=== PATIENT | female | born 1945 | race Caucasian/White ===

== ENCOUNTER → 2018-03-15 02:49 | Outpatient (CLI) | payer OTHER, SELFPAY ==
[2018-03-15 08:58] LABS: HCT 36.9 % (36.0-46.0); HGB 12.2 g/dL (12.0-15.5); Mean Corp. HGB Concentration 33.1 g/dL (32.0-36.0); Mean Corpuscular Hemoglobin 29.8 pg (27.0-33.0); Mean Corpuscular Volume 90.2 fL (80-95); Mean Platelet Volume 8.9 fL (8.0-11.0); Platelet Count 303 x1000/uL (130-400); RBC 4.09 m/cumm (4.00-5.20); RBC Distribution Width 13.5 % (11.7-14.6); White Blood Cell Count 7.12 k/cumm (4.4-10.8)
[2018-03-15 10:40] LABS: ALT 32 U/L (12-78); AST 21 U/L (15-37); Albumin 3.7 g/dL (3.4-5.0); Alkaline Phosphatase 62 U/L (46-116); Amylase 75 U/L (25-115); Anion Gap 10.3 mmol/L (3-11); BUN 13 mg/dL (7-18); Bilirubin, Total 0.2 mg/dL (0.2-1.0); CO2 24.7 mmol/L (21.0-32.0); CREATININE 0.62 mg/dL (0.55-1.02); Calcium 9.2 mg/dL (8.5-10.1); Chloride 99 mmol/L (98-107); Glucose 105 mg/dL (70-100); Lipase 197 U/L (73-393); Potassium 4.6 mmol/L (3.5-5.1); Sodium 134 mmol/L (136-145); Total Protein 6.7 g/dL (6.4-8.2)
== END ==
PROVIDERS: PCP Emergency Medicine; Visit Provider Emergency Medicine
DX: D64.9 Anemia, unspecified (principal); R10.9 Unspecified abdominal pain
CPT/HCPCS: 36415; 80053; 83690; 85027; 82150

== ENCOUNTER → 2018-03-30 01:04 | Outpatient (CLI) | payer OTHER, SELFPAY ==
--- NOTE | 2018-03-30 08:58 | DI.RPTCT_ITS ---
SYMPTOM/DIAGNOSIS: MID ABDOMINAL PAIN R10.[address]: 03/30 CT examination of the abdomen and pelvis was performed with a bolus infusion of 100 cc Omnipaque 350 and ingestion of dilute barium. Images obtained through the lung bases are unremarkable. Note is made of a previous cholecystectomy. No biliary dilatation is seen. Liver, spleen and pancreas are unremarkable in appearance. Adrenals and kidneys are unremarkable except for an apparent 15 mm left renal mid-pole cyst No hydronephrosis or nephrolithiasis. Urinary bladder is nearly empty. Abdominal aorta is of normal diameter. No major vascular abnormalities seen. Appendix is normal. No evidence of diverticulitis or bowel obstruction. No significant abdominal wall hernia is seen. No significant abdominal or pelvic adenopathy seen. CONCLUSION: No evidence of acute intra-abdominal process
[2018-03-30] MEDS: Omnipaque 350 MG/ML 100 ML BTL IJ (10:33)
[2018-03-30] MEDS: Omnipaque 350 MG/ML 50 ML BTL PO (10:34)
[2018-03-30] MEDS: Breeza Beverage 473 ML BTL PO ×2 (10:35)
== END ==
PROVIDERS: PCP Emergency Medicine; Visit Provider Emergency Medicine
DX: R10.9 Unspecified abdominal pain (principal); N28.1 Cyst of kidney, acquired; Z90.49 Acquired absence of other specified parts of digestive tract
CPT/HCPCS: 74177; J3490; Q9967

== ENCOUNTER 2018-04-16 11:42 | Emergency (ER) | payer OTHER, SELFPAY ==
[2018-04-16 11:56] VITALS: BP 155/79; PULSE 59; RESP 18; TEMP 36.4; O2SAT 99
--- NOTE | 2018-04-16 12:11 | DI.CT_ITS ---
SYMPTOMS/DIAGNOSIS: C7 MIDLINE PAIN, L4 PARASPINAL PAIN, S-2 MIDLINE PAIN S/P HITTING HEAD IN FALL NONCONTRAST HEAD CT: No intracranial hemorrhage or skull fracture is seen. The ventricles are normal in size. Sinuses and mastoid air cells appear clear. IMPRESSION: Negative head CT. CT OF THE CERVICAL SPINE: A cervical collar is in place. There is no evidence of fracture. The alignment appears normal. There are degenerative disc changes from C4-5 through C6-7. There is no paraspinal hematoma. IMPRESSION: Degenerative changes. No acute abnormality. CT OF THE THORACIC SPINE: There is no evidence of fracture. There is a mild lower thoracic scoliosis. Degenerative disc changes are seen. There is no paraspinal hematoma. IMPRESSION: Degenerative changes and scoliosis. No acute abnormality. CT OF THE LUMBAR SPINE: There is a prominent scoliosis, convex toward the right. There are severe degenerative disc changes, which are asymmetric, greatest at L3-4 and L4-5. No fracture is identified. Laminectomy defects are seen from L1 through L3. Calcification is seen in the aorta. There is no evidence of aneurysm. The patient is status post hysterectomy and cholecystectomy. IMPRESSION: Degenerative changes and scoliosis. L1 through L3 laminectomy. No acute abnormality.
--- NOTE | 2018-04-16 12:15 | W.ED.GENAD ---
Discharge Plan Disposition Patient Disposition: HOME Condition: Good Discharge Details Chief Complaint: Nk/Back Pain Clinical Impression: Fall, Contusion, Lumbago Primary Care Provider: Noe Clarke ED Provider: Rehan Quinteros Home Meds and New Rx's Prescriptions: New lidocaine [Lidoderm] 1 EACH adhesive patch,medicated 1 ea Topical DAILY Qty: 3 RF: 0 acetaminophen 500 mg capsule 1,000 mg PO Q6H PRN (Reason: pain) Qty: 30 RF: 0 diclofenac sodium [Voltaren] 1 % gel 2 gm TP QID Qty: 100 RF: 0 No Action ASPIRIN 81 MG tablet 1 tab PO 5X/WEEK RF: 0 cod liver oil 1 EACH capsule 1 cap PO 3X/WEEK RF: 0 calcium carbonate [Tums] 300 MG tablet,chewable 1 tab PO PRN RF: 0 glucosamine sulfate 500 MG capsule 1 cap PO TID RF: 0 multivitamin 1 EACH capsule 1 cap PO DAILY RF: 0 magnesium amino acid chelate 100 MG tablet 235 mg PO BID RF: 0 lancets [Brass MonkeyTouch Delica Lancets] 1 EACH misc 1 ea Intradermal BID Qty: 180 RF: 3 blood sugar diagnostic [fuseSPORTuch Ultra Test] 1 EACH strip 1 strip Miscellaneous BID Qty: 180 RF: 3 omeprazole 20 MG capsule,delayed release(DR/EC) 20 mg PO BID Qty: 180 RF: 4 Ubidecarenone/Vit E/Vit E Mix [Co-Enzyme Q10 100 mg Softgel] 1 EACH capsule 1 ea PO DAILY RF: 0 conjugated estrogens [Premarin] 30 GM cream 30 gm VG twice weekly Qty: 1 RF: 3 spironolactone [Aldactone] 25 MG tablet 25 mg PO DAILY Qty: 90 RF: 6 nitroglycerin [Nitrostat] 0.4 MG tablet, sublingual 1 tab Sublingual PRN Qty: 25 RF: 4 lorazepam [Ativan] 1 MG tablet 1 mg PO HS Qty: 30 RF: 1 metoprolol tartrate 50 MG tablet 50 mg PO BID Qty: 180 RF: 3 coenzyme [id number] [Co Q-10 (with Vit E)] 1 EACH capsule 1 ea PO DAILY RF: 0 metformin [Glucophage] 500 MG tablet 1 tab PO BID Qty: 180 RF: 4 amlodipine [Norvasc] 5 MG tablet 5 mg PO DAILY Qty: 90 RF: 4 losartan [Cozaar] 100 MG tablet 1 tab PO DAILY Qty: 90 RF: 4 rosuvastatin [Crestor] 10 MG tablet 1 tab PO DAILY Qty: 90 RF: 4 acetaminophen [Tylenol Extra Strength] 500 mg Tablet 1,000 mg PO PRN PRNRF: 0 Discharge Instructions Instructions: Low Back Strain (ED), Contusion in Adults (ED) Additional Instructions: Please take the medication as directed, please use ice and heat for your back. If you notice any numbness or tingling in her groin, any loss of control of your stools or urine, please return immediately. If you notice any worsening of your symptoms, or any new symptoms such as vomiting, diarrhea, fever, chills, shortness of breath, chest pain, numbness, weakness, or fainting , please return immediately to the emergency department for reevaluation. Please follow up with your primary care provider as soon as possible for reassessment and reevaluation. As always, it was a pleasure participating in your medical care today. Referrals: Noe Clarke DO [Primary Care Provider] - Medical Decision Making MDM Narrative Medical decision making narrative: This is a very pleasant 73-year-old female who presents after a fall. She has a long history of back cancer, scoliosis and chronic back pain. She presents today after falling, hitting her lower back and buttock, as well as her posterior head. She had no loss of consciousness. Physical exam demonstrates no neurologic abnormalities, good rectal tone, no saddle anesthesia. She does have some paraspinal tenderness for L3-L4, and midline tenderness for S1 as well as C7. Because of her history, red flags of cancer and age, as well as her fall we will get imaging to rule out any acute fracture abnormality. She shows no clinical signs or symptoms of cauda equina syndrome at this time. Patient refuses any ibuprofen or Toradol as it does not agree with her stomach, however we will give her Lidoderm patch for improvement of her symptoms. 2:55 PM Per virtual radiology the patient's edges have come back negative, CT scan of the head, C-spine, thoracic spine and lumbar spine extending to the pelvis demonstrates no evidence of acute abnormality, fracture, or trauma. She does have status post multilevel laminectomy with spondylolysis, and some chronic scoliosis as well. No other acute component. Repeat physical exam continues to demonstrate no findings of focal neurologic deficits, no signs or symptoms concerning for cauda equina syndrome. No significant urinary retention patient's pain is improved with Lidoderm patch. This time I feel that she is safe for discharge home with close follow-up. We will give her Lidoderm patches, prescription for Tylenol, NSAID creams, and avoid opiates narcotics and muscle relaxants at this time secondary to her age and risk factors. We discussed red flags which to return the patient understands. I have extensively reviewed the treatment plan and discharge instructions with the patient. I have addressed all patient concerns at this time. The patient was made aware of what symptoms to monitor for that would warrant a return to the emergency department. Discussed the plan with the patient, they demonstrate verbal understanding and agreement with our assessment and plan at this time. HPI - General Adult General Date/Time Provider Initiated Documentation: 04/16/18 11:57. 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 She presents today for evaluation of fall. She takes an aspirin 3 days a week. Patient states that she was walking on wet grass, slipped and her buttock landed on the wet grass, however her head hit the asphalt driveway in the posterior aspect. She had no loss of consciousness. She did need some help getting up. She has chronic back pain, and after the fall she is noticing notable worsening of the pain. She denies any bowel or bladder incontinence. She denies any saddle anesthesia. She denies any numbness tingling or weakness. Her back pain is located in her lower back and her neck. It is worsened with movement. She did take Tylenol at home this morning but this has not improved her symptoms. The fall happened roughly 1 hour prior to arrival. Patient denies any current headache, vision changes, vomiting, diarrhea, nausea. She has no other complaints at this time. She denies any pertinent family history. She denies any IV or illicit drug use. Related Data Home Medications Medication Instructions Recorded Confirmed Aspirin 1 tab PO 5X/WEEK 11/15/12 04/16/18 calcium carbonate [Tums] 1 tab PO PRN tab.chew 11/15/12 04/16/18 cod liver oil 1 cap PO 3X/WEEK 11/15/12 04/16/18 glucosamine sulfate 1 cap PO TID 11/15/12 04/16/18 multivitamin 1 cap PO DAILY 11/15/12 04/16/18 magnesium amino acid chelate 235 mg PO BID 04/10/14 04/16/18 Ubidecarenone/Vit E/Vit E Mix 1 ea PO DAILY 11/08/17 04/16/18 [Co-Enzyme Q10 100 mg Softgel] coenzyme [id number] [Co Q-10 1 ea PO DAILY 03/03/18 04/16/18 100 Mg Softgel] acetaminophen [Tylenol Extra 1,000 mg PO PRN PRN 04/16/18 04/16/18 Strength] Previous Rx's Medication Instructions Recorded acetaminophen 1,000 mg PO Q6H PRN #30 cap 04/16/18 diclofenac sodium [Voltaren] 2 gm TP QID #100 gm 04/16/18 lidocaine [Lidoderm] 1 ea TOPICAL DAILY #3 adh..patch 04/16/18 Allergies Allergy/AdvReac Type Severity Reaction Status Date / Time codeine Allergy Severe hives, Unverified 04/16/18 12:41 itching ranitidine AdvReac Intermediate DIARRHEA Unverified 04/16/18 12:41 JR Inhibitors AdvReac Mild COUGH Unverified 04/16/18 12:41 NSAIDS (Non-Steroidal AdvReac Mild GI upset Unverified 04/16/18 12:41 Anti-Inflamma atorvastatin AdvReac Unknown ELEVATED Unverified 04/16/18 12:41 LFT'S General Stated Complaint: Nk/Back Pain MYLES: 3 Review of Systems Review of Systems 10 point review of systems was performed, pertinent positives and negatives are noted in the history of present illness. PFSH Family History Mother Heart disease Cerebrovascular accident Father Diabetes Essential hypertension Heart disease Sister No problems noted. Sister No problems noted. Brother No problems noted. Grandfather No problems noted. Grandfather No problems noted. Grandmother Diabetes Grandmother Neoplasm Cerebrovascular accident Son Essential hypertension Daughter Heart disease Social History Smoking/Tobacco Use Status: Never Surgical History ABDOMINAL WALL HERNIA REPAIR (~2002) AORTIC BYPASS Abdominal hysterectomy (~1998) BSO Cholecystectomy Colonoscopy - MAC EGD - MAC (~2000) RECTOCELE REPAIR UROTOMY (~1998) Exam Narrative Exam Narrative: 1.Const: Well-nourished, Well-developed, appearing stated age 2.Eyes: PERRL, no conjunctival injection, and symmetrical lids. 3.ENT: Atraumatic external nose and ears. Moist MM. Neck: Symmetric, trachea midline, No thyromegaly. Patient demonstrates intact dentition with no signs of tooth avulsion or fracture, no signs of jaw deformity, no evidence of a LeFort's fracture, with an intact palate, nose and orbital region. There is no evidence of a nasal septal hematoma. No proptosis. Jaw closes symmetrically. Airway is clear. There is no evidence of raccoon eyes, thompson sign, CSF rhinorrhea, mastoid tenderness, cranial crepitus, hemotympanum, exophthalmos, or hyphema. 4.CVS: +S1/S2, No murmurs or gallops. Peripheral pulses 2+ and equal in all extremities. Brisk capillary refill in all extremities. No evidence of trauma or bruising on the chest. No tenderness on the anterior posterior chest winters. 5.RESP: Unlabored respiratory effort. Clear to auscultation bilaterally. No wheezes rales or rhonchi 6.GI: Soft, Nontender/Nondistended, No hepatosplenomegaly. No guarding or rebound. 7.MSK: Normocephalic/Atraumatic, Extremities w/o deformity, Normal movement of all extremities. Negative logroll for both lower extremities. 5 out of 5 strength in all extremities. No midline tenderness to palpation over the CTLS spine except for over C7. She also has minimal right-sided paraspinal tenderness over L3/L4, and midline sacral spine tenderness over S1. Normal ROM in flexion, extension, side bend, and rotation. Patient has +5 out of 5 strength in the lower extremities in dorsiflexion and plantarflexion, knee flexion and extension, hip flexion and extension. There is +2 over 2 dorsalis pedis pulses bilaterally. There is normal sensation to the skin with light touch at the foot, knee, and hip. Normal saddle sensation. Good sensation over the deep sural nerve area bilaterally. Rectal exam was performed with female nurse at bedside and she demonstrated good rectal. Reflexes are +2 over 4 in the patellar reflex bilaterally. +5 out of 5 strength in the medial, ulnar, radial nerve distribution bilaterally in the hands as well as intact light touch sensation to these dermatomes on the hands 8.Skin: Warm, Dry. No rashes or lesions. 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 Sensation grossly intact, no focal neurologic deficits. 10.Psych: (AAO) x3. Appropriate mood and affect Course Vital Signs Temperature 36.4 C L 04/16/18 11:56 Pulse 59 L 04/16/18 11:56 Respiratory Rate 18 04/16/18 11:56 Blood Pressure 155/79 H 04/16/18 11:56 Pulse Oximetry 99 04/16/18 11:56 Temperature 36.4 C L 04/16/18 11:56 Pulse 59 L 04/16/18 11:56 Respiratory Rate 18 04/16/18 11:56 Blood Pressure 155/79 H 04/16/18 11:56 Pulse Oximetry 99 04/16/18 11:56
[2018-04-16] MEDS: Lidocaine 5% Patch 1 PATCH TP (12:39)
--- NOTE | 2018-04-16 13:40 | DI.VRAD_ITS ---
EXAM: CT Head Without Intravenous Contrast CLINICAL HISTORY: 73 years old, female; Injury or trauma; Fall; Initial encounter; Blunt trauma (contusions or hematomas); Patient HX: Fall on wet grass, hit head; C7 midline pain, l4 pain, s1/s2 midline pain TECHNIQUE: Axial computed tomography images of the head/brain without intravenous contrast. Coronal and sagittal reformatted images were created and reviewed. COMPARISON: No relevant prior studies available. FINDINGS: Brain: There is mild cortical volume loss, typical for age. No hemorrhage. No significant white matter disease. Ventricles: Unremarkable. No ventriculomegaly. Bones/joints: Unremarkable. No acute fracture. Soft tissues: Unremarkable. Sinuses: Unremarkable as visualized. No acute sinusitis. Mastoid air cells: Unremarkable as visualized. No mastoid effusion. IMPRESSION: No evidence for acute intracranial abnormality. EXAM: CT Cervical Spine Without Intravenous Contrast EXAM DATE/TIME: 04/16/2018 12:17 PM CLINICAL HISTORY: 73 years old, female; Injury or trauma; Fall; Initial encounter; Blunt trauma (contusions or hematomas); Patient HX: Fall on wet grass, hit head; C7 midline pain, l4 pain, s1/s2 midline pain TECHNIQUE: Axial computed tomography images of the cervical spine without intravenous contrast. Coronal and sagittal reformatted images were created and reviewed. COMPARISON: No relevant prior studies available. FINDINGS: Vertebrae: Cervical spondylosis without evidence for stenosis. No acute fracture. Discs/spinal canal/neural foramina: No acute findings. No spinal canal stenosis. Soft tissues: Unremarkable. Vasculature: Carotid calcifications are identified bilaterally. Lung apices: Unremarkable as visualized. IMPRESSION: No evidence for acute posttraumatic abnormality. Preliminary interpretation is based on receipt of 896 image(s). A final report will be issued subsequently. We appreciate the opportunity to be involved in this patient's care. Dictated and Authenticated by: Kendra Lawson MD. Ordering:JOHAN MCELROY MD
--- NOTE | 2018-04-16 13:48 | DI.VRAD_ITS ---
EXAM: CT Thoracic Spine Without Intravenous Contrast CLINICAL HISTORY: 73 years old, female; Injury or trauma; Fall; Initial encounter; Blunt trauma (contusions or hematomas); Patient HX: Fell on wet grass, hit head; L4 paraspinal pain, s1-2 midline pain TECHNIQUE: Axial computed tomography images of the thoracic spine without intravenous contrast. Coronal and sagittal reformatted images were created and reviewed. COMPARISON: No relevant prior studies available. FINDINGS: Vertebrae: Moderate thoracic spondylosis. No evidence for stenosis. No acute fracture. Discs/spinal canal/neural foramina: No acute findings. No spinal canal stenosis. Soft tissues: Unremarkable. Vasculature: Moderate atherosclerotic change present in the vasculature. Lungs: Right upper lobe calcified granuloma. Heart: Coronary artery calcification/stents. Gallbladder and bile ducts: Status post cholecystectomy. IMPRESSION: No acute fracture seen. EXAM: CT Lumbar Spine Without Intravenous Contrast EXAM DATE/TIME: 04/16/2018 12:14 PM CLINICAL HISTORY: 73 years old, female; Injury or trauma; Fall; Initial encounter; Blunt trauma (contusions or hematomas); Patient HX: Fell on wet grass, hit head; L4 paraspinal pain, s1-2 midline pain TECHNIQUE: Axial computed tomography images of the lumbar spine without intravenous contrast. COMPARISON: No relevant prior studies available. FINDINGS: Vertebrae: There is mild dextroscoliosis. Moderate to severe spondylosis. No evidence for stenosis. Status post laminectomy L1-L3. No acute fracture. Discs/spinal canal/neural foramina: No acute findings. No spinal canal stenosis. Soft tissues: Unremarkable. Vasculature: Moderate atherosclerotic change present in the vasculature. Gallbladder and bile ducts: Status post cholecystectomy. Reproductive: Status post hysterectomy. IMPRESSION: Status post multilevel laminectomy with spondylosis. No evidence for fracture. Preliminary interpretation is based on receipt of 1894 image(s). A final report will be issued subsequently. We appreciate the opportunity to be involved in this patient's care. Dictated and Authenticated by: Kendra Lawson MD. Ordering:JOHAN MCELROY MD
[2018-04-16 14:40] VITALS: BP 154/69; RESP 15
[2018-04-16 15:10] VITALS: BP 154/69; PULSE 59; RESP 15; TEMP 36.4; O2SAT 99
== END 2018-04-16 15:14 | disposition home or self-care (01) ==
PROVIDERS: Emergency Provider Student in an Organized Health Care Education/Training Program; PCP Emergency Medicine
DX: M54.5 Low back pain (principal); S30.0XXA Contusion of lower back and pelvis, initial encounter; M54.2 Cervicalgia; W18.39XA Other fall on same level, initial encounter; E11.9 Type 2 diabetes mellitus without complications; I10 Essential (primary) hypertension
CPT/HCPCS: 36416; 82962; 99284; 70450; 72125; 72128; 72131; 99285; L0172

== ENCOUNTER 2018-04-24 10:41 | Emergency (ER) | payer OTHER, SELFPAY ==
[2018-04-24 10:56] VITALS: BP 151/81; PULSE 62; RESP 16; TEMP 36.6; O2SAT 99
[2018-04-24] MEDS: Celecoxib 200 MG CAP 400 MG PO (11:49)
--- NOTE | 2018-04-24 12:49 | ED.GENADUL_ITS ---
Discharge Plan Disposition Patient Disposition: HOME Condition: Fair Discharge Details Chief Complaint: Orthopedic Clinical Impression: Back pain Primary Care Provider: Noe Clarke ED Provider: Mayuri Yusuf Meds and New Rx's Prescriptions: New metaxalone [Skelaxin] 800 mg tablet 800 mg PO TID PRN (Reason: muscle spasm) Qty: 10 RF: 0 celecoxib [Celebrex] 200 mg capsule 200 mg PO BID PRN (Reason: pain) Qty: 14 RF: 0 Continue ASPIRIN 81 MG tablet 1 tab PO 5X/WEEK RF: 0 cod liver oil 1 EACH capsule 1 cap PO 3X/WEEK RF: 0 calcium carbonate [Tums] 300 MG tablet,chewable 1 tab PO PRN RF: 0 glucosamine sulfate 500 MG capsule 1 cap PO TID RF: 0 multivitamin 1 EACH capsule 1 cap PO DAILY RF: 0 magnesium amino acid chelate 100 MG tablet 235 mg PO BID RF: 0 omeprazole 20 MG capsule,delayed release(DR/EC) 20 mg PO BID Qty: 180 RF: 4 Ubidecarenone/Vit E/Vit E Mix [Co-Enzyme Q10 100 mg Softgel] 1 EACH capsule 1 ea PO DAILY RF: 0 conjugated estrogens [Premarin] 30 GM cream 30 gm VG twice weekly Qty: 1 RF: 3 spironolactone [Aldactone] 25 MG tablet 25 mg PO DAILY Qty: 90 RF: 6 nitroglycerin [Nitrostat] 0.4 MG tablet, sublingual 1 tab Sublingual PRN Qty: 25 RF: 4 lorazepam [Ativan] 1 MG tablet 1 mg PO HS Qty: 30 RF: 1 metoprolol tartrate 50 MG tablet 50 mg PO BID Qty: 180 RF: 3 metformin [Glucophage] 500 MG tablet 1 tab PO BID Qty: 180 RF: 4 amlodipine [Norvasc] 5 MG tablet 5 mg PO DAILY Qty: 90 RF: 4 losartan [Cozaar] 100 MG tablet 1 tab PO DAILY Qty: 90 RF: 4 rosuvastatin [Crestor] 10 MG tablet 1 tab PO DAILY Qty: 90 RF: 4 lancets [OneTouch Delica Lancets] 33 gauge misc 1 ea Intradermal BID Qty: 180 RF: 3 blood sugar diagnostic [DatoramaTouch Ultra Blue Test Strip] strip .ROUTE .MEDSUPPLY Qty: 100 RF: 3 lancets [OneTouch Delica Lancets] 33 gauge misc .ROUTE .MEDSUPPLY Qty: 100 RF: 6 acetaminophen [Tylenol Extra Strength] 500 mg Tablet 1,000 mg PO PRN PRNRF: 0 lidocaine [Lidoderm] 1 EACH adhesive patch,medicated 1 ea Topical DAILY Qty: 3 RF: 0 acetaminophen 500 mg capsule 1,000 mg PO Q6H PRN (Reason: pain) Qty: 30 RF: 0 diclofenac sodium [Voltaren] 1 % gel 2 gm TP QID Qty: 100 RF: 0 No Action blood sugar diagnostic [OneTouch Ultra Test] strip 1 strip Miscellaneous BID Qty: 180 RF: 0 Discharge Instructions Instructions: Back Pain (ED), Lower Back Exercises (ED) Additional Instructions: Encourage hydration. Take Celebrex as prescribed, this is an anti-inflammatory but should not upset her stomach the way ibuprofen has. He may use Skelaxin as prescribed to help with muscle spasm. This may cause fatigue, please do not drive while taking this medication. Please encourage stretching, see attached packet for core exercises. Frequent short walks will also be of benefit to help with muscle spasm. Please follow-up with chiropractor. I have asked her care according to help facilitate follow-up with primary care. Please attempt to call them again, would like you to be seen at the end of the week for reevaluation. If you develop altered sensation, fever/chills, increased pain, difficulty ambulating or other new/worsening symptoms please seek care urgently once again Referrals: Noe Clarke DO [Primary Care Provider] - Discharge Data Discharge Date/Time-TO BE ENTERED AT DEPARTURE: 04/24/18 13:15 Medical Decision Making [facility] Narrative Medical decision making narrative: Patient presents today with cc of right lower back and right hip pain after a fall one week ago. On exam, patient has pain along the right side of her lower back, fairly diffusely. She has pain laterally over the hip with palpation. She was reporting clicking with ambuation but has no pain or clicking with axial loading of the extremity. Advised this is likely extraarticular, likely stemming from inflammation. Patient is allergic to NSAIDS as it causes GI upset. Discussed the use of Celebrex, she reports she has used this with success in the past. Will give dose of Skelaxin and Celebrex here and reevaluate. She does have palpable spasm over the right side of her lower back. Neuro exam intact. Patient was given Skelaxin and Celebrex. After dosing, reassess the patient. She continues to deny any unusual neurologic symptoms. Were able to ambulate about the department and she was able to do so without antalgic gait, reports no clicking and only minimal discomfort. . She reports her pain is down from 8 out of 10 to a 2 out of 10. Is feeling much improved and feels she can be discharged home at this time. We will continue with these medications. Advised follow-up with primary care. This patient has had difficulty making appointment, I will also According to help facilitate this. Encourage hydration. Encouraged him to do stretching and frequent ambulation. I advised physical therapy but patient has declined physical therapy referral at this time. Feels that she has better relief with rn intensive care unit. She will seek the care of her typical chiropractor today. Discussed new/worsening symptoms and when to seek care urgently once again. Patient prescribed celebrex and skelaxin. She did not experience any fatigue with the skelaxin. All of her questions and concerns were addressed, she is in agreement with this plan. HPI - General Adult General Mode of arrival: ambulatory . Date/Time Provider Initiated Documentation: 04/24/18 11:05 . Limitations to Documentation: no limitations . Information obtained by: patient and family . HPI Narrative: Meg is a 73 year old female, accompanied by her , with chief complaint of right hip pain and low back pain. Was seen here last week after fall for pain in similar area. Reports that pain has persisted. Was prescribed topical options for discomfort which she reports has not been successful as of yet. Is also endorsing 'clicking' from the right hip with ambulation. She indication the lateral and posterior aspects of the hip as area of discomfort and new sensation. Denies any altered senstiaon. No change in bowel or bladder habits. No weakness in lower extremities. Related Data Home Medications Medication Instructions Recorded Confirmed Aspirin 1 tab PO 5X/WEEK 11/15/12 04/24/18 calcium carbonate [Tums] 1 tab PO PRN tab.chew 11/15/12 04/24/18 cod liver oil 1 cap PO 3X/WEEK 11/15/12 04/24/18 glucosamine sulfate 1 cap PO TID 11/15/12 04/24/18 multivitamin 1 cap PO DAILY 11/15/12 04/24/18 magnesium amino acid chelate 235 mg PO BID 04/10/14 04/24/18 Ubidecarenone/Vit E/Vit E Mix 1 ea PO DAILY 11/08/17 04/24/18 [Co-Enzyme Q10 100 mg Softgel] acetaminophen [Tylenol Extra 1,000 mg PO PRN PRN 04/16/18 04/24/18 Strength] lancets [OneTouch Delica Lancets] #180 ea 04/21/18 Previous Rx's Medication Instructions Recorded omeprazole 20 mg PO BID #180 tab-cap 05/13/17 conjugated estrogens [Premarin] 30 gm VG twice weekly #1 tube 11/08/17 nitroglycerin [Nitrostat] 1 tab SUBLINGUAL PRN #25 tab.sl 12/02/17 spironolactone [Aldactone] 25 mg PO DAILY #90 tab-cap 12/02/17 lorazepam [Ativan] 1 mg PO HS #30 tab 01/03/18 metoprolol tartrate 50 mg PO BID #180 tab-cap 01/24/18 metformin [Glucophage] 1 tab PO BID #180 tab 03/21/18 amlodipine [Norvasc] 5 mg PO DAILY #90 tab-cap 03/24/18 losartan [Cozaar] 1 tab PO DAILY #90 tab 03/24/18 rosuvastatin [Crestor] 1 tab PO DAILY #90 tab 03/24/18 acetaminophen 1,000 mg PO Q6H PRN #30 cap 04/16/18 diclofenac sodium [Voltaren] 2 gm TP QID #100 gm 04/16/18 lidocaine [Lidoderm] 1 ea TOPICAL DAILY #3 adh..patch 04/16/18 blood sugar diagnostic strips #100 each 04/21/18 lancets 33 gauge #100 each 04/21/18 celecoxib [Celebrex] 200 mg PO BID PRN #14 cap 04/24/18 metaxalone [Skelaxin] 800 mg PO TID PRN #10 tab 04/24/18 blood sugar diagnostic strips #180 strip 04/25/18 Allergies Allergy/AdvReac Type Severity Reaction Status Date / Time codeine Allergy Severe hives, Unverified 04/24/18 11:00 itching ranitidine AdvReac Intermediate DIARRHEA Unverified 04/24/18 11:00 JR Inhibitors AdvReac Mild COUGH Unverified 04/24/18 11:00 NSAIDS (Non-Steroidal AdvReac Mild GI upset Unverified 04/24/18 11:00 Anti-Inflamma atorvastatin AdvReac Unknown ELEVATED Unverified 04/24/18 11:00 LFT'S General Stated Complaint: Orthopedic MYLES: 3 Review of Systems Constitutional Reports as per HPI, Denies chills, Denies fatigue, Denies fever(s) and Denies headache(s) ENT Denies headache(s) Cardiovascular Denies chest pain, Denies dyspnea and Denies dyspnea on exertion Respiratory Denies cough, Denies dyspnea and Denies dyspnea on exertion Gastrointestinal Denies abdominal pain, Denies change in stool character and Denies vomiting Genitourinary Denies urinary incontinence Musculoskeletal Reports as per HPI and Denies tingling Integumentary/Breasts Denies lesions, Denies erythema, Denies rash, Denies unusual bruising and Denies wounds Neurologic Reports as per HPI, Denies headache(s), Denies lack of coordination, Denies focal weakness, Denies radicular pain, Denies tingling and Denies paresthesias Endocrine Denies fatigue PFSH Family History Mother Heart disease Cerebrovascular accident Father Diabetes Essential hypertension Heart disease Sister No problems noted. Sister No problems noted. Brother No problems noted. Grandfather No problems noted. Grandfather No problems noted. Grandmother Diabetes Grandmother Neoplasm Cerebrovascular accident Son Essential hypertension Daughter Heart disease Social History Smoking/Tobacco Use Status: Never Surgical History ABDOMINAL WALL HERNIA REPAIR (~2002) AORTIC BYPASS Abdominal hysterectomy (~1998) BSO Cholecystectomy Colonoscopy - MAC EGD - MAC (~2000) RECTOCELE REPAIR UROTOMY (~1998) Exam Const General: cooperative, healthy appearing, comfortable, no acute distress, well developed and well groomed Nutritional Appearance: average body habitus Orientation: alert and awake Neck Neck: normal visual inspection Resp Effort & Inspection: normal respiratory effort, able to speak in complete sentences and no respiratory distress Auscultation: clear to auscultation bilaterally Cardio Rate: regular rate Rhythm: regular rhythm Heart Sounds: S1 normal and S2 normal GI Inspection: normal to inspection and non-distended Palpation: soft, no guarding and nontender Back/Spine/Pelvis Back: no CVA tenderness Cervical Spine: normal cervical lordosis and cervical ROM normal Thoracic/Lumbar Spine: No thoracic and lumbar spine normal to inspection ( patient has discomfort across the lumbar spine, worse on the right side than the left. She has tenderness over the area of L3. No step off. Patient has notable scoliosis. No midline tenderness elsewhere. No discoloration. Pain maximal over right iliac crest. ), thoraco-lumbar ROM normal, straight leg raise negative bilaterally and No mass Pelvis: no pain with anterior-posterior compression and no pain with lateral compression Sacroiliac joints: on the right tender to palpation Skin General skin exam: no rashes or lesions noted Lesions: no lesions Rashes: no rashes Trauma: no lacerations or abrasions Neuro General: alert, awake and oriented x3 Cognition: normal cognition Speech: speech normal Gait: normal gait Motor: muscle tone normal throughout and strength 5/5 throughout Sensory Exam: no sensory deficits noted (no saddle paresthesias) DTR's: Rt Patellar: 2+, Lt Patellar: 2+, Rt Ankle: 2+ and Lt Ankle: 2+ Extrem General: normal to inspection, full ROM (patient has full ROM of the right hip but has discomfort posteriorly with crossing leg across the body. No pain with axial loading of the RLE. She has pain with palpation laterally over the trochanteric bursitis), normal capillary refill, no joint enlargement, no pedal edema, no calf tenderness and normal gait Psych Appearance: grossly normal and well kempt Mental Status: mental status grossly normal Speech and Movement: speech and movement normal Course Vital Signs Temperature 36.6 C 04/24/18 10:56 Pulse 62 04/24/18 10:56 Respiratory Rate 16 04/24/18 10:56 Blood Pressure 151/81 H 04/24/18 10:56 Pulse Oximetry 99 04/24/18 10:56 Temperature 36.6 C 04/24/18 10:56 Pulse 62 04/24/18 10:56 Respiratory Rate 16 04/24/18 10:56 Blood Pressure 151/81 H 04/24/18 10:56 Pulse Oximetry 99 04/24/18 10:56
--- NOTE | 2018-04-25 09:29 | CMPROGNOTE_ITS ---
Care Management Progress Note 04/24/18-Pt seen on 04/24/18 for back pain by SH[facility] Hodgson. This is pt's second visit. F/U referral for this week sent to [facility] as Dr. Neda Clarke is Pt's PCP.
== END 2018-04-24 13:15 | disposition home or self-care (01) ==
PROVIDERS: Emergency Provider Physician Assistant; PCP Emergency Medicine
DX: M54.5 Low back pain (principal); M25.551 Pain in right hip; Z88.8 Allergy status to other drugs, medicaments and biological substances
CPT/HCPCS: 99283

== ENCOUNTER 2018-05-15 00:13 | Outpatient (CLI) | payer OTHER, SELFPAY ==
--- NOTE | 2018-05-15 11:50 | DI.MAMMO_ITS ---
SYMPTOM/DIAGNOSIS: SCREENING, Z12.31 MAMMOGRAMS: Mammograms were interpreted according to the usual protocol including computer analysis with CAD system, tomosynthesis and C view imaging. Comparison with prior examinations. Breast density B. No masses or microcalcifications are seen. There is nothing to suggest malignancy. IMPRESSION: Negative mammogram. Routine screening is recommended. Category I. MQSA ASSESSMENT OF FINDINGS: Negative. Category 1. Patient will receive a letter notifying them of these results. BI-RADS category B. There are scattered areas of fibroglandular density.
== END 2018-05-15 00:33 ==
PROVIDERS: PCP Emergency Medicine; Visit Provider Nurse Practitioner Family
DX: Z12.31 Encounter for screening mammogram for malignant neoplasm of breast (principal)
CPT/HCPCS: 77063; 77067

== ENCOUNTER 2018-05-22 08:34 | Emergency (ER) | payer OTHER, SELFPAY ==
[2018-05-22] VITALS (23 sets, daily range): BP systolic 84–157; BP diastolic 42–81; PULSE 62–76; RESP 10–23; TEMP 36.4–37.1; O2SAT 96–100
--- NOTE | 2018-05-22 08:30 | DI.RAD_ITS ---
SYMPTOMS/DIAGNOSIS: CEREBROVASCULAR ACCIDENT PA AND LATERAL CHEST: The heart is not enlarged. There are multiple mediastinal vascular clips and sternal sutures consistent with previous CABG surgery. The lungs are clear. No pleural effusions seen. CONCLUSION: No evidence of acute disease.
--- NOTE | 2018-05-22 08:32 | DI.CT_ITS ---
SYMPTOMS/DIAGNOSIS: LEFT-SIDED WEAKNESS, UNSTEADINESS CRANIAL CT: Noncontrast cranial CT was performed. There is mild generalized cerebral atrophy. No evidence of acute intracranial hemorrhage, mass effect or midline shift. Orbital and temporal bone structures appear intact. Paranasal sinuses and mastoid air cells are clear as visualized. CONCLUSION: No evidence of acute intracranial process.
[2018-05-22 09:29] LABS: Abs Immature Grans 0.02 k/cumm (0.0-0.09); Absolute Basophil Count 0.04 k/cumm (0.0-0.2); Absolute Eosinophil Count 0.12 k/cumm (0.0-0.7); Absolute Lymphocyte Count 1.29 k/cumm (1.2-3.4); Absolute Monocyte Count 0.75 k/cumm (0.11-0.7); Absolute Neutrophil Count 7.67 k/cumm (1.2-6.7); Basophils % 0.4; Eosinophils % 1.2; HCT 39.1 % (36.0-46.0); HGB 13.1 g/dL (12.0-15.5); Immature Grans % 0.2; Mean Corp. HGB Concentration 33.5 g/dL (32.0-36.0); Mean Corpuscular Hemoglobin 29.7 pg (27.0-33.0); Mean Corpuscular Volume 88.7 fL (80-95); Mean Platelet Volume 8.9 fL (8.0-11.0); Monocytes % 7.6; Neutrophils % 77.6; Platelet Count 259 x1000/uL (130-400); RBC 4.41 m/cumm (4.00-5.20); RBC Distribution Width 13.1 % (11.7-14.6); White Blood Cell Count 9.89 k/cumm (4.4-10.8)
--- NOTE | 2018-05-22 09:35 | W.ED.GENAD ---
Discharge Plan Disposition Patient Disposition: HOME Condition: Improving Discharge Details Chief Complaint: CVA/TIA Clinical Impression: TIA (transient ischemic attack) Primary Care Provider: Noe Clarke ED Provider: Bi Oliva Home Meds and New Rx's Prescriptions: New clopidogrel [Plavix] 75 mg tablet 75 mg PO DAILY Qty: 30 RF: 0 Continue cod liver oil 1 EACH capsule 1 cap PO 3X/WEEK RF: 0 calcium carbonate [Tums] 300 MG tablet,chewable 1 tab PO PRN RF: 0 glucosamine sulfate 500 MG capsule 1 cap PO TID RF: 0 multivitamin 1 EACH capsule 1 cap PO DAILY RF: 0 magnesium amino acid chelate 100 MG tablet 235 mg PO BID RF: 0 omeprazole 20 MG capsule,delayed release(DR/EC) 20 mg PO BID Qty: 180 RF: 4 Ubidecarenone/Vit E/Vit E Mix [Co-Enzyme Q10 100 mg Softgel] 1 EACH capsule 1 ea PO DAILY RF: 0 conjugated estrogens [Premarin] 30 GM cream 30 gm VG twice weekly Qty: 1 RF: 3 spironolactone [Aldactone] 25 MG tablet 25 mg PO DAILY Qty: 90 RF: 6 nitroglycerin [Nitrostat] 0.4 MG tablet, sublingual 1 tab Sublingual PRN Qty: 25 RF: 4 lorazepam [Ativan] 1 MG tablet 1 mg PO HS Qty: 30 RF: 1 metoprolol tartrate 50 MG tablet 50 mg PO BID Qty: 180 RF: 3 metformin [Glucophage] 500 MG tablet 1 tab PO BID Qty: 180 RF: 4 blood sugar diagnostic [OneTouch Ultra Blue Test Strip] strip .ROUTE .MEDSUPPLY Qty: 100 RF: 3 lancets [OneTouch Delica Lancets] 33 gauge misc .ROUTE .MEDSUPPLY Qty: 100 RF: 6 blood sugar diagnostic [OneTouch Ultra Test] strip 1 strip Miscellaneous BID Qty: 180 RF: 0 amlodipine [Norvasc] 5 mg tablet 5 mg PO DAILY Qty: 90 RF: 4 lancets [OneTouch Delica Lancets] 33 gauge misc 1 ea Intradermal BID Qty: 180 RF: 3 losartan [Cozaar] 100 mg tablet 100 mg PO DAILY Qty: 90 RF: 4 rosuvastatin [Crestor] 10 mg tablet 10 mg PO DAILY Qty: 90 RF: 4 acetaminophen [Tylenol Extra Strength] 500 mg Tablet 1,000 mg PO PRN PRNRF: 0 lidocaine [Lidoderm] 1 EACH adhesive patch,medicated 1 ea Topical DAILY Qty: 3 RF: 0 acetaminophen 500 mg capsule 1,000 mg PO Q6H PRN (Reason: pain) Qty: 30 RF: 0 diclofenac sodium [Voltaren] 1 % gel 2 gm TP QID Qty: 100 RF: 0 metaxalone [Skelaxin] 800 mg tablet 800 mg PO TID PRN (Reason: muscle spasm) Qty: 10 RF: 0 celecoxib [Celebrex] 200 mg capsule 200 mg PO BID PRN (Reason: pain) Qty: 14 RF: 0 Discontinued ASPIRIN 81 MG tablet 1 tab PO 5X/WEEK RF: 0 Discharge Instructions Instructions: Transient Ischemic Attack (ED) Additional Instructions: Your CAT scan, angiogram, MRI of the brain were reassuring. I discussed her case with our neurologist, Dr. Quintero who will see you in follow-up. She took your name and will arrange for an appointment. The office number is [phone]. Stop aspirin. Begin Plavix once daily tomorrow. Follow-up with respiratory therapy for Zio patch as discussed with them and for an outpatient echocardiogram which will be scheduled. we will arrange for a follow-up appointment primary care clinic once these tests have been completed Medical Decision Making 73-year-old female presents emergency department with complaint of waking up this morning with left arm tingling. She has diminished sensation on exam and will display discrete difficulty with finger to nose testing the left upper extremity. There is diagnosis includes acute hemorrhagic versus ischemic stroke. Patient referred for stat CT scan of the head, chest x-ray, laboratory testing. Patient's initial diagnostics were reassuring with unremarkable CT scan. Her symptoms improved over the course of approximately 2 hours time. She was given a full-strength aspirin. Given the concern for ischemic insult, patient underwent MRI of the brain. This did not show any abnormal findings. The case was discussed with Dr. Quintero and per her recommendations I proceeded to obtain an unremarkable CT angiogram of the head and neck as well as arranged patient to have outpatient monitoring with Zio Patch, and follow-up echocardiogram. She will be seen in neurology clinic for follow-up. Patient recommended to initiate Plavix therapy with 300 mg initial loading and 75 mg daily. She has had trouble with intolerance of aspirin in the past and therefore we will place her on single antiplatelet therapy with Plavix. She will discontinue the already prescribed aspirin. Lab Data Lab results reviewed: Yes I reviewed the patient's lab results. Laboratory Tests Range/Units 05/22/18 05/22/18 05/22/18 09:16 09:16 09:16 WBC (4.4-10.8) k/cumm RBC (4.00-5.20) m/cumm Hgb (12.0-15.5) g/dL Hct (36.0-46.0) % MCV (80-95) fL MCH (27.0-33.0) pg MCHC (32.0-36.0) g/dL RDW (11.7-14.6) % Plt Count (130-400) x1000/uL MPV (8.0-11.0) fL Immature Gran % Neutrophils % Lymphocytes % Monocytes % Eosinophils % Basophils % Absolute Neutrophils (1.2-6.7) k/cumm Absolute Lymphocytes (1.2-3.4) k/cumm Absolute Monocytes (0.11-0.7) k/cumm Absolute Eosinophils (0.0-0.7) k/cumm Absolute Basophils (0.0-0.2) k/cumm PT (9.3-10.8) sec 9.3 INR (1.0-3.5) 1.0 Sodium (136-145) mmol/L 135 L Potassium (3.5-5.1) mmol/L 4.3 Chloride (98-107) mmol/L 99 Carbon Dioxide (21.0-32.0) mmol/L 26.0 Anion Gap (3-11) mmol/L 10.0 BUN (7-18) mg/dL 13 Creatinine (0.55-1.02) mg/dL 0.62 Estimated GFR/1.73 m2 (mL/min/1.73m2) >= 60.00 Glucose (70-100) mg/dL 123 H Calcium (8.5-10.1) mg/dL 9.5 Magnesium (1.8-2.4) mg/dL 2.2 Total Bilirubin (0.2-1.0) mg/dL 0.3 0.3 Conjugated Bilirubin (0.00-0.20) mg/dL 0.07 AST (15-37) U/L 22 22 ALT (12-78) U/L 28 28 Alkaline Phosphatase (46-116) U/L 64 65 Troponin I (0.00-0.06) ng/mL 0.02 Total Protein (6.4-8.2) g/dL 7.5 7.5 Albumin (3.4-5.0) g/dL 3.7 3.7 Range/Units 05/22/18 09:16 WBC (4.4-10.8) k/cumm 9.89 RBC (4.00-5.20) m/cumm 4.41 Hgb (12.0-15.5) g/dL 13.1 Hct (36.0-46.0) % 39.1 MCV (80-95) fL 88.7 MCH (27.0-33.0) pg 29.7 MCHC (32.0-36.0) g/dL 33.5 RDW (11.7-14.6) % 13.1 Plt Count (130-400) x1000/uL 259 MPV (8.0-11.0) fL 8.9 Immature Gran % 0.2 Neutrophils % 77.6 Lymphocytes % 13.0 Monocytes % 7.6 Eosinophils % 1.2 Basophils % 0.4 Absolute Neutrophils (1.2-6.7) k/cumm 7.67 H Absolute Lymphocytes (1.2-3.4) k/cumm 1.29 Absolute Monocytes (0.11-0.7) k/cumm 0.75 H Absolute Eosinophils (0.0-0.7) k/cumm 0.12 Absolute Basophils (0.0-0.2) k/cumm 0.04 PT (9.3-10.8) sec INR (1.0-3.5) Sodium (136-145) mmol/L Potassium (3.5-5.1) mmol/L Chloride (98-107) mmol/L Carbon Dioxide (21.0-32.0) mmol/L Anion Gap (3-11) mmol/L BUN (7-18) mg/dL Creatinine (0.55-1.02) mg/dL Estimated GFR/1.73 m2 (mL/min/1.73m2) Glucose (70-100) mg/dL Calcium (8.5-10.1) mg/dL Magnesium (1.8-2.4) mg/dL Total Bilirubin (0.2-1.0) mg/dL Conjugated Bilirubin (0.00-0.20) mg/dL AST (15-37) U/L ALT (12-78) U/L Alkaline Phosphatase (46-116) U/L Troponin I (0.00-0.06) ng/mL Total Protein (6.4-8.2) g/dL Albumin (3.4-5.0) g/dL ECG Data Attestation: I personally reviewed and interpreted this ECG (s) as follows: Interpretation: Normal sinus rhythm, rate of 64, no ST segment elevation is present. HPI General Mode of arrival: EMS. Date/Time Provider Initiated Documentation: 05/22/18 09:35. Limitations to Documentation: no limitations. Information obtained by: patient and family. History of Present Illness 73 year old F presents to the emergency department with the chief complaint of Left arm tingling, described as moderate, Quality is described as dull, and is localized to the left and upper extremity. Patient reports no radiation. Patient started experiencing this hour(s) and it has been constant. No relieving factors improve symptom(s), No exacerbating factors reported . Patient notes no other symptoms.. HPI Narrative: This is a 73-year-old female with a history of coronary artery disease, hypertension, diabetes, who presents with complaint of going to bed feeling normal last night, waking this morning feeling her left arm was tingling. This is a slight diminished sensation. There was no motor weakness. She did not have facial droop, difficulty with speaking, and denies to me dizziness or gait instability. She states that the left arm tingling has been constant. No exacerbating or ameliorating factors. She did not have any fall or trauma. She has not had a headache. She denies neck pain. She states that she has otherwise recently been well and taking her medications Related Data Home Medications Medication Instructions Recorded Confirmed calcium carbonate [Tums] 1 tab PO PRN tab.chew 11/15/12 04/24/18 cod liver oil 1 cap PO 3X/WEEK 11/15/12 04/24/18 glucosamine sulfate 1 cap PO TID 11/15/12 04/24/18 multivitamin 1 cap PO DAILY 11/15/12 04/24/18 magnesium amino acid chelate 235 mg PO BID 04/10/14 04/24/18 omeprazole 20 mg PO BID #180 tab-cap 05/13/17 04/24/18 Ubidecarenone/Vit E/Vit E Mix 1 ea PO DAILY 11/08/17 04/24/18 [Co-Enzyme Q10 100 mg Softgel] conjugated estrogens [Premarin] 30 gm VG twice weekly #1 tube 11/08/17 04/24/18 nitroglycerin [Nitrostat] 1 tab SUBLINGUAL PRN #25 tab.sl 12/02/17 04/24/18 spironolactone [Aldactone] 25 mg PO DAILY #90 tab-cap 12/02/17 04/24/18 lorazepam [Ativan] 1 mg PO HS #30 tab 01/03/18 04/24/18 metoprolol tartrate 50 mg PO BID #180 tab-cap 01/24/18 04/24/18 metformin [Glucophage] 1 tab PO BID #180 tab 03/21/18 04/24/18 acetaminophen 1,000 mg PO Q6H PRN #30 cap 04/16/18 04/24/18 acetaminophen [Tylenol Extra 1,000 mg PO PRN PRN 04/16/18 04/24/18 Strength] diclofenac sodium [Voltaren] 2 gm TP QID #100 gm 04/16/18 04/24/18 lidocaine [Lidoderm] 1 ea TOPICAL DAILY #3 adh..patch 04/16/18 04/24/18 blood sugar diagnostic strips #100 each 04/21/18 lancets 33 gauge #100 each 04/21/18 celecoxib [Celebrex] 200 mg PO BID PRN #14 cap 04/24/18 metaxalone [Skelaxin] 800 mg PO TID PRN #10 tab 04/24/18 blood sugar diagnostic strips #180 strip 04/25/18 amlodipine 5 mg tablet 5 mg PO DAILY #90 tab-cap 05/16/18 lancets 33 gauge #180 ea 05/16/18 losartan 100 mg tablet 100 mg PO DAILY #90 tab 05/16/18 rosuvastatin 10 mg tablet 10 mg PO DAILY #90 tab 05/16/18 clopidogrel [Plavix] 75 mg PO DAILY #30 tab 05/22/18 Previous Rx's Medication Instructions Recorded omeprazole 20 mg PO BID #180 tab-cap 05/13/17 conjugated estrogens [Premarin] 30 gm VG twice weekly #1 tube 11/08/17 nitroglycerin [Nitrostat] 1 tab SUBLINGUAL PRN #25 tab.sl 12/02/17 spironolactone [Aldactone] 25 mg PO DAILY #90 tab-cap 12/02/17 lorazepam [Ativan] 1 mg PO HS #30 tab 01/03/18 metoprolol tartrate 50 mg PO BID #180 tab-cap 01/24/18 metformin [Glucophage] 1 tab PO BID #180 tab 03/21/18 acetaminophen 1,000 mg PO Q6H PRN #30 cap 04/16/18 diclofenac sodium [Voltaren] 2 gm TP QID #100 gm 04/16/18 lidocaine [Lidoderm] 1 ea TOPICAL DAILY #3 adh..patch 04/16/18 blood sugar diagnostic strips #100 each 04/21/18 lancets 33 gauge #100 each 04/21/18 celecoxib [Celebrex] 200 mg PO BID PRN #14 cap 04/24/18 metaxalone [Skelaxin] 800 mg PO TID PRN #10 tab 04/24/18 blood sugar diagnostic strips #180 strip 04/25/18 amlodipine 5 mg tablet 5 mg PO DAILY #90 tab-cap 05/16/18 lancets 33 gauge #180 ea 05/16/18 losartan 100 mg tablet 100 mg PO DAILY #90 tab 05/16/18 rosuvastatin 10 mg tablet 10 mg PO DAILY #90 tab 05/16/18 clopidogrel [Plavix] 75 mg PO DAILY #30 tab 05/22/18 Allergies Allergy/AdvReac Type Severity Reaction Status Date / Time codeine Allergy Severe hives, Unverified 04/24/18 11:00 itching ranitidine AdvReac Intermediate DIARRHEA Unverified 04/24/18 11:00 JR Inhibitors AdvReac Mild COUGH Unverified 04/24/18 11:00 NSAIDS (Non-Steroidal AdvReac Mild GI upset Unverified 04/24/18 11:00 Anti-Inflamma atorvastatin AdvReac Unknown ELEVATED Unverified 04/24/18 11:00 LFT'S General Stated Complaint: CVA/TIA MYLES: 2 Review of Systems Review of Systems 8 systems reviewed and otherwise negative [facility] Family History Mother Heart disease Cerebrovascular accident Father Diabetes Essential hypertension Heart disease Sister No problems noted. Sister No problems noted. Brother No problems noted. Grandfather No problems noted. Grandfather No problems noted. Grandmother Diabetes Grandmother Neoplasm Cerebrovascular accident Son Essential hypertension Daughter Heart disease Social History Smoking/Tobacco Use Status: Never Surgical History ABDOMINAL WALL HERNIA REPAIR (~2002) AORTIC BYPASS Abdominal hysterectomy (~1998) BSO Cholecystectomy Colonoscopy - MAC EGD - MAC (~2000) RECTOCELE REPAIR UROTOMY (~1998) Exam Narrative Exam Narrative: GEN: awake, alert, oriented 3. Pleasant, well groomed, interactive. HEAD: Normocephalic, atraumatic ENT: Mucous membranes moist, oropharynx unremarkable, External ear exam unremarkable EYES: PERRL, EOMI NECK: Full ROM, no CECI, no menigismus CHEST/RESP: Nontender, clear to auscultation bilateral, no wheeze/rhonchi/rales CARDIOVASCULAR: RRR, no murmur, rub josie. 2+ Rad pulse bilateral ABDOMEN: Soft, nontender, no mass. +Bowel sounds EXT: Full ROM, no edema, no rash Neuro: Grossly normal neurologic exam, conversant, interactive. Cranial nerves II through XII are intact. Patient's visual [place] are intact to confrontation. Heel to [place] is normal bilaterally. On finger to nose testing the patient has discrete wavering of the left upper extremity. She reports subjective diminished sensation that is intact on the left versus right upper extremity below the shoulder. Patient also demonstrates a very discrete satelliting of right arm around left. Motor 5 out of 5 throughout the upper and lower extremity. Psych: Speech fluent, thoughts congruent, affect normal Course Vital Signs Temperature 37.1 C 05/22/18 09:23 Pulse 63 05/22/18 09:23 Respiratory Rate 13 05/22/18 09:23 Blood Pressure 106/76 05/22/18 09:23 Pulse Oximetry 99 05/22/18 09:23 Temperature 37.1 C 05/22/18 09:23 Temperature Source Temporal Artery Scan 05/22/18 09:23 Pulse 63 05/22/18 09:23 Respiratory Rate 13 05/22/18 09:23 Respiratory Effort 05/22/18 09:24 Blood Pressure 106/76 05/22/18 09:23 Blood Pressure Position Sitting 05/22/18 09:23 Pulse Oximetry 99 05/22/18 09:23 Lab/Test Results Lab/Test Results: Laboratory Tests Range/Units 05/22/18 09:16 WBC (4.4-10.8) k/cumm 9.89 RBC (4.00-5.20) m/cumm 4.41 Hgb (12.0-15.5) g/dL 13.1 Hct (36.0-46.0) % 39.1 MCV (80-95) fL 88.7 MCH (27.0-33.0) pg 29.7 MCHC (32.0-36.0) g/dL 33.5 RDW (11.7-14.6) % 13.1 Plt Count (130-400) x1000/uL 259 MPV (8.0-11.0) fL 8.9 Immature Gran % 0.2 Neutrophils % 77.6 Lymphocytes % 13.0 Monocytes % 7.6 Eosinophils % 1.2 Basophils % 0.4 Absolute Neutrophils (1.2-6.7) k/cumm 7.67 H Absolute Lymphocytes (1.2-3.4) k/cumm 1.29 Absolute Monocytes (0.11-0.7) k/cumm 0.75 H Absolute Eosinophils (0.0-0.7) k/cumm 0.12 Absolute Basophils (0.0-0.2) k/cumm 0.04
[2018-05-22 09:38] LABS: Prothrombin Time 9.3 sec (9.3-10.8)
[2018-05-22 09:44] LABS: ALT 28 U/L (12-78); AST 22 U/L (15-37); Albumin 3.7 g/dL (3.4-5.0); Alkaline Phosphatase 64 U/L (46-116); Bilirubin, Direct 0.07 mg/dL (0.00-0.20); Bilirubin, Total 0.3 mg/dL (0.2-1.0); Total Protein 7.5 g/dL (6.4-8.2)
[2018-05-22 09:47] LABS: ALT 28 U/L (12-78); AST 22 U/L (15-37); Albumin 3.7 g/dL (3.4-5.0); Alkaline Phosphatase 65 U/L (46-116); BUN 13 mg/dL (7-18); Bilirubin, Total 0.3 mg/dL (0.2-1.0); CREATININE 0.62 mg/dL (0.55-1.02); Calcium 9.5 mg/dL (8.5-10.1); Chloride 99 mmol/L (98-107); Glucose 123 mg/dL (70-100); Magnesium 2.2 mg/dL (1.8-2.4); Potassium 4.3 mmol/L (3.5-5.1); Sodium 135 mmol/L (136-145); Total Protein 7.5 g/dL (6.4-8.2); Troponin I 0.02 ng/mL (0.00-0.06)
[2018-05-22] MEDS: Aspirin 325 MG TAB PO (10:55)
--- NOTE | 2018-05-22 12:30 | DI.MRI_ITS ---
SYMPTOM/DIAGNOSIS: UPPER EXTREMITY WEAKNESS JOSE MRI: MRI examination of the brain was performed according to the usual protocol. The ventricular system is normal in appearance except for a question of an anatomic variant involving the temporal horn of the left lateral ventricle, alternatively this finding could represent an old infarction. No evidence of acute infarction at this site in the basal ganglia on the left. There are minimal signal changes in periventricular white matter consistent with micro vascular ischemic change. No other signal abnormality identified in the brain. The orbital and temporal bone structures appear intact. There is unremarkable flow void in [place] vasculature. Pituitary is unremarkable. Diffusion weighted imaging shows no significant abnormality except for question of a very tiny, possibly artifactual focus of increased signal in the high right frontal lobe in a paramedian location. This does not correspond to any abnormality on ADC mapping on the basic pulse sequences. Susceptibility weighted imaging shows no evidence of intracranial hemorrhage. CONCLUSION: No evidence of acute intracranial process.
--- NOTE | 2018-05-22 13:03 | DI.MRI_ITS ---
SYMPTOM/DIAGNOSIS: LEFT ARM NUMBNESS CT BRAIN, CRANIOCERVICAL: CT angiography was performed with multi slice acquisition and multi planar and 3D reconstruction. CT angiogram of the craniocervical region was performed with intravenous infusion of 100 cc of Omnipaque 350. The lung apices appear clear. The aortic arch appears intact. Great vessels origins appear intact. Common carotid arteries show no evidence of aneurysm or stenosis. There is calcification at the carotid bifurcations bilaterally with less than 50% luminal diameter stenosis of the origins of both internal carotid arteries. The remainder of the extracranial and intracranial internal carotid arteries bilaterally appear intact with no evidence of an aneurysm or stenosis. Vertebral arteries show normal caliber bilaterally. No evidence of aneurysm or stenosis. Unremarkable appearance of the basilar artery. Unremarkable appearance of anterior middle and posterior cerebral arteries bilaterally with no evidence of aneurysm or stenosis. Major branch vessels appear intact. CONCLUSION: Less than 50% luminal diameter stenosis of both proximal internal carotid arteries. No hemodynamically significant lesion identified.
[2018-05-22] MEDS: Omnipaque 350 MG/ML 100 ML BTL IV (14:23)
[2018-05-22] MEDS: Clopidogrel 300 MG TAB PO (15:03)
--- NOTE | 2018-06-14 11:01 | ZIOP_ITS ---
ZIO Patch Report DATE OF DICTATION June 14, 2018 STUDY INDICATION TIA REQUESTING PROVIDER Noe Clarke D.O. FINDINGS The patient was monitored for 13 days and 2 hours. COMMENTS The predominant underlying rhythm was sinus rhythm. Average heart rate in sinus rhythm 65 beats per minute, range 47 to 125 beats per minute. There was rare ectopy. There were 4 episodes of supraventricular tachycardia, average heart rate 105 beats per minute, range 74 to 143 beats per minute. The longest episode lasted 12 beats. There were no pauses greater than 3 seconds. There was no higher degree heart block. There were 3 patient events, none of these events correlated with arrhythmias. FINAL INTERPRETATION Minor asymptomatic atrial arrhythmias. Pollo Quintero M.D. CHRIS/jani T-06/14/2018
== END 2018-05-22 15:10 | disposition home or self-care (01) ==
PROVIDERS: Emergency Provider Emergency Medicine; PCP Emergency Medicine
DX: G45.9 Transient cerebral ischemic attack, unspecified (principal); I10 Essential (primary) hypertension; E11.9 Type 2 diabetes mellitus without complications; Z79.84 Long term (current) use of oral hypoglycemic drugs
CPT/HCPCS: 36415; 70496; 70498; 80053; 80076; 93005; 93225; 99285; 70450; 70551; 71046; 83735; 84484; 85025; 85610; 93010; J3490

== ENCOUNTER 2018-05-26 08:15 | Emergency (ER) | payer OTHER, SELFPAY ==
[2018-05-26] VITALS (12 sets, daily range): BP systolic 159–184; BP diastolic 57–76; PULSE 60–78; RESP 12–25; TEMP 36.7–36.8; O2SAT 98–100
--- NOTE | 2018-05-26 08:10 | DI.CT_ITS ---
SYMPTOM/DIAGNOSIS: LT ARM AND LEG WEAKNESS AND NUMBNESS CERVICAL SPINE CT: CT examination of the cervical spine was performed utilizing multi slice acquisition and multi planar reconstruction. There are multi level vertebral endplate osteophytes and disc space narrowing, involving C 4-5, C 5-6 and C 6-7 levels. There is no evidence of acute fracture. No facet dislocation is seen. No gross central canal spinal stenosis or neural foraminal stenosis by CT criteria. No cervical mass or adenopathy is seen. Tracheal laryngeal structures and lung apices are unremarkable. CONCLUSION: Degenerative changes of the cervical spine, no evidence of acute injury. NONCONTRAST HEAD CT; A noncontrast cranial CT was performed. The examination is compared with recent CT and MRI examinations of 05/22. No change in appearance in comparison with the previous studies. No evidence of acute intracranial hemorrhage, mass effect or midline shift. 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 CONCLUSION: No evidence of acute intracranial process by CT criteria.
[2018-05-26 09:02] LABS: Abs Immature Grans 0.03 k/cumm (0.0-0.09); Absolute Basophil Count 0.02 k/cumm (0.0-0.2); Absolute Lymphocyte Count 0.95 k/cumm (1.2-3.4); Absolute Neutrophil Count 8.31 k/cumm (1.2-6.7); Basophils % 0.2; HCT 41.8 % (36.0-46.0); HGB 14.1 g/dL (12.0-15.5); Immature Grans % 0.3; Lymphocytes % 9.5; Mean Corp. HGB Concentration 33.7 g/dL (32.0-36.0); Mean Corpuscular Hemoglobin 29.8 pg (27.0-33.0); Mean Corpuscular Volume 88.4 fL (80-95); Mean Platelet Volume 8.8 fL (8.0-11.0); Platelet Count 287 x1000/uL (130-400); RBC 4.73 m/cumm (4.00-5.20); RBC Distribution Width 13.2 % (11.7-14.6); White Blood Cell Count 10.01 k/cumm (4.4-10.8)
[2018-05-26 09:15] LABS: ALT 32 U/L (12-78); AST 27 U/L (15-37); Albumin 3.9 g/dL (3.4-5.0); Alkaline Phosphatase 68 U/L (46-116); Anion Gap 10.5 mmol/L (3-11); BUN 12 mg/dL (7-18); Bilirubin, Total 0.3 mg/dL (0.2-1.0); CO2 26.5 mmol/L (21.0-32.0); CREATININE 0.78 mg/dL (0.55-1.02); Calcium 9.6 mg/dL (8.5-10.1); Chloride 98 mmol/L (98-107); Glucose 140 mg/dL (70-100); Magnesium 1.9 mg/dL (1.8-2.4); Potassium 4.5 mmol/L (3.5-5.1); Sodium 135 mmol/L (136-145); TSH 1.77 uIU/mL (0.358-3.74); Total Protein 7.6 g/dL (6.4-8.2); Troponin I < 0.02 ng/mL (0.00-0.06)
--- NOTE | 2018-05-26 10:23 | ED.GENADUL_ITS ---
Discharge Plan Disposition Patient Disposition: HOME Condition: Good Discharge Details Chief Complaint: CVA/TIA Clinical Impression: Epicondylitis elbow, medial, Numbness and tingling in left arm Reason For Visit: AURA Primary Care Provider: Noe Clarke ED Provider: Rehan Quinteros Home Meds and New Rx's Prescriptions: New diclofenac sodium [Voltaren] 1 % gel 2 gm TP QID Qty: 100 RF: 0 No Action cod liver oil 1 EACH capsule 1 cap PO 3X/WEEK RF: 0 calcium carbonate [Tums] 300 MG tablet,chewable 1 tab PO PRN RF: 0 glucosamine sulfate 500 MG capsule 1 cap PO TID RF: 0 multivitamin 1 EACH capsule 1 cap PO DAILY RF: 0 magnesium amino acid chelate 100 MG tablet 235 mg PO BID RF: 0 omeprazole 20 MG capsule,delayed release(DR/EC) 20 mg PO BID Qty: 180 RF: 4 Ubidecarenone/Vit E/Vit E Mix [Co-Enzyme Q10 100 mg Softgel] 1 EACH capsule 1 ea PO DAILY RF: 0 conjugated estrogens [Premarin] 30 GM cream 30 gm VG twice weekly Qty: 1 RF: 3 spironolactone [Aldactone] 25 MG tablet 25 mg PO DAILY Qty: 90 RF: 6 nitroglycerin [Nitrostat] 0.4 MG tablet, sublingual 1 tab Sublingual PRN Qty: 25 RF: 4 lorazepam [Ativan] 1 MG tablet 1 mg PO HS Qty: 30 RF: 1 metoprolol tartrate 50 MG tablet 50 mg PO BID Qty: 180 RF: 3 metformin [Glucophage] 500 MG tablet 1 tab PO BID Qty: 180 RF: 4 blood sugar diagnostic [OneTouch Ultra Blue Test Strip] strip .ROUTE .MEDSUPPLY Qty: 100 RF: 3 lancets [OneTouch Delica Lancets] 33 gauge misc .ROUTE .MEDSUPPLY Qty: 100 RF: 6 blood sugar diagnostic [OneTouch Ultra Test] strip 1 strip Miscellaneous BID Qty: 180 RF: 0 amlodipine [Norvasc] 5 mg tablet 5 mg PO DAILY Qty: 90 RF: 4 lancets [OneTouch Delica Lancets] 33 gauge misc 1 ea Intradermal BID Qty: 180 RF: 3 losartan [Cozaar] 100 mg tablet 100 mg PO DAILY Qty: 90 RF: 4 rosuvastatin [Crestor] 10 mg tablet 10 mg PO DAILY Qty: 90 RF: 4 acetaminophen [Tylenol Extra Strength] 500 mg Tablet 1,000 mg PO PRN PRNRF: 0 lidocaine [Lidoderm] 1 EACH adhesive patch,medicated 1 ea Topical DAILY Qty: 3 RF: 0 acetaminophen 500 mg capsule 1,000 mg PO Q6H PRN (Reason: pain) Qty: 30 RF: 0 diclofenac sodium [Voltaren] 1 % gel 2 gm TP QID Qty: 100 RF: 0 metaxalone [Skelaxin] 800 mg tablet 800 mg PO TID PRN (Reason: muscle spasm) Qty: 10 RF: 0 celecoxib [Celebrex] 200 mg capsule 200 mg PO BID PRN (Reason: pain) Qty: 14 RF: 0 clopidogrel [Plavix] 75 mg tablet 75 mg PO DAILY Qty: 30 RF: 0 Discharge Instructions Instructions: Tennis Elbow (ED) Additional Instructions: Please apply the cream to the inside of your left elbow, please take 1000 mg of Tylenol up to 4 times per day. Please follow-up with your family doctor your scheduled appointment as soon as possible. If you notice any worsening of your symptoms, or any new symptoms such as vomiting, diarrhea, fever, chills, shortness of breath, chest pain, numbness, weakness, or fainting , please return immediately to the emergency department for reevaluation. Please follow up with your primary care provider as soon as possible for reassessment and reevaluation. As always, it was a pleasure participating in your medical care today. Referrals: Noe Clarke DO [Primary Care Provider] - Discharge Data Discharge Date/Time-TO BE ENTERED AT DEPARTURE: 05/26/18 10:42 Medical Decision Making This is a 73-year-old female who presents today for evaluation of tingling in her fourth and fifth digits on her left hand, as well as a very mild subjective weakness in her left upper and lower extremity. She had the symptoms when she woke up. Last known well was the previous night. If She did have a stroke she would not be a candidate for thrombolytics secondary to time of onset. After the patient awoke with the symptoms she came to the ER for further evaluation however the majority of her symptoms resolved by the time she arrived. Patient was here roughly 72 hours ago she had a very thorough workup performed by Dr. Oliva, including a CT scan of the head, CTA of the head and neck, and an MRI. All of which were relatively benign and showed no evidence of significant ischemic or hemorrhagic etiology. The case was discussed with neurology at that time, outpatient discharge and follow-up was recommended. Patient was started on Plavix. On patient's current presentation she has near complete resolution of her symptoms. She does have some subjective numbness and tingling which is improved on initial assessment but brought back on by Tinel's test of the ulnar nerve at the medial epicondyle. I can appreciate no other significant focal neurologic deficit on my exam. Repeat head CT demonstrates no acute process. Laboratory workup, including EKG and troponin are relatively benign. Patient feels well, and shows no signs of significant neurologic compromise. After multiple repeat neuro evaluations and continued neurologic stability during her stay had a long discussion with the patient regarding admission for observation period, discharged with close follow -up with neurology. There are shared decision making process we agreed upon discharge with close neurology follow-up which I think is very reasonable. With her current clinical exam I feel her numbness and tingling is secondary to a potential ulnar neuropathy at her medial epicondyles. I do feel that she would benefit from a tension band on her forearm, as well as NSAIDs. Patient will be discharged home with close follow-up with her primary care provider and her neurologist. With her initial negative imaging, and her repeat negative imaging, we still discussed red flags which to return, including signs of stroke the patient understands. Recommended low threshold for prompt return. We encourage continuation of the patient's Plavix. I have extensively reviewed the treatment plan and discharge instructions with the patient and their family. I have addressed all patient concerns at this time. The patient and family was made aware of what symptoms to monitor for that would warrant a return to the emergency department. Discussed the plan with the patient and family, they demonstrate verbal understanding and agreement with our assessment and plan at this time. EKG 8:01 Rate 84, intervals normal, normal sinus rhythm, no significant ST elevations or depressions. Minimal peaking of T wave in V2. Normal potassium levels. Q waves noted in lead III. No other significant abnormalities. CERVICAL SPINE CT: CT examination of the cervical spine was performed utilizing multi slice acquisition and multi planar reconstruction. There are multi level vertebral endplate osteophytes and disc space narrowing, involving C 4-5, C 5-6 and C 6-7 levels. There is no evidence of acute fracture. No facet dislocation is seen. No gross central canal spinal stenosis or neural foraminal stenosis by CT criteria. No cervical mass or adenopathy is seen. Tracheal laryngeal structures and lung apices are unremarkable. CONCLUSION: Degenerative changes of the cervical spine, no evidence of acute injury. NONCONTRAST HEAD CT; A noncontrast cranial CT was performed. The examination is compared with recent CT and MRI examinations of 05/22. No change in appearance in comparison with the previous studies. No evidence of acute intracranial hemorrhage, mass effect or midline shift. 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 CONCLUSION: No evidence of acute intracranial process by CT criteria. HPI General Date/Time Provider Initiated Documentation: 05/26/18 10:11 . HPI Narrative: This is a 73-year-old female with a past medical history of coronary artery bypass graft x3, diabetes mellitus, cholecystectomy and hysterectomy, previous spinal tumor with surgical removal, who is taking Plavix. She presents today for tingling in her left hand as well as subjective mild weakness of her left hand and left leg. The patient was here 3 days prior with similar symptoms. At that time she had a CT scan of the head and neck, a CT angios of the head and neck, as well as an MRI of the brain. This workup was relatively benign, neurology was consulted, the patient was started on Plavix, the likelihood for a vascular ischemic etiology was very low after that workup and the patient was discharged home with close neurology follow-up and strict discharge instructions to return if her symptoms return or worsen. Patient states that this morning when she woke up she noticed her symptoms. She describes her symptoms as tingling in her fourth and fifth digit, with a very subjective very mild heaviness in the left upper and lower extremity. She states that her main complaint is tingling though which concerned her. Her symptoms were not present when she went to bed in regards to the tingling, however she is unsure if the mild heaviness was present then or not. Patient states that her symptoms gradually improved over the next 45 minutes to an hour however she want to come to the ER for further evaluation. On presentation she states that the tingling is nearly resolved, and she denies any significant upper or lower extremity complaints aside for that. She denies any headache, chest pain, fever, chills, shortness of breath, fall, trauma, vomiting, diarrhea. She has been taking her medications as directed. She denies any recent pertinent surgeries. She denies any pertinent family history. Related Data Home Medications Medication Instructions Recorded Confirmed calcium carbonate [Tums] 1 tab PO PRN tab.chew 11/15/12 04/24/18 cod liver oil 1 cap PO 3X/WEEK 11/15/12 04/24/18 glucosamine sulfate 1 cap PO TID 11/15/12 04/24/18 multivitamin 1 cap PO DAILY 11/15/12 04/24/18 magnesium amino acid chelate 235 mg PO BID 04/10/14 04/24/18 omeprazole 20 mg PO BID #180 tab-cap 05/13/17 04/24/18 Ubidecarenone/Vit E/Vit E Mix 1 ea PO DAILY 11/08/17 04/24/18 [Co-Enzyme Q10 100 mg Softgel] conjugated estrogens [Premarin] 30 gm VG twice weekly #1 tube 11/08/17 04/24/18 nitroglycerin [Nitrostat] 1 tab SUBLINGUAL PRN #25 tab.sl 12/02/17 04/24/18 spironolactone [Aldactone] 25 mg PO DAILY #90 tab-cap 12/02/17 04/24/18 lorazepam [Ativan] 1 mg PO HS #30 tab 01/03/18 04/24/18 metoprolol tartrate 50 mg PO BID #180 tab-cap 01/24/18 04/24/18 metformin [Glucophage] 1 tab PO BID #180 tab 03/21/18 04/24/18 acetaminophen 1,000 mg PO Q6H PRN #30 cap 04/16/18 04/24/18 acetaminophen [Tylenol Extra 1,000 mg PO PRN PRN 04/16/18 04/24/18 Strength] diclofenac sodium [Voltaren] 2 gm TP QID #100 gm 04/16/18 04/24/18 lidocaine [Lidoderm] 1 ea TOPICAL DAILY #3 adh..patch 04/16/18 04/24/18 blood sugar diagnostic strips #100 each 04/21/18 lancets 33 gauge #100 each 04/21/18 celecoxib [Celebrex] 200 mg PO BID PRN #14 cap 04/24/18 metaxalone [Skelaxin] 800 mg PO TID PRN #10 tab 04/24/18 blood sugar diagnostic strips #180 strip 04/25/18 amlodipine 5 mg tablet 5 mg PO DAILY #90 tab-cap 05/16/18 lancets 33 gauge #180 ea 05/16/18 losartan 100 mg tablet 100 mg PO DAILY #90 tab 05/16/18 rosuvastatin 10 mg tablet 10 mg PO DAILY #90 tab 05/16/18 clopidogrel [Plavix] 75 mg PO DAILY #30 tab 05/22/18 diclofenac sodium [Voltaren] 2 gm TP QID #100 gm 05/26/18 Previous Rx's Medication Instructions Recorded omeprazole 20 mg PO BID #180 tab-cap 05/13/17 conjugated estrogens [Premarin] 30 gm VG twice weekly #1 tube 11/08/17 nitroglycerin [Nitrostat] 1 tab SUBLINGUAL PRN #25 tab.sl 12/02/17 spironolactone [Aldactone] 25 mg PO DAILY #90 tab-cap 12/02/17 lorazepam [Ativan] 1 mg PO HS #30 tab 01/03/18 metoprolol tartrate 50 mg PO BID #180 tab-cap 01/24/18 metformin [Glucophage] 1 tab PO BID #180 tab 03/21/18 acetaminophen 1,000 mg PO Q6H PRN #30 cap 04/16/18 diclofenac sodium [Voltaren] 2 gm TP QID #100 gm 04/16/18 lidocaine [Lidoderm] 1 ea TOPICAL DAILY #3 adh..patch 04/16/18 blood sugar diagnostic strips #100 each 04/21/18 lancets 33 gauge #100 each 04/21/18 celecoxib [Celebrex] 200 mg PO BID PRN #14 cap 04/24/18 metaxalone [Skelaxin] 800 mg PO TID PRN #10 tab 04/24/18 blood sugar diagnostic strips #180 strip 04/25/18 amlodipine 5 mg tablet 5 mg PO DAILY #90 tab-cap 05/16/18 lancets 33 gauge #180 ea 05/16/18 losartan 100 mg tablet 100 mg PO DAILY #90 tab 05/16/18 rosuvastatin 10 mg tablet 10 mg PO DAILY #90 tab 05/16/18 clopidogrel [Plavix] 75 mg PO DAILY #30 tab 05/22/18 diclofenac sodium [Voltaren] 2 gm TP QID #100 gm 05/26/18 Allergies Allergy/AdvReac Type Severity Reaction Status Date / Time codeine Allergy Severe hives, Unverified 04/24/18 11:00 itching ranitidine AdvReac Intermediate DIARRHEA Unverified 04/24/18 11:00 JR Inhibitors AdvReac Mild COUGH Unverified 04/24/18 11:00 NSAIDS (Non-Steroidal AdvReac Mild GI upset Unverified 04/24/18 11:00 Anti-Inflamma atorvastatin AdvReac Unknown ELEVATED Unverified 04/24/18 11:00 LFT'S General Stated Complaint: CVA/TIA MYLES: 2 Review of Systems Review of Systems All systems reviewed & are unremarkable except as noted in HPI and below Exam Narrative Exam Narrative: 1.Const: Well-nourished, Well-developed, appearing stated age 2.Eyes: PERRL, no conjunctival injection, and symmetrical lids. 3.ENT: Atraumatic external nose and ears. Moist MM. Neck: Symmetric, trachea midline, No thyromegaly. Patient demonstrates good movement of cervical neck. There is no nuchal rigidity, no nuchal tenderness. Patient is able to flex the neck without any difficulty or significant pain. Negative Kernig's and Brudzinski sign. 4.CVS: +S1/S2, No murmurs or gallops. Peripheral pulses 2+ and equal in all extremities. Brisk capillary refill in all extremities. 5.RESP: Unlabored respiratory effort. Clear to auscultation bilaterally. No wheezes rales or rhonchi 6.GI: Soft, Nontender/Nondistended, No hepatosplenomegaly. No guarding or rebound. 7.MSK: Normocephalic/Atraumatic, Extremities w/o deformity or ttp No cyanosis or clubbing, Normal movement of all extremities 8.Skin: Warm, Dry. No rashes or lesions. 9.Neuro: Sensation grossly intact, no focal neurologic deficits. All 6 cardinal planes of vision are fully intact. No evidence of rotatory or vertical nystagmus. The patient demonstrated a normal [id number], good dexterity. There was no evidence of dysdiadochokinesia. Patient was able to ambulate without difficulty. There was no wide-based gait. Romberg, and heel-to- ashford are both normal on testing. Sensation was intact bilaterally as well as muscle strength bilaterally for all extremities. Patient was able to verbalize butter cup with no slurring, or miss pronunciation. CN 2-12 tested and intact , patient is able to hold bilateral arms up for 5 seconds and there is no pronator drift, patient also holds legs up for 10 seconds bilaterally without any drop, sensation intact to light touch in hands and feet bilaterally. Cerebellar exam normal as tested by [id number], [id number], rapid alternating movements, fine finger movements. Visual erwin intact peripherally. Normal speech pattern and verbal understanding. The patient demonstrates a normal hints exam with no findings concerning for a central event. No vertical nystagmus. The head impulse test is negative for any significant central abnormality. Normal test of skew. No suggestion of a central cerebellar event. Physical exam demonstrates intact sensation including two-point discrimination for the upper extremities and for the fourth and fifth digits. Intact sensation for light touch and pinprick. Tinel's test over the medial epicondyles does demonstrate evidence of of reproducibility of her tingling in her fingers and brings about the symptoms she was feeling before. Although strength is 5 out of 5 bilaterally in the upper and lower extremities there does appear to be a very very subtle decrease in strength for her left upper extremity when compared to the right. Difference is quite minimal. She is able to hold up both the upper and lower extremities for equivalent times, and demonstrates no signs of distress or difficulty with this 10.Psych: (AAO) x3. Appropriate mood and affect Course Vital Signs Temperature 36.8 C 05/26/18 08:04 Pulse 76 05/26/18 08:04 Respiratory Rate 18 05/26/18 08:04 Blood Pressure 184/65 H 05/26/18 08:04 Pulse Oximetry 98 05/26/18 08:04 Temperature 36.8 C 05/26/18 08:04 Temperature Source Temporal Artery Scan 05/26/18 08:04 Pulse 76 05/26/18 08:04 Respiratory Rate 18 05/26/18 08:04 Respiratory Effort Non-Labored 05/26/18 08:06 Respiratory Depth Normal 05/26/18 08:06 Respiratory Pattern Normal 05/26/18 08:06 Blood Pressure 184/65 H 05/26/18 08:04 Blood Pressure Position Supine 05/26/18 08:04 Pulse Oximetry 98 05/26/18 08:04 Oxygen Delivery Method Room Air 05/26/18 08:06 Oxygen Flow Rate 0 05/26/18 08:06 Lab/Test Results Lab/Test Results: Laboratory Tests Range/Units 05/26/18 05/26/18 05/26/18 08:42 08:42 08:42 WBC Cancelled RBC Cancelled Hgb Cancelled Hct Cancelled MCV Cancelled MCH Cancelled MCHC Cancelled RDW Cancelled Plt Count Cancelled MPV Cancelled Abs Immat Gran (auto) Cancelled Immature Gran % Cancelled Neutrophils % Cancelled Lymphocytes % Cancelled Monocytes % Cancelled Eosinophils % Cancelled Basophils % Cancelled Absolute Neutrophils Cancelled Band Neutrophils Cancelled Absolute Lymphocytes Cancelled Absolute Monocytes Cancelled Absolute Eosinophils Cancelled Absolute Basophils Cancelled Metamyelocytes Cancelled Myelocytes Cancelled Promyelocytes Cancelled Nucleated RBCs Cancelled Differential Comment Cancelled Atypical Lymphocytes Cancelled Other Cell Type Cancelled RBC Morphology Cancelled Polychromasia Cancelled Hypochromasia Cancelled Poikilocytosis Cancelled Basophilic Stippling Cancelled Anisocytosis Cancelled Microcytosis Cancelled Macrocytosis Cancelled Spherocytes Cancelled Target Cells Cancelled Tear Drop Cells Cancelled Ovalocytes Cancelled Stomatocytes Cancelled [place] Bodies Cancelled [place] Cells Cancelled Acanthocytes (Spur) Cancelled Schistocytes Cancelled Sodium Cancelled 135 L Potassium Cancelled 4.5 Chloride Cancelled 98 Carbon Dioxide Cancelled 26.5 Anion Gap Cancelled 10.5 BUN Cancelled 12 Creatinine Cancelled 0.78 Estimated GFR/1.73 m2 Cancelled >= 60.00 Glucose Cancelled 140 H Calcium Cancelled 9.6 Magnesium Cancelled 1.9 Total Bilirubin Cancelled 0.3 AST Cancelled 27 ALT Cancelled 32 Alkaline Phosphatase Cancelled 68 Troponin I Cancelled < 0.02 Total Protein Cancelled 7.6 Albumin Cancelled 3.9 TSH Cancelled 1.77 Range/Units 05/26/18 08:42 WBC 10.01 RBC 4.73 Hgb 14.1 Hct 41.8 MCV 88.4 MCH 29.8 MCHC 33.7 RDW 13.2 Plt Count 287 MPV 8.8 Abs Immat Gran (auto) Immature Gran % 0.3 Neutrophils % 83.0 Lymphocytes % 9.5 Monocytes % 6.0 Eosinophils % 1.0 Basophils % 0.2 Absolute Neutrophils 8.31 H Band Neutrophils Absolute Lymphocytes 0.95 L Absolute Monocytes 0.60 Absolute Eosinophils 0.10 Absolute Basophils 0.02 Metamyelocytes Myelocytes Promyelocytes Nucleated RBCs Differential Comment Atypical Lymphocytes Other Cell Type RBC Morphology Polychromasia Hypochromasia Poikilocytosis Basophilic Stippling Anisocytosis Microcytosis Macrocytosis Spherocytes Target Cells Tear Drop Cells Ovalocytes Stomatocytes Hernade[place] Bodies Jennifer Cells Acanthocytes (Spur) Schistocytes Sodium Potassium Chloride Carbon Dioxide Anion Gap BUN Creatinine Estimated GFR/1.73 m2 Glucose Calcium Magnesium Total Bilirubin AST ALT Alkaline Phosphatase Troponin I Total Protein Albumin TSH
[2018-05-26] MEDS: Acetaminophen 500 MG TAB 1000 MG PO (10:31)
== END 2018-05-26 10:42 | disposition home or self-care (01) ==
PROVIDERS: Emergency Provider Student in an Organized Health Care Education/Training Program; PCP Emergency Medicine
DX: M77.02 Medial epicondylitis, left elbow (principal); R20.2 Paresthesia of skin; E11.9 Type 2 diabetes mellitus without complications; Z79.84 Long term (current) use of oral hypoglycemic drugs; I10 Essential (primary) hypertension
CPT/HCPCS: 36415; 80053; 93005; 99284; 70450; 72125; 83735; 84443; 84484; 85025; 93010; 99285

== ENCOUNTER 2018-05-29 00:20 | Outpatient (CLI) | payer OTHER, SELFPAY ==
--- NOTE | 2018-05-29 15:26 | MERGE_ITS ---
*[facility]* * Cardiology* [address] [place] [address] Date of study: 05/29/2018 Transthoracic Echocardiography M-mode, complete 2D, complete spectral Doppler, and color Doppler *STUDY CONCLUSIONS* Summary: 1. Left ventricle: The cavity size was normal. Systolic function was normal. The estimated ejection fraction was 60-65%. Some parameters suggest diastolic dysfunction. There was no evidence of elevated ventricular filling pressure by Doppler parameters. 2. Mitral valve: There was mild regurgitation. 3. Left atrium: The atrium was mildly dilated. 4. Right ventricle: The cavity size was normal. Wall thickness was normal. Systolic function was normal. 5. Atrial septum: No defect or patent foramen ovale was identified. 6. Tricuspid valve: There was mild-moderate regurgitation. 7. Pulmonary arteries: Pulmonary systolic pressure was in the range of 25mm Hg to 35mm Hg. 8. Inferior vena cava: The vessel was patent and normal in size. The respirophasic diameter changes were in the normal range (greater than or equal to 50%), consistent with normal central venous pressure. *PATIENT PRESENTATION* Height: 144.8cm ((57in) ) S/D Pressure: 131 / 59 Weight: 59.4kg ((130.7lb) ) BSA: 1.57m^2 Test start time: 02:15 PM. Test stop time: 03:00 PM. 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 This study was interpreted by [facility]. Pertinent images and digital data are archived for permanent storage and are available for subsequent review. No prior study was available for comparison. Study status: Routine. Transthoracic echocardiography. M-mode, complete 2D, complete spectral Doppler, and color Doppler. A Transthoracic Echocardiogram was performed. Scanning was performed from the parasternal, apical, subcostal, and suprasternal notch acoustic windows. Images were obtained using an [id number] cardiac ultrasound machine. Image quality was adequate. Study completion: The patient tolerated the procedure well. History: PMH: Lt arm numbness. *CARDIAC ANATOMY* Left ventricle: The cavity size was normal. Systolic function was normal. The estimated ejection fraction was 60-65%. The tissue Doppler parameters were abnormal. Some parameters suggest diastolic dysfunction. There was no evidence of elevated ventricular filling pressure by Doppler parameters. Aortic valve: Trileaflet. Doppler: There was no stenosis. There was no regurgitation. VTI ratio of LVOT to aortic valve: 0.77. Valve area (VTI): 2.3cm^2. Indexed valve area (VTI): 1.5cm^2/m^2. Peak velocity ratio of LVOT to aortic valve: 0.7. Valve area (Vmax): 2.1cm^2. Indexed valve area (Vmax): 1.4cm^2/m^2. Mean velocity ratio of LVOT to aortic valve: 0.72. Valve area (Vmean): 2.2cm^2. Indexed valve area (Vmean): 1.4cm^2/m^2. Mean gradient (S): 3.1mm Hg. Peak gradient (S): 5.5mm Hg. Aorta: Aortic root: The aortic root was normal in size. Ascending aorta: The ascending aorta was normal in size. Mitral valve: Doppler: There was no evidence for stenosis. There was mild regurgitation. Valve area by pressure half-time: 2.6cm^2. Indexed valve area by pressure half-time: 1.6cm^2/m^2. Left atrium: The atrium was mildly dilated. Atrial septum: No defect or patent foramen ovale was identified. Right ventricle: The cavity size was normal. Wall thickness was normal. Systolic function was normal. Pulmonic valve: Doppler: There was no evidence for stenosis. There was mild to moderate regurgitation. Peak gradient (S): 3.3mm Hg. Tricuspid valve: Doppler: There was mild-moderate regurgitation. Pulmonary artery: Poorly visualized. Pulmonary systolic pressure was in the range of 25mm Hg to 35mm Hg. Right atrium: The atrium was normal in size. Pericardium: There was no pericardial effusion. Systemic veins: Inferior vena cava: Well visualized. The vessel was patent and normal in size. The respirophasic diameter changes were in the normal range (greater than or equal to 50%), consistent with normal central venous pressure. Baseline ECG: Sinus bradycardia. Measurements Left ventricle Value Reference LV ID, ED, PLAX 3.9 cm 3.5 - 6.0 LV ID, ES, PLAX 2.8 cm 2.1 - 4.0 LV PW thickness, ED, PLAX 0.7 cm LV end-diastolic volume, 1-p A2C 48 ml LV ejection fraction, 1-p A2C 53 % LV end-diastolic volume, 1-p A4C 52 ml LV ejection fraction, 1-p A4C 59 % LV e', lateral 0.099 m/sec LV E/e', lateral 7 LV e', medial 0.049 m/sec LV E/e', medial 13 LV e', average 0.074 m/sec LV E/e', average 9 Ventricular septum Value Reference IVS thickness, ED, PLAX 0.8 cm LVOT Value Reference LVOT ID, A-P 2.0 cm LVOT area 3.1 cm^2 LVOT peak velocity, S 0.82 m/sec LVOT mean velocity, S 0.62 m/sec LVOT VTI, S 18.4 cm LVOT peak gradient, S 2.7 mm Hg LVOT mean gradient, S 1.6 mm Hg Stroke volume (SV), LVOT DP 56 ml Stroke index (SV/bsa), LVOT DP 36 ml/m^2 Aortic valve Value Reference Aortic valve peak velocity, S 1.2 m/sec Aortic valve mean velocity, S 0.86 m/sec Aortic valve VTI, S 24.0 cm Aortic mean gradient, S 3.1 mm Hg Aortic peak gradient, S 5.5 mm Hg VTI ratio, LVOT/AV 0.77 Aortic valve area, VTI 2.3 cm^2 Velocity ratio, peak, LVOT/AV 0.7 Aortic valve area, peak velocity 2.1 cm^2 Velocity ratio, mean, LVOT/AV 0.72 Aortic valve area, mean velocity 2.2 cm^2 Aortic valve area/bsa, mean velocity 1.4 cm^2/m^2 Aorta Value Reference Aortic root ID, ED 3.0 cm Ascending aorta ID, A-P, S 2.7 cm Left atrium Value Reference LA ID, A-P, ES 3.3 cm LA ID/bsa, A-P 2.1 cm/m^2 <=2.2 LA area, ES, A4C 21 cm^2 8.8 - 23.4 LA volume/bsa, ES, 1-p A4C 45 ml/m^2 LA/aortic root ratio 1.11 Mitral valve Value Reference Mitral E-wave peak velocity 0.64 m/sec Mitral A-wave peak velocity 0.66 m/sec Mitral deceleration time (H) 295 ms 150 - 230 Mitral pressure half-time 86 ms Mitral E/A ratio, peak 0.96 Mitral valve area, PHT, DP 2.6 cm^2 Pulmonary veins Value Reference Pulmonary vein peak velocity, S 0.56 m/sec Pulmonary vein peak velocity, D 0.36 m/sec Pulmonary vein velocity ratio, peak, 1.54 S/D Pulmonary vein A-wave reversal peak 0.66 m/sec velocity Tricuspid valve Value Reference Tricuspid regurg peak velocity 2.5 m/sec Tricuspid peak RV-RA gradient 25.1 mm Hg Right atrium Value Reference RA area, ES, A4C 14.1 cm^2 8.3 - 19.5 Pulmonic valve Value Reference Pulmonic peak gradient, S 3.3 mm Hg Legend: (L) and (H) freida values outside specified reference range. I have personally reviewed the images and have reviewed and edited the reported findings. Electronically signed by Rocky Ivy MD 05/29/2018 17:44
== END 2018-05-29 00:40 ==
PROVIDERS: PCP Emergency Medicine; Visit Provider Emergency Medicine
DX: R20.0 Anesthesia of skin (principal); I34.0 Nonrheumatic mitral (valve) insufficiency; I36.1 Nonrheumatic tricuspid (valve) insufficiency
CPT/HCPCS: 93306

== ENCOUNTER → 2018-06-01 13:32 | Outpatient (BNVA) | payer OTHER, SELFPAY | PROVIDERS: PCP Emergency Medicine; Visit Provider Psychiatry & Neurology Neurology | DX: G45.9 Transient cerebral ischemic attack, unspecified (principal); I10 Essential (primary) hypertension; E11.9 Type 2 diabetes mellitus without complications; Z79.84 Long term (current) use of oral hypoglycemic drugs | CPT/HCPCS: 99205; 99215 ==

== ENCOUNTER 2018-06-07 02:08 | Outpatient (CLI) | payer OTHER, SELFPAY | END 2018-06-07 02:28 | PROVIDERS: PCP Emergency Medicine; Visit Provider Emergency Medicine | DX: E11.9 Type 2 diabetes mellitus without complications (principal) | CPT/HCPCS: 36415; 83036 ==

== ENCOUNTER 2018-06-14 08:59 | Outpatient (CLI) | payer OTHER, SELFPAY | END 2018-06-14 09:19 | PROVIDERS: PCP Emergency Medicine; Referring Provider Emergency Medicine; Visit Provider Student in an Organized Health Care Education/Training Program | DX: I47.1 Supraventricular tachycardia (principal) | CPT/HCPCS: 0298T ==

== ENCOUNTER 2018-06-19 13:56 | Outpatient (CLI) | payer OTHER, SELFPAY | END 2018-06-19 14:16 | PROVIDERS: PCP Emergency Medicine; Referring Provider Emergency Medicine; Visit Provider Student in an Organized Health Care Education/Training Program | DX: R69 Illness, unspecified (principal) ==

== ENCOUNTER 2018-07-11 00:49 | Outpatient (CLI) | payer OTHER, SELFPAY ==
--- NOTE | 2018-07-11 10:35 | DI.US_ITS ---
SYMPTOMS/DIAGNOSIS: S/P TIA, G45.9 CAROTID ULTRASOUND: Routine examination was performed. On the right there is calcific plaque seen in the carotid bulb and proximal internal carotid artery. There is elevation of velocity seen in the proximal right internal carotid artery consistent with a 50 -60% internal carotid artery stenosis. The right vertebral artery is antegrade. On the left there is calcific plaque seen in the carotid bulb and proximal internal carotid artery with mild elevation of the mid internal carotid artery velocity. The findings are consistent with 50-60% stenosis. The left vertebral artery is antegrade. IMPRESSION: Velocity elevations in the internal carotid arteries bilaterally resulting in bilateral 50-60% internal carotid artery stenosis.
== END 2018-07-11 01:09 ==
PROVIDERS: PCP Emergency Medicine; Visit Provider Nurse Practitioner Family
DX: G45.9 Transient cerebral ischemic attack, unspecified (principal); I65.23 Occlusion and stenosis of bilateral carotid arteries
CPT/HCPCS: 93880

== ENCOUNTER 2018-07-11 01:41 | Outpatient (CLI) | payer OTHER, SELFPAY ==
--- NOTE | 2018-08-17 10:24 | CER_ITS ---
PREVENTICE MONITOR DEVICE INTERPRETATION DATE OF DICTATION August 17, 2018 INDICATION TIA. ENROLLMENT PERIOD - July 14, 2018 to August 12, 2018 Predominant underlying rhythm is sinus rhythm. No significant tachyarrhythmias or marilee arrhythmias. No atrial fibrillation detected. Rare isolated ventricular ectopy. 4 manually detected events. Correspond to sinus rhythm. Overall no atrial fibrillation or significant arrhythmias. Ayush Paez M.D. PS/jani T - 08/17/2018
--- NOTE | 2018-11-30 06:47 | CER_ITS ---
Needs to be rematched? NOTE - V# [id number] - This report has been dictated by Sandra Smith and transcribed on 08/17/2018 PREVENTICE MONITOR DEVICE INTERPRETATION DATE OF DICTATION November 29, 2018 INDICATION TIA REQUESTING PROVIDER Matthew Chaudhry APRN FINDINGS The patient was monitored for 28 days and 5 hours. Baseline rhythm sinus rhythm. Average heart rate 63 beats per minute, range 56 to 106 beats per minute. No atrial fibrillation. No pause greater than 3 seconds. No higher degree heart block. Four patient events. None of these events correlated with arrhythmias. FINAL INTEPRETATION Normal study. Patient events do not correspond with arrhythmias. Pollo Quintero M.D. CHRIS/jani T - 11/30/2018
== END 2018-07-11 02:01 ==
PROVIDERS: PCP Emergency Medicine; Visit Provider Nurse Practitioner Family
DX: G45.9 Transient cerebral ischemic attack, unspecified (principal); I49.3 Ventricular premature depolarization
CPT/HCPCS: 93270

== ENCOUNTER 2018-08-03 14:32 | Outpatient (CLI) | payer OTHER, SELFPAY ==
[2018-08-03 14:54] LABS: HCT 38.1 % (36.0-46.0); HGB 12.4 g/dL (12.0-15.5); Mean Corp. HGB Concentration 32.5 g/dL (32.0-36.0); Mean Corpuscular Hemoglobin 28.8 pg (27.0-33.0); Mean Corpuscular Volume 88.4 fL (80-95); Mean Platelet Volume 8.7 fL (8.0-11.0); Platelet Count 294 x1000/uL (130-400); RBC 4.31 m/cumm (4.00-5.20); RBC Distribution Width 12.9 % (11.7-14.6); White Blood Cell Count 7.77 k/cumm (4.4-10.8)
[2018-08-03 15:16] LABS: TSH 1.27 uIU/mL (0.358-3.74)
== END 2018-08-03 14:52 ==
PROVIDERS: PCP Emergency Medicine; Visit Provider Emergency Medicine
DX: R53.83 Other fatigue (principal); E03.9 Hypothyroidism, unspecified
CPT/HCPCS: 36415; 85027; 84443

== ENCOUNTER 2018-08-17 09:57 | Outpatient (CLI) | payer OTHER, SELFPAY | END 2018-08-17 10:17 | PROVIDERS: PCP Emergency Medicine; Referring Provider Emergency Medicine; Visit Provider Internal Medicine Cardiovascular Disease | DX: G45.9 Transient cerebral ischemic attack, unspecified (principal); I49.3 Ventricular premature depolarization | CPT/HCPCS: 93228 ==

== ENCOUNTER → 2018-09-01 09:03 | Outpatient (BNVA) | payer OTHER, SELFPAY | PROVIDERS: PCP Emergency Medicine; Visit Provider Internal Medicine Cardiovascular Disease | DX: I25.10 Atherosclerotic heart disease of native coronary artery without angina pectoris (principal); E78.5 Hyperlipidemia, unspecified; I73.9 Peripheral vascular disease, unspecified; I10 Essential (primary) hypertension; E11.9 Type 2 diabetes mellitus without complications; Z79.84 Long term (current) use of oral hypoglycemic drugs | CPT/HCPCS: 99204; 99215 ==

== ENCOUNTER → 2018-09-13 10:38 | Outpatient (BNVA) | payer OTHER, SELFPAY | PROVIDERS: PCP Emergency Medicine; Visit Provider Psychiatry & Neurology Neurology | DX: G45.9 Transient cerebral ischemic attack, unspecified (principal); R53.83 Other fatigue | CPT/HCPCS: 99214 ==

== ENCOUNTER 2019-03-05 11:03 | Outpatient (CLI) | payer OTHER, SELFPAY ==
[2019-03-05 12:02] LABS: Abs Immature Grans 0.01 k/cumm (0.0-0.09); Absolute Basophil Count 0.03 k/cumm (0.0-0.2); Absolute Eosinophil Count 0.12 k/cumm (0.0-0.7); Absolute Lymphocyte Count 1.43 k/cumm (1.2-3.4); Absolute Monocyte Count 0.75 k/cumm (0.11-0.7); Basophils % 0.5; Eosinophils % 1.9; HCT 38.5 % (36.0-46.0); HGB 12.5 g/dL (12.0-15.5); Immature Grans % 0.2; Lymphocytes % 22.2; Mean Corp. HGB Concentration 32.5 g/dL (32.0-36.0); Mean Corpuscular Hemoglobin 28.5 pg (27.0-33.0); Mean Corpuscular Volume 87.9 fL (80-95); Monocytes % 11.6; Neutrophils % 63.6; Platelet Count 306 x1000/uL (130-400); RBC 4.38 m/cumm (4.00-5.20); RBC Distribution Width 13.4 % (11.7-14.6); White Blood Cell Count 6.44 k/cumm (4.4-10.8)
[2019-03-05 13:20] LABS: ALT 30 U/L (12-78); AST 24 U/L (15-37); Albumin 3.9 g/dL (3.4-5.0); Alkaline Phosphatase 59 U/L (46-116); Amylase 91 U/L (25-115); Anion Gap 9.3 mmol/L (3-11); BUN 15 mg/dL (7-18); Bilirubin, Total 0.2 mg/dL (0.2-1.0); CO2 27.7 mmol/L (21.0-32.0); CREATININE 0.59 mg/dL (0.55-1.02); Calcium 9.4 mg/dL (8.5-10.1); Chloride 100 mmol/L (98-107); Glucose 84 mg/dL (70-100); Lipase 183 U/L (73-393); Potassium 5.3 mmol/L (3.5-5.1); Sodium 137 mmol/L (136-145); Total Protein 7.2 g/dL (6.4-8.2)
[2019-03-07 13:00] LABS: IgA 147 mg/dL (85-499); Interpretation SEE COMMENTS; Tissue Transglutaminase IgA <1.2 U/mL (<4.0)
== END 2019-03-05 11:23 ==
PROVIDERS: PCP Emergency Medicine; Visit Provider Emergency Medicine
DX: R10.9 Unspecified abdominal pain (principal)
CPT/HCPCS: 36415; 80053; 82784; 83516; 83690; 82150; 85025

== ENCOUNTER 2019-03-06 00:50 | Outpatient (CLI) | payer OTHER, SELFPAY ==
[2019-03-06] MEDS: Breeza Beverage 473 ML BTL PO ×3 (08:54→08:59)
[2019-03-06] MEDS: Omnipaque 350 MG/ML 50 ML BTL PO (08:55)
[2019-03-06] MEDS: Omnipaque 350 MG/ML 100 ML BTL IJ (10:37)
--- NOTE | 2019-03-06 10:38 | DI.CT_ITS ---
SYMPTOMS/DIAGNOSIS: ABD PAIN, R10.9, ABNL WT LOSS CT SCAN OF THE ABDOMEN AND PELVIS: Oral and intravenous contrast was administered according to protocol. Comparison is 03/30/18. The lung bases are clear. The liver is normal in size. No suspicious hepatic mass is seen. The portal, superior mesenteric and splenic veins are patent. The patient is status post cholecystectomy. There is no biliary ductal dilatation. The pancreas is unremarkable as is the spleen. No evidence of an adrenal mass is present. The kidneys show normal and symmetric enhancement. There is a left renal cyst present. The urinary bladder is intact. The reproductive organs are unremarkable as visualized. The abdominal aorta is of normal caliber. No significant abdominal or pelvic adenopathy, ascites or pneumoperitoneum is present. There is a large amount of stool in the colon which may reflect constipation. No evidence of bowel obstruction is seen. There is a normal appendix present. No evidence of a bowel, inflammatory or infectious process is seen. The bones have a mottled appearance diffusely. Whole body bone scan is recommended. MRI of the lumbar spine may also be obtained for further evaluation. IMPRESSION: Diffusely mottled appearance of the bones. Bones scan is recommended for further evaluation. Alternatively an MRI of the lumbar spine may be obtained. Otherwise unremarkable examination.
== END 2019-03-06 01:10 ==
PROVIDERS: PCP Emergency Medicine; Visit Provider Emergency Medicine
DX: R10.9 Unspecified abdominal pain (principal); R63.4 Abnormal weight loss; M85.9 Disorder of bone density and structure, unspecified; Z90.49 Acquired absence of other specified parts of digestive tract
CPT/HCPCS: 74177; J3490; Q9967

== ENCOUNTER 2019-03-13 00:53 | Outpatient (CLI) | payer OTHER, SELFPAY ==
--- NOTE | 2019-03-13 10:22 | DI.NM_ITS ---
SYMPTOMS/DIAGNOSIS: ABNORMAL CT OF BONES, R93.89 WHOLE BODY BONE SCAN: Comparison is made with CT of the abdomen and pelvis dated February,. 23.9 mCi of technetium 99m MDP were administered IV. Whole body images and spot views of the lumbar spine were performed. There is a severe lumbar scoliosis. There is some increased activity in the lumbar spine in the region of prominent osteophytes and facet degenerative changes. There are also focal areas of increased activity in both feet, consistent with degenerative changes. Overall, the skeletal labelling appears normal. IMPRESSION: Increased activity in the lumbar spine and feet consistent with degenerative changes.
== END 2019-03-13 01:13 ==
PROVIDERS: PCP Emergency Medicine; Visit Provider Emergency Medicine
DX: R93.89 Abnormal findings on diagnostic imaging of other specified body structures (principal); M41.86 Other forms of scoliosis, lumbar region; M19.071 Primary osteoarthritis, right ankle and foot; M19.072 Primary osteoarthritis, left ankle and foot; M47.816 Spondylosis without myelopathy or radiculopathy, lumbar region
CPT/HCPCS: 78306

== ENCOUNTER → 2019-04-02 09:15 | Outpatient (BNVA) | payer OTHER, SELFPAY | PROVIDERS: PCP Emergency Medicine; Referring Provider Emergency Medicine; Visit Provider Surgery | DX: R10.9 Unspecified abdominal pain (principal); R19.7 Diarrhea, unspecified; Z79.84 Long term (current) use of oral hypoglycemic drugs; E11.9 Type 2 diabetes mellitus without complications | CPT/HCPCS: 99203; 99214 ==

== ENCOUNTER → 2019-05-07 12:54 | Outpatient (BNVA) | payer OTHER, SELFPAY | PROVIDERS: PCP Emergency Medicine; Referring Provider Emergency Medicine; Visit Provider Surgery | DX: R10.13 Epigastric pain (principal); K63.5 Polyp of colon | CPT/HCPCS: 99214 ==

== ENCOUNTER 2019-05-15 10:15 | Day surgery (SDC) | payer OTHER, SELFPAY ==
[2019-05-15 10:32] VITALS: BP 159/64; PULSE 56; RESP 17; TEMP 36.5; O2SAT 100
[2019-05-15 10:55] VITALS: BP 159/64; PULSE 56; RESP 17; TEMP 36.5; O2SAT 100
[2019-05-15] MEDS: Lactated Ringers 1,000 ML 80 ML IV (11:11)
--- NOTE | 2019-05-15 12:34 | STOM_PTH ---
PATIENT: Carissa Strong LOC: [facility] U#:[id number] AGE/SX: 74/F ROOM: RE05/15/[address]: Zayra Prajapati MD : [id number] BED: DIS: 05/15/2019 SPEC #: [id number] RECD: 05/15/19 18:34 STATUS: LAKESHA REQ #: [id number] SURI: 05/15/19 12:[address]: Zayra Prajapati DEPT: Surgical Specimen RECD BY: Shell Sim ENTERED: 05/15/19 18:35 SP TYPE: STOMACH OTHR DR: Noe Clarke DO Tissues: 1 - STOMACH BIOPSY 2 - STOMACH BIOPSY Procedures: GROSS AND MICRO LEVEL 4 Comments: [id number]
--- NOTE | 2019-05-15 13:16 | PDOC.DSDIS_ITS ---
Discharge Plan Disposition Patient Disposition: HOME Condition: Good Discharge Details Reason For Visit: EGD, colonoscopy Attending Provider: Zayra Prajapati Primary Care Provider: Noe Clarke Home Meds and New Rx's Prescriptions: Continued omeprazole 20 mg capsule,delayed release(DR/EC) 20 mg PO BID Qty: 180 RF: 4 lorazepam 1 mg tablet 0.5 mg PO QHS RF: 0 (DME) lancets [OneTouch Delica Lancets] 33 gauge misc See Dose Instructions .ROUTE .MEDSUPPLY Qty: 100 RF: 6 metformin [Glucophage] 500 mg tablet 500 mg PO BID Qty: 180 RF: 4 nitroglycerin [Nitrostat] 0.4 mg tablet, sublingual 0.4 mg Sublingual PRN Qty: 25 RF: 4 sertraline 50 mg tablet 50 mg PO DAILY Qty: 60 RF: 3 cod liver oil 1 EACH capsule 1 cap PO 3X/WEEK RF: 0 calcium carbonate [Tums] 300 MG tablet,chewable 1 tab PO PRN RF: 0 glucosamine sulfate 500 MG capsule 1 cap PO TID RF: 0 multivitamin 1 EACH capsule 1 cap PO DAILY RF: 0 magnesium amino acid chelate 100 MG tablet 235 mg PO BID RF: 0 Ubidecarenone/Vit E/Vit E Mix [Co-Enzyme Q10 100 mg Softgel] 1 EACH capsule 1 ea PO DAILY RF: 0 (DME) OneTouch Ultra Test strip 1 strip Miscellaneous BID Qty: 180 RF: 0 amlodipine [Norvasc] 5 mg tablet 5 mg PO DAILY Qty: 90 RF: 4 losartan [Cozaar] 100 mg tablet 100 mg PO DAILY Qty: 90 RF: 4 rosuvastatin [Crestor] 10 mg tablet 10 mg PO DAILY Qty: 90 RF: 4 clopidogrel [Plavix] 75 mg tablet 75 mg PO DAILY Qty: 60 RF: 6 (DME) OneTouch Ultra Blue Test Strip strip See Dose Instructions .ROUTE .MEDSUPPLY Qty: 100 RF: 3 metoprolol tartrate 50 mg tablet 50 mg PO BID Qty: 180 RF: 3 spironolactone [Aldactone] 25 mg tablet 25 mg PO DAILY Qty: 90 RF: 6 acetaminophen [Tylenol Extra Strength] 500 mg Tablet 1,000 mg PO PRN PRNRF: 0 [place] Oil 1,000 mg Capsule 1 cap DAILY RF: 0 cranberry 450 mg Tablet 450 mg PO DAILY RF: 0 Discharge Instructions Additional Instructions: Findings: Your EGD showed numerous stomach polyps. Biopsies were performed. My office will call with biopsy results. Your colonoscopy was normal. Follow up: Pending biopsy results. Please call if you develop: fevers >101.5 Nausea or Vomiting Abdominal pain that is not transient DAY SURGERY UNIT POST COLONOSCOPY INSTRUCTIONS 1. Because there will be medication in your system for the next 24 hours, you may feel a little sleepy. Your coordination will be affected. Therefore: a. Do not drive or operate dangerous equipment for 24 hours. b. Do not drink alcohol beverages for 24 hours (not even beer). c. Plan to go home and rest for the day. 2. Generally there are no restrictions on your activity after a day or so has gone by, but you may feel a bit fatigued for a few days. 3 After you arrive home you may have a light meal and return to a normal diet as you can tolerate it without feeling sick to your stomach. 4. After surgery, you may feel pain or discomfort. This should be only transient, but if it persists please contact your doctor. 5. If there are any questions regarding the findings of your procedure, please feel free to contact your doctor. 6. If you are unable to contact your doctor with a problem, contact the hospital at [phone]. 7. Continue all your regular medications unless directed otherwise. I understand the above instructions and have no questions. Signature of Patient or Responsible Adult Escort Date/Time Name of Responsible Adult Escort Signature of Nurse Date/Time Activity:: Activity as Tolerated Diet:: As Tolerated Discharge Orders Discharge Orders: Discharge Order (Routine); Ordered 05/15/19 Ordered By: Zayra Prajapati DS: Diagnosis Discharge Diagnosis (1) Gastric polyps: Status: Acute
[2019-05-15 13:45] VITALS: BP 128/50; PULSE 51; RESP 16; TEMP 36; O2SAT 100
[2019-05-15 14:15] VITALS: BP 128/60; PULSE 100; RESP 16; TEMP 36.3; O2SAT 100
[2019-05-15 14:45] VITALS: BP 119/49; PULSE 49; RESP 16; TEMP 36.3; O2SAT 99
[2019-05-15 15:17] VITALS: BP 137/62; PULSE 53; RESP 16; TEMP 36.3; O2SAT 98
--- NOTE | 2019-05-16 10:16 | ENDO_ITS ---
REPORT OF OPERATIVE PROCEDURE DATE OF PROCEDURE May 15, 2019 PREOPERATIVE DIAGNOSES 1. Epigastric pain. 2. History of colon polyps. POSTOPERATIVE DIAGNOSES 1. Gastric polyps. 2. Normal colon. PROCEDURES 1. EGD with biopsy. 2. Colonoscopy. SURGEON Zayra Prajapati M.D. ANESTHESIA General. INDICATION This is a 74-year-old woman with epigastric pain made worse by eating. She also has nausea. The patie nt complains also of some variable bowel habits, where she will have a few days in a row of loose sto ols, although she will only have one a day. Her last colonoscopy in 2013, showed a polyp. She has bee n tested in the past for celiac disease, which was normal. The patient also has a remote history of a n EGD, which may have shown an ulcer. PROCEDURE DESCRIPTION She was placed in the left lateral decubitus position. Propofol was titrated to sedation. The scope w as advanced into the esophagus under direct visualization and down into the stomach and the duodenum. There was no duodenitis or ulcers noted. The gastric antrum appeared normal. The gastric body and fu ndus showed numerous gastric polyps. A few of these were unusual for their size. In the gastric body, there were three large polyps, one of which appeared to be potentially partially ischemic from twist ing on its pedicle. The gastric body polyps were biopsied and sent in the same specimen container. Th ere was also a polyp in the fundus that had a bluish appearance and this was biopsied and sent as a s eparate fundic polyp. The GE junction exhibited no masses, Carlson's, inflammation or strictures. The air was suctioned from the stomach and the scope withdrawn with no other esophageal lesions found. Digital rectal examination revealed no abnormalities. The scope was advanced to the cecum without dif ficulty. Her prep was excellent. The ileocolic valve and appendiceal orifice were clearly identified . No abnormalities were seen throughout the ascending, transverse, descending, sigmoid colon or rectu m including on retroflex views. She was noted to have a slightly tortuous colon and did require a sma ll amount of abdominal pressure to traverse the sigmoid region. She tolerated the procedure well and was stable to Recovery. It is possible that the twisted gastric polyp has contributed to some of the epigastric pain, but it is difficult to say. We will await biopsy results and consider removing the polyps by snare. At this point, I do not think she needs to have followup routine colon screening. CC: Noe Clarke D.O.
== END 2019-05-15 15:45 | disposition home or self-care (01) ==
PROVIDERS: PCP Emergency Medicine; Visit Provider Surgery
PROC: (CPT 43239; principal; 2019-05-15 12:15)
DX: Z12.11 Encounter for screening for malignant neoplasm of colon (principal); Z86.010 Personal history of colon polyps; R19.4 Change in bowel habit; R10.13 Epigastric pain; R11.0 Nausea; K31.7 Polyp of stomach and duodenum; I10 Essential (primary) hypertension; E11.9 Type 2 diabetes mellitus without complications; Z79.84 Long term (current) use of oral hypoglycemic drugs; K21.9 Gastro-esophageal reflux disease without esophagitis
CPT/HCPCS: 43239; G0105; 88305; J2250; J3010

== ENCOUNTER 2019-05-25 07:00 | Outpatient (CLI) | payer OTHER, SELFPAY ==
[2019-05-25 13:00] LABS: HCT 39.1 % (36.0-46.0); HGB 12.8 g/dL (12.0-15.5); Mean Corp. HGB Concentration 32.7 g/dL (32.0-36.0); Mean Corpuscular Hemoglobin 29.4 pg (27.0-33.0); Mean Corpuscular Volume 89.9 fL (80-95); Mean Platelet Volume 8.9 fL (8.0-11.0); Platelet Count 361 x1000/uL (130-400); RBC 4.35 m/cumm (4.00-5.20); RBC Distribution Width 13.2 % (11.7-14.6); White Blood Cell Count 7.39 k/cumm (4.4-10.8)
[2019-05-25 13:17] LABS: C-Reactive Protein 0.12 mg/dL (0.0-0.3)
[2019-05-25 13:26] LABS: CREATININE 0.75 mg/dL (0.55-1.02)
[2019-05-25 13:44] LABS: ESR 25 mm/hr (0-30)
[2019-05-25 18:37] LABS: ALT 45 U/L (14-59); AST 40 U/L (15-37); Albumin 3.9 g/dL (3.4-5.0); Alkaline Phosphatase 81 U/L (46-116); Anion Gap 10.2 mmol/L (3-11); BUN 14 mg/dL (7-18); Bilirubin, Total 0.3 mg/dL (0.2-1.0); CO2 27.8 mmol/L (21.0-32.0); CREATININE 0.77 mg/dL (0.55-1.02); Calcium 9.1 mg/dL (8.5-10.1); Chloride 98 mmol/L (98-107); Glucose 139 mg/dL (70-100); Potassium 4.2 mmol/L (3.5-5.1); Sodium 136 mmol/L (136-145); Total Protein 7.2 g/dL (6.4-8.2)
== END 2019-05-25 07:20 ==
PROVIDERS: Family Medicine; PCP Emergency Medicine; Visit Provider Emergency Medicine
DX: R53.83 Other fatigue (principal); R10.9 Unspecified abdominal pain
CPT/HCPCS: 36415; 80053; 85027; 85652; 82565; 86140

== ENCOUNTER 2019-06-06 07:00 | Outpatient (CLI) | payer OTHER, SELFPAY ==
[2019-06-06 13:30] LABS: NT-proBNP 187 pg/mL
[2019-06-07 13:15] LABS: Albumin 59.8 % (55.8-66.1); Total Protein 7.3 g/dl (6.3-8.2)
== END 2019-06-06 07:20 ==
PROVIDERS: PCP Emergency Medicine; Visit Provider Emergency Medicine
DX: R07.1 Chest pain on breathing (principal); I50.9 Heart failure, unspecified
CPT/HCPCS: 36415; 83880; 84165

== ENCOUNTER 2019-06-08 06:18 | Day surgery (SDC) | payer OTHER, SELFPAY ==
[2019-06-08 06:39] VITALS: BP 133/54; PULSE 59; RESP 16; TEMP 36.6; O2SAT 98
--- NOTE | 2019-06-08 07:13 | W.PM.HP.N ---
Date of service: 06/08/19 Time of Service: 07:13 Assessment and Plan Assessment and plan (1) Gastric polyps: Status: Acute Assessment and plan: I offered EGD with snare polypectomy of the polyps. This will allow for a larger specimen for pathology and may improve symptoms. The risks of bleeding, infection discussed. The patient agrees to proceed. History of Present Illness Narrative: Patient continues to have epigatric pain. EGD showed several large polyps, one with an ischemic appearance and low grade dysplasia. 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 Ryan LEAL Vaginal wall prolapse (Acute 08/28/12) Surgical History Abdominal hysterectomy (~1998) FIBROIDS ABDOMINAL WALL HERNIA REPAIR (~2002) AORTIC BYPASS BSO Cholecystectomy Colonoscopy - MAC 05/31/14 EGD - MAC (~2000) Ependymoma of spinal cord (Acute) H/O knee surgery (Acute) RECTOCELE REPAIR UROTOMY (~1998) Family History Mother Heart disease Stroke Father Diabetes Essential hypertension Heart disease Sister No problems noted. Sister No problems noted. Brother No problems noted. Grandfather No problems noted. Grandfather No problems noted. 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 Frequency: does not exercise [place]/Oriental Orthodox: Moravian Special henrietta needs: No Seatbelt use: always Do you feel safe at home: Yes Do you feel safe in your relationship?: Yes Meds Home Medications and Allergies Home Medications Medication Instructions Recorded Confirmed Type calcium carbonate [Tums] 1 tab PO PRN tab.chew 11/15/12 06/06/19 History cod liver oil 1 cap PO 3X/WEEK 11/15/12 06/06/19 History glucosamine sulfate 1 cap PO TID 11/15/12 06/06/19 History multivitamin 1 cap PO DAILY 11/15/12 06/06/19 History magnesium amino acid chelate 235 mg PO BID 04/10/14 06/06/19 History Ubidecarenone/Vit E/Vit E Mix 1 ea PO DAILY 11/08/17 06/06/19 History [Co-Enzyme Q10 100 mg Softgel] acetaminophen [Tylenol Extra 1,000 mg PO PRN PRN 04/16/18 06/06/19 History Strength] blood sugar diagnostic #180 strip 04/25/18 06/06/19 Rx losartan 100 mg tablet 100 mg PO DAILY #90 tab 05/16/18 06/08/19 Rx lancets 33 gauge #100 each 06/06/18 06/06/19 Rx metformin 500 mg tablet 500 mg PO BID #180 tab 06/06/18 06/08/19 Rx nitroglycerin 0.4 mg sublingual 0.4 mg SUBLINGUAL PRN #25 tab 06/06/18 06/08/19 Rx tablet clopidogrel 75 mg tablet 75 mg PO DAILY #60 tab 06/21/18 06/08/19 Rx omeprazole 20 mg capsule,delayed 20 mg PO BID #180 tab-cap 08/03/18 06/08/19 Rx release blood sugar diagnostic #100 each 11/01/18 06/06/19 Rx metoprolol tartrate 50 mg tablet 50 mg PO BID #180 tab-cap 01/17/19 06/06/19 Rx spironolactone 25 mg tablet 25 mg PO DAILY #90 tab-cap 03/06/19 06/08/19 Rx sertraline 50 mg tablet 50 mg PO DAILY #60 tab 05/04/19 06/06/19 Rx [place] Oil 1 cap DAILY 05/10/19 06/06/19 History cranberry 450 mg PO DAILY 05/10/19 06/06/19 History lorazepam 1 mg tablet 0.5 mg PO QHS #90 tab 05/22/19 06/08/19 Rx amlodipine [Norvasc] 5 mg PO HS 06/08/19 06/08/19 History rosuvastatin [Crestor] 10 mg PO HS 06/08/19 06/08/19 History Allergies Allergy/AdvReac Type Severity Reaction Status Date / Time codeine Allergy Severe hives, Verified 06/08/19 06:53 itching ranitidine AdvReac Intermediate DIARRHEA Verified 06/08/19 06:53 JR Inhibitors AdvReac Mild COUGH Verified 06/08/19 06:53 NSAIDS (Non-Steroidal AdvReac Mild GI upset Verified 06/08/19 06:53 Anti-Inflamma atorvastatin AdvReac Unknown ELEVATED Verified 06/08/19 06:53 LFT'S Exam Const General: healthy appearing and not in acute distress Nutritional Appearance: well nourished Orientation: oriented x3 HENMT Head: normal to inspection Eyes Sclera: sclerae normal Pupils: PERRL Neck Neck: no lymphadenopathy Thyroid: thyroid normal Resp Effort & Inspection: normal respiratory effort Auscultation: clear to auscultation bilaterally Cardio Rate: regular rate Rhythm: regular rhythm GI Inspection: non-distended Palpation: soft, no hepatosplenomegaly, no hernias and tender in the epigastrum (mild) Skin General skin exam: no rashes or lesions noted Neuro General: alert Cognition: normal cognition Extrem General: normal to inspection Psych Affect: normal affect Attitude: cooperative Results Last Vital Signs Temp 97.9 F 06/08/19 06:39 Pulse 59 L 06/08/19 06:39 Resp 16 06/08/19 06:39 BP 133/54 L 06/08/19 06:39 Pulse Ox 98 06/08/19 06:39
[2019-06-08] MEDS: Lactated Ringers 1,000 ML 80 ML IV (07:15)
--- NOTE | 2019-06-08 07:41 | STOM_PTH ---
PATIENT: Carissa Strong LOC: [facility] U#:[id number] AGE/SX: 74/F ROOM: RE06/08/[address]: Zayra Prajapati MD : [id number] BED: DIS: 06/08/2019 SPEC #: [id number] RECD: 06/08/19 11:48 STATUS: LAKESHA REJessica #: [id number] SURI: 06/08/19 07:[address]: Zayra Prajapati DEPT: Surgical Specimen RECD BY: Socorro De La Vega ENTERED: 06/08/19 11:49 SP TYPE: STOMACH OTHR DR: Noe Clarke DO Tissues: 1 - STOMACH BIOPSY Procedures: GROSS AND MICRO LEVEL 4 Comments: [id number]
--- NOTE | 2019-06-08 07:58 | W.PM.DSUDISC ---
Discharge Plan Disposition Patient Disposition: HOME Condition: Good Discharge Details Reason For Visit: EGD Attending Provider: Zayra Prajapati Primary Care Provider: Noe Clarke Home Meds and New Rx's Prescriptions: Continued omeprazole 20 mg capsule,delayed release(DR/EC) 20 mg PO BID Qty: 180 RF: 4 (DME) lancets [OneTouch Delica Lancets] 33 gauge misc See Dose Instructions .ROUTE .MEDSUPPLY Qty: 100 RF: 6 metformin [Glucophage] 500 mg tablet 500 mg PO BID Qty: 180 RF: 4 nitroglycerin [Nitrostat] 0.4 mg tablet, sublingual 0.4 mg Sublingual PRN Qty: 25 RF: 4 sertraline 50 mg tablet 50 mg PO DAILY Qty: 60 RF: 3 cod liver oil 1 EACH capsule 1 cap PO 3X/WEEK RF: 0 calcium carbonate [Tums] 300 MG tablet,chewable 1 tab PO PRN RF: 0 glucosamine sulfate 500 MG capsule 1 cap PO TID RF: 0 multivitamin 1 EACH capsule 1 cap PO DAILY RF: 0 magnesium amino acid chelate 100 MG tablet 235 mg PO BID RF: 0 Ubidecarenone/Vit E/Vit E Mix [Co-Enzyme Q10 100 mg Softgel] 1 EACH capsule 1 ea PO DAILY RF: 0 (DME) OneTouch Ultra Test strip 1 strip Miscellaneous BID Qty: 180 RF: 0 losartan [Cozaar] 100 mg tablet 100 mg PO DAILY Qty: 90 RF: 4 clopidogrel [Plavix] 75 mg tablet 75 mg PO DAILY Qty: 60 RF: 6 (DME) OneTouch Ultra Blue Test Strip strip See Dose Instructions .ROUTE .MEDSUPPLY Qty: 100 RF: 3 metoprolol tartrate 50 mg tablet 50 mg PO BID Qty: 180 RF: 3 spironolactone [Aldactone] 25 mg tablet 25 mg PO DAILY Qty: 90 RF: 6 lorazepam 1 mg tablet 0.5 mg PO QHS Qty: 90 RF: 2 acetaminophen [Tylenol Extra Strength] 500 mg Tablet 1,000 mg PO PRN PRNRF: 0 [place] Oil 1,000 mg Capsule 1 cap DAILY RF: 0 cranberry 450 mg Tablet 450 mg PO DAILY RF: 0 amlodipine [Norvasc] 5 mg tablet 5 mg PO HS RF: 0 rosuvastatin [Crestor] 10 mg tablet 10 mg PO HS RF: 0 Discharge Instructions Additional Instructions: Findings: Three stomach polyps were removed. My office will contact you with biopsy results. Follow up: If your pain does not improve, we can consider further testing such as gastric emptying or evaluation of the blood vessels to your gut. Please call if you develop: fevers >101.5 Nausea or Vomiting Abdominal pain that is not transient DAY SURGERY UNIT POST EGD INSTRUCTIONS 1. Because there will be medication in your system for the next 24 hours, you may feel a little sleepy. Your coordination will be affected. Therefore: a. Do not drive or operate dangerous equipment for 24 hours. b. Do not drink alcohol beverages for 24 hours (not even beer). c. Plan to go home and rest for the day. 2. Generally there are no restrictions on your activity after a day or so has gone by, but you may feel a bit fatigued for a few days. 3 After you arrive home you may have a light meal and return to a normal diet as you can tolerate it without feeling sick to your stomach. 4. After surgery, you may feel pain or discomfort. This should be only transient, but if it persists please contact your doctor. 5. If there are any questions regarding the findings of your procedure, please feel free to contact your doctor. 6. If you are unable to contact your doctor with a problem, contact the hospital at [phone]. 7. Continue all your regular medications unless directed otherwise. I understand the above instructions and have no questions. Signature of Patient or Responsible Adult Escort Date/Time Name of Responsible Adult Escort Signature of Nurse Date/Time Activity:: Activity as Tolerated Diet:: As Tolerated Discharge Orders Discharge Orders: Discharge Order (Routine); Ordered 06/08/19 Ordered By: Zayra Prajapati DS: Diagnosis Discharge Diagnosis (1) Gastric polyps: Status: Acute
[2019-06-08 08:31] VITALS: BP 127/53; PULSE 55; RESP 16; TEMP 36.2; O2SAT 99
--- NOTE | 2019-06-08 09:34 | ENDO_ITS ---
DATE OF PROCEDURE: June 08, 2019 PREOPERATIVE DIAGNOSIS: 1. Epigastric pain. 2. Gastric polyps with low-grade dysplasia. POSTOPERATIVE DIAGNOSIS: Same. PROCEDURE: Esophagogastroduodenoscopy with polypectomy. SURGEON: Zayra Prajapati M.D. ANESTHESIA: General. INDICATIONS: This is a 74-year-old woman whose recent EGD showed numerous gastric polyps. There wer e three polyps at the time of her prior EGD that were atypical in appearance and also had some eviden ce of possible ischemia due to rotation. Biopsy showed low-grade dysplasia. PROCEDURE: She was placed in the left lateral decubitus position. Propofol was titrated to sedation . The scope was advanced into her esophagus under direct visualization and down into the stomach and duodenum. There was no duodenitis or ulcers noted. The stomach revealed multiple polyps, again wit h three in particular in the lower fundus that appeared abnormal. These were best seen on retroflex view. These were amputated using the snare with cautery. One of the polyps had a small amount of bl eeding at the polypectomy site that was controlled nicely with the application of two hemostatic clip s. The polyps were too large to suction through the scope so they were dragged out with the endoscop e and sent together in the same specimen container. She tolerated the procedure well and was stable to recovery. If her epigastric pain persists then consideration can be given to further evaluation w ith a gastric emptying study or mesenteric ultrasound. cc: Noe Clarke D.O.
== END 2019-06-08 09:40 | disposition home or self-care (01) ==
PROVIDERS: PCP Emergency Medicine; Visit Provider Surgery
PROC: 0DJ68ZZ Inspection of Stomach, Via Natural or Artificial Opening Endoscopic (ICD-10-PCS; CPT 43235; principal; 2019-06-08 07:30)
DX: K31.7 Polyp of stomach and duodenum (principal); R10.13 Epigastric pain; E11.9 Type 2 diabetes mellitus without complications; I10 Essential (primary) hypertension; Z79.84 Long term (current) use of oral hypoglycemic drugs
CPT/HCPCS: 43251; 88305; NC

== ENCOUNTER → 2019-08-09 12:26 | Outpatient (BNVA) | payer OTHER, SELFPAY | PROVIDERS: PCP Emergency Medicine; Referring Provider Emergency Medicine; Visit Provider Internal Medicine Cardiovascular Disease | DX: I25.10 Atherosclerotic heart disease of native coronary artery without angina pectoris (principal); I10 Essential (primary) hypertension; I73.9 Peripheral vascular disease, unspecified; Z95.1 Presence of aortocoronary bypass graft; E11.9 Type 2 diabetes mellitus without complications | CPT/HCPCS: 99204; 99215 ==

== ENCOUNTER 2020-04-08 04:49 | Outpatient (CLI) | payer OTHER, SELFPAY ==
[2020-04-08 11:15] LABS: Bilirubin Negative (Negative); Blood Negative (Negative); Clarity Sl Cloudy (Clear); Glucose Negative (Negative); Ketones Negative (Negative); Leukocyte Esterase Negative (Negative); Nitrite Negative (Negative); Urobilinogen 0.2 EU/dL (Up TO 0.2); pH 5.5 (5-8)
[2020-04-08 11:19] LABS: Abs Immature Grans 0.02 10^3/uL (0.0-0.06); Absolute Basophil Count 0.04 10^3/uL (0.0-0.2); Absolute Eosinophil Count 0.13 10^3/uL (0.0-0.7); Absolute Lymphocyte Count 1.36 10^3/uL (1.2-3.4); Absolute Monocyte Count 0.76 10^3/uL (0.1-0.8); Absolute Neutrophil Count 4.73 10^3/uL (1.2-6.7); Basophils % 0.6; Eosinophils % 1.8; HCT 39.2 % (36.0-46.0); HGB 12.4 g/dL (11.2-15.7); Immature Grans % 0.3; Lymphocytes % 19.3; MCH 28.6 pg (27.0-33.0); MCHC 31.6 % (32.0-36.0); MCV 90.5 fL (80-95); MPV 9.5 fL (8.0-11.0); Monocytes % 10.8; Neutrophils % 67.2; Nucleated RBC 0 %; Platelet Count 264 10^3/uL (130-400); RBC 4.33 10^6/uL (3.93-5.22); RDW 12.8 % (11.7-14.6); RDW-SD 42.5 fL; WBC 7.04 10^3/uL (4.4-10.8)
[2020-04-08 11:32] LABS: ALT 28 U/L (14-59); AST 23 U/L (15-37); Albumin 3.7 g/dL (3.4-5.0); Alkaline Phosphatase 60 U/L (46-116); Amylase 80 U/L (25-115); Anion Gap 8.6 mmol/L (3-11); BUN 16 mg/dL (7-18); Bilirubin, Total 0.3 mg/dL (0.2-1.0); CO2 28.4 mmol/L (21.0-32.0); CREATININE 0.82 mg/dL (0.55-1.02); Calcium 9.5 mg/dL (8.5-10.1); Chloride 101 mmol/L (98-107); Glucose 111 mg/dL (74-106); Lipase 148 U/L (73-393); Sodium 138 mmol/L (136-145); Total Protein 7.5 g/dL (6.4-8.2)
== END 2020-04-08 05:09 ==
PROVIDERS: PCP Emergency Medicine; Visit Provider Family Medicine
DX: R10.12 Left upper quadrant pain (principal); F32.9 Major depressive disorder, single episode, unspecified
CPT/HCPCS: 36415; 80053; 83690; 81003; 82150; 85025

== ENCOUNTER 2020-04-23 04:14 | Outpatient (CLI) | payer OTHER, SELFPAY ==
[2020-04-23 10:14] LABS: Magnesium 1.7 mg/dL (1.8-2.4); TSH 1.57 uIU/mL (0.36-3.74); Vitamin B12 817 pg/mL (193-986)
[2020-04-28 09:01] LABS: 1,25-Dihydroxyvitamin D 16 pg/mL (18-78)
== END 2020-04-23 04:34 ==
PROVIDERS: PCP Emergency Medicine; Visit Provider Emergency Medicine
DX: E03.9 Hypothyroidism, unspecified (principal); I10 Essential (primary) hypertension; G30.1 Alzheimer's disease with late onset; F02.80 Dementia in other diseases classified elsewhere, unspecified severity, without behavioral disturbance, psychotic disturbance, mood disturbance, and anxiety; E55.9 Vitamin D deficiency, unspecified
CPT/HCPCS: 36415; 82607; 82652; 83735; 84443

== ENCOUNTER 2020-04-24 01:23 | Outpatient (CLI) | payer OTHER, SELFPAY ==
--- NOTE | 2020-04-24 07:30 | DI.US_ITS ---
EXAM: US ABDOMEN INDICATION: left flank pain,EPIGASTRIC PAIN, R10.3 COMPARISON: US US carotid from 07/11/2018 TECHNIQUE: Ultrasound abdomen performed using standard protocol FINDINGS: Abdominal ultrasound was performed according to the usual protocol. The liver is normal in size and shape. No focal hepatic lesion seen. Note is made of a prior cholecystectomy and there is no biliary dilatation. No gallbladder wall thick ening or pericholecystic fluid collection. Pancreas appears intact as visualized. Spleen is unremarkable in appearance with no focal lesion. Kidneys are normal in size and shape. No renal mass, hydronephrosis, or nephrolithiasis. There is a 23 millimeter in diameter simple left renal cyst with some peripheral calcifications. Abdominal aorta and IVC are of normal diameter. IMPRESSION: Negative abdominal ultrasound post cholecystectomy.
== END 2020-04-24 01:43 ==
PROVIDERS: PCP Emergency Medicine; Visit Provider Emergency Medicine
DX: R10.13 Epigastric pain (principal)
CPT/HCPCS: 76700

== ENCOUNTER 2020-04-30 17:42 | Emergency (ER) | payer OTHER, SELFPAY ==
[2020-04-30 17:47] VITALS: BP 147/70; PULSE 73; RESP 16; TEMP 36.7; O2SAT 99
--- NOTE | 2020-04-30 18:34 | W.ED.GENAD ---
Discharge Plan Disposition Patient Disposition: HOME Condition: Stable Discharge Details Clinical Impression: Emotional crisis Primary Care Provider: Noe Clarke ED Provider: Bi Oliva Home Meds and New Rx's Prescriptions: Continued mirtazapine [Remeron] 15 mg tablet 15 mg PO DAILY Qty: 30 RF: 3 nitroglycerin [Nitrostat] 0.4 mg tablet, sublingual 0.4 mg Sublingual PRN Qty: 25 RF: 4 lorazepam 0.5 mg tablet 0.5 mg PO BID PRN (Reason: anxiety) Qty: 60 RF: 0 spironolactone [Aldactone] 25 mg tablet 25 mg PO DAILY Qty: 90 RF: 6 aspirin 81 mg tablet,chewable 81 mg PO DAILY Qty: 90 RF: 4 omeprazole 20 mg capsule,delayed release(DR/EC) 20 mg PO BID Qty: 180 RF: 4 rosuvastatin [Crestor] 10 mg tablet 10 mg PO HS Qty: 90 RF: 3 amlodipine [Norvasc] 5 mg tablet 5 mg PO HS Qty: 90 RF: 3 losartan [Cozaar] 100 mg tablet 100 mg PO DAILY Qty: 90 RF: 4 (DME) blood sugar diagnostic Strip 1 strip Miscellaneous BID Qty: 180 RF: 4 metformin [Glucophage] 500 mg tablet 500 mg PO BID Qty: 180 RF: 4 (DME) lancets [OneTouch Delica Lancets] 33 gauge misc See Dose Instructions .ROUTE .MEDSUPPLY Qty: 100 RF: 6 glucosamine sulfate 500 mg capsule 500 mg PO BID RF: 0 (DME) OneTouch Ultra Blue Test Strip Strip See Dose Instructions .ROUTE .MEDSUPPLY Qty: 100 RF: 3 metoprolol tartrate 50 mg tablet 50 mg PO BID Qty: 180 RF: 3 acetaminophen [Tylenol Extra Strength] 500 mg Tablet 1,000 mg PO PRN PRNRF: 0 Discharge Instructions Additional Instructions: Home to rest this evening. You may use a single one-time dose of lorazepam 1 mg at bedtime tonight. No additional lorazepam with this. Please follow-up with [facility] human services as discussed with Betty on the phone this evening. Return to the emergency room for any acute concerns. Medical Decision Making 75-year-old female who is recently had a change in behavior thought to possibly be dementia and associated with episodic bursts of anger at home. Angry and not consolable at home this evening and brought in by her daughter for further evaluation. Review of recent records will noted generalized decline in function, concern for worsening cognitive decline as well as depressive symptoms. Cognitive testing has been consistent with an Alzheimer's type dementia. There has been concerned that Lorazepam was worsening her mood and cognitive decline. She recently started Remeron at bedtime and has just restarted lorazepam at 0.5 mg twice daily as needed. Her physical exam today is reassuring. She is oriented with linear thoughts. She is interviewed with her daughter at the bedside. Do not feel there is any acute medical condition. Patient interviewed by on-call mental health screener and is not a danger to herself or others. A plan for outpatient care has been established and intake paperwork performed. Patient is desirous of returning home with her daughter. While prison ongoing use of lorazepam may have some deleterious effects, we will trial a single night of 1 mg lorazepam at bedtime which I will dispense the patient and her daughter prior to discharge. They will follow-up in clinic and in the outpatient setting for further counseling. HPI General Mode of arrival: ambulatory. Date/Time Provider Initiated Documentation: 04/30/20 17:43. Limitations to Documentation: no limitations. Information obtained by: patient. History of Present Illness 75 year old F presents to the emergency department with the chief complaint of Anger at home, improving, described as moderate, Patient started experiencing this week(s) and it has been intermittent. No relieving factors improve symptom(s), No exacerbating factors reported . Patient notes denies headaches and loss of appetite. Patient did receive the following treatments prior to arrival, none Related Data Home Medications Medication Instructions Recorded Confirmed acetaminophen [Tylenol Extra 1,000 mg PO PRN PRN 04/16/18 04/30/20 Strength] nitroglycerin 0.4 mg sublingual 0.4 mg SUBLINGUAL PRN #25 tab 06/06/18 04/30/20 tablet spironolactone 25 mg tablet 25 mg PO DAILY #90 tab-cap 03/06/19 04/30/20 aspirin 81 mg chewable tablet 81 mg PO DAILY #90 tab 06/22/19 04/30/20 omeprazole 20 mg capsule,delayed 20 mg PO BID #180 tab-cap 12/31/19 09/23/20 release rosuvastatin 10 mg tablet 10 mg PO HS #90 tab 08/07/19 04/30/20 amlodipine 5 mg tablet 5 mg PO HS #90 tab 08/14/19 04/30/20 losartan 100 mg tablet 100 mg PO DAILY #90 tab 08/14/19 04/30/20 blood sugar diagnostic #180 strip 08/17/19 04/30/20 metformin 500 mg tablet 500 mg PO BID #180 tab 08/21/19 04/30/20 lancets 33 gauge #100 each 08/28/19 04/30/20 glucosamine sulfate 500 mg capsule 500 mg PO BID cap 09/24/19 04/30/20 blood sugar diagnostic #100 each 10/30/19 04/30/20 metoprolol tartrate 50 mg tablet 50 mg PO BID #180 tab-cap 01/14/20 04/30/20 mirtazapine 15 mg tablet 15 mg PO DAILY #30 tab 04/18/20 04/30/20 lorazepam 0.5 mg tablet 0.5 mg PO BID PRN #60 tab 04/28/20 04/30/20 Previous Rx's Medication Instructions Recorded nitroglycerin 0.4 mg sublingual 0.4 mg SUBLINGUAL PRN #25 tab 06/06/18 tablet spironolactone 25 mg tablet 25 mg PO DAILY #90 tab-cap 03/06/19 aspirin 81 mg chewable tablet 81 mg PO DAILY #90 tab 06/22/19 omeprazole 20 mg capsule,delayed 20 mg PO BID #180 tab-cap 08/07/19 release rosuvastatin 10 mg tablet 10 mg PO HS #90 tab 08/07/19 amlodipine 5 mg tablet 5 mg PO HS #90 tab 08/14/19 losartan 100 mg tablet 100 mg PO DAILY #90 tab 08/14/19 blood sugar diagnostic #180 strip 08/17/19 metformin 500 mg tablet 500 mg PO BID #180 tab 08/21/19 lancets 33 gauge #100 each 08/28/19 blood sugar diagnostic #100 each 10/30/19 metoprolol tartrate 50 mg tablet 50 mg PO BID #180 tab-cap 01/14/20 mirtazapine 15 mg tablet 15 mg PO DAILY #30 tab 04/18/20 lorazepam 0.5 mg tablet 0.5 mg PO BID PRN #60 tab 04/28/20 Allergies Allergy/AdvReac Type Severity Reaction Status Date / Time codeine Allergy Severe hives, Verified 04/30/20 17:52 itching ranitidine AdvReac Intermediate DIARRHEA Verified 04/30/20 17:52 JR Inhibitors AdvReac Mild COUGH Verified 04/30/20 17:52 NSAIDS (Non-Steroidal AdvReac Mild GI upset Verified 04/30/20 17:52 Anti-Inflamma atorvastatin AdvReac Unknown ELEVATED Verified 04/30/20 17:52 LFT'S General Stated Complaint: PsychEval MYLES: 2 Review of Systems Narrative: 6 systems reviewed and otherwise negative [facility] Medical History Abdominal pain in female Arthritis (06/16/11) Asthma (06/16/11) Atherosclerosis of crow coronary artery neg MPI 09/24 CABG 2001 Atrophic vaginitis (08/30/14) Depression onset with cognitive decline Diabetes mellitus Elev transaminase/LDH 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 Ryan LEAL Vaginal wall prolapse (08/28/12) Surgical History Abdominal hysterectomy (~1998) FIBROIDS ABDOMINAL WALL HERNIA REPAIR (~2002) AORTIC BYPASS BSO Cholecystectomy Colonoscopy - MAC 05/31/14 EGD - MAC (~2000) Ependymoma of spinal cord H/O knee surgery RECTOCELE REPAIR UROTOMY (~1998) Family History Mother Heart disease Stroke Father Diabetes Essential hypertension Heart disease Sister No problems noted. Sister No problems noted. Brother No problems noted. Grandfather No problems noted. Grandfather No problems noted. 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 Pleasant, well groomed, interactive. HEAD: Normocephalic, atraumatic ENT: Mucous membranes moist, oropharynx unremarkable, External ear exam unremarkable EYES: PERRL, EOMI NECK: Full ROM, no CECI, no menigismus CHEST/RESP: Nontender, clear to auscultation bilateral, no wheeze/rhonchi/rales CARDIOVASCULAR: RRR, no murmur, rub josie. 2+ Rad pulse bilateral ABDOMEN: Soft, nontender, no mass. +Bowel sounds EXT: Full ROM, no edema, no rash Neuro: Grossly normal neurologic exam, conversant, interactive. Psych: Speech fluent, thoughts congruent, affect normal Course Vital Signs Vital signs: Vital Signs Temperature 36.7 C 04/30/20 17:47 Pulse 73 04/30/20 17:47 Respiratory Rate 16 04/30/20 17:47 Blood Pressure 147/70 H 04/30/20 17:47 Pulse Oximetry 99 04/30/20 17:47 Temperature 36.7 C 04/30/20 17:47 Temperature Source Skin 04/30/20 17:47 Pulse 73 04/30/20 17:47 Respiratory Rate 16 04/30/20 17:47 Respiratory Effort 04/30/20 17:52 Blood Pressure 147/70 H 04/30/20 17:47 Blood Pressure Position Sitting 04/30/20 17:47 Pulse Oximetry 99 04/30/20 17:47 Oxygen Delivery Method Room Air 04/30/20 17:47 Oxygen Flow Rate 0 04/30/20 17:47 Pain Level 0 04/30/20 17:47
[2020-04-30] MEDS: LORazepam 1 MG TAB PO (19:56)
[2020-04-30 19:57] VITALS: BP 125/56; PULSE 65; RESP 16; TEMP 36.7; O2SAT 97
--- NOTE | 2020-04-30 21:33 | PDOC.MHCN_ITS ---
Date of service: 04/30/20 Time of Service: 18:52 Mental Health Crisis Note Presenting Issue How did you arrive at the ED and why did you come: Client was brought to the ED by her daughter. Client reports feeling very upset lately. Precipitating Factors Client reported no SI or HI. Client reports that she is feeling upset lately over a traumatic situation that happened many years ago, that has recently been brought up again. Client reports that she would never do anything to harm herself, she would never do that to her family, especially her grandchildren. Disposition BEHAVIOR: Unremarkable EYE CONTACT: Client made eye contact with this underwriter solicitation director throughout the assessment. MOOD: Clients mood was depressed. AFFECT: Clients affect was normal APPETITE: Client reports normal appetite. SLEEP(trouble falling/staying asleep: Client reports that her sleep has been interrupted since she had her first child 45 yrs ago. Plan This underwriter solicitation director spoke to Dr. Oliva, and it was decided that client was safe to go home. Client was given [facility] emergency number to call if she was feeling upset. Clients daughter lives up the street and will check in on her. Intake paperwork was done and [facility] will reach out to client tomorrow to see what kind of services would be helpful for her. Signature Clinician's Name/Title: Shasha Stark [facility] Emergency Clinician
== END 2020-04-30 19:53 | disposition home or self-care (01) ==
PROVIDERS: Emergency Provider Emergency Medicine; PCP Emergency Medicine
DX: F43.0 Acute stress reaction (principal); I10 Essential (primary) hypertension; E11.9 Type 2 diabetes mellitus without complications; Z79.84 Long term (current) use of oral hypoglycemic drugs
CPT/HCPCS: 99283

== ENCOUNTER 2020-05-05 19:39 | Emergency (ER) | payer OTHER, SELFPAY ==
[2020-05-05 20:05] VITALS: BP 126/65; PULSE 70; RESP 16; TEMP 36.6; O2SAT 99
--- NOTE | 2020-05-05 20:15 | DI.CT_ITS ---
EXAM: CT HEAD WO CLINICAL HISTORY: altered mental status, aggressive. TECHNIQUE: Imaging Protocol: Axial computed tomography images with coronal and sagittal reformatted images were created and reviewed COMPARISON: CT CT HEAD CERVICAL SPINE WO from 05/26/2018 FINDINGS: Ventricles and Extra axial spaces: Mild atrophy. Stable cystic area in the left basal ganglia could represent an old lacunar infarct versus enlarged perivascular space or diverticulum.. Hemorrhage: None. Cerebral parenchyma: Normal. Midline shift: None. Brainstem/Cerebellum: Normal. Calvarium: Normal. Visualized Paranasal sinuses/Mastoids: Clear. Soft Tissues: Unremarkable. IMPRESSION: No acute intracranial process. RADIATION DOSE DELIVERED: 692.14mGy.cm Total DLP DATA REPOSITORY: All CT scans at this facility are submitted to the National Radiology Data Registry (NRDR) Dose Index Registry (DIR) with the [employer] (ACR). RADIATION OPTIMIZATION: All CT scans at this facility use at least one of these dose optimization te chniques: automated exposure control; mA and/or kV adjustment per patient size (includes targeted exa ms where dose is matched to clinical indication); or iterative reconstruction.
--- NOTE | 2020-05-05 20:24 | ED.GENADUL_ITS ---
Discharge Plan Disposition Patient Disposition: HOME Condition: Stable Discharge Details Clinical Impression: Kim Primary Care Provider: Noe Clarke ED Provider: Rocky Cason Home Meds and New Rx's Prescriptions: Continued mirtazapine [Remeron] 15 mg tablet 15 mg PO DAILY Qty: 30 RF: 3 nitroglycerin [Nitrostat] 0.4 mg tablet, sublingual 0.4 mg Sublingual PRN Qty: 25 RF: 4 lorazepam 0.5 mg tablet 0.5 mg PO BID PRN (Reason: anxiety) Qty: 60 RF: 0 spironolactone [Aldactone] 25 mg tablet 25 mg PO DAILY Qty: 90 RF: 6 aspirin 81 mg tablet,chewable 81 mg PO DAILY Qty: 90 RF: 4 omeprazole 20 mg capsule,delayed release(DR/EC) 20 mg PO BID Qty: 180 RF: 4 rosuvastatin [Crestor] 10 mg tablet 10 mg PO HS Qty: 90 RF: 3 amlodipine [Norvasc] 5 mg tablet 5 mg PO HS Qty: 90 RF: 3 losartan [Cozaar] 100 mg tablet 100 mg PO DAILY Qty: 90 RF: 4 (DME) blood sugar diagnostic Strip 1 strip Miscellaneous BID Qty: 180 RF: 4 metformin [Glucophage] 500 mg tablet 500 mg PO BID Qty: 180 RF: 4 (DME) lancets [OneTouch Delica Lancets] 33 gauge misc See Dose Instructions .ROUTE .MEDSUPPLY Qty: 100 RF: 6 glucosamine sulfate 500 mg capsule 500 mg PO BID RF: 0 (DME) OneTouch Ultra Blue Test Strip Strip See Dose Instructions .ROUTE .MEDSUPPLY Qty: 100 RF: 3 metoprolol tartrate 50 mg tablet 50 mg PO BID Qty: 180 RF: 3 acetaminophen [Tylenol Extra Strength] 500 mg Tablet 1,000 mg PO PRN PRNRF: 0 Discharge Instructions Additional Instructions: I have placed you on the follow up list to speak with our property caretaker and also follow up with [facility] human services if you have worsening thoughts of self harm or feel more ill return to the emergency department follow up with your primary care provider within 1-2 weeks Medical Decision Making 75 yo female with hx of htn, hld, dm, recently diagnosed as having dementia in last few months and has intermittent outbursts and intermittent hallucinations comes in with her daughter after she apparently made some suicidal threats to her earlier, ran from the house and her daughter found her in a shed outside her house so brought her here. Pt arrives without complaints and does know her name, location, year month and day of the week though takes her a few minutes to get it right. She has no focal neuro deficits and normal speech, CN II-XII intact. I suspect this could be her underlying dementia that is worsening. 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 She does state she has intermittent thoughts of self harm but none now and no thouhts of harming others, she states she gets frustrated with her which sometimes sets her off. labs and imaging unremarkable, remains hd stable and no complaints medically cleared to see mental health pt seen by mental health and still no si/hi and caox4 and cleared to go home and f/u with nekhs, will also place on property caretaker list to assist in getting respite and other outpatient services they may need and to speak with her daughter lili to discuss these options Differential Diagnosis Differential Diagnosis: dementia, uti, sdh, depression Medical Records Medical records reviewed: Yes I reviewed the patient's medical records. Imaging Data Radiologic Study: Attestation: I personally reviewed and interpreted this imaging study as follows: Imaging: CT Scan Radiologist's impression: IMPRESSION: Mild cerebral atrophy with no evidence of acute infarct, recent hemorrhage or hydrocephalus. No acute intracranial process is detected Lab Data Lab results reviewed: Yes I reviewed the patient's lab results. HPI General Mode of arrival: ambulatory . Date/Time Provider Initiated Documentation: 05/05/20 19:42 . Limitations to Documentation: other . Information obtained by: patient and family . History of Present Illness 75 year old F presents to the emergency department with the chief complaint of self harm statements made earlier, Patient started experiencing this hour(s) (2) No relieving factors improve symptom(s), No exacerbating factors reported . Patient did receive the following treatments prior to arrival, none Related Data Home Medications Medication Instructions Recorded Confirmed acetaminophen [Tylenol Extra 1,000 mg PO PRN PRN 04/16/18 05/05/20 Strength] nitroglycerin 0.4 mg sublingual 0.4 mg SUBLINGUAL PRN #25 tab 06/06/18 05/05/20 tablet spironolactone 25 mg tablet 25 mg PO DAILY #90 tab-cap 03/06/19 05/05/20 aspirin 81 mg chewable tablet 81 mg PO DAILY #90 tab 06/22/19 05/05/20 omeprazole 20 mg capsule,delayed 20 mg PO BID #180 tab-cap 08/07/19 05/05/20 release rosuvastatin 10 mg tablet 10 mg PO HS #90 tab 08/07/19 05/05/20 amlodipine 5 mg tablet 5 mg PO HS #90 tab 08/14/19 05/05/20 losartan 100 mg tablet 100 mg PO DAILY #90 tab 08/14/19 05/05/20 blood sugar diagnostic #180 strip 08/17/19 04/30/20 metformin 500 mg tablet 500 mg PO BID #180 tab 08/21/19 05/05/20 lancets 33 gauge #100 each 08/28/19 04/30/20 glucosamine sulfate 500 mg capsule 500 mg PO BID cap 09/24/19 05/05/20 blood sugar diagnostic #100 each 10/30/19 04/30/20 metoprolol tartrate 50 mg tablet 50 mg PO BID #180 tab-cap 01/14/20 05/05/20 mirtazapine 15 mg tablet 15 mg PO DAILY #30 tab 04/18/20 05/05/20 lorazepam 0.5 mg tablet 0.5 mg PO BID PRN #60 tab 04/28/20 05/05/20 Previous Rx's Medication Instructions Recorded nitroglycerin 0.4 mg sublingual 0.4 mg SUBLINGUAL PRN #25 tab 06/06/18 tablet spironolactone 25 mg tablet 25 mg PO DAILY #90 tab-cap 03/06/19 aspirin 81 mg chewable tablet 81 mg PO DAILY #90 tab 06/22/19 omeprazole 20 mg capsule,delayed 20 mg PO BID #180 tab-cap 08/07/19 release rosuvastatin 10 mg tablet 10 mg PO HS #90 tab 08/07/19 amlodipine 5 mg tablet 5 mg PO HS #90 tab 08/14/19 losartan 100 mg tablet 100 mg PO DAILY #90 tab 08/14/19 blood sugar diagnostic #180 strip 08/17/19 metformin 500 mg tablet 500 mg PO BID #180 tab 08/21/19 lancets 33 gauge #100 each 08/28/19 blood sugar diagnostic #100 each 10/30/19 metoprolol tartrate 50 mg tablet 50 mg PO BID #180 tab-cap 01/14/20 mirtazapine 15 mg tablet 15 mg PO DAILY #30 tab 04/18/20 lorazepam 0.5 mg tablet 0.5 mg PO BID PRN #60 tab 04/28/20 Allergies Allergy/AdvReac Type Severity Reaction Status Date / Time codeine Allergy Severe hives, Verified 05/05/20 20:13 itching ranitidine AdvReac Intermediate DIARRHEA Verified 05/05/20 20:13 JR Inhibitors AdvReac Mild COUGH Verified 05/05/20 20:13 NSAIDS (Non-Steroidal AdvReac Mild GI upset Verified 05/05/20 20:13 Anti-Inflamma atorvastatin AdvReac Unknown ELEVATED Verified 05/05/20 20:13 LFT'S General Stated Complaint: PsychEval MYLES: 2 Review of Systems All systems reviewed & are unremarkable except as noted in HPI and below Constitutional Constitutional: Denies chills, Denies fever(s) and Denies weakness Cardiovascular Cardiovascular: Denies chest pain and Denies dyspnea Respiratory Respiratory: Denies cough and Denies dyspnea Gastrointestinal Gastrointestinal: Denies abdominal pain, Denies nausea and Denies vomiting Genitourinary Genitourinary: Denies dysuria Neurologic Neurologic: Denies weakness Psychiatric Psychiatric: Denies depression REPLACED BY [facility] Medical History Abdominal pain in female Arthritis (06/16/11) Asthma (06/16/11) Atherosclerosis of [place] coronary artery neg MPI 09/24 CABG 2002 Atrophic vaginitis (08/30/14) Depression onset with cognitive decline Diabetes mellitus Elev transaminase/LDH 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 Ryan LEAL Vaginal wall prolapse (08/28/12) Surgical History Abdominal hysterectomy (~1998) FIBROIDS ABDOMINAL WALL HERNIA REPAIR (~2002) AORTIC BYPASS BSO Cholecystectomy Colonoscopy - MAC 05/31/14 EGD - MAC (~2000) Ependymoma of spinal cord H/O knee surgery RECTOCELE REPAIR UROTOMY (~1998) Family History Mother Heart disease Stroke Father Diabetes Essential hypertension Heart disease Sister No problems noted. Sister No problems noted. Brother No problems noted. Grandfather No problems noted. Grandfather No problems noted. 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 Frequency: does not exercise Henrietta/Yazidism: Religion Special henrietta needs: No Seatbelt use: always Do you feel safe at home: Yes Do you feel safe in your relationship?: Yes Exam Const General: no acute distress Orientation: alert HENMT Head: normal to inspection Ears: external ears normal General nose exam: external nose normal Mouth: moist mucous membranes Eyes General: appearance normal, both eyes and all related structures Neck Neck: normal visual inspection Resp Effort & Inspection: normal respiratory effort and able to speak in complete sentences Cardio Rate: regular rate Skin General skin exam: no rashes or lesions noted Neuro General: patient alert and patient oriented x3 Extrem General: normal to inspection Psych Mental Status: mental status grossly normal Course Vital Signs Vital signs: Vital Signs Temperature 36.6 C 05/05/20 20:05 Pulse 70 05/05/20 20:05 Respiratory Rate 16 05/05/20 20:05 Blood Pressure 126/65 05/05/20 20:05 Pulse Oximetry 99 05/05/20 20:05 Temperature 36.6 C 05/05/20 20:05 Temperature Source Skin 05/05/20 20:05 Pulse 70 05/05/20 20:05 Respiratory Rate 16 05/05/20 20:05 Blood Pressure 126/65 05/05/20 20:05 Blood Pressure Position Sitting 05/05/20 20:05 Pulse Oximetry 99 05/05/20 20:05 Oxygen Delivery Method Room Air 05/05/20 20:05 Oxygen Flow Rate 0 05/05/20 20:05 Pain Level 2 05/05/20 20:05 Comment 05/05/20 20:05
[2020-05-05 20:42] LABS: Bilirubin Negative (Negative); Blood Negative (Negative); Clarity Sl Cloudy (Clear); Glucose Negative (Negative); Ketones Negative (Negative); Leukocyte Esterase Negative (Negative); Nitrite Negative (Negative); Specific Gravity 1.025 (1.005-1.025); Urobilinogen 0.2 EU/dL (Up TO 0.2); pH 5.5 (5-8)
[2020-05-05 20:49] LABS: *AMPHETAMINES SCREEN URINE Negative (Negative); *BARBITURATES SCREEN URINE Negative (Negative); *BENZODIAZEPINES SCREEN URINE Negative (Negative); Cannabinoids THC Negative (Negative); Cocaine Screen,Urine Negative (Negative); METHADONE URINE SCREEN Negative (Negative); OPIATES URINE SCREEN Negative (Negative)
[2020-05-05 20:51] LABS: Abs Immature Grans 0.02 10^3/uL (0.0-0.06); Absolute Basophil Count 0.06 10^3/uL (0.0-0.2); Absolute Eosinophil Count 0.25 10^3/uL (0.0-0.7); Absolute Lymphocyte Count 2.01 10^3/uL (1.2-3.4); Basophils % 0.8; Eosinophils % 3.3; HCT 39.1 % (36.0-46.0); HGB 12.6 g/dL (11.2-15.7); Immature Grans % 0.3; Lymphocytes % 26.7; MCH 28.8 pg (27.0-33.0); MCHC 32.2 % (32.0-36.0); MCV 89.5 fL (80-95); Monocytes % 10.6; Neutrophils % 58.3; Nucleated RBC 0 %; Platelet Count 312 10^3/uL (130-400); RBC 4.37 10^6/uL (3.93-5.22); RDW 12.9 % (11.7-14.6); WBC 7.54 10^3/uL (4.4-10.8)
[2020-05-05 20:59] LABS: Tricyclic Antidepressants Negative (Negative)
[2020-05-05 21:10] LABS: PTT Activated 24.8 sec (21.0-31.4); Prothrombin Time 9.9 sec (9.3-11.0)
[2020-05-05 21:13] LABS: ALT 26 U/L (14-59); AST 20 U/L (15-37); Albumin 3.6 g/dL (3.4-5.0); Alkaline Phosphatase 71 U/L (46-116); Anion Gap 8.1 mmol/L (3-11); BUN 19 mg/dL (7-18); Bilirubin, Total 0.2 mg/dL (0.2-1.0); CO2 26.9 mmol/L (21.0-32.0); CREATININE 0.88 mg/dL (0.55-1.02); Calcium 9.2 mg/dL (8.5-10.1); Chloride 101 mmol/L (98-107); Glucose 179 mg/dL (74-106); Magnesium 2.2 mg/dL (1.8-2.4); Sodium 136 mmol/L (136-145); Total Protein 7.3 g/dL (6.4-8.2)
--- NOTE | 2020-05-05 21:19 | DI.VRAD_ITS ---
PROCEDURE INFORMATION: Exam: CT Head Without Contrast Exam date and time: 05/05/2020 8:24 PM Age: 75 years old Clinical indication: Altered mental status/memory loss; Confusion or disorientation; Patient HX: Altered mental status, aggressive TECHNIQUE: Imaging protocol: Computed tomography of the head without contrast. COMPARISON: CT HEAD CERVICAL SPINE WO 05/26/2018 8:29 AM FINDINGS: Brain: Mild prominence of cerebral sulci reflects mild volume loss. A fusiform 13 mm left-sided sub lenticular cyst is an anatomic variant and was also present previously. Posterior fossa contents including brainstem and cerebellum are unremarkable and no new foci of abnormal increased or decreased attenuation are seen within the brain parenchyma. No intracranial hemorrhage is detected. Cerebral ventricles: Ventricular and cisternal spaces are normal in size and configuration and there is no midline shift or hydrocephalus. Bones/joints: The bony calvarium and skull base are intact and no fractures or other acute osseous lesions are detected. Paranasal sinuses: Paranasal sinuses appear clear throughout with no significant mucosal disease or contain air-fluid levels. Mastoid air cells: Grossly clear bilaterally. Orbits: Both globes appear intact and no orbital lesions are detected. Soft tissues: Unremarkable. IMPRESSION: Mild cerebral atrophy with no evidence of acute infarct, recent hemorrhage or hydrocephalus. No acute intracranial process is detected. Dictated and Authenticated by: Siddharth Stanton MD. Ordering:JO Hidalgo MD
[2020-05-05 21:51] LABS: Salicylate < 2.8 mg/dL (2.8-20.0)
[2020-05-05 21:53] LABS: Acetaminophen < 2 ug/mL (10-30)
--- NOTE | 2020-05-05 22:45 | NUR.NOTE ---
Nursing Note:referal to cm was copied 05/05/20
--- NOTE | 2020-05-05 22:50 | PDOC.MHPN2 ---
Date of service: 05/05/20 Time of Service: 22:51 Mental Health Progress Note Progress Note Progress Note: Presenting Issue: Patient presented to ED, transported by daughter, after an argument with her . Patient ran out of her house and was sitting in a shed when daughter arrived at the home. Patient has reported depression to [facility] staff recently, and has also been diagnosed with some cognitive decline. Precipitating Factors: Patient reports she argues with her and is verbally abusing to him. Patient's daughter advises that the patient has made statements about wanting to , and had been very depressed. Patient reports that she has good days, but at night tends to get angry and yell at her . Patient states she feels terrible for being mean to her , and can't forgive him for an affair he had forty years ago. Patient states that she doesn't want to , and that she has grandchildren and loves spending time with them. Patient wants to find a medication that helps her feel less angry. Disposition * Behavior: Patient is oriented to time/place/person. patient is laying on her hospital bed, daughter is also in the room. Patient is initially hesitant to speak with this feature writer, but is more forthcoming about her anger and depression when her daughter leaves the room. Patient answers yes when asked if she sometimes feels like whe wishes to fall asleep and not wake up. *Eye Contact: Good eye contact *Mood: depressed *Affect: Patient lacks inflection in her voice initially, but affect is congruent with mood. *Appetite: fair, no issues stated *Sleep(troubel falling/staying asleep): no issues stated, though client does state that she and her are not sleeping together, and she is sleeping on the couch. Plan(please elaborate and include that physician is consulted with plan and/or placement): Client will return home for the night, daughter Soha will stay with her tonight to ensure safety. Clinician's Name , Title, and Signature Cordelia Kraft [facility] Embossing Machine Operator Make sure that you are photocopying and submitting this to [facility] records Dept. to be scanned into chart.
[2020-05-05 22:59] VITALS: BP 141/67; PULSE 78; RESP 16; TEMP 36.5; O2SAT 100
--- NOTE | 2020-05-06 11:03 | NUR.NOTE ---
Nursing Note: Referral was faxed to [facility] for the patient to get more support at home. Colette Walters
--- NOTE | 2020-05-06 11:28 | NKS.ED.CM ---
Date of service: 05/05/20 Time of Service: 22:51
--- NOTE | 2020-05-09 15:32 | CMPROGNOTE_ITS ---
- If Service Date Differs Date of service: 05/09/20 Time of Service: 15:32 Care Management Progress Note At the request of ED provider, GHADA outreaches to Carissa's daughter, Soha Strong (tel. [phone]), to help the family explore available supports. Soha reports they are in the process of applying for admission at the [facility]. Soha is provided CM's contact information and agrees to call if assistance is needed.
== END 2020-05-05 23:00 | disposition home or self-care (01) ==
PROVIDERS: Emergency Provider Emergency Medicine; PCP Emergency Medicine
DX: F05 Delirium due to known physiological condition (principal); F03.90 Unspecified dementia, unspecified severity, without behavioral disturbance, psychotic disturbance, mood disturbance, and anxiety; F32.9 Major depressive disorder, single episode, unspecified; I10 Essential (primary) hypertension; E11.9 Type 2 diabetes mellitus without complications; Z79.84 Long term (current) use of oral hypoglycemic drugs
CPT/HCPCS: 36415; 80053; 80307; 99284; 70450; 80329; 81003; 83735; 85025; 85610; 85730

== ENCOUNTER 2020-05-09 13:30 | Outpatient (CLI) | payer OTHER, SELFPAY ==
[2020-05-10 01:24] LABS: COVID-19 RT-PCR UVMMC Result Negative (Negative)
== END 2020-05-09 13:50 ==
PROVIDERS: PCP Emergency Medicine; Visit Provider Emergency Medicine
DX: Z11.59 Encounter for screening for other viral diseases (principal); Z01.818 Encounter for other preprocedural examination
CPT/HCPCS: U0003

== ENCOUNTER → 2020-06-24 09:09 | Outpatient (BNVA) | payer OTHER, SELFPAY | PROVIDERS: PCP Emergency Medicine; Referring Provider Emergency Medicine; Visit Provider Nurse Practitioner Adult Health | DX: R41.3 Other amnesia (principal); E11.9 Type 2 diabetes mellitus without complications; I10 Essential (primary) hypertension | CPT/HCPCS: 99204; 99215 ==

== ENCOUNTER → 2020-08-11 10:26 | Outpatient (BNVA) | payer OTHER, SELFPAY | PROVIDERS: PCP Emergency Medicine; Referring Provider Emergency Medicine; Visit Provider Internal Medicine Cardiovascular Disease | DX: I25.10 Atherosclerotic heart disease of native coronary artery without angina pectoris (principal); Z95.1 Presence of aortocoronary bypass graft; I10 Essential (primary) hypertension; I73.9 Peripheral vascular disease, unspecified; R60.0 Localized edema | CPT/HCPCS: 99213 ==

== ENCOUNTER → 2020-11-20 13:05 | Outpatient (BNVA) | payer OTHER, SELFPAY | PROVIDERS: PCP Emergency Medicine; Referring Provider Emergency Medicine; Visit Provider Nurse Practitioner Adult Health | DX: R41.3 Other amnesia (principal); F32.9 Major depressive disorder, single episode, unspecified; H53.8 Other visual disturbances | CPT/HCPCS: 99213; 99215 ==

== ENCOUNTER → 2020-12-18 07:35 | Outpatient (BNVA) | payer OTHER, SELFPAY | PROVIDERS: PCP Emergency Medicine; Referring Provider Emergency Medicine; Visit Provider Nurse Practitioner Adult Health | DX: R41.3 Other amnesia (principal) | CPT/HCPCS: 99212; 99441 ==

== ENCOUNTER 2020-12-24 11:31 | Outpatient (CLI) | payer OTHER, SELFPAY ==
[2020-12-24 13:48] LABS: Anion Gap 8.4 mmol/L (3-11); BUN 19 mg/dL (7-18); CO2 26.6 mmol/L (21.0-32.0); CREATININE 0.8 mg/dL (0.55-1.02); Calcium 9.4 mg/dL (8.5-10.1); Calculated LDL 59 mg/dL (<100); Chloride 102 mmol/L (98-107); Cholesterol 146 mg/dL (<200); Glucose 142 mg/dL (74-106); HDL Cholesterol 70 mg/dL (40-60); Potassium 4.7 mmol/L (3.5-5.1); Sodium 137 mmol/L (136-145); Triglyceride 85 mg/dL (<150)
[2020-12-24 14:34] LABS: Hemoglobin A1C 5.7 % (<5.7)
== END 2020-12-24 11:32 | disposition home or self-care (01) ==
LOC: LOS 11:32
PROVIDERS: PCP Emergency Medicine; Visit Provider Emergency Medicine
DX: E78.5 Hyperlipidemia, unspecified (principal); I10 Essential (primary) hypertension; E11.9 Type 2 diabetes mellitus without complications
CPT/HCPCS: 36415; 80048; 80061; 83036

== ENCOUNTER 2021-02-07 13:34 | Emergency (ER) | payer OTHER, SELFPAY ==
[2021-02-07] VITALS (41 sets, daily range): BP systolic 106–147; BP diastolic 46–89; PULSE 49–72; RESP 10–37; TEMP 36.6; O2SAT 97–100
--- NOTE | 2021-02-07 13:15 | RT.EKG_ITS ---
APPROVED REPORT Exam: Resting ECG Reason for Exam: chest pain Patient Location: E HR:52 bpm ECG Measurements Heart Rate 52 AXIS CO 150 P 52 QRSd 83 QRS 3 QT 444 T 12 QTc 415 Conclusion Slow sinus arrhythmia...V-rate 43- 60, mean< 60 Anteroseptal infarct, old...Q >40mS, V1-V2
--- NOTE | 2021-02-07 13:30 | DI.RAD_ITS ---
Exam(s) XR CHEST 2V PA LATERAL EXAM: XR CHEST 2V PA LATERAL CLINICAL HISTORY: CP TECHNIQUE: 2D digital imaging was performed. COMPARISON: CR XR CHEST 1V IN DI DEPT from 05/22/2018 FINDINGS: MEDIASTINUM: Normal. Prior CABG. HEART: Upper limits normal. PULMONARY VASCULATURE: Normal. LUNGS: Clear. PLEURAL SPACE: No pleural effusion or pneumothorax. BONE:Sternal wires. OTHER FINDINGS:EKG leads. IMPRESSION: No acute pulmonary findings. DATA REPOSITORY: RADIATION DOSE DELIVERED:
--- NOTE | 2021-02-07 13:30 | RT.EKG_ITS ---
APPROVED REPORT Exam: Resting ECG Reason for Exam: Patient Location: E HR:55 bpm ECG Measurements Heart Rate 55 AXIS OR 188 P 38 QRSd 77 QRS 7 QT 445 T 9 QTc 425 Conclusion Sinus bradycardia...rate< 60
--- NOTE | 2021-02-07 13:40 | ED.GENADUL_ITS ---
Discharge Plan Disposition Patient Disposition: [facility] Condition: Serious Discharge Details Chief Complaint: Chest Pain Clinical Impression: Acute non-ST elevation myocardial infarction (NSTEMI) Primary Care Provider: Sudhir Rinaldi ED Provider: Mayuri Yusuf Athena Meds and New Rx's Prescriptions: No Action pantoprazole 40 mg tablet,delayed release (DR/EC) 40 mg PO DAILY RF: 0 loratadine [Claritin] 10 mg tablet 10 mg PO DAILY Qty: 90 RF: 4 diphenhydramine HCl [Benadryl] 25 mg capsule 25 mg PO QHS PRN (Reason: sleep) Qty: 30 RF: 0 nitroglycerin [Nitrostat] 0.4 mg tablet, sublingual 0.4 mg Sublingual PRN Qty: 25 RF: 4 sertraline 50 mg tablet 50 mg PO DAILY Qty: 90 RF: 4 amlodipine [Norvasc] 5 mg tablet 5 mg PO HS Qty: 90 RF: 3 Hold Instructions: Home Medication placed on hold at Doctor's office (DME) blood sugar diagnostic Strip 1 strip Miscellaneous BID Qty: 180 RF: 4 (DME) lancets [OneTouch Delica Lancets] 33 gauge misc See Dose Instructions .ROUTE .MEDSUPPLY Qty: 100 RF: 6 glucosamine sulfate 500 mg capsule 500 mg PO BID RF: 0 spironolactone [Aldactone] 25 mg tablet 25 mg PO DAILY Qty: 90 RF: 6 aspirin 81 mg tablet,chewable 81 mg PO DAILY Qty: 90 RF: 4 losartan [Cozaar] 100 mg tablet 100 mg PO DAILY Qty: 90 RF: 4 (DME) OneTouch Ultra Blue Test Strip Strip See Dose Instructions .ROUTE .MEDSUPPLY Qty: 100 RF: 3 metformin [Glucophage] 500 mg tablet 500 mg PO BID Qty: 180 RF: 4 metoprolol tartrate 50 mg tablet 50 mg PO BID Qty: 180 RF: 3 rosuvastatin [Crestor] 10 mg tablet 10 mg PO HS Qty: 90 RF: 3 memantine 5 mg tablet 5 mg PO BID Qty: 60 RF: 3 acetaminophen [Tylenol Extra Strength] 500 mg Tablet 1,000 mg PO PRN PRNRF: 0 Discharge Data Discharge Date/Time-TO BE ENTERED AT DEPARTURE: 02/07/21 17:20 Medical Decision Making Patient is a pleasant 76-year-old female presenting today with chief complaint of chest pain. Patient is brought in via EMS after 2 hours of constant chest discomfort that came on after she attended a . She reports that she was sitting and eating at the time of the onset. Past medical history is pertinent for Alzheimer's, anxiety, depression, epigastric pain, hyperlipidemia, GERD, hypertension, transaminitis, diabetes. Patient has had triple-vessel bypass. Patient reports that she took 3 of her own sublingual nitroglycerin with no improvement of symptoms. However, this did seem to be quite outdated. EMS did give her 1 sublingual nitro with some improvement of her discomfort. She is currently rating her pain at a 6 out of 10. She denies any shortness of breath, epigastric pain. She reports that she does have some mild discomfort that ra diates into her back. Pain also radiates down into the left arm with associated numbness. On exam, patient appears anxious and quiet. Lungs are clear. Patient is bradycardic but normal cardiac auscultation otherwise. No abdominal pain elicited on exam. She is 2+ pulses in all extremities. Chart review shows that patient is chronically bradycardic since last year into the 50s and this is not new for her. Patient is not lightheaded or short of breath. EKG was obtained and reviewed by Dr. Oliva with no acute ischemic changes appreciated. Patient does have cardiac history and continues to have ongoing chest pain that was only minimally improved with sublingual nitroglycerin, plan to transition to IV nitro. Patient's pressure is stable on the nitroglycerin. However, she remains in credibly anxious. Will give 0.5 mg of Ativan and reassess. Patient states pain is resolved after the Ativan and once on the nitroglycerin. Patient is on 10 mcg/min. Labs reviewed. To have mild white count of 11.2. Stable H&H. Coags are normal. Patient's troponin is elevated at 0.22. Will consult with cardiology. BUN is elevated 22, GFR 54. Consulted with Dr. Altamirano at [facility]. He and I discussed getting the patient on heparin which she agrees with. Also advised that he milligram load of Plavix. Accepting physician is Dr. Valentin. Spoke with patient and her daughter at length about hte concerns and treatment. Patient would like to be full code. No known bleeding risks or history of bleeding issues, brain tumor, CVA. Will begin heparin and load with plavix as advised by cardiology. They agree to transfer to [facility], she has received previous cardiology care at their facility. Patient transferred via EMS to [facility] in stable condition. HPI General Mode of arrival: EMS . Date/Time Provider Initiated Documentation: 02/07/21 13:40 . Limitations to Documentation: no limitations . Information obtained by: patient, EMS and RN notes reviewed . History of Present Illness 76 year old F presents to the emergency department with the chief complaint of chest pain, described as moderate, with intensity rated at 6. Quality is described as aching, and is localized to the chest. Patient extremity (left shoulder). Patient started experiencing this hour(s) (2) and it has been constant. Medication improves symptom(s), (improved after SL nitro) No exacerbating factors reported . Patient notes chest pain and nausea/vomiting (nausea, no vomiting); denies cough, diaphoresis, fever/chills, shortness of breath and weakness. Patient did receive the following treatments prior to arrival, other (nitro) Related Data Home Medications Medication Instructions Recorded Confirmed acetaminophen [Tylenol Extra 1,000 mg PO PRN PRN 04/16/18 02/07/21 Strength] nitroglycerin 0.4 mg sublingual 0.4 mg SUBLINGUAL PRN #25 tab 06/06/18 02/07/21 tablet amlodipine 5 mg tablet 5 mg PO HS #90 tab 08/14/19 02/07/21 blood sugar diagnostic #180 strip 08/17/19 02/07/21 lancets 33 gauge #100 each 08/28/19 02/07/21 glucosamine sulfate 500 mg capsule 500 mg PO BID cap 09/24/19 02/07/21 spironolactone 25 mg tablet 25 mg PO DAILY #90 tab-cap 05/09/20 02/07/21 aspirin 81 mg chewable tablet 81 mg PO DAILY #90 tab 07/22/20 02/07/21 losartan 100 mg tablet 100 mg PO DAILY #90 tab 08/26/20 02/07/21 blood sugar diagnostic #100 each 10/03/20 02/07/21 metformin 500 mg tablet 500 mg PO BID #180 tab 10/17/20 02/07/21 metoprolol tartrate 50 mg tablet 50 mg PO BID #180 tab-cap 10/17/20 02/07/21 rosuvastatin 10 mg tablet 10 mg PO HS #90 tab 12/04/20 02/07/21 memantine 5 mg tablet 5 mg PO BID #60 tab 12/31/20 02/07/21 diphenhydramine HCl 25 mg capsule 25 mg PO QHS PRN #30 cap 01/21/21 02/07/21 loratadine 10 mg tablet 10 mg PO DAILY #90 tab 01/21/21 02/07/21 pantoprazole 40 mg tablet,delayed 40 mg PO DAILY 01/21/21 02/07/21 release sertraline 50 mg tablet 50 mg PO DAILY #90 tab 01/26/21 02/07/21 Previous Rx's Medication Instructions Recorded nitroglycerin 0.4 mg sublingual 0.4 mg SUBLINGUAL PRN #25 tab 06/06/18 tablet amlodipine 5 mg tablet 5 mg PO HS #90 tab 08/14/19 blood sugar diagnostic #180 strip 08/17/19 lancets 33 gauge #100 each 08/28/19 spironolactone 25 mg tablet 25 mg PO DAILY #90 tab-cap 05/09/20 aspirin 81 mg chewable tablet 81 mg PO DAILY #90 tab 07/22/20 losartan 100 mg tablet 100 mg PO DAILY #90 tab 08/26/20 blood sugar diagnostic #100 each 10/03/20 metformin 500 mg tablet 500 mg PO BID #180 tab 10/17/20 metoprolol tartrate 50 mg tablet 50 mg PO BID #180 tab-cap 10/17/20 rosuvastatin 10 mg tablet 10 mg PO HS #90 tab 12/04/20 memantine 5 mg tablet 5 mg PO BID #60 tab 12/31/20 diphenhydramine HCl 25 mg capsule 25 mg PO QHS PRN #30 cap 01/21/21 loratadine 10 mg tablet 10 mg PO DAILY #90 tab 01/21/21 sertraline 50 mg tablet 50 mg PO DAILY #90 tab 01/26/21 Allergies Allergy/AdvReac Type Severity Reaction Status Date / Time codeine Allergy Severe hives, Verified 02/07/21 13:49 itching ranitidine AdvReac Intermediate DIARRHEA Verified 02/07/21 13:49 JR Inhibitors AdvReac Mild COUGH Verified 02/07/21 13:49 NSAIDS (Non-Steroidal AdvReac Mild GI upset Verified 02/07/21 13:49 Anti-Inflamma atorvastatin AdvReac Unknown ELEVATED Verified 02/07/21 13:49 LFT'S General MYLES: 2 Review of Systems Constitutional Constitutional: Reports as per HPI, Denies chills, Denies fever(s), Denies headache(s), Denies lethargy and Denies poor appetite Eyes Eyes: Denies change in vision ENT Ears, Nose, Mouth, and Throat: Denies dizziness and Denies headache(s) Cardiovascular Cardiovascular: Reports as per HPI, Reports chest pain, Reports chest pain at rest, Denies edema, Denies lightheadedness, Reports radiating jaw, neck or arm pain (left shoulder pain), Denies dyspnea and Denies dyspnea on exertion Respiratory Respiratory: Reports as per HPI, Denies chest congestion, Denies cough, Denies pain on inspiration, Denies pain with cough, Denies dyspnea, Denies dyspnea on exertion and Denies wheezing Gastrointestinal Gastrointestinal: Reports as per HPI, Denies abdominal pain, Denies diarrhea, Reports nausea and Denies vomiting Musculoskeletal Musculoskeletal: Reports as per HPI and Denies back pain Integumentary/Breasts Skin/Breast: Reports as per HPI and Denies rash Neurologic Neurologic: Reports as per HPI, Denies dizziness and Denies headache(s) Psychiatric Psychiatric: Reports anxiety Allergic/Immunologic Allergic/Immunologic: Denies wheezing [facility] Medical History Abdominal pain in female Arthritis (06/16/11) Asthma (06/16/11) Atherosclerosis of [place] coronary artery neg MPI 09/24 CABG 2001 Atrophic vaginitis (08/30/14) Complaints of memory disturbance Depression onset with cognitive decline Diabetes mellitus Elev transaminase/LDH 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 Ryan LEAL Vaginal wall prolapse (08/28/12) Surgical History Abdominal hysterectomy (~1998) FIBROIDS ABDOMINAL WALL HERNIA REPAIR (~2002) AORTIC BYPASS BSO Cholecystectomy Colonoscopy - MAC 05/31/14 EGD - MAC (~2000) Ependymoma of spinal cord H/O knee surgery RECTOCELE REPAIR UROTOMY (~1998) Family History Mother Heart disease Stroke Father Diabetes Essential hypertension Heart disease Sister No problems noted. Sister No problems noted. Brother No problems noted. Grandfather No problems noted. Grandfather No problems noted. 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 Frequency: does not exercise Henrietta/Protestant: Baptism Special henrietta needs: No Seatbelt use: always Do you feel safe at home: Yes Do you feel safe in your relationship?: Yes Exam Const General: cooperative, healthy appearing, uncomfortable, no acute distress, well developed and anxious Nutritional Appearance: average body habitus and well nourished Orientation: alert, awake and oriented x3 HENMT Head: normal to inspection Ears: hearing grossly normal bilaterally Mouth: moist mucous membranes Chest Chest: normal inspection of the chest, normal palpation of entire chest wall and no crepitus Resp Effort & Inspection: normal respiratory effort, able to speak in complete sentences and no respiratory distress Auscultation: clear to auscultation bilaterally, no rales, no rhonchi and no wheezes Cardio Rate: regular rate Rhythm: regular rhythm Heart Sounds: S1 normal and S2 normal GI Inspection: normal to inspection, no edema and non-distended Palpation: soft, no hepatosplenomegaly, not firm, no guarding, not rigid and nontender Auscultation: normal bowel sounds Back/Spine/Pelvis Back: no CVA tenderness Thoracic/Lumbar Spine: thoracic and lumbar spine normal to inspection Skin General skin exam: no rashes or lesions noted Trauma: no lacerations or abrasions Neuro General: patient alert, patient awake and patient oriented x3 Cognition: normal cognition Speech: speech normal Gait: normal gait Extrem General: normal to inspection, capillary refill normal, no pedal edema, no calf tenderness, normal gait and other (2+ distal pulses in all extremities) Psych Appearance: grossly normal and well kempt Mental Status: mental status grossly normal Speech and Movement: speech and movement normal
[2021-02-07] MEDS: LORazepam 2 MG/ML VIAL 0.5 MG IM ×2 (14:26→17:29)
[2021-02-07 14:53] LABS: ALT 29 U/L (14-59); AST 19 U/L (15-37); Albumin 3.6 g/dL (3.4-5.0); Alkaline Phosphatase 63 U/L (46-116); Anion Gap 12.1 mmol/L (3-11); BUN 22 mg/dL (7-18); Bilirubin, Total 0.3 mg/dL (0.2-1.0); CO2 23.9 mmol/L (21.0-32.0); Calcium 9.1 mg/dL (8.5-10.1); Chloride 102 mmol/L (98-107); Glucose 130 mg/dL (74-106); Magnesium 1.8 mg/dL (1.8-2.4); Potassium 4.4 mmol/L (3.5-5.1); Sodium 138 mmol/L (136-145); Total Protein 7.2 g/dL (6.4-8.2)
[2021-02-07 14:56] LABS: Troponin I 0.22 ng/mL (<0.06)
[2021-02-07 15:08] LABS: Abs Immature Grans 0.06 10^3/uL (0.0-0.06); Absolute Eosinophil Count 0.08 10^3/uL (0.0-0.7); Absolute Lymphocyte Count 1.24 10^3/uL (1.2-3.4); Absolute Monocyte Count 0.77 10^3/uL (0.1-0.8); Basophils % 0.4; Eosinophils % 0.7; HGB 11.5 g/dL (11.2-15.7); Immature Grans % 0.5; MCH 29.5 pg (27.0-33.0); MCHC 31.9 % (32.0-36.0); MCV 92.3 fL (80-95); MPV 8.7 fL (8.0-11.0); Monocytes % 6.8; Neutrophils % 80.6; Nucleated RBC 0 %; Platelet Count 234 10^3/uL (130-400); RDW 12.5 % (11.7-14.6); RDW-SD 42.6 fL; WBC 11.29 10^3/uL (4.4-10.8)
[2021-02-07 15:24] LABS: Absolute Basophil Count 0.05 10^3/uL (0.0-0.2)
[2021-02-07 15:34] LABS: PTT Activated 23.9 sec (21.0-27.5); Prothrombin Time 10.3 sec (9.3-11.0)
[2021-02-07] MEDS: Clopidogrel 300 MG TAB PO (16:33)
--- NOTE | 2021-02-07 16:37 | DI.VRAD_ITS ---
PROCEDURE INFORMATION: Exam: XR Chest Exam date and time: 02/07/2021 1:33 PM Age: 76 years old Clinical indication: Other: Chest pain TECHNIQUE: Imaging protocol: XR of the chest. Views: 2 views. COMPARISON: CR XR CHEST 1V IN DI DEPT 05/22/2018 8:45 AM FINDINGS: Tubes, catheters and devices: There are sternal wires consistent with previous sternotomy incision. Lungs: The lungs are hyperinflated, consistent with underlying small airways disease. Pleural spaces: Unremarkable. No pleural effusion. No pneumothorax. Heart/Mediastinum: The heart demonstrates mild diffuse enlargement. Bones/joints: Unremarkable. IMPRESSION: The lungs are hyperinflated, consistent with underlying small airways disease. Dictated and Authenticated by: Issa Head MD. Ordering:FUENTES Messina MD
[2021-02-07 17:26] LABS: Troponin I 0.76 ng/mL (<0.06)
== END 2021-02-07 17:20 | disposition short-term general hospital (02) ==
LOC: ER 13:46
PROVIDERS: Emergency Provider Physician Assistant; PCP Nurse Practitioner Family
DX: I21.4 Non-ST elevation (NSTEMI) myocardial infarction (principal); F41.9 Anxiety disorder, unspecified; Z95.1 Presence of aortocoronary bypass graft
CPT/HCPCS: 36415; 36416; 80053; 82962; 93005; 96365; 96366; 96372; 96376; 99285; 71046; 83735; 84484; 85025; 85610; 85730; 93010; J2060

== ENCOUNTER → 2021-02-26 13:47 | Outpatient (BNVA) | payer OTHER, SELFPAY | PROVIDERS: PCP Nurse Practitioner Family; Referring Provider Nurse Practitioner Family; Visit Provider Internal Medicine Cardiovascular Disease | DX: I21.4 Non-ST elevation (NSTEMI) myocardial infarction (principal); G30.9 Alzheimer's disease, unspecified; F02.80 Dementia in other diseases classified elsewhere, unspecified severity, without behavioral disturbance, psychotic disturbance, mood disturbance, and anxiety; Z95.820 Peripheral vascular angioplasty status with implants and grafts | CPT/HCPCS: 99214; 99213 ==

== ENCOUNTER 2021-03-27 03:53 | Outpatient (CLI) | payer OTHER, SELFPAY ==
--- NOTE | 2021-03-27 10:30 | DI.RAD_ITS ---
Exam(s) XR WRIST LT COMPLETE EXAM: XR WRIST LT COMPLETE CLINICAL HISTORY: continued swelling of left wrist,R60.9. TECHNIQUE: 2D digital imaging was performed. COMPARISON: No exams were available for comparison FINDINGS: BONES: No acute fracture is present. No bony destructive lesion is seen. JOINTS: The carpal bones are normally aligned. There are mild degenerative changes seen at the 1st CM C joint with periarticular spurring present. SOFT TISSUE: Normal. IMPRESSION: Mild degenerative changes of the 1st CMC joint. DATA REPOSITORY: RADIATION DOSE DELIVERED:
== END 2021-03-27 04:13 ==
PROVIDERS: PCP Nurse Practitioner Family; Visit Provider Nurse Practitioner Family
DX: M18.12 Unilateral primary osteoarthritis of first carpometacarpal joint, left hand (principal)
CPT/HCPCS: 73110

== ENCOUNTER 2021-06-07 23:15 | Emergency (ER) | payer OTHER, SELFPAY ==
[2021-06-07] VITALS (9 sets, daily range): BP systolic 127–167; BP diastolic 46–58; PULSE 57–64; RESP 11–19; TEMP 36.4; O2SAT 95–98
--- NOTE | 2021-06-07 23:00 | RT.EKG_ITS ---
APPROVED REPORT Exam: Resting ECG Reason for Exam: chest pain Patient Location: E HR:59 bpm ECG Measurements Heart Rate 59 AXIS TX 189 P 45 QRSd 79 QRS 8 QT 446 T 58 QTc 442 Conclusion Bradycardia Anteroseptal Q >40mS, V1-V2
--- NOTE | 2021-06-07 23:00 | DI.RAD_ITS ---
Exam(s) XR PORTABLE CHEST AP EXAM: XR PORTABLE CHEST AP CLINICAL HISTORY: epigastric/chest pain. TECHNIQUE: 2D digital imaging was performed. COMPARISON: CR,XR XR CHEST 2V PA LATERAL from 02/07/2021 FINDINGS: Sternotomy wires and mild cardiomegaly again noted.. The mediastinum is not widened. Lungs are clear. No infiltrates nor obvious pleural effusions. Mild elevation left hemidiaphragm is noted. The stomach is filled with air below this level IMPRESSION: No acute pulmonary findings on this single AP portable view of the chest. Sternotomy wires again noted. DATA REPOSITORY: RADIATION DOSE DELIVERED: All CT scans at this facility use at least one of these dose optimization techniques: automated exposure control; mA and/or kV adjustment per patient size (includes targeted e xams where dose is matched to clinical indication); or iterative reconstruction.
--- NOTE | 2021-06-07 23:21 | ED.GENADUL_ITS ---
Discharge Plan Disposition Patient Disposition: HOME Condition: Improving Discharge Details Clinical Impression: Chest pain, atypical, Gastroesophageal reflux disease Primary Care Provider: Sudhir Rinaldi ED Provider: Bi Oliva Home Meds and New Rx's Prescriptions: Continued pantoprazole 40 mg tablet,delayed release (DR/EC) 40 mg PO DAILY RF: 0 diphenhydramine HCl [Benadryl] 25 mg capsule 25 mg PO QHS PRN (Reason: sleep) Qty: 30 RF: 0 nitroglycerin [Nitrostat] 0.4 mg tablet, sublingual 0.4 mg Sublingual PRN Qty: 25 RF: 4 clopidogrel 75 mg tablet 75 mg PO DAILY RF: 0 rosuvastatin 20 mg tablet 20 mg PO HS Qty: 90 RF: 4 sertraline 100 mg tablet 150 mg PO DAILY Qty: 90 RF: 4 (DME) lancets [OneTouch Delica Lancets] 33 gauge misc See Dose Instructions .ROUTE .MEDSUPPLY Qty: 100 RF: 6 (DME) blood sugar diagnostic Strip 1 strip Miscellaneous BID Qty: 180 RF: 4 glucosamine sulfate 500 mg capsule 500 mg PO BID RF: 0 spironolactone [Aldactone] 25 mg tablet 25 mg PO DAILY Qty: 90 RF: 6 aspirin 81 mg tablet,chewable 81 mg PO DAILY Qty: 90 RF: 4 losartan [Cozaar] 100 mg tablet 100 mg PO DAILY Qty: 90 RF: 4 (DME) OneTouch Ultra Blue Test Strip Strip See Dose Instructions .ROUTE .MEDSUPPLY Qty: 100 RF: 3 metformin [Glucophage] 500 mg tablet 500 mg PO BID Qty: 180 RF: 4 metoprolol tartrate 50 mg tablet 50 mg PO BID Qty: 180 RF: 3 memantine 5 mg tablet 5 mg PO BID Qty: 60 RF: 3 acetaminophen [Tylenol Extra Strength] 500 mg Tablet 1,000 mg PO PRN PRNRF: 0 Discharge Instructions Instructions: Chest Pain (ED), GERD (Gastroesophageal Reflux Disease) (ED) Additional Instructions: Your work-up today included chest x-ray, laboratory work-up with serial cardiac troponin. You may benefit from increasing your pantoprazole from 40 mg daily to 40 mg twice a day for 5 7 days time. Avoid fatty, fried, spicy or tomato-based/acidic foods. Return if you have recurrent chest pain or any other acute concerns. Medical Decision Making This is a 76-year-old female who presents with home with burning epigastric pain that began after dinner this evening. States she has had coronary artery disease with most recent stent placed in February of this year, and has been taking her medications as prescribed. States that this does not feel like previous chest pain. Patient arrives afebrile, interactive, with exam that reveals epigastric tenderness. Differential diagnosis includes gastritis, pancreatitis, must exclude acute coronary syndrome. Patient IV access established, screening labs obtained, given GI cocktail and Protonix. White count 8, hematocrit 35, platelets 255. Chemistries with unremarkable electrolytes, BUN 23, creatinine 0.9, troponin negative, lipase 124. EKG without evidence of ST elevation. Chest x-ray negative for acute thoracic pathology. Patient's pain dissipated completely following GI cocktail and Protonix. She was observed on a cardiac rehabilitation specialist and repeat troponin obtained and negative as well. Given her response to GI cocktail and PPI, will have her increase her pantoprazole to 40 mg twice daily for 1 week. She is stable and improved, appropriate for discharge to home.. HPI General Mode of arrival: EMS . Date/Time Provider Initiated Documentation: 06/08/21 00:48 . Limitations to Documentation: no limitations . Information obtained by: patient and EMS . History of Present Illness 76 year old F presents to the emergency department with the chief complaint of Burning epigastric pain, described as mild and similar to prior episodes, Quality is described as dull, and is localized to the chest and abdomen. Patient reports no radiation. Patient started experiencing this hour(s) and it has been constant. No relieving factors improve symptom(s), No exacerbating factors reported . Patient notes denies nausea/vomiting and shortness of hilario th. Patient did receive the following treatments prior to arrival, other (Nitroglycerin x3 without) Related Data Home Medications Medication Instructions Recorded Confirmed acetaminophen [Tylenol Extra 1,000 mg PO PRN PRN 04/16/18 06/07/21 Strength] nitroglycerin 0.4 mg sublingual 0.4 mg SUBLINGUAL PRN #25 tab 06/06/18 06/07/21 tablet blood sugar diagnostic #180 strip 08/17/19 05/22/21 glucosamine sulfate 500 mg capsule 500 mg PO BID cap 09/24/19 06/07/21 spironolactone 25 mg tablet 25 mg PO DAILY #90 tab-cap 05/09/20 06/07/21 aspirin 81 mg chewable tablet 81 mg PO DAILY #90 tab 07/22/20 06/07/21 losartan 100 mg tablet 100 mg PO DAILY #90 tab 08/26/20 06/07/21 blood sugar diagnostic #100 each 10/03/20 05/22/21 metformin 500 mg tablet 500 mg PO BID #180 tab 10/17/20 06/07/21 metoprolol tartrate 50 mg tablet 50 mg PO BID #180 tab-cap 10/17/20 06/07/21 diphenhydramine HCl 25 mg capsule 25 mg PO QHS PRN #30 cap 01/21/21 06/07/21 pantoprazole 40 mg tablet,delayed 40 mg PO DAILY 01/21/21 06/07/21 release clopidogrel 75 mg tablet 75 mg PO DAILY 02/19/21 06/07/21 rosuvastatin 20 mg tablet 20 mg PO HS #90 tab 02/19/21 06/07/21 lancets 33 gauge #100 each 04/23/21 05/22/21 sertraline 100 mg tablet 150 mg PO DAILY #90 tab 04/23/21 06/07/21 memantine 5 mg tablet 5 mg PO BID #60 tab 05/08/21 06/07/21 Previous Rx's Medication Instructions Recorded nitroglycerin 0.4 mg sublingual 0.4 mg SUBLINGUAL PRN #25 tab 06/06/18 tablet blood sugar diagnostic #180 strip 08/17/19 spironolactone 25 mg tablet 25 mg PO DAILY #90 tab-cap 05/09/20 aspirin 81 mg chewable tablet 81 mg PO DAILY #90 tab 07/22/20 losartan 100 mg tablet 100 mg PO DAILY #90 tab 08/26/20 blood sugar diagnostic #100 each 10/03/20 metformin 500 mg tablet 500 mg PO BID #180 tab 10/17/20 metoprolol tartrate 50 mg tablet 50 mg PO BID #180 tab-cap 10/17/20 diphenhydramine HCl 25 mg capsule 25 mg PO QHS PRN #30 cap 01/21/21 rosuvastatin 20 mg tablet 20 mg PO HS #90 tab 02/19/21 lancets 33 gauge #100 each 04/23/21 sertraline 100 mg tablet 150 mg PO DAILY #90 tab 04/23/21 memantine 5 mg tablet 5 mg PO BID #60 tab 05/08/21 Allergies Allergy/AdvReac Type Severity Reaction Status Date / Time codeine Allergy Severe hives, Verified 06/07/21 23:39 itching hydrochlorothiazide AdvReac Intermediate weakness, Verified 06/07/21 23:39 hyponatremia ranitidine AdvReac Intermediate DIARRHEA Verified 06/07/21 23:39 JR Inhibitors AdvReac Mild COUGH Verified 06/07/21 23:39 NSAIDS (Non-Steroidal AdvReac Mild GI upset Verified 06/07/21 23:39 Anti-Inflamma atorvastatin AdvReac Unknown ELEVATED Verified 06/07/21 23:39 LFT'S celecoxib AdvReac Verified 06/07/21 23:39 rofecoxib AdvReac Verified 06/07/21 23:39 valdecoxib AdvReac Verified 06/07/21 23:39 General MYLES: 2 Review of Systems Narrative: Denies recent illness. Chest pain/epigastric pain began after dinner. 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 Ryan LEAL Vaginal wall prolapse (08/28/12) Surgical History Abdominal hysterectomy (~1998) FIBROIDS ABDOMINAL WALL HERNIA REPAIR (~2002) AORTIC BYPASS BSO Cholecystectomy Colonoscopy - MAC 05/31/14 EGD - MAC (~2000) Ependymoma of spinal cord H/O knee surgery RECTOCELE REPAIR UROTOMY (~1998) Family History Mother Heart disease Stroke Father Diabetes Essential hypertension Heart disease Sister No problems noted. Sister No problems noted. Brother No problems noted. Grandfather No problems noted. Grandfather No problems noted. 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 Pleasant, well groomed, interactive. HEAD: Normocephalic, atraumatic ENT: Mucous membranes moist, oropharynx unremarkable, External ear exam unremarkable EYES: PERRL, EOMI NECK: Full ROM, no CECI, no menigismus CHEST/RESP: Nontender, clear to auscultation bilateral, no wheeze/rhonchi/rales CARDIOVASCULAR: RRR, no murmur, rub josie. 2+ Rad pulse bilateral ABDOMEN: Soft, tender in the epigastrium without rebound or guarding, no mass. +Bowel sounds EXT: Full ROM, no edema, no rash Neuro: Grossly normal neurologic exam, conversant, interactive. Psych: Speech fluent, thoughts congruent, affect normal
[2021-06-07 23:32] LABS: Abs Immature Grans 0.02 10^3/uL (0.0-0.06); Absolute Basophil Count 0.05 10^3/uL (0.0-0.2); Absolute Eosinophil Count 0.34 10^3/uL (0.0-0.7); Absolute Lymphocyte Count 1.33 10^3/uL (1.2-3.4); Absolute Monocyte Count 0.95 10^3/uL (0.1-0.8); Absolute Neutrophil Count 5.83 10^3/uL (1.2-6.7); Basophils % 0.6; HCT 35.4 % (36.0-46.0); HGB 11.2 g/dL (11.2-15.7); Immature Grans % 0.2; Lymphocytes % 15.6; MCHC 31.6 % (32.0-36.0); MCV 91.7 fL (80-95); Monocytes % 11.2; Neutrophils % 68.4; Nucleated RBC 0 %; Platelet Count 255 10^3/uL (130-400); RBC 3.86 10^6/uL (3.93-5.22); RDW 12.8 % (11.7-14.6); WBC 8.52 10^3/uL (4.4-10.8)
[2021-06-07] MEDS: Pantoprazole 40 MG VIAL IVP (23:44)
[2021-06-07 23:52] LABS: ALT 33 U/L (14-59); AST 34 U/L (15-37); Albumin 3.8 g/dL (3.4-5.0); Alkaline Phosphatase 56 U/L (46-116); Anion Gap 5.8 mmol/L (3-11); BUN 23 mg/dL (7-18); Bilirubin, Total 0.3 mg/dL (0.2-1.0); CO2 29.2 mmol/L (21.0-32.0); CREATININE 0.9 mg/dL (0.55-1.02); Calcium 9.2 mg/dL (8.5-10.1); Chloride 103 mmol/L (98-107); Glucose 122 mg/dL (74-106); Potassium 5.1 mmol/L (3.5-5.1); Sodium 138 mmol/L (136-145); Total Protein 7.4 g/dL (6.4-8.2)
[2021-06-07 23:56] LABS: Troponin I < 0.05 ng/mL (<0.06)
[2021-06-08] VITALS (24 sets, daily range): BP systolic 117–135; BP diastolic 29–106; PULSE 50–60; RESP 13–21; TEMP 36.5–36.8; O2SAT 95–97
[2021-06-08 00:06] LABS: Lipase 124 U/L (73-393)
--- NOTE | 2021-06-08 00:20 | DI.VRAD_ITS ---
PROCEDURE INFORMATION: Exam: XR Chest Exam date and time: 06/07/2021 11:13 PM Age: 76 years old Clinical indication: Other: Epigastric/chest pain; Prior surgery; Surgery date: 6+ months; Surgery type: Aortic bypass TECHNIQUE: Imaging protocol: XR of the chest. Views: 1 view. COMPARISON: CR XR CHEST 2V PA LATERAL 02/07/2021 4:15 PM FINDINGS: Airway: Patent Lungs: Unremarkable. No consolidation. Pleural spaces: Unremarkable. No pleural effusion. No pneumothorax. Heart/Mediastinum: The heart is mildly enlarged. Bones/joints: Sternotomy wires and mediastinal surgical clips are present, consistent with previous coronary arterial bypass grafting. No acute skeletal abnormality or aggressive osseous lesion. IMPRESSION: Negative for acute thoracic pathology. Dictated and Authenticated by: Oscar Baires MD. Ordering:KYLIE Pat MD
[2021-06-08 02:17] LABS: Troponin I < 0.05 ng/mL (<0.06)
== END 2021-06-08 02:49 | disposition home or self-care (01) ==
PROVIDERS: Emergency Provider Emergency Medicine; PCP Nurse Practitioner Family
DX: R07.89 Other chest pain (principal); K21.9 Gastro-esophageal reflux disease without esophagitis; R10.13 Epigastric pain
CPT/HCPCS: 80053; 83690; 93005; 96374; 99284; 71045; 83735; 84484; 85025; 93010

== ENCOUNTER → 2021-06-11 09:30 | Outpatient (BNVA) | payer MEDICARE, SELFPAY | PROVIDERS: PCP Nurse Practitioner Family; Referring Provider Nurse Practitioner Family; Visit Provider Internal Medicine Cardiovascular Disease | DX: I25.10 Atherosclerotic heart disease of native coronary artery without angina pectoris (principal); I10 Essential (primary) hypertension; F32.9 Major depressive disorder, single episode, unspecified; Z95.820 Peripheral vascular angioplasty status with implants and grafts | CPT/HCPCS: 99214; 99213 ==

== ENCOUNTER → 2021-07-09 08:42 | Outpatient (BNVA) | payer MEDICARE, SELFPAY | PROVIDERS: PCP Nurse Practitioner Family; Referring Provider Nurse Practitioner Family; Visit Provider Psychiatry & Neurology Neurology | DX: R51.9 Headache, unspecified (principal); G89.29 Other chronic pain; F32.9 Major depressive disorder, single episode, unspecified; F41.1 Generalized anxiety disorder; G30.9 Alzheimer's disease, unspecified; F02.80 Dementia in other diseases classified elsewhere, unspecified severity, without behavioral disturbance, psychotic disturbance, mood disturbance, and anxiety | CPT/HCPCS: 99214 ==

== ENCOUNTER → 2021-09-15 11:47 | Outpatient (BNVA) | payer MEDICARE, SELFPAY | PROVIDERS: PCP Nurse Practitioner Family; Referring Provider Emergency Medicine; Visit Provider Internal Medicine Cardiovascular Disease | DX: F32.9 Major depressive disorder, single episode, unspecified (principal); I10 Essential (primary) hypertension; I25.10 Atherosclerotic heart disease of native coronary artery without angina pectoris; I25.2 Old myocardial infarction | CPT/HCPCS: 99214; 99213 ==

== ENCOUNTER → 2021-09-21 15:06 | Outpatient (BNVA) | payer MEDICARE, SELFPAY | PROVIDERS: PCP Nurse Practitioner Family; Referring Provider Emergency Medicine; Visit Provider Nurse Practitioner Adult Health | DX: F32.9 Major depressive disorder, single episode, unspecified (principal); G31.84 Mild cognitive impairment of uncertain or unknown etiology | CPT/HCPCS: 99213 ==

== ENCOUNTER → 2021-11-17 15:15 | Outpatient (BNVA) | payer MEDICARE, SELFPAY | PROVIDERS: PCP Nurse Practitioner Family; Visit Provider Nurse Practitioner Adult Health | DX: G31.84 Mild cognitive impairment of uncertain or unknown etiology (principal) | CPT/HCPCS: 99213 ==

== ENCOUNTER 2022-03-01 14:23 | Inpatient (IN) | payer MEDICARE, SELFPAY ==
[2022-03-01] VITALS (8 sets, daily range): BP systolic 95–167; BP diastolic 58–92; PULSE 105–133; RESP 17–18; TEMP 36.2–36.4; O2SAT 96–99
--- NOTE | 2022-03-01 15:45 | DI.RAD_ITS ---
Exam(s) XR PORTABLE CHEST AP EXAM: XR PORTABLE CHEST AP CLINICAL HISTORY: fever, ams. TECHNIQUE: 2D digital imaging was performed. COMPARISON: CR,XR XR PORTABLE CHEST AP from 06/07/2021 FINDINGS: Single AP portable view. Sternotomy wires. Heart size is upper normal. The mediastinum is not widened. Lungs are clear. No infiltrates nor obvious pleural effusions. IMPRESSION: No acute pulmonary findings on this single AP portable view of the chest. DATA REPOSITORY: RADIATION DOSE DELIVERED: All CT scans at this facility use at least one of these dose optimization techniques: automated exposure control; mA and/or kV adjustment per patient size (includes targeted e xams where dose is matched to clinical indication); or iterative reconstruction.
--- NOTE | 2022-03-01 15:54 | ED.GENADUL_ITS ---
Discharge Plan Disposition Patient Disposition: [facility] INPATIENT Condition: Fair Discharge Details Chief Complaint: Urinary Clinical Impression: Urinary tract infection, Tachycardia, Dehydration, Delirium Primary Care Provider: Sudhir Rinaldi ED Provider: Bradley Marie Home Meds and New Rx's Prescriptions: No Action pantoprazole 40 mg tablet,delayed release (DR/EC) 40 mg PO BID Qty: 180 3RF losartan [Cozaar] 100 mg tablet 100 mg PO DAILY Qty: 90 4RF nitroglycerin [Nitrostat] 0.4 mg tablet, sublingual 0.4 mg Sublingual PRN Qty: 25 4RF (DME) blood sugar diagnostic Strip 1 strip Miscellaneous BID Qty: 180 4RF Rx Instructions: [id number] glucosamine sulfate 500 mg capsule 500 mg PO BID Label Comments: spironolactone [Aldactone] 25 mg tablet 25 mg PO DAILY Qty: 90 6RF Rx Instructions: begin .5 tablet daily in a.m. aspirin 81 mg tablet,chewable 81 mg PO DAILY Qty: 90 4RF olanzapine 5 mg tablet 5 mg PO BID Qty: 180 3RF amitriptyline 10 mg tablet 10 mg PO QHS Qty: 90 3RF clopidogrel 75 mg tablet 75 mg PO DAILY Qty: 90 3RF memantine 5 mg tablet 5 mg PO BID Qty: 60 3RF rosuvastatin 20 mg tablet 20 mg PO HS Qty: 90 1RF metformin 500 mg tablet See Rx Instructions .ROUTE .COMPLEX Qty: 180 4RF Dose Instruction: TAKE 1 TABLET BY MOUTH TWICE DAILY Rx Instructions: TAKE 1 TABLET BY MOUTH TWICE DAILY (DME) blood sugar diagnostic Strip See Dose Instructions .ROUTE .MEDSUPPLY Qty: 100 3RF Dose Instruction: As directed Rx Instructions: As directed. Test bid (DME) lancets [OneTouch Delica Lancets] 33 gauge misc See Dose Instructions .ROUTE .MEDSUPPLY Qty: 100 6RF Dose Instruction: As directed Rx Instructions: bid acetaminophen [Tylenol Extra Strength] 500 mg Tablet 1,000 mg PO PRN PRN Medical Decision Making 77-year-old female history of dementia, coronary disease, diabetes presents with fatigue dysuria and urinary frequency over the past several days, uncontrolled blood sugar noted at home. No nausea no vomiting, appears generally tired and pale, tachycardic and hypotensive arrival; high clinical suspicion for urosepsis. Also consider other conditions such as viral etiology. Less likely intracranial process such as CVA hemorrhage edema or mass. Lower suspicion for ACS or PE. Muscle to consider component of DKA or hyperosmolar state in the setting of infection. Will obtain labs imaging fluids empiric antibiotics cultures admission likely. 19: 40 patient resting comfortably blood pressure and heart rate improving. We will continue to need antibiotics and fluid support at this time. Will admit for urosepsis. HPI General Date/Time Provider Initiated Documentation: 03/01/22 15:45 . HPI Narrative: 77-year-old female history of coronary artery disease dementia presents with urinary frequency and dysuria as well as fatigue over the past several days, increased confusion per family; no respiratory symptoms no nausea no vomiting; patient is also diabetic and they have noted that her blood sugars have been high over the past several days Related Data Home Medications Medication Instructions Recorded Confirmed acetaminophen 500 mg tablet 1,000 mg PO PRN PRN 04/16/18 03/01/22 (Tylenol Extra Strength) nitroglycerin 0.4 mg sublingual 0.4 mg sublingual PRN #25 tabs 06/06/18 03/01/22 tablet (Nitrostat) blood sugar diagnostic #180 strips 08/17/19 03/01/22 glucosamine sulfate 500 mg capsule 500 mg PO BID 09/24/19 03/01/22 pantoprazole 40 mg tablet,delayed 40 mg PO BID #180 tabs 08/26/21 03/01/22 release spironolactone 25 mg tablet 25 mg PO DAILY #90 tab-caps 08/28/21 03/01/22 (Aldactone) losartan 100 mg tablet (Cozaar) 100 mg PO DAILY #90 tabs 09/30/21 03/01/22 aspirin 81 mg chewable tablet 81 mg PO DAILY #90 tabs 10/12/21 03/01/22 olanzapine 5 mg tablet 5 mg PO BID #180 tabs 10/14/21 03/01/22 amitriptyline 10 mg tablet 10 mg PO QHS #90 tabs 10/26/21 03/01/22 clopidogrel 75 mg tablet 75 mg PO DAILY #90 tabs 11/02/21 03/01/22 memantine 5 mg tablet 5 mg PO BID #60 tabs 11/06/21 03/01/22 rosuvastatin 20 mg tablet 20 mg PO HS #90 tabs 11/13/21 03/01/22 metformin 500 mg tablet See Rx Instructions .Route 01/11/22 03/01/22 .COMPLEX #180 tabs blood sugar diagnostic #100 ea 02/10/22 03/01/22 lancets 33 gauge ([facility] #100 ea 02/10/22 03/01/22 Lancets) Previous Rx's Medication Instructions Recorded nitroglycerin 0.4 mg sublingual 0.4 mg sublingual PRN #25 tabs 06/06/18 tablet (Nitrostat) blood sugar diagnostic #180 strips 08/17/19 pantoprazole 40 mg tablet,delayed 40 mg PO BID #180 tabs 08/26/21 release spironolactone 25 mg tablet 25 mg PO DAILY #90 tab-caps 08/28/21 (Aldactone) losartan 100 mg tablet (Cozaar) 100 mg PO DAILY #90 tabs 09/30/21 aspirin 81 mg chewable tablet 81 mg PO DAILY #90 tabs 10/12/21 olanzapine 5 mg tablet 5 mg PO BID #180 tabs 10/14/21 amitriptyline 10 mg tablet 10 mg PO QHS #90 tabs 10/26/21 clopidogrel 75 mg tablet 75 mg PO DAILY #90 tabs 11/02/21 memantine 5 mg tablet 5 mg PO BID #60 tabs 11/06/21 rosuvastatin 20 mg tablet 20 mg PO HS #90 tabs 11/13/21 metformin 500 mg tablet See Rx Instructions .Route 01/11/22 .COMPLEX #180 tabs blood sugar diagnostic #100 ea 02/10/22 lancets 33 gauge ([facility] #100 ea 02/10/22 Lancets) Allergies Allergy/AdvReac Type Severity Reaction Status Date / Time codeine Allergy Severe hives, Verified 03/01/22 14:33 itching hydrochlorothiazide AdvReac Intermediate weakness, Verified 03/01/22 14:33 hyponatremia ranitidine AdvReac Intermediate DIARRHEA Verified 03/01/22 14:33 JR Inhibitors AdvReac Mild COUGH Verified 03/01/22 14:33 NSAIDS (Non-Steroidal AdvReac Mild GI upset Verified 03/01/22 14:33 Anti-Inflamma atorvastatin AdvReac Unknown ELEVATED Verified 03/01/22 14:33 LFT'S celecoxib AdvReac Verified 03/01/22 14:33 rofecoxib AdvReac Verified 03/01/22 14:33 valdecoxib AdvReac Verified 03/01/22 14:33 General Stated Complaint: Urinary MYLES: 4 Review of Systems Narrative: Review of Systems Constitutional: Fatigue Eyes: negative ENT: negative Cardiovascular: negative Respiratory: negative Gastrointestinal: negative : Dysuria, urinary frequency Musculoskeletal: negative Skin: negative Neurologic: Confusion Psych: negative PFSH All Active Problems (Updated 03/01/22 @ 19:42 by Bradley Marie MD) Urinary tract infection (Acute) Tachycardia (Acute) Dehydration (Acute) Delirium (Acute) Insomnia (Acute) Mild cognitive impairment (Acute) SunDown syndrome (Acute) Chronic headache (Acute) Chest pain, atypical (Acute) Gastroesophageal reflux disease (Chronic) Fatigue (Acute) Left wrist pain (Acute) Status post angioplasty with stent (Acute) Acute non-ST elevation myocardial infarction (NSTEMI) (Acute) Allergies (Acute) Complaints of memory disturbance (Acute) Encounter for preadmission testing (Acute) 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 Early in course of late onset disease. 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 Can recur Tubular adenoma of colon (Acute) 05/31/14; DR. Ryan LEAL Trochanteric bursitis of left hip (Acute 07/30/15) Scoliosis (Acute 04/10/14) Hyperlipidemia (Acute) Gastroesophageal reflux disease (Acute) H/O esophagitia, HH Essential hypertension (Acute 05/28/13) Elev transaminase/LDH (Acute) Esophageal reflux (Acute) H/O esophagitia, HH Elev transaminase/LDH (Acute) Diabetes mellitus (Acute) Colon polyp (Acute) Atrophic vaginitis (Acute 08/30/14) Atherosclerosis of [place] coronary artery (Acute) neg MPI 09/24 CABG 2001 Asthma (Acute 06/16/11) Arthritis (Acute 06/16/11) Medical History Admission for convalescence and palliative care Surgical History Abdominal hysterectomy (~1998) FIBROIDS ABDOMINAL WALL HERNIA REPAIR (~2002) AORTIC BYPASS BSO Cholecystectomy Colonoscopy - MAC 05/31/14 EGD - MAC (~2000) Ependymoma of spinal cord H/O knee surgery RECTOCELE REPAIR UROTOMY (~1998) Family History Mother Heart disease Stroke Father Diabetes Essential hypertension Heart disease Sister No problems noted. Sister No problems noted. Brother No problems noted. Grandfather No problems noted. Grandfather No problems noted. 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 Frequency: does not exercise Henrietta/Orthodoxy: Baptism Special henrietta needs: No Seatbelt use: always Do you feel safe at home: Yes Do you feel safe in your relationship?: Yes Exam Narrative Exam Narrative: Physical Examination General: alert, awake, cooperative, tired appearing HEENT: normocephalic, atraumatic; PERRL, EOM intact, conjunctiva normal; no nasal discharge; moist mucous membranes, oral and pharyngeal mucosa normal, tolerating secretions Neck: supple, trachea midline; full ROM Chest: normal to inspection Respiratory: normal respiratory effort, speaking in full sentences, clear to auscultation, no wheezing, rales or rhonchi Cardiac: Tachycardia, regular rhythm, S1S2 intact, no murmurs rubs or gallops GI: abdomen soft, non-tender, non-distended; no palpable mass or hepatosplenomegaly Skin: Pallor slightly dry Neuro: Slow slightly confused speech, moving all extremities; no cranial nerve deficits; following commands Psych: Appropriate mood and affect Course Vital Signs Vital signs: Vital Signs Temperature 36.3 C L 03/01/22 14:26 Pulse 133 H 03/01/22 14:26 Respiratory Rate 17 03/01/22 14:26 Blood Pressure 95/78 L 03/01/22 14:26 Pulse Oximetry 96 03/01/22 14:26 Temperature 36.3 C L 03/01/22 14:26 Temperature Source Temporal Artery Scan 03/01/22 14:26 Pulse 133 H 03/01/22 14:26 Respiratory Rate 17 03/01/22 14:26 Respiratory Effort Non-Labored 03/01/22 14:39 Blood Pressure 95/78 L 03/01/22 14:26 Blood Pressure Position Sitting 03/01/22 14:26 Pulse Oximetry 96 03/01/22 14:26 Oxygen Delivery Method Room Air 03/01/22 14:26 Oxygen Flow Rate 0 03/01/22 14:26 Pain Level 9 03/01/22 14:37 Lab/Test Results Lab/Test Results: 03/01/22 15:51 Blood Blood Culture - Pending 03/01/22 15:51 Blood Blood Culture - Pending
[2022-03-01 16:14] LABS: BE (Venous) -1 mmol/L (-2-3); HCO3 (Venous) 24 mmol/L (23-28); O2 Sat (Venous) 92 %; TCO2 (Venous) 22 mmol/L (24-29); pCO2 (Venous) 39 mmHg (41-51); pH (Venous) 7.39 (7.31-7.41); pO2 (Venous) 63 mmHg
[2022-03-01 16:22] LABS: Abs Immature Grans 0.02 10^3/uL (0.0-0.06); Absolute Basophil Count 0.04 10^3/uL (0.0-0.2); Absolute Eosinophil Count 0.01 10^3/uL (0.0-0.7); Absolute Lymphocyte Count 1.19 10^3/uL (1.2-3.4); Absolute Monocyte Count 0.89 10^3/uL (0.1-0.8); Absolute Neutrophil Count 6.37 10^3/uL (1.2-6.7); Basophils % 0.5; Eosinophils % 0.1; HCT 34.1 % (36.0-46.0); HGB 11.3 g/dL (11.2-15.7); Immature Grans % 0.2; MCH 28.2 pg (27.0-33.0); MCHC 33.1 % (32.0-36.0); MCV 85 fL (80-95); MPV 8.5 fL (8.0-11.0); Monocytes % 10.4; Neutrophils % 74.8; Platelet Count 392 10^3/uL (130-400); RBC 4.01 10^6/uL (3.93-5.22); RDW 13.4 % (11.7-14.6); RDW-SD 41.7 fL; WBC 8.52 10^3/uL (4.4-10.8)
[2022-03-01 16:32] LABS: ALT 37 U/L (14-59); AST 33 U/L (15-37); Albumin 3.4 g/dL (3.4-5.0); Alkaline Phosphatase 53 U/L (46-116); Anion Gap 8.7 mmol/L (3-11); BUN 16 mg/dL (7-18); Bilirubin, Total 0.4 mg/dL (0.2-1.0); CO2 25.3 mmol/L (21.0-32.0); CREATININE 0.9 mg/dL (0.55-1.02); Calcium 8.9 mg/dL (8.5-10.1); Chloride 101 mmol/L (98-107); Glucose 135 mg/dL (74-106); Potassium 3.8 mmol/L (3.5-5.1); Sodium 135 mmol/L (136-145); Total Protein 6.5 g/dL (6.4-8.2)
[2022-03-01] MEDS: Normal Saline 1,000 ML 1000 ML IV (17:01)
[2022-03-01 17:42] LABS: Bilirubin Negative (Negative); Blood Negative (Negative); Clarity Sl Cloudy (Clear); Glucose Negative (Negative); Ketones Trace mg/dL (Negative); Leukocyte Esterase Trace (Negative); Nitrite Positive (Negative); Specific Gravity 1.015 (1.005-1.025)
[2022-03-01 18:06] LABS: Bacteria Many HPF (Negative); C & S Indicated? Yes; Casts 0-2 Hyaline LPF (Negative); Crystals Moderate Amorphous HPF (Negative); Epithelial Cells Rare HPF (Negative); Mucus Negative (Negative); RBC Negative HPF (0-2)
[2022-03-01 18:12] LABS: COVID-19 PCR Negative (Negative); Influenza A PCR Negative (Negative); Influenza B PCR Negative (Negative); RSV PCR Negative (Negative)
[2022-03-01 18:16] LABS: Source Nasopharynx
--- NOTE | 2022-03-01 20:00 | HPE_ITS ---
Date of service: 03/01/22 Time of Service: 20:00 Assessment and Plan Assessment and plan (1) Urinary tract infection: Status: Acute Assessment and plan: UTI with confusion. I think the initial hemopdynamics is likely more loss control representative of an element of dehydration, though certainly early sepsis poss ible. In any case she has responded promptly to IVF. Will await culturers and continue Rocephin and fluids. Will hold ARB until hemodynamics stable; hold Metformin until we see where sugars equilibrate; and will hold diuretic. Usual meds as is otherwise. Reviewed ADS with patient and daughter. Has previously expressed wish for DNR, and daughter confirms this. Patient, insofar as she is able to engage in the conversation, further endorses. History of Present Illness History of Present Illness Chief Complaint: dysuria, confusion Narrative: 77 female with h/o early dementia -- here with several days of urinary frequency and dysuria, along with increasing coinfusion and poor PO intake. here in ER initial BP 95/68 with puilse 133; after IVF BP 149/sys, pulse 110s. W/U of note for absence of fever and leukocytosis; pyuria (5-10 WBC/hpf) and many bacteria. Blood cultures obtained and patient givcen dose Rocephin. I was asked to evaluate for admission. Patient unable to provide any details of history, daughter present and confirms in detail. patient's only complaint at this time is request to have Rogers catheter removed. Denies Fever, chills, nausea, vomiting or back pain. Does endorse some vague lower abdominal discomfort. Review of Systems Narrative: per HPI PFSH All Active Problems Urinary tract infection (Acute) Tachycardia (Acute) Dehydration (Acute) Delirium (Acute) Insomnia (Acute) Mild cognitive impairment (Acute) SunDown syndrome (Acute) Chronic headache (Acute) Chest pain, atypical (Acute) Gastroesophageal reflux disease (Chronic) Fatigue (Acute) Left wrist pain (Acute) Status post angioplasty with stent (Acute) Acute non-ST elevation myocardial infarction (NSTEMI) (Acute) Allergies (Acute) Complaints of memory disturbance (Acute) Encounter for preadmission testing (Acute) 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 Early in course of late onset disease. 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 Can recur Tubular adenoma of colon (Acute) 05/31/14; DR. Ryan LEAL Trochanteric bursitis of left hip (Acute 07/30/15) Scoliosis (Acute 04/10/14) Hyperlipidemia (Acute) Gastroesophageal reflux disease (Acute) H/O esophagitia, HH Essential hypertension (Acute 05/28/13) Elev transaminase/LDH (Acute) Esophageal reflux (Acute) H/O esophagitia, HH Elev transaminase/LDH (Acute) Diabetes mellitus (Acute) Colon polyp (Acute) Atrophic vaginitis (Acute 08/30/14) Atherosclerosis of [place] coronary artery (Acute) neg MPI 09/24 CABG 2001 Asthma (Acute 06/16/11) Arthritis (Acute 06/16/11) Medical History Admission for convalescence and palliative care Surgical History Abdominal hysterectomy (~1998) FIBROIDS ABDOMINAL WALL HERNIA REPAIR (~2002) AORTIC BYPASS BSO Cholecystectomy Colonoscopy - MAC 05/31/14 EGD - MAC (~2000) Ependymoma of spinal cord H/O knee surgery RECTOCELE REPAIR UROTOMY (~1998) Family History Mother Heart disease Stroke Father Diabetes Essential hypertension Heart disease Sister No problems noted. Sister No problems noted. Brother No problems noted. Grandfather No problems noted. Grandfather No problems noted. 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 Frequency: does not exercise Henrietta/Presybeterian: Adventism Special henrietta needs: No Seatbelt use: always Do you feel safe at home: Yes Do you feel safe in your relationship?: Yes Meds Allergies and Home Medications Allergies Allergy/AdvReac Type Severity Reaction Status Date / Time codeine Allergy Severe hives, Verified 03/01/22 14:33 itching hydrochlorothiazide AdvReac Intermediate weakness, Verified 03/01/22 14:33 hyponatremia ranitidine AdvReac Intermediate DIARRHEA Verified 03/01/22 14:33 JR Inhibitors AdvReac Mild COUGH Verified 03/01/22 14:33 NSAIDS (Non-Steroidal AdvReac Mild GI upset Verified 03/01/22 14:33 Anti-Inflamma atorvastatin AdvReac Unknown ELEVATED Verified 03/01/22 14:33 LFT'S celecoxib AdvReac Verified 03/01/22 14:33 rofecoxib AdvReac Verified 03/01/22 14:33 valdecoxib AdvReac Verified 03/01/22 14:33 Home Medications Medication Instructions Recorded Confirmed Type acetaminophen 500 mg tablet 1,000 mg PO PRN PRN 04/16/18 03/01/22 History (Tylenol Extra Strength) nitroglycerin 0.4 mg sublingual 0.4 mg sublingual PRN #25 tabs 06/06/18 03/01/22 Rx tablet (Nitrostat) blood sugar diagnostic #180 strips 08/17/19 03/01/22 Rx glucosamine sulfate 500 mg capsule 500 mg PO BID 09/24/19 03/01/22 History pantoprazole 40 mg tablet,delayed 40 mg PO BID #180 tabs 08/26/21 03/01/22 Rx release spironolactone 25 mg tablet 25 mg PO DAILY #90 tab-caps 08/28/21 03/01/22 Rx (Aldactone) losartan 100 mg tablet (Cozaar) 100 mg PO DAILY #90 tabs 09/30/21 03/01/22 Rx aspirin 81 mg chewable tablet 81 mg PO DAILY #90 tabs 10/12/21 03/01/22 Rx olanzapine 5 mg tablet 5 mg PO BID #180 tabs 10/14/21 03/01/22 Rx amitriptyline 10 mg tablet 10 mg PO QHS #90 tabs 10/26/21 03/01/22 Rx clopidogrel 75 mg tablet 75 mg PO DAILY #90 tabs 11/02/21 03/01/22 Rx memantine 5 mg tablet 5 mg PO BID #60 tabs 11/06/21 03/01/22 Rx rosuvastatin 20 mg tablet 20 mg PO HS #90 tabs 11/13/21 03/01/22 Rx metformin 500 mg tablet See Rx Instructions .Route 01/11/22 03/01/22 Rx .COMPLEX #180 tabs blood sugar diagnostic #100 ea 02/10/22 03/01/22 Rx lancets 33 gauge (OneTouch Delica #100 ea 02/10/22 03/01/22 Rx Lancets) Exam Narrative Exam Narrative: 149/67, 116, 36.3, 17, 97% RA. HEENT atraumatic; neck supple; lungs clear; herart tachy/regular; abdomen sopft and NT; back no CVAT; extremities w/o edema; neuro Ox 1-2 (knows we're in hospital, thinks it's [place]; knows year, not month; does not know president), moves all 4s Results Labs Result diagrams: 03/01/22 16:00 03/01/22 16:00 Labs: Laboratory Results - last 24 hr 03/01/22 03/01/22 03/01/22 16:00 16:00 16:00 WBC 8.52 RBC 4.01 Hgb 11.3 Hct 34.1 L MCV 85 MCH 28.2 MCHC 33.1 RDW 13.4 Plt Count 392 MPV 8.5 Immature Gran % 0.2 Neutrophils % 74.8 Lymphocytes % 14.0 Monocytes % 10.4 Eosinophils % 0.1 Basophils % 0.5 Nucleated RBC % 0.0 Absolute Neutrophils 6.37 Absolute Lymphocytes 1.19 L Absolute Monocytes 0.89 H Absolute Eosinophils 0.01 Absolute Basophils 0.04 VBG pH 7.39 VBG pCO2 39 L VBG pO2 63 VBG HCO3 24 VBG Total CO2 22 L VBG O2 Saturation 92 VBG Base Excess -1 Sodium 135 L Potassium 3.8 Chloride 101 Carbon Dioxide 25.3 Anion Gap 8.7 BUN 16 Creatinine 0.9 Estimated GFR/1.73 m2 >= 60.00 Glucose 135 H Calcium 8.9 Total Bilirubin 0.4 AST 33 ALT 37 Alkaline Phosphatase 53 Total Protein 6.5 Albumin 3.4 Urine Color Urine Clarity Urine pH Ur Specific Organ Urine Protein Urine Ketones Urine Blood Urine Nitrite Urine Bilirubin Urine Urobilinogen Ur Leukocyte Esterase Urine RBC Urine WBC Ur Epithelial Cells Urine Crystals Urine Bacteria Urine Casts Urine Mucus Ur Culture Indicated? Urine Glucose COVID-19 Source SARS-CoV-2 (PCR) Influenza Type A (PCR) Influenza Type B (PCR) RSV (PCR) 03/01/22 03/01/22 17:20 17:20 WBC RBC Hgb Hct MCV MCH MCHC RDW Plt Count MPV Immature Gran % Neutrophils % Lymphocytes % Monocytes % Eosinophils % Basophils % Nucleated RBC % Absolute Neutrophils Absolute Lymphocytes Absolute Monocytes Absolute Eosinophils Absolute Basophils VBG pH VBG pCO2 VBG pO2 VBG HCO3 VBG Total CO2 VBG O2 Saturation VBG Base Excess Sodium Potassium Chloride Carbon Dioxide Anion Gap BUN Creatinine Estimated GFR/1.73 m2 Glucose Calcium Total Bilirubin AST ALT Alkaline Phosphatase Total Protein Albumin Urine Color Yellow Urine Clarity Sl Cloudy Urine pH 6.0 Ur Specific Organ 1.015 Urine Protein Negative Urine Ketones Trace H Urine Blood Negative Urine Nitrite Positive H Urine Bilirubin Negative Urine Urobilinogen 1.0 H Ur Leukocyte Esterase Trace H Urine RBC Negative Urine WBC 5-10 Ur Epithelial Cells Rare Urine Crystals Moderate Amorphous Urine Bacteria Many Urine Casts 0-2 Hyaline Urine Mucus Negative Ur Culture Indicated? Yes Urine Glucose Negative COVID-19 Source Nasopharynx SARS-CoV-2 (PCR) Negative Influenza Type A (PCR) Negative Influenza Type B (PCR) Negative RSV (PCR) Negative Last Vital Signs Temp 36.3 C L 03/01/22 14:26 Pulse 116 H 03/01/22 19:01 Resp 17 03/01/22 14:26 BP 149/67 H 03/01/22 19:01 Pulse Ox 97 03/01/22 19:10
[2022-03-01] MEDS: Amitriptyline 10 MG TAB PO (23:15)
[2022-03-01] MEDS: LORazepam 20 MG/10 ML VIAL IVP (23:15)
[2022-03-01] MEDS: Rosuvastatin 10 MG TAB 20 MG PO (23:15)
[2022-03-01] MEDS: Lactated Ringers 1,000 ML 100 ML IV (23:15)
[2022-03-02] MEDS: OLANZapine 5 MG TAB PO (07:39)
[2022-03-02] MEDS: Memantine 5 MG TAB PO (07:39)
[2022-03-02] MEDS: Pantoprazole 40 MG TABCR PO (07:39)
[2022-03-02] MEDS: Clopidogrel 75 MG TAB PO (07:39)
[2022-03-02] MEDS: Aspirin 81 MG CHEW PO (07:40)
[2022-03-02 08:35] VITALS: BP 141/81; PULSE 114; RESP 16; TEMP 36.4; O2SAT 98
--- NOTE | 2022-03-02 08:35 | INITIAL_ITS ---
- If Service Date Differs Date of service: 03/02/22 Time of Service: 08:35 Care Management Initial Assess REASON FOR HOSPITALIZATION:: UTI PAST MEDICAL HISTORY/PAST SURGICAL HISTORY:: All Active Problems . Urinary tract infection (Acute). Tachycardia (Acute). Dehydration (Acute). Delirium (Acute). Insomnia (Acute). Mild cognitive impairment (Acute). SunDown syndrome (Acute). Chronic headache (Acute). Chest pain, atypical (Acute). Gastroesophageal reflux disease (Chronic). Fatigue (Acute). Left wrist pain (Acute). Status post angioplasty with stent (Acute). Acute non-ST elevation myocardial infarction (NSTEMI) (Acute). Allergies (Acute). Complaints of memory disturbance (Acute). Encounter for preadmission testing (Acute). Alzheimer's dementia (Chronic). presumed, memory and functional decline most consistent with Alzheimers. Early in course of late onset disease. Generalized anxiety disorder (Acute). life long anxiety worsening with cognitive decline. Depression (Chronic). onset with cognitive decline. Gastric polyps (Acute). Epigastric pain (Acute). Vaginal wall prolapse (Acute 08/28/12). Proctocele (Acute). Abdominal pain in female (Acute). History of surgical procedure (Acute). History of ventral hernia repair (Acute). Status post abdominal hysterectomy (Acute). 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 Can recur. Tubular adenoma of colon (Acute). 05/31/14; DR. Ryan LEAL. Trochanteric bursitis of left hip (Acute 07/30/15). Scoliosis (Acute 04/10/14). Hyperlipidemia (Acute). Gastroesophageal reflux disease (Acute). H/O esophagitia, HH. Essential hypertension (Acute 05/28/13). Elev transaminase/LDH (Acute). Esophageal reflux (Acute). H/O esophagitia, HH. Elev transaminase/LDH (Acute). Diabetes mellitus (Acute). Colon polyp (Acute). Atrophic vaginitis (Acute 08/30/14). Atherosclerosis of [place] coronary artery (Acute). neg MPI 09/24. CABG 2001. Asthma (Acute 06/16/11). Arthritis (Acute 06/16/11). Medical History . Admission for convalescence and palliative care. Surgical History . Abdominal hysterectomy (~1998). FIBROIDS. ABDOMINAL WALL HERNIA REPAIR (~2002). AORTIC BYPASS. BSO. Cholecystectomy. Colonoscopy - MAC. 05/31/14. EGD - MAC (~2000). Ependymoma of spinal cord. H/O knee surgery. RECTOCELE REPAIR. UROTOMY (~1998) PREVIOUS FUNCTIONAL STATUS/SOCIAL/FAMILY SUPPORTS:: Carissa lives in [place] with her Davi. Davi provides her transportation. Carissa uses a cane to ambulate and is independent at baseline. CURRENT FUNCTIONAL STATUS:: Carissa is sound a sleep in her chair when CM met with her. Her is at her bedside. Per Davi, Carissa had a very long night and provided information obtained in this interview. ADVANCE DIRECTIVES:: On file, HCA is Soha Strong, Alt is Christina Gibbs Has patient been provided with info about the portal/API?: Yes Did the patient sign up for the portal?: Yes (Prior to admission) CODE STATUS:: DNR/DNI INSURANCE COVERAGE / FINANCIAL ISSUES:: AARP/[employer]. CMR. Financial assist PRIMARY CARE PHYSICIAN:: Sudhir Rinaldi POTENTIAL DISCHARGE NEEDS:: Discharge plan of care. RX: uses [facility] in [place] PATIENT/FAMILY EDUCATION NEEDS:: Review discharge instructions, limitations, medications and plan to follow up with community providers. TRANSPORTATION:: via private vehicle with family. PLAN:: Anticipate, Carissa will discharge home via private vehicle with family when medically ready. She will follow up with community providers and discharge plan of care as prescribed. New RX's, if needed should be sent to [facility] in [facility].
[2022-03-02] MEDS: Lactated Ringers 1,000 ML 100 ML IV (09:17)
--- NOTE | 2022-03-02 14:52 | PT.INIE ---
Date of service: 03/02/22 Time of Service: 14:52 PT Notes Visit Reasons: Urinary tract infection Physical Therapy Inpatient Initial Evaluation Date: 03/02/2022 Referring Doctor: Christine Deleon NP PT Orders: PT CONSULT: Eval/treat Precautions: Fall. Standard. Activity as tolerated. Patient Profile/Admitting Diagnosis: Carissa is a 77-year-old female who presented to the ED on 03/01/2022 due to fatigue, difficulty with urination, frequent urination, and uncontrolled blood sugars associated with confusion, and poor p.o. intake. Patient is diagnosed with a referral to PT today to assess safety of home discharge. PMHX: All Active Problems? Urinary tract infection (Acute) Tachycardia (Acute) Dehydration (Acute) Delirium (Acute) Insomnia (Acute) Mild cognitive impairment (Acute) SunDown syndrome (Acute) Chronic headache (Acute) Chest pain, atypical (Acute) Gastroesophageal reflux disease (Chronic) Fatigue (Acute) Left wrist pain (Acute) Status post angioplasty with stent (Acute) Acute non-ST elevation myocardial infarction (NSTEMI) (Acute) Allergies (Acute) Complaints of memory disturbance (Acute) Encounter for preadmission testing (Acute) 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 Can recur Tubular adenoma of colon (Acute) 05/31/14; DR. Ryan LEAL Trochanteric bursitis of left hip (Acute 07/30/15) Scoliosis (Acute 04/10/14) Hyperlipidemia (Acute) Gastroesophageal reflux disease (Acute) H/O esophagitia, HH Essential hypertension (Acute 05/28/13) Elev transaminase/LDH (Acute) Esophageal reflux (Acute) H/O esophagitia, HH Elev transaminase/LDH (Acute) Diabetes mellitus (Acute) Colon polyp (Acute) Atrophic vaginitis (Acute 08/30/14) Atherosclerosis of [place] coronary artery (Acute) neg MPI 09/24 CABG 1999 Asthma (Acute 06/16/11) Arthritis (Acute 06/16/11) Medical History? Admission for convalescence and palliative care Surgical History? Abdominal hysterectomy (~1998) FIBROIDSABDOMINAL WALL HERNIA REPAIR (~2002) AORTIC BYPASS BSO Cholecystectomy Colonoscopy - MAC 05/31/14EGD - MAC (~2000) Ependymoma of spinal cord H/O knee surgery RECTOCELE REPAIR UROTOMY (~1998) Social History/Home Situation: Lives with in a private home with three steps to enter with rails on B sides. Modified independent with all mobility ADL performance using SPC. Daughyer does grocery shopping for her patient and patient's . does cooking/meal preparation, laundry, and medication management. Equipment Owned/DME: [facility], SPC Subjective: Agreeable to PT consult. Nervous about how she will do on the steps. Wants to go home very much. Complained of being tired after doing the whole medsurg nurses' loop. Complaiend about not being able to see well. Objective: General Observation: Supine in chair. ENTRY OPERATOR Lorrie just helped patient from bed to chair. Mental Status: Alert but not oriented as to person, place, time, and purpose. Able to follow single step commands. Pain: Denies ROM: Right Upper Extremity: Shoulder Flexion WFL. Shoulder abduction WFL. Elbow flexion WFL. Wrist flexion WFL. Functional opening and closing of hand WFL. Left Upper Extremity: Shoulder Flexion WFL. Shoulder abduction WFL. Elbow flexion WFL. Wrist flexion WFL. Functional opening and closing of hand WFL. Right Lower Extremity: Hip flexion WFL. Hip abduction WFL. Knee flexion WFL. Ankle dorsiflexion WFL. Ankle plantarflexion WFL. Left Lower Extremity: Hip flexion WFL. Hip abduction WFL. Knee flexion WFL. Ankle dorsiflexion WFL. Ankle plantarflexion WFL. Strength: Right Upper Extremity: Shoulder flexors 4-/5. Shoulder abductors 4-/5. Elbow flexors 4-/5. Elbow extensors 4-/5. Occupational Health Coordinator strong. Left Upper Extremity: Shoulder flexors 4-/5. Shoulder abductors 4-/5. Elbow flexors 4-/5. Elbow extensors 4-/5. Occupational Health Coordinator strong. Right Lower Extremity: Hip flexors 4-/5. Hip abductors 4-/5. Knee flexors 4-/5. Knee extensors 4-/5. Ankle dorsiflexors 4-/5. Ankle plantarflexors 4-/5. Left Lower Extremity: Hip flexors 4-/5. Hip abductors 4-/5. Knee flexors 4-/5. Knee extensors 4-/5. Ankle dorsiflexors 4-/5. Ankle plantarflexors 4-/5. Bed Mobility/Transfers: Sit to stand stand by assist Stand to sit stand by assist Bed to reclining chair stand by assist Reclining chair to bed stand by assist Gait: Instructed patient with level surface ambulation of 250 feet + 150 feet requiring stand by assist. Ruma decreased. Step height decreased. Step length decreased. Complained of being tired after ambulation activity. Stair: Up and down 6 x 40 inch steps and 4 x 6-inch steps while holding onto B rails with stand by assist for safety using step over step pattern. Balance: Static Sitting: Normal Dynamic Sitting: Normal Static Standing: Fair Dynamic Standing: Fair Special Tests: Mobility Limitations Standardized Measure [facility] AM-PAC 6 clicks Basic Mobility Inpatient Short Form: Raw Score:24 CMS Score: 0% deficit Informed Consent/Education: Patient was instructed in purpose of PT consult and plan of care. Agreeable to proceed with established PT POC to achieve personal goals. Assessment: Will function better in a familiar surroundings than in the hospital setting due to pre-existing dementia. Patient presents with clinical signs and symptoms consistent with current/admitting diagnoses that have resulted to mobility limitations, gait instability, generalized weakness, and overall ADL decline as demonstrated by the following impairment level findings: 1. Impaired standing balance 2. Impaired activity tolerance 3. Impaired safety awareness Impairments are contributing to the following functional limitations: 1. Difficulty with ambulation without assistive device 2. Increased completion time for mobility ADL performance 3. Increased risk for falls 4. Difficulty with managing steps alone safely Patient is [place] 40975 moderate complexity based on the following: History: 77-year-old female with past medical history as indicated above Examination: Demonstrable impairment in strength, balance, and mobility level with underlying impairments and functional limitations as exhibited above Presentation: Stable Decision Makin moderate complexity Goals: N/A. PT evaluation and 1 treatment session only for functional mobility training. Plan of Care/Treatment Plan: N/A. PT evaluation and 1 treatment session only for functional mobility training. DISCHARGE RECOMMENDATIONS: [] Home with no services [] [X] Home with services. Home when medically cleared by hospitalist. Patient will benefit from home health PT services in order to progress mobility level using least restrictive assistive ambulatory device, assess home safety, identify additional equipment needs, and establish a functional maintenance program that will increase ability of patient to remain at home. [] Home with outpatient PT [] [] SNF for continued rehabilitation [] [] Longterm Care [] [] SNF versus LTC based on ability to participate and progress [] TREATMENT CODE/TIME: 55909 x 20 minutes, 97541 x 18 minutes beginning at 14:52 PM. Thank you for the opportunity to participate in the care of this patient. Martha Baltazar PT, DPT, CLT [facility] [place], [place]
[2022-03-02 15:36] VITALS: BP 152/83; PULSE 104; RESP 18; TEMP 36.9; O2SAT 97
--- NOTE | 2022-03-02 15:36 | DSE_ITS ---
Date of service: 03/02/22 Time of Service: 15:36 DS: Diagnosis Discharge Diagnosis (1) Urinary tract infection: Start date: 03/02/22 Start time: 15:36 Status: Acute Discharge Plan Disposition Patient Disposition: HOME W/HOME HEALTH SERVICE Condition: Stable Discharge Details Reason For Visit: UTI Admit Date/Time: 03/01/22 20:13 Admit Provider: Birgido Berry Attending Provider: Brigido Berry Primary Care Provider: Sudhir Rinaldi Hospital Course Hospital Course: This is a 77 year old female with history of diabetes mellitus, NSTEMI, alzheimers dementia, GERD, anxiety who presented to the ED with increased confusion and dysuria. Work up in the ED showed UTI and mild dehydration. she was given IV fluids and started on ceftriaxone while awaiting culture report. she remained hemodynamically stable heart rate down to the low 100's with no fever or low blood pressures. Her reports she is at her baseline. She was screened by physical therapy who deems her safe for discharge to home with home health. the patient and her would prefer a discharge today as she is medically stable. she will continue cephalexin while cultures pending, she was also given 1 dose of fosfomycin 3 gm as her cultures was positive to gram negative and gram positive luigi. she is eating and drinking well, and has received IV hydration. she is being discharged to home with home health services. requests a sleep aid so melatonin prescription provided. discharge discussed with DR Connell Home Meds and New Rx's Prescriptions: New melatonin 3 mg capsule 3 mg PO HS Qty: 30 0RF cephalexin 500 mg capsule 500 mg PO BID Qty: 10 0RF Continued pantoprazole 40 mg tablet,delayed release (DR/EC) 40 mg PO BID Qty: 180 3RF losartan [Cozaar] 100 mg tablet 100 mg PO DAILY Qty: 90 4RF nitroglycerin [Nitrostat] 0.4 mg tablet, sublingual 0.4 mg Sublingual PRN Qty: 25 4RF (DME) blood sugar diagnostic Strip 1 strip Miscellaneous BID Qty: 180 4RF Rx Instructions: [id number] glucosamine sulfate 500 mg capsule 500 mg PO BID Label Comments: spironolactone [Aldactone] 25 mg tablet 25 mg PO DAILY Qty: 90 6RF Rx Instructions: begin .5 tablet daily in a.m. aspirin 81 mg tablet,chewable 81 mg PO DAILY Qty: 90 4RF olanzapine 5 mg tablet 5 mg PO BID Qty: 180 3RF amitriptyline 10 mg tablet 10 mg PO QHS Qty: 90 3RF clopidogrel 75 mg tablet 75 mg PO DAILY Qty: 90 3RF memantine 5 mg tablet 5 mg PO BID Qty: 60 3RF rosuvastatin 20 mg tablet 20 mg PO HS Qty: 90 1RF metformin 500 mg tablet See Rx Instructions .ROUTE .COMPLEX Qty: 180 4RF Dose Instruction: TAKE 1 TABLET BY MOUTH TWICE DAILY Rx Instructions: TAKE 1 TABLET BY MOUTH TWICE DAILY (DME) blood sugar diagnostic Strip See Dose Instructions .ROUTE .MEDSUPPLY Qty: 100 3RF Dose Instruction: As directed Rx Instructions: As directed. Test bid (DME) lancets [OneTouch Delica Lancets] 33 gauge misc See Dose Instructions .ROUTE .MEDSUPPLY Qty: 100 6RF Dose Instruction: As directed Rx Instructions: bid acetaminophen [Tylenol Extra Strength] 500 mg Tablet 1,000 mg PO PRN PRN Discharge Instructions Instructions: Urinary Tract Infection in Women (DC) Stand Alone Forms: Nursing Discharge Form Referrals: Sudhir Rinaldi BEVEL GEAR GENERATOR OPERATOR [Primary Care Provider] - 03/09/22 1:00 pm Activity:: Activity as Tolerated Equipment/Supplies:: No Equipment Needed Diet:: As Tolerated Discharge Orders Discharge Orders: Discharge Order (Routine); Ordered 03/02/22 Ordered By: Christine Deleon Discharge Data Discharge Date/Time-TO BE ENTERED AT DEPARTURE: 03/02/22 16:51 DS: Summary Time Spent with Patient providing and/or coordinating discharge services: Less than 30 minutes Status at Discharge Functional status at discharge: independent ambulation Overall status at discharge: patient is back to baseline Mental Status: mental status grossly normal Speech and Movement: speech and movement normal Mood: congruent mood Affect: normal affect Exam Const General: cooperative, healthy appearing, no acute distress and anxious Nutritional Appearance: average body habitus and well nourished Orientation: alert and awake HENMT Head: normal to inspection Mouth: moist mucous membranes Chest Chest: normal inspection of the chest and normal palpation of entire chest wall Resp Effort & Inspection: normal respiratory effort and able to speak in complete sentences Auscultation: clear to auscultation bilaterally and no wheezes Cardio Rate: regular rate Rhythm: regular rhythm GI Inspection: normal to inspection Palpation: soft, no guarding and nontender Auscultation: normal bowel sounds Back/Spine/Pelvis Back: no CVA tenderness Skin General skin exam: no rashes or lesions noted Neuro General: patient alert and patient awake Speech: speech normal Gait: normal gait Extrem General: normal to inspection, capillary refill normal and normal gait Psych Appearance: grossly normal and well kempt Mental Status: mental status grossly normal Speech and Movement: speech and movement normal Mood: congruent mood Affect: normal affect DS: Data Vitals/I&O Vitals and I&O: Vital Signs Temperature 36.4 C L 03/02/22 08:35 Temperature Source Tympanic 03/02/22 08:35 Pulse 114 H 03/02/22 08:35 Pulse Rhythm Regular 03/02/22 08:50 Respiratory Rate 16 03/02/22 08:35 Respiratory Effort Non-Labored 03/02/22 08:50 Respiratory Depth Normal 03/02/22 08:50 Respiratory Pattern Normal 03/02/22 08:50 Blood Pressure 141/81 H 03/02/22 08:35 Blood Pressure Mean 86 03/01/22 19:01 Blood Pressure Position Sitting 03/01/22 14:26 Pulse Oximetry 98 03/02/22 08:35 Oxygen Delivery Method Room Air 03/02/22 08:35 Oxygen Flow Rate 0 03/02/22 08:35 Pain Level 9 03/01/22 21:20 Comment 03/02/22 08:35 Intake & Output 03/01/22 03/02/22 03/02/22 23:59 11:59 23:59 Intake Total 1050 / 1050 1000 / 1000 Output Total 750 / 750 1350 / 0 700 / 0 Balance 300 / 300 -350 / -1050 -700 / -1050 Weight 59.421 kg Intake: IV 1050 / 1050 1000 / 1000 Output: Urine 750 / 750 135 / 0 / 2049 Other: Urine Color Yellow Pale Pale Yellow Yellow Urine Appearance Clear Clear Clear Urine Odor Strong Comment discontinued Voiding Methods Toilet Toilet Data Completed and Pending Labs on day of discharge: Labs from last 24 hours 03/01/22 03/01/22 03/01/22 17:20 17:20 16:00 WBC RBC Hgb Hct MCV MCH MCHC RDW Plt Count MPV Immature Gran % Neutrophils % Lymphocytes % Monocytes % Eosinophils % Basophils % Nucleated RBC % Absolute Neutrophils Absolute Lymphocytes Absolute Monocytes Absolute Eosinophils Absolute Basophils VBG pH 7.39 VBG pCO2 39 L VBG pO2 63 VBG HCO3 24 VBG Total CO2 22 L VBG O2 Saturation 92 VBG Base Excess -1 Sodium Potassium Chloride Carbon Dioxide Anion Gap BUN Creatinine Estimated GFR/1.73 m2 Glucose Calcium Total Bilirubin AST ALT Alkaline Phosphatase Total Protein Albumin Urine Color Yellow Urine Clarity Sl Cloudy Urine pH 6.0 Ur Specific [place] 1.015 Urine Protein Negative Urine Ketones Trace H Urine Blood Negative Urine Nitrite Positive H Urine Bilirubin Negative Urine Urobilinogen 1.0 H Ur Leukocyte Esterase Trace H Urine RBC Negative Urine WBC 5-10 Ur Epithelial Cells Rare Urine Crystals Moderate Amorphous Urine Bacteria Many Urine Casts 0-2 Hyaline Urine Mucus Negative Ur Culture Indicated? Yes Urine Glucose Negative COVID-19 Source Nasopharynx SARS-CoV-2 (PCR) Negative Influenza Type A (PCR) Negative Influenza Type B (PCR) Negative RSV (PCR) Negative 03/01/22 03/01/22 16:00 16:00 WBC 8.52 RBC 4.01 Hgb 11.3 Hct 34.1 L MCV 85 MCH 28.2 MCHC 33.1 RDW 13.4 Plt Count 392 MPV 8.5 Immature Gran % 0.2 Neutrophils % 74.8 Lymphocytes % 14.0 Monocytes % 10.4 Eosinophils % 0.1 Basophils % 0.5 Nucleated RBC % 0.0 Absolute Neutrophils 6.37 Absolute Lymphocytes 1.19 L Absolute Monocytes 0.89 H Absolute Eosinophils 0.01 Absolute Basophils 0.04 VBG pH VBG pCO2 VBG pO2 VBG HCO3 VBG Total CO2 VBG O2 Saturation VBG Base Excess Sodium 135 L Potassium 3.8 Chloride 101 Carbon Dioxide 25.3 Anion Gap 8.7 BUN 16 Creatinine 0.9 Estimated GFR/1.73 m2 >= 60.00 Glucose 135 H Calcium 8.9 Total Bilirubin 0.4 AST 33 ALT 37 Alkaline Phosphatase 53 Total Protein 6.5 Albumin 3.4 Urine Color Urine Clarity Urine pH Ur Specific [place] Urine Protein Urine Ketones Urine Blood Urine Nitrite Urine Bilirubin Urine Urobilinogen Ur Leukocyte Esterase Urine RBC Urine WBC Ur Epithelial Cells Urine Crystals Urine Bacteria Urine Casts Urine Mucus Ur Culture Indicated? Urine Glucose COVID-19 Source SARS-CoV-2 (PCR) Influenza Type A (PCR) Influenza Type B (PCR) RSV (PCR) 03/01/22 19:13 Blood Blood Culture - Pending 03/01/22 16:00 Blood Blood Culture - Pending Preliminary micro results at discharge 03/01/22 17:20 Urine Culture - Preliminary Urine - Reflex from Ua Gram Negative Ron Gram Positive Luigi 03/01/22 19:13 Blood Culture - Pending Blood 03/01/22 16:00 Blood Culture - Pending Blood PFSH All Active Problems Urinary tract infection (Acute) Tachycardia (Acute) Dehydration (Acute) Delirium (Acute) Insomnia (Acute) Mild cognitive impairment (Acute) SunDown syndrome (Acute) Chronic headache (Acute) Chest pain, atypical (Acute) Gastroesophageal reflux disease (Chronic) Fatigue (Acute) Left wrist pain (Acute) Status post angioplasty with stent (Acute) Acute non-ST elevation myocardial infarction (NSTEMI) (Acute) Allergies (Acute) Complaints of memory disturbance (Acute) Encounter for preadmission testing (Acute) 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 Early in course of late onset disease. 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 Can recur Tubular adenoma of colon (Acute) 05/31/14; DR. Ryan LEAL Trochanteric bursitis of left hip (Acute 07/30/15) Scoliosis (Acute 04/10/14) Hyperlipidemia (Acute) Gastroesophageal reflux disease (Acute) H/O esophagitia, HH Essential hypertension (Acute 05/28/13) Elev transaminase/LDH (Acute) Esophageal reflux (Acute) H/O esophagitia, HH Elev transaminase/LDH (Acute) Diabetes mellitus (Acute) Colon polyp (Acute) Atrophic vaginitis (Acute 08/30/14) Atherosclerosis of [place] coronary artery (Acute) neg MPI 09/24 CABG 2001 Asthma (Acute 06/16/11) Arthritis (Acute 06/16/11) Medical History Admission for convalescence and palliative care Surgical History Abdominal hysterectomy (~1998) FIBROIDS ABDOMINAL WALL HERNIA REPAIR (~2002) AORTIC BYPASS BSO Cholecystectomy Colonoscopy - MAC 05/31/14 EGD - MAC (~2000) Ependymoma of spinal cord H/O knee surgery RECTOCELE REPAIR UROTOMY (~1998) Family History Mother Heart disease Stroke Father Diabetes Essential hypertension Heart disease Sister No problems noted. Sister No problems noted. Brother No problems noted. Grandfather No problems noted. Grandfather No problems noted. 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
--- NOTE | 2022-03-02 15:44 | PDOC.HHF2F ---
Home Health Certification Home Health Certification: 1. Encounter Date and Reason I certify that Carissa Strong was seen by Christine Deleon on 03/02/22 and that I had a [id number] encounter with this patient that meets the physician face to face encounter requirements. 2. Clinical Findings Supporting Skilled Need and Homebound Status I certify that home health services are medically necessary, include either intermittent residential and/or physical/speech therapy, and that this patient is homebound in that absences from the home require considerable and taxing effort and are infrequent or of short duration, or are attributable to the need to receive medical care. [X] (a) Attached documentation from encounter provides clinical findings supporting skilled need and homebound status (including what assistance patient requires to leave the home). The encounter with the patient was in whole, or in part, for the following medical condition, which is the primary reason for home health care: UTI Senior Care: routine nursing evaluation and monitoring Physical and Occupational Therapy: routine evaluation and treatment, home safety evaluation Homebound: unable to safely leave the house unattended d/t decreased strength and endurance 3. Certification and Authentication I certify that I composed the above information based on my clinical judgement relating to this patient's medical condition and, if applicable, clinical findings communicated to me by the NPP or inpatient physician who performed the Home Health Referral. All further orders will be obtained through _KIYA RICO NP__(Community Based Physician - PCP)
[2022-03-02] MEDS: cefTRIAXone 1 GM/50 ML BAG IVPB (15:45)
[2022-03-02] MEDS: Fosfomycin Tromethamine 3 GM PACKET PO (15:51)
== END 2022-03-02 16:51 | disposition home health service (06) | DRG 690 ==
LOC: ER 19:42 → MS 21:16
PROVIDERS: Admitting Provider General Practice; Emergency Provider Emergency Medicine; PCP Nurse Practitioner Family; Visit Provider General Practice
DX: N39.0 Urinary tract infection, site not specified (principal); F05 Delirium due to known physiological condition; E11.65 Type 2 diabetes mellitus with hyperglycemia; R00.0 Tachycardia, unspecified; E86.0 Dehydration; I25.10 Atherosclerotic heart disease of native coronary artery without angina pectoris; I95.9 Hypotension, unspecified; G47.00 Insomnia, unspecified; K21.9 Gastro-esophageal reflux disease without esophagitis; I25.2 Old myocardial infarction; F32.A Depression, unspecified; G30.1 Alzheimer's disease with late onset; F02.80 Dementia in other diseases classified elsewhere, unspecified severity, without behavioral disturbance, psychotic disturbance, mood disturbance, and anxiety; R51.9 Headache, unspecified; I10 Essential (primary) hypertension; J45.909 Unspecified asthma, uncomplicated; Z95.1 Presence of aortocoronary bypass graft
CPT/HCPCS: 36415; 80053; 82805; 87040; 87077; 87637; 96361; 96365; 97162; 97530; 99285; 71045; 81003; 81015; 85025; 87086; 87186; 99222; 99238; J0696; J3490

== ENCOUNTER 2022-03-09 15:18 | Outpatient (REF) | payer MEDICARE, SELFPAY ==
[2022-03-09 11:04] LABS: Bilirubin Negative (Negative); Blood Negative (Negative); Clarity Clear (Clear); Glucose Negative (Negative); Ketones Negative (Negative); Leukocyte Esterase Negative (Negative); Nitrite Negative (Negative); Specific Gravity 1.015 (1.005-1.025); Urobilinogen 0.2 EU/dL (Up TO 0.2)
== END 2022-03-09 15:19 | disposition home or self-care (01) ==
LOC: LBO 15:18
PROVIDERS: PCP Nurse Practitioner Family; Visit Provider Nurse Practitioner Family
DX: R30.0 Dysuria (principal)
CPT/HCPCS: 81003

== ENCOUNTER → 2022-03-16 11:39 | Outpatient (BNVA) | payer MEDICARE, SELFPAY | PROVIDERS: PCP Nurse Practitioner Family; Referring Provider Nurse Practitioner Family; Visit Provider Internal Medicine Cardiovascular Disease | DX: I25.810 Atherosclerosis of coronary artery bypass graft(s) without angina pectoris (principal); F41.8 Other specified anxiety disorders; R00.0 Tachycardia, unspecified; I25.2 Old myocardial infarction; Z95.1 Presence of aortocoronary bypass graft; I10 Essential (primary) hypertension | CPT/HCPCS: 99214 ==

== ENCOUNTER → 2022-03-18 13:56 | Outpatient (BNVA) | payer MEDICARE, SELFPAY | PROVIDERS: PCP Nurse Practitioner Family; Referring Provider Nurse Practitioner Family; Visit Provider Urology | DX: R10.2 Pelvic and perineal pain (principal); N95.2 Postmenopausal atrophic vaginitis | CPT/HCPCS: 51798; 99215; G2212 ==

== ENCOUNTER 2022-04-05 15:35 | Emergency (ER) | payer MEDICARE, SELFPAY ==
[2022-04-05] VITALS (19 sets, daily range): BP systolic 145–166; BP diastolic 62–91; PULSE 118–135; RESP 15–24; TEMP 36.6–37; O2SAT 94–97
--- NOTE | 2022-04-05 15:30 | RT.EKG_ITS ---
APPROVED REPORT Exam: Resting ECG Reason for Exam: chest pain Patient Location: E HR:124 bpm ECG Measurements Heart Rate 124 AXIS OR 156 P 39 QRSd 75 QRS 8 QT 301 T 71 QTc 433 Conclusion Sinus tachycardia...rate> 99 Physician: no stemi, minimal elevation in V1 concsistant with prior ekg on 05/10/21 and 02/07/21
--- NOTE | 2022-04-05 15:45 | DI.RAD_ITS ---
Exam(s) XR PORTABLE CHEST AP EXAM: XR PORTABLE CHEST AP CLINICAL HISTORY: central chest pain TECHNIQUE: 2D digital imaging was performed of the chest. One image was obtained. An AP view was ob tained. COMPARISON: CR XR PORTABLE CHEST AP from 03/01/2022 FINDINGS: MEDIASTINUM: Normal. HEART: Normal. Status post CABG. PULMONARY VASCULATURE: Normal. LUNGS: Clear. PLEURAL SPACE: No pleural effusion or pneumothorax. BONE:Within normal limits for the patient's age. OTHER FINDINGS:There is unchanged elevation of the left hemidiaphragm. Surgical clips are seen in th e right upper quadrant of the abdomen. IMPRESSION: No acute pulmonary findings. DATA REPOSITORY: RADIATION DOSE DELIVERED:
--- NOTE | 2022-04-05 16:03 | ED.GENADUL_ITS ---
Discharge Plan Disposition Patient Disposition: HOME Condition: Good Discharge Details Clinical Impression: Chest pain Primary Care Provider: Sudhir Rinaldi ED Provider: Rehan Quinteros Home Meds and New Rx's Prescriptions: No Action pantoprazole 40 mg tablet,delayed release (DR/EC) 40 mg PO BID Qty: 180 3RF losartan [Cozaar] 100 mg tablet 100 mg PO DAILY Qty: 90 4RF nitroglycerin [Nitrostat] 0.4 mg tablet, sublingual 0.4 mg Sublingual PRN Qty: 25 4RF phenazopyridine 100 mg tablet 100 mg PO TID PRN (Reason: pain) Qty: 90 0RF estradiol [Estrace] 0.01 % (0.1 mg/gram) cream 2 g vaginal .twice weekly Qty: 42.5 12RF Rx Instructions: for 7 days Myrbetriq 25 mg tablet extended release 24 hr 25 mg PO DAILY Qty: 56 0RF (DME) blood sugar diagnostic Strip 1 strip Miscellaneous BID Qty: 180 4RF Rx Instructions: [id number] glucosamine sulfate 500 mg capsule 500 mg PO BID Label Comments: spironolactone [Aldactone] 25 mg tablet 25 mg PO DAILY Qty: 90 6RF Rx Instructions: begin .5 tablet daily in a.m. aspirin 81 mg tablet,chewable 81 mg PO DAILY Qty: 90 4RF olanzapine 5 mg tablet 5 mg PO BID Qty: 180 3RF rosuvastatin 20 mg tablet 20 mg PO HS Qty: 90 1RF (DME) blood sugar diagnostic Strip See Dose Instructions .ROUTE .MEDSUPPLY Qty: 100 3RF Dose Instruction: As directed Rx Instructions: As directed. Test bid (DME) lancets [OneTouch Delica Lancets] 33 gauge [facility] [place] See Dose Instructions .ROUTE .MEDSUPPLY Qty: 100 6RF Dose Instruction: As directed Rx Instructions: bid amitriptyline 25 mg tablet 25 mg PO QHS Qty: 90 3RF memantine 5 mg tablet 5 mg PO BID Qty: 60 3RF metformin 500 mg tablet See Rx Instructions .ROUTE .COMPLEX Qty: 180 4RF Dose Instruction: TAKE 1 TABLET BY MOUTH TWICE DAILY Rx Instructions: TAKE 1 TABLET BY MOUTH TWICE DAILY acetaminophen [Tylenol Extra Strength] 500 mg Tablet 1,000 mg PO PRN PRN melatonin 3 mg capsule 3 mg PO HS Qty: 30 0RF Discharge Instructions Instructions: Chest Pain (ED) Additional Instructions: At this time your cardiac work-up is stable. There is no signs of heart attack or cardiac strain. Please stay well-hydrated, drink plenty of fluids, and follow-up closely with your primary care provider. If you notice any worsening of your symptoms, or any new symptoms such as vomiting, diarrhea, fever, chills, shortness of breath, chest pain, numbness, weakness, or fainting , please return immediately to the emergency department for reevaluation. Please follow up with your primary care provider as soon as possible for reassessment and reevaluation. As always, it was a pleasure participating in your medical care today. Referrals: Sudhir Rinaldi NP [Primary Care Provider] - Medical Decision Making 77-year-old female with a past medical history of open heart surgery 15 years ago, myocardial infarction with stent in February, dementia, asthma, diabetes mellitus, who presents today with daughter for evaluation of chest discomfort. Uncertain as to when it actually began. Family is uncertain if it was 2 to 3 days ago and was started, or if it was at 2:15 PM after lunch. Patient came in for further evaluation. She describes the pain as a mild pinching like sensation in her chest. It did not change with rest or activity. She denies any significant pleuritic component. She denies any cough, fever or chills. She denies any numbness tingling or weakness. No other complaints at this time. No other modifying factors. Physical exam demonstrates a very well-appearing female. She denies any significant chest pain at this time. Bedside ultrasound was performed with [facility] which showed no signs of kendall wall motion abnormalities or pericardial effusion. Initial and repeat troponin were both normal, patient remains notably stable, with no complaint of chest pain, or other abnormalities after notable work-up. Symptoms clinically inconsistent with pneumonia. No evidence of pneumothorax. Symptoms inconsistent with aortic dissection or pulmonary embolism. Of note the patient did have 1 atypical vital signs, no tachycardia, initially this was thought to be new, however upon review of the records on each of the patient's visit she had been persistently tachycardic since the spring. I did discuss this with the daughter who is at bedside and she states that this started when the patient was taken off of her regular metoprolol. Since then she has otherwise been asymptomatic but with persistent mild tachycardia. Patient feels well, and is requesting discharge. Family feels comfortable with this plan. Patient will be discharged home. Symptoms inconsistent with cardiac ACS, and instead concerning more so for mild reflux causing the chest achiness. Musculoskeletal component is certainly on the differential though still. Discussed red flags which to return. I have extensively reviewed the treatment plan and discharge instructions with the patient and their family. I have addressed all patient concerns at this time. The patient and family was made aware of what symptoms to monitor for that would warrant a return to the emergency department. Discussed the plan with the patient and family, they demonstrate verbal understanding and agreement with our assessment and plan at this time. The documentation in this chart was dictated using [employer] dictation software. Please excuse any dictation errors. HPI General Date/Time Provider Initiated Documentation: 04/05/22 15:40 . HPI Narrative: 77-year-old female with a past medical history of open heart surgery 15 years ago, myocardial infarction with stent in February, dementia, asthma, diabetes mellitus, who presents today with daughter for evaluation of chest discomfort. Uncertain as to when it actually began. Family is uncertain if it was 2 to 3 days ago and was started, or if it was at 2:15 PM after lunch. Patient came in for further evaluation. She describes the pain as a mild pinching like sensation in her chest. It did not change with rest or activity. She denies any significant pleuritic component. She denies any cough, fever or chills. She denies any numbness tingling or weakness. No other complaints at this time. No other modifying factors. Related Data Home Medications Medication Instructions Recorded Confirmed acetaminophen 500 mg tablet 1,000 mg PO PRN PRN 04/16/18 04/05/22 (Tylenol Extra Strength) blood sugar diagnostic #180 strips 08/17/19 04/05/22 glucosamine sulfate 500 mg capsule 500 mg PO BID 09/24/19 04/05/22 pantoprazole 40 mg tablet,delayed 40 mg PO BID #180 tabs 08/26/21 04/05/22 release spironolactone 25 mg tablet 25 mg PO DAILY #90 tab-caps 08/28/21 04/05/22 (Aldactone) losartan 100 mg tablet (Cozaar) 100 mg PO DAILY #90 tabs 09/30/21 04/05/22 aspirin 81 mg chewable tablet 81 mg PO DAILY #90 tabs 10/12/21 04/05/22 olanzapine 5 mg tablet 5 mg PO BID #180 tabs 10/14/21 04/05/22 rosuvastatin 20 mg tablet 20 mg PO HS #90 tabs 11/13/21 04/05/22 blood sugar diagnostic #100 ea 02/10/22 04/05/22 lancets 33 gauge (OneTouch Delica #100 ea 02/10/22 04/05/22 Lancets) melatonin 3 mg capsule 3 mg PO HS #30 caps 03/02/22 04/05/22 amitriptyline 25 mg tablet 25 mg PO QHS #90 tabs 03/03/22 04/05/22 memantine 5 mg tablet 5 mg PO BID #60 tabs 03/04/22 04/05/22 nitroglycerin 0.4 mg sublingual 0.4 mg sublingual PRN #25 tabs 03/16/22 04/05/22 tablet (Nitrostat) phenazopyridine 100 mg tablet 100 mg PO TID PRN pain 6 doses #90 03/17/22 04/05/22 tabs estradiol 0.01% (0.1 mg/gram) 2 g vaginal .twice weekly #42.5 03/18/22 04/05/22 vaginal cream (Estrace) grams mirabegron 25 mg tablet,extended 25 mg PO DAILY #56 tabs 03/18/22 04/05/22 release 24 hr (Myrbetriq) metformin 500 mg tablet See Rx Instructions .Route 03/31/22 04/05/22 .COMPLEX #180 tabs Previous Rx's Medication Instructions Recorded blood sugar diagnostic #180 strips 08/17/19 pantoprazole 40 mg tablet,delayed 40 mg PO BID #180 tabs 08/26/21 release spironolactone 25 mg tablet 25 mg PO DAILY #90 tab-caps 08/28/21 (Aldactone) losartan 100 mg tablet (Cozaar) 100 mg PO DAILY #90 tabs 09/30/21 aspirin 81 mg chewable tablet 81 mg PO DAILY #90 tabs 10/12/21 olanzapine 5 mg tablet 5 mg PO BID #180 tabs 10/14/21 rosuvastatin 20 mg tablet 20 mg PO HS #90 tabs 04/08/22 blood sugar diagnostic #100 ea 02/10/22 lancets 33 gauge (Hieu Shin #100 ea 02/10/22 Lancets) melatonin 3 mg capsule 3 mg PO HS #30 caps 03/02/22 amitriptyline 25 mg tablet 25 mg PO QHS #90 tabs 03/03/22 memantine 5 mg tablet 5 mg PO BID #60 tabs 03/04/22 nitroglycerin 0.4 mg sublingual 0.4 mg sublingual PRN #25 tabs 03/16/22 tablet (Nitrostat) phenazopyridine 100 mg tablet 100 mg PO TID PRN pain 6 doses #90 03/17/22 tabs estradiol 0.01% (0.1 mg/gram) 2 g vaginal .twice weekly #42.5 03/18/22 vaginal cream (Estrace) grams mirabegron 25 mg tablet,extended 25 mg PO DAILY #56 tabs 03/18/22 release 24 hr (Myrbetriq) metformin 500 mg tablet See Rx Instructions .Route 03/31/22 .COMPLEX #180 tabs Allergies Allergy/AdvReac Type Severity Reaction Status Date / Time codeine Allergy Severe hives, Verified 04/05/22 15:44 itching hydrochlorothiazide AdvReac Intermediate weakness, Verified 04/05/22 15:44 hyponatremia ranitidine AdvReac Intermediate DIARRHEA Verified 04/05/22 15:44 JR Inhibitors AdvReac Mild COUGH Verified 04/05/22 15:44 NSAIDS (Non-Steroidal AdvReac Mild GI upset Verified 04/05/22 15:44 Anti-Inflamma atorvastatin AdvReac Unknown ELEVATED Verified 04/05/22 15:44 LFT'S celecoxib AdvReac Verified 04/05/22 15:44 rofecoxib AdvReac Verified 04/05/22 15:44 valdecoxib AdvReac Verified 04/05/22 15:44 General Stated Complaint: Chest Pain MYLES: 2 Review of Systems All systems reviewed & are unremarkable except as noted in HPI and below PFSH All Active Problems Chest pain (Acute) Chest pain (Acute) Pelvic pressure in female (Acute) Urinary tract infection (Acute) Tachycardia (Acute) Dehydration (Acute) Delirium (Acute) Insomnia (Acute) Mild cognitive impairment (Acute) SunDown syndrome (Acute) Chronic headache (Acute) Chest pain, atypical (Acute) Gastroesophageal reflux disease (Chronic) Fatigue (Acute) Left wrist pain (Acute) Status post angioplasty with stent (Acute) Acute non-ST elevation myocardial infarction (NSTEMI) (Acute) Allergies (Acute) Complaints of memory disturbance (Acute) Encounter for preadmission testing (Acute) 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 Early in course of late onset disease. 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 Can recur Tubular adenoma of colon (Acute) 05/31/14; DR. Ryan LEAL Trochanteric bursitis of left hip (Acute 07/30/15) Scoliosis (Acute 04/10/14) Hyperlipidemia (Acute) Gastroesophageal reflux disease (Acute) H/O esophagitia, HH Essential hypertension (Acute 05/28/13) Elev transaminase/LDH (Acute) Esophageal reflux (Acute) H/O esophagitia, HH Elev transaminase/LDH (Acute) Diabetes mellitus (Acute) Colon polyp (Acute) Atrophic vaginitis (Acute 08/30/14) Atherosclerosis of [place] coronary artery (Acute) neg MPI 09/24 CABG 2001 Asthma (Acute 06/16/11) Arthritis (Acute 06/16/11) Medical History Admission for convalescence and palliative care Surgical History Abdominal hysterectomy (~1998) FIBROIDS ABDOMINAL WALL HERNIA REPAIR (~2002) AORTIC BYPASS BSO Cholecystectomy Colonoscopy - MAC 05/31/14 EGD - MAC (~2000) Ependymoma of spinal cord H/O knee surgery RECTOCELE REPAIR UROTOMY (~1998) Family History Mother Heart disease Stroke Father Diabetes Essential hypertension Heart disease Sister No problems noted. Sister No problems noted. Brother No problems noted. Grandfather No problems noted. Grandfather No problems noted. 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 3.ENT: Atraumatic external nose and ears. Moist MM. Neck: Symmetric, trachea midline, No thyromegaly. 4.CVS: +S1/S2, No murmurs or gallops. Peripheral pulses 2+ and equal in all extremities. Brisk capillary refill in all extremities. 5.RESP: Unlabored respiratory effort. Clear to auscultation bilaterally. No wheezes rales or rhonchi 6.GI: Soft, Nontender/Nondistended, No hepatosplenomegaly. No guarding or rebound. 7.MSK: Normocephalic/Atraumatic, Extremities w/o deformity or ttp No cyanosis or clubbing, Normal movement of all extremities 8.Skin: Warm, Dry. No rashes or lesions. 9.Neuro: robotic technician II-XII grossly intact. Sensation grossly intact, no focal neurologic deficits. 10.Psych: (AAO) x3. Appropriate mood and affect Course Vital Signs Vital signs: Vital Signs Temperature 37.0 C 04/05/22 15:37 Pulse 129 H 04/05/22 15:37 Respiratory Rate 20 04/05/22 15:37 Blood Pressure 149/91 H 04/05/22 15:37 Pulse Oximetry 96 04/05/22 15:37 Temperature 37.0 C 04/05/22 15:37 Temperature Source Temporal Artery Scan 04/05/22 15:37 Pulse 129 H 04/05/22 15:37 Respiratory Rate 20 04/05/22 15:40 Respiratory Effort Non-Labored 04/05/22 15:40 Respiratory Depth Normal 04/05/22 15:40 Respiratory Pattern Normal 04/05/22 15:40 Blood Pressure 149/91 H 04/05/22 15:37 Blood Pressure Position Sitting 04/05/22 15:37 Pulse Oximetry 96 04/05/22 15:37 Oxygen Delivery Method Room Air 04/05/22 15:37 Oxygen Flow Rate 0 04/05/22 15:37 Pain Level 7 04/05/22 15:40 POCUS Exam (ED) Limited Cardiac Exam DATE OF EXAM: 04/05/22 TIME OF EXAM: 16:00 PROVIDER THAT PERFORMED THE STUDY: Rehan Quinteros IS THIS A REPEAT STUDY: no REASON FOR EXAM: Chest pain VISUALIZED STRUCTURES: Left ventricle VIEW OBTAINED: Parasternal long-axis PERTINENT FINDINGS/IMPRESSION: No apparent abnormalities DIFFERENTIAL DIAGNOSES: Challenging exam secondary to cardiac positioning Exam complete
[2022-04-05 16:15] LABS: Abs Immature Grans 0.04 10^3/uL (0.0-0.06); Absolute Basophil Count 0.04 10^3/uL (0.0-0.2); Absolute Eosinophil Count 0.04 10^3/uL (0.0-0.7); Absolute Lymphocyte Count 1.33 10^3/uL (1.2-3.4); Absolute Monocyte Count 0.85 10^3/uL (0.1-0.8); Absolute Neutrophil Count 7.38 10^3/uL (1.2-6.7); Basophils % 0.4; Eosinophils % 0.4; HCT 36.3 % (36.0-46.0); HGB 11.6 g/dL (11.2-15.7); Immature Grans % 0.4; Lymphocytes % 13.7; MCH 27.2 pg (27.0-33.0); MCV 85 fL (80-95); MPV 8.1 fL (8.0-11.0); Monocytes % 8.8; Neutrophils % 76.3; Platelet Count 396 10^3/uL (130-400); RBC 4.27 10^6/uL (3.93-5.22); RDW 14.6 % (11.7-14.6); RDW-SD 45.4 fL; WBC 9.68 10^3/uL (4.4-10.8)
[2022-04-05] MEDS: Normal Saline 500 ML IV (16:19)
[2022-04-05 16:51] LABS: ALT 75 U/L (14-59); AST 60 U/L (15-37); Albumin 3.8 g/dL (3.4-5.0); Alkaline Phosphatase 65 U/L (46-116); Anion Gap 10.3 mmol/L (3-11); BUN 13 mg/dL (7-18); Bilirubin, Total 0.4 mg/dL (0.2-1.0); CO2 27.7 mmol/L (21.0-32.0); CREATININE 0.7 mg/dL (0.55-1.02); Calcium 9.6 mg/dL (8.5-10.1); Chloride 97 mmol/L (98-107); Estimated GFR 90.14 (mL/min/1.73m2); Glucose 130 mg/dL (74-106); Lipase 121 U/L (73-393); NT-proBNP 88 pg/mL (<300); Potassium 4.4 mmol/L (3.5-5.1); Sodium 135 mmol/L (136-145); TSH (W/Ref FT4) 1.29 uIU/mL (0.36-3.74); Total Protein 6.8 g/dL (6.4-8.2); Troponin I < 50 ng/L (<or=60)
[2022-04-05 19:55] LABS: Troponin I < 50 ng/L (<or=60)
== END 2022-04-05 20:37 | disposition home or self-care (01) ==
PROVIDERS: Emergency Provider Student in an Organized Health Care Education/Training Program; PCP Nurse Practitioner Family
DX: R07.89 Other chest pain (principal); J45.909 Unspecified asthma, uncomplicated; E11.9 Type 2 diabetes mellitus without complications; F03.90 Unspecified dementia, unspecified severity, without behavioral disturbance, psychotic disturbance, mood disturbance, and anxiety; I25.2 Old myocardial infarction; Z79.82 Long term (current) use of aspirin; Z79.84 Long term (current) use of oral hypoglycemic drugs
CPT/HCPCS: 80053; 83690; 93005; 93308; 99213; 99214; 99284; 71045; 83880; 84443; 84484; 85025; 93010; 99285

== ENCOUNTER → 2022-04-20 15:28 | Outpatient (BNVA) | payer MEDICARE, SELFPAY | PROVIDERS: PCP Nurse Practitioner Family; Referring Provider Nurse Practitioner Family; Visit Provider Nurse Practitioner Adult Health | DX: G30.9 Alzheimer's disease, unspecified (principal); F02.80 Dementia in other diseases classified elsewhere, unspecified severity, without behavioral disturbance, psychotic disturbance, mood disturbance, and anxiety | CPT/HCPCS: 99213 ==

== ENCOUNTER → 2022-05-06 14:21 | Outpatient (BNVA) | payer MEDICARE, SELFPAY | PROVIDERS: PCP Nurse Practitioner Family; Referring Provider Nurse Practitioner Family; Visit Provider Nurse Practitioner Gerontology | DX: R10.2 Pelvic and perineal pain (principal) | CPT/HCPCS: 51798; 99214 ==

== ENCOUNTER → 2022-08-12 15:25 | Outpatient (BNVA) | payer MEDICARE, SELFPAY | PROVIDERS: PCP Nurse Practitioner Family; Referring Provider Nurse Practitioner Family; Visit Provider Nurse Practitioner Gerontology | DX: Z87.440 Personal history of urinary (tract) infections (principal); R35.0 Frequency of micturition; R10.2 Pelvic and perineal pain | CPT/HCPCS: 51798; 99213 ==

== ENCOUNTER → 2022-10-19 15:32 | Outpatient (BNVA) | payer MEDICARE, SELFPAY | PROVIDERS: PCP Nurse Practitioner Family; Referring Provider Nurse Practitioner Family; Visit Provider Nurse Practitioner Adult Health | DX: G30.9 Alzheimer's disease, unspecified (principal); F02.80 Dementia in other diseases classified elsewhere, unspecified severity, without behavioral disturbance, psychotic disturbance, mood disturbance, and anxiety; F32.A Depression, unspecified; R53.1 Weakness; Z99.3 Dependence on wheelchair | CPT/HCPCS: 99213 ==

== ENCOUNTER → 2023-01-25 15:42 | Outpatient (BNVA) | payer MEDICARE, SELFPAY | PROVIDERS: PCP Nurse Practitioner Family; Referring Provider Nurse Practitioner Family; Visit Provider Nurse Practitioner Adult Health | DX: G30.9 Alzheimer's disease, unspecified (principal); F02.80 Dementia in other diseases classified elsewhere, unspecified severity, without behavioral disturbance, psychotic disturbance, mood disturbance, and anxiety; F32.A Depression, unspecified | CPT/HCPCS: 99214 ==

== ENCOUNTER 2023-01-28 15:40 | Inpatient (IN) | payer MEDICARE, SELFPAY ==
[2023-01-28] VITALS (32 sets, daily range): BP systolic 96–114; BP diastolic 38–81; PULSE 99–120; RESP 8–20; TEMP 35.9–37.1; O2SAT 88–99
--- NOTE | 2023-01-28 | DI.RAD_ITS ---
Exam(s) XR LUMBAR SPINE AP, LAT EXAM: XR LUMBAR SPINE AP, LAT CLINICAL HISTORY: scoliosis, inability to do lumbar puncture. TECHNIQUE: 2D digital imaging was performed. Five views. COMPARISON: No exams were available for comparison FINDINGS: Lateral view is limited by overlying material. Severe dextro rotoscoliosis. Severe degenerative disc changes. SI joints are unremarkable. Hip ayaz nt spaces are maintained. There is acetabular spurring. Vascular calcifications noted. Surgical cl ips right upper quadrant. IMPRESSION: Limited exam. Severe scoliosis. No definite acute abnormality. DATA REPOSITORY: RADIATION DOSE DELIVERED:
--- NOTE | 2023-01-28 15:45 | DI.CT_ITS ---
Exam(s) CT HEAD WO EXAM: CT HEAD WO CLINICAL HISTORY: altered mentation. TECHNIQUE: Imaging Protocol: Axial computed tomography images with coronal and sagittal reformatted images were created and reviewed COMPARISON: CT CT HEAD WO from 05/05/2020 FINDINGS: Ventricles and Extra axial spaces: Normal in size and morphology for the patient's age. Hemorrhage: None. Cerebral parenchyma: Minimal atrophy. Minimal white matter changes consistent with small vessel di sease. Midline shift: None. Brainstem/Cerebellum: Normal. Calvarium: Normal. Visualized Paranasal sinuses/Mastoids: Clear. IMPRESSION: No acute abnormality. RADIATION DOSE DELIVERED: 749.61mGy.cm Total DLP 749.61mGy.cm Total DLP DATA REPOSITORY: All CT scans at this facility are submitted to the National Radiology Data Registry (NRDR) Dose Index Registry (DIR) with the [employer] (ACR). RADIATION OPTIMIZATION: All CT scans at this facility use at least one of these dose optimization te chniques: automated exposure control; mA and/or kV adjustment per patient size (includes targeted exa ms where dose is matched to clinical indication); or iterative reconstruction.
--- NOTE | 2023-01-28 15:45 | DI.RAD_ITS ---
Exam(s) XR CHEST 2V PA LATERAL EXAM: XR CHEST 2V PA LATERAL CLINICAL HISTORY: altered mentation TECHNIQUE: 2D digital imaging was performed. COMPARISON: CR XR PORTABLE CHEST AP from 04/05/2022 FINDINGS: The exam is limited by poor pulmonary inflation on both views. The left diaphragm is again noted to be elevated. HEART: Normal size. Status post CABG. Aorta: Not dilated. PULMONARY VASCULATURE: Normal. LUNGS: Mild compressive atelectasis adjacent to left diaphragm PLEURAL SPACE: No pleural effusion or pneumothorax. BONE:Unremarkable for age. Sternal wires. IMPRESSION: Mild left basilar atelectasis. DATA REPOSITORY: RADIATION DOSE DELIVERED:
--- NOTE | 2023-01-28 15:45 | RT.EKG_ITS ---
APPROVED REPORT Exam: Resting ECG Reason for Exam: tachycardic and altered Patient Location: E HR:115 bpm ECG Measurements Heart Rate 115 AXIS AL 165 P 42 QRSd 80 QRS 11 QT 308 T 56 QTc 427 Conclusion Sinus tachycardia...rate> 99
--- NOTE | 2023-01-28 16:03 | ED.GENADUL_ITS ---
Discharge Plan Disposition Patient Disposition: Admit to [facility] Condition: Serious Discharge Details Clinical Impression: Altered mental status, Acute UTI, Hypomagnesemia Admit Date/Time: 01/28/23 20:46 Admit Provider: Duy Paul Attending Provider: Duy Paul Primary Care Provider: Sudhir Rinaldi ED Provider: Victor Manuel Farooq Discharge Data Discharge Date/Time-TO BE ENTERED AT DEPARTURE: 01/28/23 22:40 Medical Decision Making 1605 --78-year-old female with history of Alzheimer's dementia, presents with altered mental status, less responsive than usual over the past day. Patient is tachycardic. She appears dehydrated. Normotensive. Saturating well in no respiratory distress. Patient significantly weak and unable to ambulate. Plan to obtain IV access and will give IV fluid bolus. Consider infectious etiology including urinary tract infection. Plan to check labs and urinalysis. I will obtain chest x-ray to assess for pneumonia not apparent on exam. 171 --Labs reviewed and significant leukocytosis noted. Urinalysis reviewed and patient has many bacteria with positive nitrite although only 0-2 white blood cells. Concern for likely urinary tract infection. Plan to treat with ceftriaxone. 172 --EKG was reviewed and interpreted by me: Please see report, sinus tachycardia 115 bpm. -- Chest x-ray was interpreted by radiology: Probable mild compressive atelectasis in the left lung base new since prior. No airspace consolidation. CT of the head was interpreted by radiology: No acute intracranial findings. Atrophy chronic appearing white matter changes. Chronic lacunar infarct left deep connors and/or white matter similar to prior. No suspicious lesions. 2029 -- Family noted recent complaint of BURNETT. Considered meningitis. provided informed consent to proceed with lumbar puncture. Lumbar puncture was attempted and unsuccessful. Patient has prior back surgery with step-off deformity also with bedsore noted. Unable to identify appropriate landmarks and procedure was discontinued after 2 attempts. Will give dexamethasone 6mg IV and cover with vancomycin and ampicillin. Will admit for further treatment. Urine culture pending. 2044 --I spoke with Dr. Paul, on-call hospitalist, discussed ED presentation course, he will admit the patient. He request bridging orders be placed at this time. Lab Data Lab results reviewed: Yes I reviewed the patient's lab results. Labs: 01/28/23 16:40 Urine - Reflex from Ua Urine Culture - Pending Laboratory Tests Range/Units 01/28/23 01/28/23 01/28/23 16:09 16:09 16:40 WBC (4.4-10.8) 10^3/uL 23.10 H RBC (3.93-5.22) 10^6/uL 4.61 Hgb (11.2-15.7) g/dL 12.0 Hct (36.0-46.0) % 37.5 MCV (80-95) fL 81 MCH (27.0-33.0) pg 26.0 L MCHC (32.0-36.0) % 32.0 RDW (11.7-14.6) % 17.3 H Plt Count (130-400) 10^3/uL 372 MPV (8.0-11.0) fL 8.0 Immature Gran % 0.6 Neutrophils % 81.6 Lymphocytes % 8.0 Monocytes % 9.1 Eosinophils % 0.4 Basophils % 0.3 Nucleated RBC % (0.0-0.3) % 0.0 Absolute Neutrophils (1.2-6.7) 10^3/uL 18.85 H Absolute Lymphocytes (1.2-3.4) 10^3/uL 1.85 Absolute Monocytes (0.1-0.8) 10^3/uL 2.10 H Absolute Eosinophils (0.0-0.7) 10^3/uL 0.09 Absolute Basophils (0.0-0.2) 10^3/uL 0.07 RBC Morphology Normal Sodium (136-145) mmol/L 135 L Potassium (3.5-5.1) mmol/L 4.5 Chloride (98-107) mmol/L 98 Carbon Dioxide (21.0-32.0) mmol/L 25.3 Anion Gap (3-11) mmol/L 11.7 H BUN (7-18) mg/dL 14 Creatinine (0.55-1.02) mg/dL 0.6 Est GFR (CKD-EPI 2020) (mL/min/1.73m2) 92.97 Glucose (74-106) mg/dL 114 H Calcium (8.5-10.1) mg/dL 9.2 Magnesium (1.8-2.4) mg/dL 1.6 L Total Bilirubin (0.2-1.0) mg/dL 0.3 AST (15-37) U/L 26 ALT (14-59) U/L 35 Alkaline Phosphatase (46-116) U/L 93 Troponin I (<or=60) ng/L < 50 Total Protein (6.4-8.2) g/dL 7.3 Albumin (3.4-5.0) g/dL 3.0 L Urine Color (Yellow) Urine Clarity (Clear) Urine pH (5-8) Ur Specific [place] (1.005-1.025) Urine Protein (Negative) mg/dL Urine Ketones (Negative) mg/dL Urine Blood (Negative) Urine Nitrite (Negative) Urine Bilirubin (Negative) Urine Urobilinogen (Up to 0.2) mg/dL Ur Leukocyte Esterase (Negative) Urine RBC (0-2) HPF Urine WBC (0-5) HPF Ur Epithelial Cells (Negative) HPF Urine Crystals (Negative) HPF Urine Bacteria (Negative) HPF Urine Casts (Negative) LPF Urine Mucus (Negative) Urine Other (Negative) Ur Culture Indicated? Urine Glucose (Negative) mg/dL COVID-19 Source Nasal/Nares SARS-CoV-2 (PCR) (Negative) Negative Range/Units 01/28/23 01/28/23 16:40 19:28 WBC (4.4-10.8) 10^3/uL RBC (3.93-5.22) 10^6/uL Hgb (11.2-15.7) g/dL Hct (36.0-46.0) % MCV (80-95) fL MCH (27.0-33.0) pg MCHC (32.0-36.0) % RDW (11.7-14.6) % Plt Count (130-400) 10^3/uL MPV (8.0-11.0) fL Immature Gran % Neutrophils % Lymphocytes % Monocytes % Eosinophils % Basophils % Nucleated RBC % (0.0-0.3) % Absolute Neutrophils (1.2-6.7) 10^3/uL Absolute Lymphocytes (1.2-3.4) 10^3/uL Absolute Monocytes (0.1-0.8) 10^3/uL Absolute Eosinophils (0.0-0.7) 10^3/uL Absolute Basophils (0.0-0.2) 10^3/uL RBC Morphology Sodium (136-145) mmol/L Potassium (3.5-5.1) mmol/L Chloride (98-107) mmol/L Carbon Dioxide (21.0-32.0) mmol/L Anion Gap (3-11) mmol/L BUN (7-18) mg/dL Creatinine (0.55-1.02) mg/dL Est GFR (CKD-EPI 2020) (mL/min/1.73m2) Glucose (74-106) mg/dL Calcium (8.5-10.1) mg/dL Magnesium (1.8-2.4) mg/dL Total Bilirubin (0.2-1.0) mg/dL AST (15-37) U/L ALT (14-59) U/L Alkaline Phosphatase (46-116) U/L Troponin I (<or=60) ng/L < 50 Total Protein (6.4-8.2) g/dL Albumin (3.4-5.0) g/dL Urine Color (Yellow) Yellow Urine Clarity (Clear) Sl Cloudy Urine pH (5-8) 5.5 Ur Specific [place] (1.005-1.025) 1.010 Urine Protein (Negative) mg/dL Negative Urine Ketones (Negative) mg/dL Trace H Urine Blood (Negative) Negative Urine Nitrite (Negative) Positive H Urine Bilirubin (Negative) Negative Urine Urobilinogen (Up to 0.2) mg/dL 0.2 Ur Leukocyte Esterase (Negative) Negative Urine RBC (0-2) HPF Negative Urine WBC (0-5) HPF 0-2 Ur Epithelial Cells (Negative) HPF Rare Urine Crystals (Negative) HPF Negative Urine Bacteria (Negative) HPF Many Urine Casts (Negative) LPF Negative Urine Mucus (Negative) Trace Urine Other (Negative) Negative Ur Culture Indicated? Yes Urine Glucose (Negative) mg/dL Negative COVID-19 Source SARS-CoV-2 (PCR) (Negative) HPI General Mode of arrival: EMS . Date/Time Provider Initiated Documentation: 01/28/23 15:55 . Limitations to Documentation: altered mental status . Information obtained by: patient, family and EMS . HPI Narrative: 78-year-old female with multimedical problems including Alzheimer's dementia presents with altered mental status over the past 24 hours. Patient minimally responsive. Normally able to follow commands. History and review of systems limited secondary to altered mental status. Related Data Home Medications Medication Instructions Recorded Confirmed acetaminophen 500 mg tablet 1,000 mg PO PRN PRN 04/16/18 01/28/23 (Tylenol Extra Strength) blood sugar diagnostic #180 strips 08/17/19 01/25/23 blood sugar diagnostic #100 ea 02/10/22 01/25/23 nitroglycerin 0.4 mg sublingual 0.4 mg sublingual PRN #25 tabs 03/16/22 01/28/23 tablet (Nitrostat) metformin 500 mg tablet See Rx Instructions .Route 04/16/22 01/28/23 .COMPLEX #270 tabs mirabegron 25 mg tablet,extended 25 mg PO DAILY #90 tabs 05/06/22 01/28/23 release 24 hr (Myrbetriq) memantine 5 mg tablet 5 mg PO BID #180 tabs 07/05/22 01/28/23 amitriptyline 25 mg tablet 25 mg PO QHS #90 tabs 07/21/22 01/28/23 olanzapine 10 mg tablet 10 mg PO BID #180 tabs 08/04/22 01/28/23 phenazopyridine 100 mg tablet 100 mg PO TID PRN pain 6 doses #90 08/04/22 01/28/23 tabs rosuvastatin 20 mg tablet 20 mg PO HS #90 tabs 08/04/22 01/28/23 spironolactone 25 mg tablet 25 mg PO DAILY #90 tab-caps 08/30/22 01/28/23 (Aldactone) pantoprazole 40 mg tablet,delayed 40 mg PO BID #180 tabs 09/08/22 01/28/23 release lancets 33 gauge (OneTouch Delica #100 ea 11/24/22 01/25/23 Lancets) losartan 100 mg tablet (Cozaar) 100 mg PO DAILY #90 tabs 12/09/22 01/28/23 docusate sodium 100 mg capsule 100 mg PO DAILY #30 caps 12/28/22 01/25/23 polyethylene glycol 3350 17 17 g PO DAILY #510 grams 12/28/22 01/25/23 gram/dose oral powder (Miralax) sennosides 8.6 mg tablet (Natural 8.6 mg PO DAILY #30 tabs 12/28/22 01/25/23 Senna Laxative) aspirin 81 mg chewable tablet 81 mg PO DAILY #90 tabs 01/05/23 01/28/23 Previous Rx's Medication Instructions Recorded blood sugar diagnostic #180 strips 08/17/19 blood sugar diagnostic #100 ea 02/10/22 nitroglycerin 0.4 mg sublingual 0.4 mg sublingual PRN #25 tabs 03/16/22 tablet (Nitrostat) metformin 500 mg tablet See Rx Instructions .Route 04/16/22 .COMPLEX #270 tabs mirabegron 25 mg tablet,extended 25 mg PO DAILY #90 tabs 05/06/22 release 24 hr (Myrbetriq) memantine 5 mg tablet 5 mg PO BID #180 tabs 07/05/22 amitriptyline 25 mg tablet 25 mg PO QHS #90 tabs 07/21/22 olanzapine 10 mg tablet 10 mg PO BID #180 tabs 08/04/22 phenazopyridine 100 mg tablet 100 mg PO TID PRN pain 6 doses #90 08/04/22 tabs rosuvastatin 20 mg tablet 20 mg PO HS #90 tabs 08/04/22 spironolactone 25 mg tablet 25 mg PO DAILY #90 tab-caps 08/30/22 (Aldactone) pantoprazole 40 mg tablet,delayed 40 mg PO BID #180 tabs 09/08/22 release lancets 33 gauge (OneTouch Delica #100 ea 11/24/22 Lancets) losartan 100 mg tablet (Cozaar) 100 mg PO DAILY #90 tabs 12/09/22 docusate sodium 100 mg capsule 100 mg PO DAILY #30 caps 12/28/22 polyethylene glycol 3350 17 17 g PO DAILY #510 grams 12/28/22 gram/dose oral powder (Miralax) sennosides 8.6 mg tablet (Natural 8.6 mg PO DAILY #30 tabs 12/28/22 Senna Laxative) aspirin 81 mg chewable tablet 81 mg PO DAILY #90 tabs 01/05/23 Allergies Allergy/AdvReac Type Severity Reaction Status Date / Time codeine Allergy Severe hives, Verified 01/25/23 15:45 itching hydrochlorothiazide AdvReac Intermediate weakness, Verified 01/25/23 15:45 hyponatremia ranitidine AdvReac Intermediate DIARRHEA Verified 01/25/23 15:45 JR Inhibitors AdvReac Mild COUGH Verified 01/25/23 15:45 NSAIDS (Non-Steroidal AdvReac Mild GI upset Verified 01/25/23 15:45 Anti-Inflamma atorvastatin AdvReac Unknown ELEVATED Verified 01/25/23 15:45 LFT'S celecoxib AdvReac Verified 01/25/23 15:45 rofecoxib AdvReac Verified 01/25/23 15:45 valdecoxib AdvReac Verified 01/25/23 15:45 General Stated Complaint: AMS/LOC MYLES: 2 Review of Systems Narrative: Patient denies pain Unobtainable due to mental status PFSH All Active Problems (Updated 01/29/23 @ 17:41 by Jenny Paez NP) Discharge planning issues (Acute) DVT prophylaxis (Acute) Thrush, oral (Acute) Conjunctivitis, right eye (Acute) Hypomagnesemia (Acute) Dementia (Chronic) Leukocytosis (Acute) Arthritis (Acute 06/16/11) Asthma (Acute 06/16/11) Atherosclerosis of [place] coronary artery (Acute) neg MPI 09/24 CABG 2001 Atrophic vaginitis (Acute 08/30/14) Colon polyp (Acute) Diabetes mellitus (Acute) Elev transaminase/LDH (Acute) Esophageal reflux (Acute) H/O esophagitia, HH Elev transaminase/LDH (Acute) Essential hypertension (Acute 05/28/13) Gastroesophageal reflux disease (Acute) H/O esophagitia, HH Hyperlipidemia (Acute) Scoliosis (Acute 04/10/14) Trochanteric bursitis of left hip (Acute 07/30/15) Tubular adenoma of colon (Acute) 05/31/14; DR. 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 Vaginal wall prolapse (Acute 08/28/12) Status post abdominal hysterectomy (Acute) Proctocele (Acute) Abdominal pain in female (Acute) Gastric polyps (Acute) Depression (Chronic) onset with cognitive decline Generalized anxiety disorder (Acute) life long anxiety worsening with cognitive decline Alzheimer's dementia (Chronic) Worsening as of 2022 Complaints of memory disturbance (Acute) Allergies (Acute) Acute non-ST elevation myocardial infarction (NSTEMI) (Acute) Left wrist pain (Acute) Fatigue (Acute) Chest pain, atypical (Acute) Gastroesophageal reflux disease (Chronic) Chronic headache (Acute) SunDown syndrome (Acute) Insomnia (Acute) Urinary tract infection (Acute) Tachycardia (Acute) Dehydration (Acute) Delirium (Acute) Pelvic pressure in female (Acute) Chest pain (Acute) Weakness (Acute) Altered mental status (Acute) Acute UTI (Acute) Hypomagnesemia (Acute) Medical History Admission for convalescence and palliative care Surgical History Abdominal hysterectomy (~1998) FIBROIDS ABDOMINAL WALL HERNIA REPAIR (~2002) AORTIC BYPASS BSO Cholecystectomy Colonoscopy - MAC 05/31/14 EGD - MAC (~2000) Ependymoma of spinal cord H/O knee surgery History of surgical procedure History of ventral hernia repair RECTOCELE REPAIR Status post angioplasty with stent UROTOMY (~1998) Family History Mother Heart disease Stroke Father Diabetes Essential hypertension Heart disease Sister No problems noted. Sister No problems noted. Brother No problems noted. Grandfather No problems noted. Grandfather No problems noted. 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 Frequency: does not exercise [place]/Congregational: Voodoo Special henrietta needs: No Seatbelt use: always Do you feel safe at home: Yes Do you feel safe in your relationship?: Yes Exam Const General: cooperative and no acute distress HENMT Head: normocephalic and atraumatic Mouth: mucous membranes dry Eyes Conjunctivae: normal conjunctivae Sclera: normal sclerae Neck Neck: trachea midline and supple Resp Auscultation: clear to auscultation bilaterally, no rales, no rhonchi and no wheezes Cardio Jugular venous pressure: no JVD Rate: tachycardic Rhythm: regular rhythm GI Palpation: soft, not firm, no guarding, no masses, not rigid and nontender Skin General skin exam: no rashes or lesions noted Neuro General: patient awake, oriented Patient Orientation: Person and Confused and moves all extremities Other: 4/5 strength all ext, difficulty following command Extrem General: no edema Psych Appearance: grossly normal Course Vital Signs Vital signs: Vital Signs Temperature 36.8 C 01/28/23 15:44 Pulse 120 H 01/28/23 15:44 Respiratory Rate 18 01/28/23 15:44 Blood Pressure 107/71 01/28/23 15:44 Pulse Oximetry 99 01/28/23 15:44 Temperature 36.8 C 01/28/23 15:44 Temperature Source Oral 01/28/23 15:44 Pulse 120 H 01/28/23 15:44 Respiratory Rate 18 01/28/23 15:44 Blood Pressure 107/71 01/28/23 15:44 Blood Pressure Position Supine 01/28/23 15:44 Pulse Oximetry 99 01/28/23 15:44 Oxygen Delivery Method Room Air 01/28/23 15:44 Oxygen Flow Rate 0 01/28/23 15:44
[2023-01-28 16:15] LABS: Abs Immature Grans 0.13 10^3/uL (0.0-0.06); Absolute Basophil Count 0.07 10^3/uL (0.0-0.2); Absolute Lymphocyte Count 1.85 10^3/uL (1.2-3.4); Basophils % 0.3; Eosinophils % 0.4; HCT 37.5 % (36.0-46.0); Immature Grans % 0.6; MCV 81 fL (80-95); Monocytes % 9.1; Neutrophils % 81.6; Platelet Count 372 10^3/uL (130-400); RBC 4.61 10^6/uL (3.93-5.22); RDW 17.3 % (11.7-14.6); RDW-SD 51.4 fL
[2023-01-28 16:42] LABS: Source Nasal/Nares
[2023-01-28] MEDS: Lactated Ringers 500 ML 1000 ML IV ×2 (16:45→17:45)
[2023-01-28 16:47] LABS: ALT 35 U/L (14-59); AST 26 U/L (15-37); Alkaline Phosphatase 93 U/L (46-116); Anion Gap 11.7 mmol/L (3-11); BUN 14 mg/dL (7-18); Bilirubin, Total 0.3 mg/dL (0.2-1.0); CO2 25.3 mmol/L (21.0-32.0); CREATININE 0.6 mg/dL (0.55-1.02); Calcium 9.2 mg/dL (8.5-10.1); Chloride 98 mmol/L (98-107); Estimated GFR 92.97 (mL/min/1.73m2); Glucose 114 mg/dL (74-106); Magnesium 1.6 mg/dL (1.8-2.4); Potassium 4.5 mmol/L (3.5-5.1); Sodium 135 mmol/L (136-145); Total Protein 7.3 g/dL (6.4-8.2); Troponin I < 50 ng/L (<or=60)
[2023-01-28 16:52] LABS: Bilirubin Negative (Negative); Blood Negative (Negative); Clarity Sl Cloudy (Clear); Glucose Negative (Negative); Ketones Trace mg/dL (Negative); Leukocyte Esterase Negative (Negative); Nitrite Positive (Negative); Urobilinogen 0.2 mg/dL (Up to 0.2); pH 5.5 (5-8)
[2023-01-28 16:54] LABS: Absolute Eosinophil Count 0.09 10^3/uL (0.0-0.7); Absolute Neutrophil Count 18.85 10^3/uL (1.2-6.7)
[2023-01-28 16:55] LABS: Diff Comment Agrees w/ Instrument; RBC Morphology Normal
[2023-01-28 17:07] LABS: Bacteria Many HPF (Negative); C & S Indicated? Yes; Casts Negative LPF (Negative); Crystals Negative HPF (Negative); Epithelial Cells Rare HPF (Negative); Mucus Trace (Negative); Other Cells Negative (Negative); RBC Negative HPF (0-2); WBC 0-2 HPF (0-5)
--- NOTE | 2023-01-28 17:23 | DI.VRAD_ITS ---
PROCEDURE INFORMATION: Exam: XR Chest Exam date and time: 01/28/2023 16:55 Age: 78 years old Clinical indication: Shortness of breath TECHNIQUE: Imaging protocol: Radiologic exam of the chest. Views: 2 views. COMPARISON: CR XR PORTABLE CHEST AP 04/05/2022 16:05 FINDINGS: Lungs: Probable mild compressive atelectasis in the left lung base new since prior. No airspace consolidation. Pleural spaces: No pleural effusion. No pneumothorax. Heart/Mediastinum: CABG. Diaphragm: Elevated left hemidiaphragm. Bones/joints: Median sternotomy wires. No displaced fracture. Intraperitoneal space: Right upper quadrant clips, probable cholecystectomy. IMPRESSION: Probable mild compressive atelectasis in the left lung base new since prior. Dictated and Authenticated by: Marci Rice MD. Ordering:KASANDRA Rush MD
--- NOTE | 2023-01-28 17:24 | DI.VRAD_ITS ---
PROCEDURE INFORMATION: Exam: CT Head Without Contrast Exam date and time: 01/28/2023 16:49 Age: 78 years old Clinical indication: Altered mental status/memory loss TECHNIQUE: Imaging protocol: Computed tomography of the head without contrast. COMPARISON: CT HEAD WO 05/05/2020 21:01 FINDINGS: Brain: Atrophy and chronic appearing white matter changes. Chronic lacunar infarct left deep connors and or white matter similar to prior. No edema or hemorrhage. Cerebral ventricles: No ventriculomegaly. Paranasal sinuses: No acute sinusitis. Mastoid air cells: No mastoid effusion. Bones/joints: No acute fracture. Soft tissues: No suspicious lesions. IMPRESSION: 1. No acute intracranial findings. 2. Chronic findings as described. Dictated and Authenticated by: Marci Rice MD. Ordering:KASANDRA Rush MD
[2023-01-28 17:25] LABS: COVID-19 PCR Negative (Negative)
[2023-01-28] MEDS: cefTRIAXone 1 GM/50 ML BAG IVPB (18:37)
[2023-01-28] MEDS: fentaNYL 100 MCG/2 ML VIAL 25 MCG IVP (19:32)
[2023-01-28] MEDS: MAGNESIUM SULFATE 1 GM/100 ML BAG IVPB (19:32)
[2023-01-28 19:56] LABS: Troponin I < 50 ng/L (<or=60)
[2023-01-28] MEDS: Dexamethasone 4 MG/ML VIAL 6 MG IVP (20:49)
[2023-01-28] MEDS: VANCOMYCIN 1,000 MG in Normal Saline 250 ML 166.6666 MG IVPB (20:54)
--- NOTE | 2023-01-28 22:48 | HPE_ITS ---
Date of service: 01/28/23 Time of Service: 22:48 Assessment and Plan Assessment and plan (1) Urinary tract infection: Status: Acute Assessment and plan: Urine culture is pending. She is receiving antibiotics that would cover urinary tract infection. (2) Leukocytosis: Status: Acute Assessment and plan: Etiology of leukocytosis is unclear. This certainly could be from urinary tract infection. Its possible that she could have meningitis although I think that is not really likely. Dr. Farooq, the emergency physician could not obtain a lumbar puncture. I am having her get a lumbar sacral spine films to see what the anatomy of her spine looks like and I may attempt a repeat lumbar puncture. She has received ceftriaxone, ampicillin, vancomycin and dexamethasone to treat for presumed meningitis. I have ordered a procalcitonin and blood cultures since I do not see that those were ordered previously. I reviewed the patient's lumbosacral x-rays and see that she does have severe sosa mbar scoliosis. I felt that it was important enough to try to get another sample of the spinal fluid. I discussed the situation with the daughter Christine. With the assistance of the nursing staff we had the patient set up and was held by the nursing staff while I attempted another lumbar puncture. Using sterile procedure I prepped the area with Betadine after marking landmarks with a pen. I anesthetized 2 areas of the skin and subcutaneous tissue with 1% lidocaine. I then introduced a 22-gauge spinal needle into the subcutaneous space to attempt a lumbar puncture. I tried 3 times and resulted in a bloody tap each time. I ceased efforts at further attempts to obtain spinal fluid. A Band-Aid was applied and the patient returned to her position in bed. This was an successful attempt at a lumbar puncture. Estimated blood loss was approximately 2-3 cc of blood. (3) Dementia: Status: Chronic Assessment and plan: This is a chronic problem and her recent change in status is not likely due to her dementia. (4) Hypomagnesemia: Status: Acute Assessment and plan: Magnesium level was slightly low on admission. She has received intravenous magnesium and this will be rechecked tomorrow. History of Present Illness History of Present Illness Chief Complaint: Altered mental status Narrative: This 78-year-old female was brought to the hospital by ambulance because of altered mental status and weakness. She has any chronic medical problems and has been doing most recently with an increase in her dementia. Her family is considering other living arrangements as it is gotten to be too difficult to manage her at home. However over the last day or 2 she has had increasing weakness and has been unable to stand and has become more lethargic. She had more difficulty communicating with her family today. I talked to her daughter to call who says that this weakness has gotten much worse over the last 12 to 24 hours. She states that she had to help lift her into bed last night. It was reported that she had a headache 4 days ago and she did have some increased cough today. There has been no one at home has been ill. There has been no COVID exposure and no recent travel. She presented to the emergency department and was found to have an elevated white count of 23,000. There was bacteria and nitrates in her urine but no leukocyte esterace and no significant pyuria. She was admitted to the hospital a previous time for urinary tract infection and at that time had some mental status changes but it was not similar to this episode. There have been no known urinary tract symptoms at home. She did have a head CT and chest x-ray and lab tests here. Dr. Farooq, the emergency doctor did try a lumbar puncture but was not successful. The patient has scoliosis and previous back surgery. There is a scar over her lumbar spine. He gave her treatment with ceftriaxone, vancomycin and ampicillin and dexamethasone for presumed/possible meningitis. He called me to come see her as the hospitalist. The daughter was concerned about whether this sudden change in her status could be sales representatives of a worsening of her dementia and I said that that is not likely to be the case. Review of Systems Narrative: Review of systems is not obtainable from the patient. The daughter states that there has been no signs of disease except as mentioned above the worsening of her weakness over the last day or so, the headache from 4 days ago and the cough today. There has been no nausea vomiting or diarrhea. There has been no skin rashes. PFSH All Active Problems (Updated 01/28/23 @ 23:04 by Duy Paul MD) Hypomagnesemia (Acute) Dementia (Chronic) Leukocytosis (Acute) Arthritis (Acute 06/16/11) Asthma (Acute 06/16/11) Atherosclerosis of [place] coronary artery (Acute) neg MPI 09/24 CABG 2001 Atrophic vaginitis (Acute 08/30/14) Colon polyp (Acute) Diabetes mellitus (Acute) Elev transaminase/LDH (Acute) Esophageal reflux (Acute) H/O esophagitia, HH Elev transaminase/LDH (Acute) Essential hypertension (Acute 05/28/13) Gastroesophageal reflux disease (Acute) H/O esophagitia, HH Hyperlipidemia (Acute) Scoliosis (Acute 04/10/14) Trochanteric bursitis of left hip (Acute 07/30/15) Tubular adenoma of colon (Acute) 05/31/14; DR. 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 Vaginal wall prolapse (Acute 08/28/12) Status post abdominal hysterectomy (Acute) Proctocele (Acute) Abdominal pain in female (Acute) Gastric polyps (Acute) Depression (Chronic) onset with cognitive decline Generalized anxiety disorder (Acute) life long anxiety worsening with cognitive decline Alzheimer's dementia (Chronic) Worsening as of 2022 Complaints of memory disturbance (Acute) Allergies (Acute) Acute non-ST elevation myocardial infarction (NSTEMI) (Acute) Left wrist pain (Acute) Fatigue (Acute) Chest pain, atypical (Acute) Gastroesophageal reflux disease (Chronic) Chronic headache (Acute) SunDown syndrome (Acute) Insomnia (Acute) Urinary tract infection (Acute) Tachycardia (Acute) Dehydration (Acute) Delirium (Acute) Pelvic pressure in female (Acute) Chest pain (Acute) Weakness (Acute) Altered mental status (Acute) Acute UTI (Acute) Hypomagnesemia (Acute) Medical History Admission for convalescence and palliative care Surgical History Abdominal hysterectomy (~1998) FIBROIDS ABDOMINAL WALL HERNIA REPAIR (~2002) AORTIC BYPASS BSO Cholecystectomy Colonoscopy - MAC 05/31/14 EGD - MAC (~2000) Ependymoma of spinal cord H/O knee surgery History of surgical procedure History of ventral hernia repair RECTOCELE REPAIR Status post angioplasty with stent UROTOMY (~1998) Family History Mother Heart disease Stroke Father Diabetes Essential hypertension Heart disease Sister No problems noted. Sister No problems noted. Brother No problems noted. Grandfather No problems noted. Grandfather No problems noted. 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 Frequency: does not exercise [place]/Religious: Congregational Special henrietta needs: No Seatbelt use: always Do you feel safe at home: Yes Do you feel safe in your relationship?: Yes Meds Allergies and Home Medications Allergies Allergy/AdvReac Type Severity Reaction Status Date / Time codeine Allergy Severe hives, Verified 01/25/23 15:45 itching hydrochlorothiazide AdvReac Intermediate weakness, Verified 01/25/23 15:45 hyponatremia ranitidine AdvReac Intermediate DIARRHEA Verified 01/25/23 15:45 JR Inhibitors AdvReac Mild COUGH Verified 01/25/23 15:45 NSAIDS (Non-Steroidal AdvReac Mild GI upset Verified 01/25/23 15:45 Anti-Inflamma atorvastatin AdvReac Unknown ELEVATED Verified 01/25/23 15:45 LFT'S celecoxib AdvReac Verified 01/25/23 15:45 rofecoxib AdvReac Verified 01/25/23 15:45 valdecoxib AdvReac Verified 01/25/23 15:45 Home Medications Medication Instructions Recorded Confirmed Type acetaminophen 500 mg tablet 1,000 mg PO PRN PRN 04/16/18 01/28/23 History (Tylenol Extra Strength) blood sugar diagnostic #180 strips 08/17/19 01/25/23 Rx blood sugar diagnostic #100 ea 02/10/22 01/25/23 Rx nitroglycerin 0.4 mg sublingual 0.4 mg sublingual PRN #25 tabs 03/16/22 01/28/23 Rx tablet (Nitrostat) metformin 500 mg tablet See Rx Instructions .Route 04/16/22 01/28/23 Rx .COMPLEX #270 tabs mirabegron 25 mg tablet,extended 25 mg PO DAILY #90 tabs 05/06/22 01/28/23 Rx release 24 hr (Myrbetriq) memantine 5 mg tablet 5 mg PO BID #180 tabs 07/05/22 01/28/23 Rx amitriptyline 25 mg tablet 25 mg PO QHS #90 tabs 07/21/22 01/28/23 Rx olanzapine 10 mg tablet 10 mg PO BID #180 tabs 08/04/22 01/28/23 Rx phenazopyridine 100 mg tablet 100 mg PO TID PRN pain 6 doses #90 08/04/22 01/28/23 Rx tabs rosuvastatin 20 mg tablet 20 mg PO HS #90 tabs 08/04/22 01/28/23 Rx spironolactone 25 mg tablet 25 mg PO DAILY #90 tab-caps 08/30/22 01/28/23 Rx (Aldactone) pantoprazole 40 mg tablet,delayed 40 mg PO BID #180 tabs 09/08/22 01/28/23 Rx release lancets 33 gauge (OneTouch Delica #100 ea 11/24/22 01/25/23 Rx Lancets) losartan 100 mg tablet (Cozaar) 100 mg PO DAILY #90 tabs 12/09/22 01/28/23 Rx docusate sodium 100 mg capsule 100 mg PO DAILY #30 caps 12/28/22 01/25/23 Rx polyethylene glycol 3350 17 17 g PO DAILY #510 grams 12/28/22 01/25/23 Rx gram/dose oral powder (Miralax) sennosides 8.6 mg tablet (Natural 8.6 mg PO DAILY #30 tabs 12/28/22 01/25/23 Rx Senna Laxative) aspirin 81 mg chewable tablet 81 mg PO DAILY #90 tabs 01/05/23 01/28/23 Rx Exam Const General: comfortable, no acute distress and lethargic Orientation: awake Other: Today is Tuesday and she thought it was Tuesday. She cannot name the president and could not tell me what year it was. She could give me her name and said correctly that she lives in [place]. She states that she lives with her . Eyes General: appearance normal, both eyes and all related structures Neck Neck: normal visual inspection, full ROM, no lymphadenopathy, no meningeal signs, trachea midline, nontender and no JVD Resp Auscultation: clear to auscultation bilaterally, no rales, no rhonchi and no wheezes Cardio Rate: regular rate and tachycardic Rhythm: regular rhythm Heart Sounds: S1 normal, S2 normal, no gallops, no murmurs and no rubs GI Palpation: soft, no hepatosplenomegaly, no guarding, nontender and No ascites Back/Spine/Pelvis Other: She has scoliosis of her lumbar spine with a prominent bony protuberance of the right flank. There is a midline vertical scar that measures about 6 cm over her lumbar spine. Extrem General: normal to inspection, capillary refill normal, no clubbing and no cyanosis Results Labs 01/28/23 16:09 01/28/23 16:09 Labs: Laboratory Results - last 24 hr 01/28/23 01/28/23 01/28/23 16:09 16:09 16:40 WBC 23.10 H RBC 4.61 Hgb 12.0 Hct 37.5 MCV 81 MCH 26.0 L MCHC 32.0 RDW 17.3 H Plt Count 372 MPV 8.0 Immature Gran % 0.6 Neutrophils % 81.6 Lymphocytes % 8.0 Monocytes % 9.1 Eosinophils % 0.4 Basophils % 0.3 Nucleated RBC % 0.0 Absolute Neutrophils 18.85 H Absolute Lymphocytes 1.85 Absolute Monocytes 2.10 H Absolute Eosinophils 0.09 Absolute Basophils 0.07 RBC Morphology Normal Sodium 135 L Potassium 4.5 Chloride 98 Carbon Dioxide 25.3 Anion Gap 11.7 H BUN 14 Creatinine 0.6 Est GFR (CKD-EPI 2020) 92.97 Glucose 114 H Calcium 9.2 Magnesium 1.6 L Total Bilirubin 0.3 AST 26 ALT 35 Alkaline Phosphatase 93 Troponin I < 50 Total Protein 7.3 Albumin 3.0 L Urine Color Urine Clarity Urine pH Ur Specific [place] Urine Protein Urine Ketones Urine Blood Urine Nitrite Urine Bilirubin Urine Urobilinogen Ur Leukocyte Esterase Urine RBC Urine WBC Ur Epithelial Cells Urine Crystals Urine Bacteria Urine Casts Urine Mucus Urine Other Ur Culture Indicated? Urine Glucose COVID-19 Source Nasal/Nares SARS-CoV-2 (PCR) Negative 01/28/23 01/28/23 16:40 19:28 WBC RBC Hgb Hct MCV MCH MCHC RDW Plt Count MPV Immature Gran % Neutrophils % Lymphocytes % Monocytes % Eosinophils % Basophils % Nucleated RBC % Absolute Neutrophils Absolute Lymphocytes Absolute Monocytes Absolute Eosinophils Absolute Basophils RBC Morphology Sodium Potassium Chloride Carbon Dioxide Anion Gap BUN Creatinine Est GFR (CKD-EPI 2020) Glucose Calcium Magnesium Total Bilirubin AST ALT Alkaline Phosphatase Troponin I < 50 Total Protein Albumin Urine Color Yellow Urine Clarity Sl Cloudy Urine pH 5.5 Ur Specific [place] 1.010 Urine Protein Negative Urine Ketones Trace H Urine Blood Negative Urine Nitrite Positive H Urine Bilirubin Negative Urine Urobilinogen 0.2 Ur Leukocyte Esterase Negative Urine RBC Negative Urine WBC 0-2 Ur Epithelial Cells Rare Urine Crystals Negative Urine Bacteria Many Urine Casts Negative Urine Mucus Trace Urine Other Negative Ur Culture Indicated? Yes Urine Glucose Negative COVID-19 Source SARS-CoV-2 (PCR) Last Vital Signs Temp 37.1 C 01/28/23 22:12 Pulse 99 H 01/28/23 22:00 Resp 20 01/28/23 22:10 BP 99/38 L 01/28/23 22:00 Pulse Ox 93 01/28/23 22:10 Time Spent Time spent with Patient: >75 minutes Time was spent: preparing to see the patient(eg.review tests), obtaining and/or reviewing separately otained hiistory, ordering medications,tests, procedures, referring, communicating with other health health care legal assistant and indepentently interpreting results
--- NOTE | 2023-01-28 22:54 | DI.VRAD_ITS ---
PROCEDURE INFORMATION: Exam: XR Lumbosacral Spine Exam date and time: 01/28/2023 22:39 Age: 78 years old Clinical indication: Other: Scoliosis, inability to do lumbar puncture TECHNIQUE: Imaging protocol: Radiologic exam of the lumbosacral spine. Views: 2 or 3 views. COMPARISON: CT thoracic lumbar spine wo 04/16/2018 12:57 FINDINGS: Bones/joints: Severe rotatory lumbar dextroscoliosis is similar to prior. The bones are demineralized. Severe multilevel lumbar disc space narrowing and facet hypertrophy. Suspected multilevel neural foraminal and central canal stenosis. No gross acute fracture allowing for positioning and projection. Soft tissues: Unremarkable. Intraperitoneal space: Right upper quadrant clips, probable cholecystectomy. IMPRESSION: 1. Severe rotatory lumbar dextroscoliosis is similar to prior. 2. Additional chronic findings as described. Dictated and Authenticated by: Marci Rice MD. Ordering:JOSÉ Gordillo MD
[2023-01-28 23:23] LABS: Procalcitonin < 0.1 ng/mL
[2023-01-29] VITALS (8 sets, daily range): BP systolic 104–133; BP diastolic 68–83; PULSE 106–120; RESP 14–16; TEMP 35.8–37.2; O2SAT 95–98
[2023-01-29] MEDS: AMPICILLIN SODIUM 2 GM in Normal Saline 100 ML IVPB ×3 (00:07→12:05)
--- NOTE | 2023-01-29 01:37 | NUR.NOTE ---
@[id number]- Per MD Lena pt can be transferred upstairs off tele. Pt to go to RAD for lumbar XR then straight to [facility]. Medications transferred with pt.
[2023-01-29] MEDS: CEFEPIME 2 GM in Normal Saline 100 ML IVPB ×2 (05:15→16:04)
[2023-01-29 08:49] LABS: Abs Immature Grans 0.31 10^3/uL (0.0-0.06); Absolute Monocyte Count 1.36 10^3/uL (0.1-0.8); Basophils % 0.2; HGB 10.5 g/dL (11.2-15.7); Immature Grans % 1.4; Lymphocytes % 3.9; MCH 26.3 pg (27.0-33.0); MCHC 31.8 % (32.0-36.0); MCV 83 fL (80-95); MPV 8.3 fL (8.0-11.0); Neutrophils % 88.5; Platelet Count 336 10^3/uL (130-400); RDW-SD 51.3 fL; WBC 22.74 10^3/uL (4.4-10.8)
[2023-01-29 08:51] LABS: BUN 12 mg/dL (7-18); CREATININE 0.5 mg/dL (0.55-1.02); Calcium 8.8 mg/dL (8.5-10.1); Chloride 102 mmol/L (98-107); Estimated GFR 97.14 (mL/min/1.73m2); Glucose 139 mg/dL (74-106); Magnesium 1.7 mg/dL (1.8-2.4); Potassium 4.1 mmol/L (3.5-5.1); Sodium 136 mmol/L (136-145)
[2023-01-29] MEDS: Insulin Aspart 300 UNITS/3 ML PEN SC (08:54)
[2023-01-29 08:56] LABS: Absolute Basophil Count 0.05 10^3/uL (0.0-0.2); Absolute Lymphocyte Count 0.89 10^3/uL (1.2-3.4); Absolute Neutrophil Count 20.12 10^3/uL (1.2-6.7)
[2023-01-29 09:16] LABS: Anisocytosis 1+; Diff Comment Agrees w/ Instrument; Microcytosis 1+; Polychromasia Present
[2023-01-29 09:17] LABS: Poikilocytes 2+
[2023-01-29] MEDS: Lactated Ringers 1,000 ML 100 ML IV (12:06)
--- NOTE | 2023-01-29 12:38 | PGE_ITS ---
Date of Service Date of service: 01/29/23 Time of Service: 12:38 Assessment and Plan Assessment and plan (1) Urinary tract infection: Status: Acute Assessment and plan: Urine culture is pending. She is receiving antibiotics that would cover urinary tract infection. Prelim gm neg rods, ceftriaxone (2) Leukocytosis: Status: Acute Assessment and plan: Etiology of leukocytosis is unclear. WBC 22.74 Continue abx (3) Dementia: Status: Chronic Assessment and plan: This is a chronic problem and her recent change in status is not likely due to her dementia. (4) Hypomagnesemia: Status: Acute Assessment and plan: Mag 1,7, repleted - follow (5) Conjunctivitis, right eye: Status: Acute Assessment and plan: Red, tearing, crusty Erythromycin opth oint 5xd (6) Thrush, oral: Status: Acute Assessment and plan: White coated tongue, Nystatin swish and swallow - unable to follow instructions, discontinued and diflucan 200 mg today , 100 mg for 14d (7) DVT prophylaxis: Status: Acute Assessment and plan: Enoxaparin (8) Discharge planning issues: Status: Acute Assessment and plan: Home with when medically stable ? services Subjective Subjective Patient reports: no new complaints Interval history since last seen: at bedside Exam Const General: comfortable, no acute distress and lethargic Orientation: awake Other: Very confused, unsure of where she is, why she is here, doesn't know the date or the season, does correctly recognize her he is in the room Eyes General: appearance normal, both eyes and all related structures Neck Neck: normal visual inspection, full ROM, no lymphadenopathy, no meningeal signs, trachea midline, nontender and no JVD Resp Auscultation: clear to auscultation bilaterally, no rales, no rhonchi and no wheezes Cardio Rate: regular rate and tachycardic Rhythm: regular rhythm Heart Sounds: S1 normal, S2 normal, no gallops, no murmurs and no rubs GI Palpation: soft, no hepatosplenomegaly, no guarding, nontender and No ascites Back/Spine/Pelvis Other: She has scoliosis of her lumbar spine with a prominent bony protuberance of the right flank. There is a midline vertical scar that measures about 6 cm over her lumbar spine. Extrem General: normal to inspection, capillary refill normal, no clubbing and no cyanosis Objective Last Vital Signs Temp 35.8 C L 01/29/23 11:29 Pulse 106 H 01/29/23 11:29 Resp 16 01/29/23 11:29 BP 129/81 01/29/23 11:29 Pulse Ox 98 01/29/23 11:29 Laboratory Results - last 24 hr 01/28/23 01/28/23 01/28/23 16:09 16:09 16:09 WBC 23.10 H RBC 4.61 Hgb 12.0 Hct 37.5 MCV 81 MCH 26.0 L MCHC 32.0 RDW 17.3 H Plt Count 372 MPV 8.0 Immature Gran % 0.6 Neutrophils % 81.6 Lymphocytes % 8.0 Monocytes % 9.1 Eosinophils % 0.4 Basophils % 0.3 Nucleated RBC % 0.0 Absolute Neutrophils 18.85 H Absolute Lymphocytes 1.85 Absolute Monocytes 2.10 H Absolute Eosinophils 0.09 Absolute Basophils 0.07 RBC Morphology Normal Polychromasia Poikilocytosis Anisocytosis Microcytosis Sodium 135 L Potassium 4.5 Chloride 98 Carbon Dioxide 25.3 Anion Gap 11.7 H BUN 14 Creatinine 0.6 Est GFR (CKD-EPI 2020) 92.97 Glucose 114 H Calcium 9.2 Magnesium 1.6 L Total Bilirubin 0.3 AST 26 ALT 35 Alkaline Phosphatase 93 Troponin I < 50 Total Protein 7.3 Albumin 3.0 L Procalcitonin < 0.1 Urine Color Urine Clarity Urine pH Ur Specific [place] Urine Protein Urine Ketones Urine Blood Urine Nitrite Urine Bilirubin Urine Urobilinogen Ur Leukocyte Esterase Urine RBC Urine WBC Ur Epithelial Cells Urine Crystals Urine Bacteria Urine Casts Urine Mucus Urine Other Ur Culture Indicated? Urine Glucose COVID-19 Source SARS-CoV-2 (PCR) 01/28/23 01/28/23 01/28/23 16:40 16:40 19:28 WBC RBC Hgb Hct MCV MCH MCHC RDW Plt Count MPV Immature Gran % Neutrophils % Lymphocytes % Monocytes % Eosinophils % Basophils % Nucleated RBC % Absolute Neutrophils Absolute Lymphocytes Absolute Monocytes Absolute Eosinophils Absolute Basophils RBC Morphology Polychromasia Poikilocytosis Anisocytosis Microcytosis Sodium Potassium Chloride Carbon Dioxide Anion Gap BUN Creatinine Est GFR (CKD-EPI 2020) Glucose Calcium Magnesium Total Bilirubin AST ALT Alkaline Phosphatase Troponin I < 50 Total Protein Albumin Procalcitonin Urine Color Yellow Urine Clarity Sl Cloudy Urine pH 5.5 Ur Specific [place] 1.010 Urine Protein Negative Urine Ketones Trace H Urine Blood Negative Urine Nitrite Positive H Urine Bilirubin Negative Urine Urobilinogen 0.2 Ur Leukocyte Esterase Negative Urine RBC Negative Urine WBC 0-2 Ur Epithelial Cells Rare Urine Crystals Negative Urine Bacteria Many Urine Casts Negative Urine Mucus Trace Urine Other Negative Ur Culture Indicated? Yes Urine Glucose Negative COVID-19 Source Nasal/Nares SARS-CoV-2 (PCR) Negative 01/29/23 01/29/23 08:30 08:30 WBC 22.74 H RBC 4.00 Hgb 10.5 L Hct 33.0 L MCV 83 MCH 26.3 L MCHC 31.8 L RDW 17.0 H Plt Count 336 MPV 8.3 Immature Gran % 1.4 Neutrophils % 88.5 Lymphocytes % 3.9 Monocytes % 6.0 Eosinophils % 0.0 Basophils % 0.2 Nucleated RBC % 0.0 Absolute Neutrophils 20.12 H Absolute Lymphocytes 0.89 L Absolute Monocytes 1.36 H Absolute Eosinophils 0.00 Absolute Basophils 0.05 RBC Morphology See Below Polychromasia Present Poikilocytosis 2+ Anisocytosis 1+ Microcytosis 1+ Sodium 136 Potassium 4.1 Chloride 102 Carbon Dioxide 25.0 Anion Gap 9.0 BUN 12 Creatinine 0.5 L Est GFR (CKD-EPI 2020) 97.14 Glucose 139 H Calcium 8.8 Magnesium 1.7 L Total Bilirubin AST ALT Alkaline Phosphatase Troponin I Total Protein Albumin Procalcitonin Urine Color Urine Clarity Urine pH Ur Specific [place] Urine Protein Urine Ketones Urine Blood Urine Nitrite Urine Bilirubin Urine Urobilinogen Ur Leukocyte Esterase Urine RBC Urine WBC Ur Epithelial Cells Urine Crystals Urine Bacteria Urine Casts Urine Mucus Urine Other Ur Culture Indicated? Urine Glucose COVID-19 Source SARS-CoV-2 (PCR) Time Spent with Patient Time Spent with Patient: 25-34 minutes Time was spent: preparing to see the patient(eg.review tests), ordering medications,tests, procedures, referring, communicating with other health healthcare or medical, indepentently interpreting results, counseling the patient and care coordination
--- NOTE | 2023-01-29 15:40 | INITIAL_ITS ---
Date of service: 01/29/23 Time of Service: 15:40 Care Management Initial Assmt Initial Assessment REASON FOR HOSPITALIZATION:: AMS, UTI PREVIOUS FUNCTIONAL STATUS/SOCIAL/FAMILY SUPPORTS:: 01/13/23: PCP Sudhir Rinaldi RN note: Carissa is here to discuss weakness and dementia Daughter reports rapid decrease which is making it hard for her to care for her. Was seen by [facility] Neurology Monica Hernandez NP 10/19/22 for 6M FU. Reported increase weakness and mobility. Recommended HH PT. Sedating medication of Amitriptyline and Olanzapine possible decrease to help her energy and motivation. Referral: [facility]. [facility] FU x3M Sees Monica Hernandez NP next week. Daughter states she is still declining faster. Fell last Tuesday. Patient does not remember. 01/13/23 PCP I did have a very firm conversation with the daughter who was very pleasant and understanding to my suggestion which was for palliative care. I see such a significant decline both physically and cognitively in the patient since the last time I saw her. Her daughter did bring in the EMR paperwork that was already filled out and I did sign that form. The daughter was on board with the referral and so therefore I did refer for palliative services. They will follow-up with me as needed. CURRENT FUNCTIONAL STATUS:: Confused with dementia. Daughter called directed care toward placement; appears community supports have briefed family on seeking placement through hospital though per chart review no preventative services, supports or coordination was completed prior during severe physical and mental decline. Now patient is unable to be cared for at home, and does not have a payer source for placement. This information will need to be reviewed with family. ADVANCE DIRECTIVES:: RAMY on file, Davi as agent CODE STATUS:: DNR/DNI INSURANCE COVERAGE / FINANCIAL ISSUES:: [facility] PRIMARY CARE PHYSICIAN:: Sudhir Rinaldi PATIENT/FAMILY EDUCATION NEEDS:: Review discharge instructions, discuss Ask Me Three. ANTICIPATED BARRIERS TO DISCHARGE:: Dementia, no payer TRANSPORTATION:: Dependent on disposition PLAN:: Christine Madison [phone] advocating for placement-no payer source. CM continues to follow [facility] All Active Problems (Updated 01/29/23 @ 17:41 by Jenny Paez NP) Discharge planning issues (Acute) DVT prophylaxis (Acute) Thrush, oral (Acute) Conjunctivitis, right eye (Acute) Hypomagnesemia (Acute) Dementia (Chronic) Leukocytosis (Acute) Arthritis (Acute 06/16/11) Asthma (Acute 06/16/11) Atherosclerosis of [place] coronary artery (Acute) neg MPI 09/24 CABG 2001 Atrophic vaginitis (Acute 08/30/14) Colon polyp (Acute) Diabetes mellitus (Acute) Elev transaminase/LDH (Acute) Esophageal reflux (Acute) H/O esophagitia, HH Elev transaminase/LDH (Acute) Essential hypertension (Acute 05/28/13) Gastroesophageal reflux disease (Acute) H/O esophagitia, HH Hyperlipidemia (Acute) Scoliosis (Acute 04/10/14) Trochanteric bursitis of left hip (Acute 07/30/15) Tubular adenoma of colon (Acute) 05/31/14; DR. 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 Vaginal wall prolapse (Acute 08/28/12) Status post abdominal hysterectomy (Acute) Proctocele (Acute) Abdominal pain in female (Acute) Gastric polyps (Acute) Depression (Chronic) onset with cognitive decline Generalized anxiety disorder (Acute) life long anxiety worsening with cognitive decline Alzheimer's dementia (Chronic) Worsening as of 2022 Complaints of memory disturbance (Acute) Allergies (Acute) Acute non-ST elevation myocardial infarction (NSTEMI) (Acute) Left wrist pain (Acute) Fatigue (Acute) Chest pain, atypical (Acute) Gastroesophageal reflux disease (Chronic) Chronic headache (Acute) SunDown syndrome (Acute) Insomnia (Acute) Urinary tract infection (Acute) Tachycardia (Acute) Dehydration (Acute) Delirium (Acute) Pelvic pressure in female (Acute) Chest pain (Acute) Weakness (Acute) Altered mental status (Acute) Acute UTI (Acute) Hypomagnesemia (Acute) Medical History Admission for convalescence and palliative care Surgical History Abdominal hysterectomy (~1998) FIBROIDS ABDOMINAL WALL HERNIA REPAIR (~2002) AORTIC BYPASS BSO Cholecystectomy Colonoscopy - MAC 05/31/14 EGD - MAC (~2000) Ependymoma of spinal cord H/O knee surgery History of surgical procedure History of ventral hernia repair RECTOCELE REPAIR Status post angioplasty with stent UROTOMY (~1998) Family History Mother Heart disease Stroke Father Diabetes Essential hypertension Heart disease Sister No problems noted. Sister No problems noted. Brother No problems noted. Grandfather No problems noted. Grandfather No problems noted. 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
--- NOTE | 2023-01-29 18:42 | NUR.NOTE ---
Nursing Note: Orders received for pt's right eye and mouth, and an additional dose of antibiotic was due to be hung at 1800. Pt refused all medication administration from this nurse. No issues with medication administration this entire shift. Oncoming RN will be advised and attempt administration.
[2023-01-29] MEDS: Fluconazole 100 MG TAB 200 MG PO (19:53)
[2023-01-29] MEDS: Enoxaparin 40 MG/0.4 ML SYR SC (20:05)
[2023-01-29] MEDS: Erythromycin Ophth Oint 3.5 GM TUBE 0.5 GM OD (20:08)
[2023-01-29] MEDS: cefTRIAXone 2 GM/50 ML BAG IVPB (20:24)
--- NOTE | 2023-01-29 20:54 | NUR.NOTE ---
1900-PT IS MAINTAINING A HR BETWEEN 120-126. ASYMPTOMATIC. MD NOTIFIED VIA CC.
[2023-01-29] MEDS: QUEtiapine 25 MG TAB PO (21:55)
[2023-01-30] VITALS (7 sets, daily range): BP systolic 105–124; BP diastolic 66–75; PULSE 82–110; RESP 16; TEMP 35.8–37.1; O2SAT 94–98
--- NOTE | 2023-01-30 03:59 | NUR.NOTE ---
01/29 2200-SEROQUEL 25MG PO X1 ORDERED AND GIVEN.
[2023-01-30 07:01] LABS: HCT 27.4 % (36.0-46.0); HGB 8.7 g/dL (11.2-15.7); MCH 25.8 pg (27.0-33.0); MCHC 31.8 % (32.0-36.0); MCV 81 fL (80-95); MPV 8.4 fL (8.0-11.0); RBC 3.37 10^6/uL (3.93-5.22); RDW-SD 50.9 fL
[2023-01-30 07:24] LABS: Anion Gap 6.5 mmol/L (3-11); BUN 9 mg/dL (7-18); CO2 28.5 mmol/L (21.0-32.0); CREATININE 0.5 mg/dL (0.55-1.02); Calcium 8.6 mg/dL (8.5-10.1); Chloride 103 mmol/L (98-107); Estimated GFR 97.14 (mL/min/1.73m2); Glucose 87 mg/dL (74-106); Magnesium 1.5 mg/dL (1.8-2.4); Potassium 3.6 mmol/L (3.5-5.1); Sodium 138 mmol/L (136-145)
[2023-01-30] MEDS: Erythromycin Ophth Oint 3.5 GM TUBE 0.5 GM OD ×3 (07:49→20:35)
[2023-01-30] MEDS: Fluconazole 100 MG TAB PO (07:50)
[2023-01-30 08:02] LABS: Absolute Lymphocyte Count 1.36 10^3/uL (1.2-3.4); Absolute Neutrophil Count 12.38 10^3/uL (1.2-6.7); Platelet Count 326 10^3/uL (130-400)
[2023-01-30 08:03] LABS: Absolute Basophil Count 0.15 10^3/uL (0.0-0.2); Absolute Monocyte Count 0.91 10^3/uL (0.1-0.8); Anisocytosis 1+; Diff Comment Manual Differential; Microcytosis 1+; Poikilocytes 2+
--- NOTE | 2023-01-30 09:14 | PDOC.CMPRO ---
Date of service: 01/30/23 Time of Service: 09:14 Care Management Progress Note Progress Note Text Progress Note Text: GHADA was able to connect with Carissa King's daughter via phone. Christine reports working toward adjunct faculty for medical terminology medicaid with the family's flight communications specialist, Neal Irena. She has also inquired into private care and connected with a home provider; [facility]. Christine's understanding is that her father may need to enter a spend down prior to LTM approval, and will outreach to Monse today to determine availability as well as ability to accept self pay while awaiting LTM approval. Christine highlighted the recent severe decline in her mother's cognitive and physical ability, and her father's ongoing struggles to support Carissa at home. Davi at this time, is now agreeable to permitting Carissa to be placed outside of the home. CM reviewed insurance limitations, LTM process; Christine is working closely with Neal and well versed in process. She will notify Neal tomorrow (01/31/23) of recent updates and outreach to Monse today to determine disposition availability; GHADA continues to follow.
[2023-01-30] MEDS: MAGNESIUM SULFATE 2 GM/50 ML BAG IVPB (09:15)
[2023-01-30] MEDS: Lactated Ringers 1,000 ML 100 ML IV (13:27)
--- NOTE | 2023-01-30 13:53 | W.PM.PROGNOT ---
Date of Service Date of service: 01/30/23 Time of Service: 13:53 Assessment and Plan Assessment and plan (1) Urinary tract infection: Status: Acute Assessment and plan: Urine culture is pending. She is receiving antibiotics that would cover urinary tract infection. E coli gm + (2) Leukocytosis: Status: Acute Assessment and plan: Etiology of leukocytosis is unclear. WBC down to 15 from 22; continue abx (3) Dementia: Status: Chronic Assessment and plan: This is a chronic problem and her recent change in status is not likely due to her dementia. (4) Hypomagnesemia: Status: Acute Assessment and plan: Mag 1.5, repleted - follow (5) Conjunctivitis, right eye: Status: Acute Assessment and plan: Red, tearing, crusty Erythromycin opth oint 5xd Improved today, less red (6) Thrush, oral: Status: Acute Assessment and plan: White coated tongue, continue difulcan 100 mg for 14d - this is day 2 (7) DVT prophylaxis: Status: Acute Assessment and plan: Enoxaparin (8) Discharge planning issues: Status: Acute Assessment and plan: Home with when medically stable ? services Subjective Subjective Patient reports: no new complaints Interval history since last seen: She has advanced dementia Up in a chair eating with aide feeding her, in to visit. Exam Const General: comfortable, no acute distress and lethargic Orientation: awake Other: Very confused, unsure of where she is, why she is here, doesn't know the date or the season, does correctly recognize her he is in the room Eyes General: appearance normal, both eyes and all related structures Neck Neck: normal visual inspection, full ROM, no lymphadenopathy, no meningeal signs, trachea midline, nontender and no JVD Resp Auscultation: clear to auscultation bilaterally, no rales, no rhonchi and no wheezes Cardio Rate: regular rate and tachycardic Rhythm: regular rhythm Heart Sounds: S1 normal, S2 normal, no gallops, no murmurs and no rubs GI Palpation: soft, no hepatosplenomegaly, no guarding, nontender and No ascites Back/Spine/Pelvis Other: She has scoliosis of her lumbar spine with a prominent bony protuberance of the right flank. There is a midline vertical scar that measures about 6 cm over her lumbar spine. Extrem General: normal to inspection, capillary refill normal, no clubbing and no cyanosis Objective Last Vital Signs Temp 36.3 C L 01/30/23 11:11 Pulse 106 H 01/30/23 11:11 Resp 16 01/30/23 11:11 BP 109/74 01/30/23 11:11 Pulse Ox 97 01/30/23 11:11 Laboratory Results - last 24 hr 01/30/23 01/30/23 06:14 06:14 WBC 15.10 H RBC 3.37 L Hgb 8.7 L Hct 27.4 L MCV 81 MCH 25.8 L MCHC 31.8 L RDW 17.0 H Plt Count 326 MPV 8.4 Immature Gran % See Differential Neutrophils % 82.0 Lymphocytes % 9.0 Monocytes % 6.0 Eosinophils % 2.0 Basophils % 1.0 Nucleated RBC % 0.0 Absolute Neutrophils 12.38 H Absolute Lymphocytes 1.36 Absolute Monocytes 0.91 H Absolute Eosinophils 0.30 Absolute Basophils 0.15 RBC Morphology See Below Poikilocytosis 2+ Anisocytosis 1+ Microcytosis 1+ Sodium 138 Potassium 3.6 Chloride 103 Carbon Dioxide 28.5 Anion Gap 6.5 BUN 9 Creatinine 0.5 L Est GFR (CKD-EPI 2020) 97.14 Glucose 87 Calcium 8.6 Magnesium 1.5 L Time Spent with Patient Time Spent with Patient: 25-34 minutes Time was spent: preparing to see the patient(eg.review tests), ordering medications,tests, procedures, referring, communicating with other health pharmacy customer care specialist, indepentently interpreting results, counseling the patient and care coordination
[2023-01-30] MEDS: Enoxaparin 40 MG/0.4 ML SYR SC (17:10)
[2023-01-30] MEDS: cefTRIAXone 2 GM/50 ML BAG IVPB (17:10)
[2023-01-30] MEDS: QUEtiapine 25 MG TAB PO (17:20)
[2023-01-30] MEDS: Pantoprazole 40 MG TABCR PO (21:30)
[2023-01-30] MEDS: Memantine 5 MG TAB PO (21:31)
[2023-01-30] MEDS: OLANZapine 10 MG TAB PO (21:31)
[2023-01-30] MEDS: Rosuvastatin 20 MG TAB PO (22:03)
[2023-01-30] MEDS: Amitriptyline 25 MG TAB PO (22:04)
[2023-01-31] VITALS (9 sets, daily range): BP systolic 122–145; BP diastolic 72–82; PULSE 82–115; RESP 16–18; TEMP 36.6–37.4; O2SAT 94–96
[2023-01-31] MEDS: Lactated Ringers 1,000 ML 100 ML IV ×2 (00:21→11:09)
[2023-01-31 07:03] LABS: Abs Immature Grans 0.09 10^3/uL (0.0-0.06); Absolute Basophil Count 0.07 10^3/uL (0.0-0.2); Absolute Eosinophil Count 0.18 10^3/uL (0.0-0.7); Absolute Lymphocyte Count 1.55 10^3/uL (1.2-3.4); Absolute Monocyte Count 1.22 10^3/uL (0.1-0.8); Absolute Neutrophil Count 7.22 10^3/uL (1.2-6.7); Basophils % 0.7; Eosinophils % 1.7; HCT 29.6 % (36.0-46.0); HGB 9.3 g/dL (11.2-15.7); Immature Grans % 0.9; MCH 25.9 pg (27.0-33.0); MCHC 31.4 % (32.0-36.0); MCV 83 fL (80-95); MPV 8.3 fL (8.0-11.0); Monocytes % 11.8; Neutrophils % 69.9; Platelet Count 312 10^3/uL (130-400); RBC 3.59 10^6/uL (3.93-5.22); RDW 16.7 % (11.7-14.6); RDW-SD 50.5 fL; WBC 10.33 10^3/uL (4.4-10.8)
[2023-01-31 07:07] LABS: Anion Gap 9.6 mmol/L (3-11); BUN 9 mg/dL (7-18); CO2 27.4 mmol/L (21.0-32.0); CREATININE 0.5 mg/dL (0.55-1.02); Calcium 8.3 mg/dL (8.5-10.1); Chloride 99 mmol/L (98-107); Estimated GFR 97.14 (mL/min/1.73m2); Glucose 93 mg/dL (74-106); Magnesium 1.7 mg/dL (1.8-2.4); Potassium 3.3 mmol/L (3.5-5.1); Sodium 136 mmol/L (136-145)
[2023-01-31] MEDS: Erythromycin Ophth Oint 3.5 GM TUBE 0.5 GM OD ×3 (08:51→20:40)
[2023-01-31] MEDS: Spironolactone 25 MG TAB PO (08:52)
[2023-01-31] MEDS: Pantoprazole 40 MG TABCR PO ×2 (08:52→20:29)
[2023-01-31] MEDS: Losartan 50 MG TAB 100 MG PO (08:53)
[2023-01-31] MEDS: OLANZapine 10 MG TAB PO ×2 (08:53→20:29)
[2023-01-31] MEDS: Fluconazole 100 MG TAB PO (08:53)
[2023-01-31] MEDS: Memantine 5 MG TAB PO ×2 (08:53→20:29)
[2023-01-31] MEDS: Docusate Sodium 100 MG CAP PO (08:54)
[2023-01-31] MEDS: Mirabegron 25 MG TABCR PO (08:57)
[2023-01-31] MEDS: POTASSIUM CHLORIDE 20 MEQ/100 ML BAG 50 MEQ IVPB ×2 (11:09→13:15)
[2023-01-31] MEDS: MAGNESIUM SULFATE 2 GM/50 ML BAG IVPB (11:09)
--- NOTE | 2023-01-31 11:26 | W.NUTRFU ---
Date of service: 01/31/23 Time of Service: 11:26
--- NOTE | 2023-01-31 11:27 | NS.NUTBLAN_ITS ---
Date of service: 01/31/23 Time of Service: 11:27 Nutritional Consult ASSESSMENT: 78 year old cachexic female admitted 01/28/23 with UTI and Dementia with BMI of 16.5. Has been on clear liquid diet since admit, awaiting [facility] SPECIALIST consult. At high nutritional risk in view of low BMI and lack of nutrients in clear liquids. PO intake has been poor since admission. Per rounds, [facility] SPECIALIST to evaluate andrei and advance diet as able. Estimated Needs: 1200 kcal, 54 g protein, 1350 ml fluids ( 25 kcal/kg, 1.2 g pro/kg, 30 ml fluid/kg based on 45 kg) NUTRITIONAL DIAGNOSIS: Malnutrition as evidenced by BMI 16.5 and prolonged period of inadequate n utrient intake. INTERVENTION: Provide ensure clears TID Advance diet per [facility] SPECIALIST daily weight MONITORING AND EVALUATION: weight, po intake, labs Time Spent in Nutritional Counseling and Treatment: 0
--- NOTE | 2023-01-31 14:43 | NUR.NOTE ---
Notified charge nurse about new wound noted to coccyx. this rn placed a mepilex on wound and repositioned pt off her back
--- NOTE | 2023-01-31 15:20 | PGE_ITS ---
Date of Service Date of service: 01/31/23 Time of Service: 15:20 Assessment and Plan Assessment and plan (1) Urinary tract infection: Status: Acute Assessment and plan: Urine culture is pending. She is receiving antibiotics that would cover urinary tract infection. Continue IV abx (2) Leukocytosis: Status: Acute Assessment and plan: WBC down to 10 from 15; continue abx (3) Dementia: Status: Chronic Assessment and plan: This is a chronic problem and her recent change in status is not likely due to her dementia. (4) Hypomagnesemia: Status: Acute Assessment and plan: Mag 1.8 today - follow (5) Conjunctivitis, right eye: Status: Acute Assessment and plan: Red, tearing, crusty Erythromycin opth oint 5xd Improving (6) Thrush, oral: Status: Acute Assessment and plan: White coated tongue, this is improving, continue difulcan 100 mg for 14d - this is day 4 (7) DVT prophylaxis: Status: Acute Assessment and plan: Enoxaparin (8) Discharge planning issues: Status: Acute Assessment and plan: Home with when medically stable ? services Discussed with Dr Connell Subjective Subjective Patient reports: no new complaints and afebrile; denies diarrhea or vomiting Interval history since last seen: Up in the chair, speaking, but unaware of the conversation, unable to answer questions, does recognize her , but does not know where she is, unable to reorient Exam Const General: comfortable, no acute distress and lethargic Orientation: awake, oriented to person and confused Other: Very confused, unsure of where she is, why she is here, doesn't know the date or the season, does correctly recognize her he is in the room Eyes General: appearance normal, both eyes and all related structures Neck Neck: normal visual inspection, full ROM, no lymphadenopathy, no meningeal signs, trachea midline, nontender and no JVD Resp Auscultation: clear to auscultation bilaterally, no rales, no rhonchi and no wheezes Cardio Rate: regular rate and tachycardic Rhythm: regular rhythm Heart Sounds: S1 normal, S2 normal, no gallops, no murmurs and no rubs GI Palpation: soft, no hepatosplenomegaly, no guarding, nontender and No ascites Back/Spine/Pelvis Other: She has scoliosis of her lumbar spine with a prominent bony protuberance of the right flank. There is a midline vertical scar that measures about 6 cm over her lumbar spine. Extrem General: normal to inspection, capillary refill normal, no clubbing and no cyanosis Objective Last Vital Signs Temp 37.4 C 01/31/23 11:36 Pulse 101 H 01/31/23 11:36 Resp 16 01/31/23 11:36 BP 137/78 01/31/23 11:36 Pulse Ox 96 01/31/23 11:36 Laboratory Results - last 24 hr 01/31/23 01/31/23 05:48 05:48 WBC 10.33 RBC 3.59 L Hgb 9.3 L Hct 29.6 L MCV 83 MCH 25.9 L MCHC 31.4 L RDW 16.7 H Plt Count 312 MPV 8.3 Immature Gran % 0.9 Neutrophils % 69.9 Lymphocytes % 15.0 Monocytes % 11.8 Eosinophils % 1.7 Basophils % 0.7 Nucleated RBC % 0.0 Absolute Neutrophils 7.22 H Absolute Lymphocytes 1.55 Absolute Monocytes 1.22 H Absolute Eosinophils 0.18 Absolute Basophils 0.07 Sodium 136 Potassium 3.3 L Chloride 99 Carbon Dioxide 27.4 Anion Gap 9.6 BUN 9 Creatinine 0.5 L Est GFR (CKD-EPI 2020) 97.14 Glucose 93 Calcium 8.3 L Magnesium 1.7 L Time Spent with Patient Time Spent with Patient: 25-34 minutes Time was spent: preparing to see the patient(eg.review tests), ordering medications,tests, procedures, referring, communicating with other health career development facilitator, indepentently interpreting results, counseling the patient and care coordination
--- NOTE | 2023-01-31 16:44 | CMPROGNOTE_ITS ---
Date of service: 01/31/23 Time of Service: 16:44 Care Management Progress Note Progress Note Text Progress Note Text: S/O: Carissa was lying in bed when CM met with her, she appears to be sleeping. Her daughter Christine is looking into placement with home provider; [facility] Hitchcock and is also looking into intermission coordinator medicaid. The plan was for her to contact Monse and the family's field services analyst, Nealsegundo Albertson today. CM left message for Christine and is awaiting updates. A:78 year old female admitted to [facility] on 01/28/23 for AMS, UTI P: Daughter, Christine [phone] advocating for placement-no payer source. CM continues to follow
--- NOTE | 2023-01-31 16:44 | PDOC.CMPRO ---
Date of service: 01/31/23 Time of Service: 16:44 Care Management Progress Note Progress Note Text Progress Note Text: S/O: Carissa was lying in bed when CM met with her, she appears to be sleeping. Her daughter Christine is looking into placement with home provider; [facility] Hitcchock and is also looking into intermediate manager medicaid. The plan was for her to contact Monse and the family's licensed practical nurse instructor, Nealsegundo Albertson today. CM left message for Christine and is awaiting updates. A:78 year old female admitted to [facility] on 01/28/23 for AMS, UTI P: Daughter, Christine [phone] advocating for placement-no payer source. CM continues to follow
[2023-01-31] MEDS: Enoxaparin 40 MG/0.4 ML SYR SC (17:44)
[2023-01-31] MEDS: cefTRIAXone 2 GM/50 ML BAG IVPB (17:45)
[2023-01-31] MEDS: Amitriptyline 25 MG TAB PO (22:30)
[2023-01-31] MEDS: Rosuvastatin 20 MG TAB PO (22:30)
[2023-02-01] VITALS (7 sets, daily range): BP systolic 124–150; BP diastolic 65–90; PULSE 96–113; RESP 14–18; TEMP 36.1–36.8; O2SAT 93–96
[2023-02-01 05:29] LABS: Abs Immature Grans 0.09 10^3/uL (0.0-0.06); Absolute Basophil Count 0.05 10^3/uL (0.0-0.2); Absolute Eosinophil Count 0.31 10^3/uL (0.0-0.7); Absolute Lymphocyte Count 1.88 10^3/uL (1.2-3.4); Absolute Monocyte Count 1.21 10^3/uL (0.1-0.8); Basophils % 0.5; Eosinophils % 3.1; HCT 30.7 % (36.0-46.0); HGB 9.7 g/dL (11.2-15.7); Immature Grans % 0.9; Lymphocytes % 18.5; MCH 25.9 pg (27.0-33.0); MCHC 31.6 % (32.0-36.0); MCV 82 fL (80-95); MPV 7.8 fL (8.0-11.0); Monocytes % 11.9; Neutrophils % 65.1; Platelet Count 300 10^3/uL (130-400); RBC 3.74 10^6/uL (3.93-5.22); RDW 16.6 % (11.7-14.6); RDW-SD 50.2 fL; WBC 10.14 10^3/uL (4.4-10.8)
[2023-02-01 05:41] LABS: Anion Gap 6.1 mmol/L (3-11); BUN 6 mg/dL (7-18); CO2 29.9 mmol/L (21.0-32.0); CREATININE 0.5 mg/dL (0.55-1.02); Calcium 8.4 mg/dL (8.5-10.1); Chloride 103 mmol/L (98-107); Estimated GFR 97.14 (mL/min/1.73m2); Glucose 82 mg/dL (74-106); Magnesium 1.8 mg/dL (1.8-2.4); Potassium 3.6 mmol/L (3.5-5.1); Sodium 139 mmol/L (136-145)
[2023-02-01] MEDS: Docusate Sodium 100 MG CAP PO (08:24)
[2023-02-01] MEDS: Fluconazole 100 MG TAB PO (08:24)
[2023-02-01] MEDS: OLANZapine 10 MG TAB PO ×2 (08:24→19:52)
[2023-02-01] MEDS: Memantine 5 MG TAB PO ×2 (08:24→19:52)
[2023-02-01] MEDS: Spironolactone 25 MG TAB PO (08:24)
[2023-02-01] MEDS: Pantoprazole 40 MG TABCR PO ×2 (08:24→19:52)
[2023-02-01] MEDS: Mirabegron 25 MG TABCR PO (08:25)
[2023-02-01] MEDS: Acetaminophen 325 MG TAB 650 MG PO (08:25)
[2023-02-01] MEDS: Losartan 50 MG TAB 100 MG PO (08:25)
[2023-02-01] MEDS: Erythromycin Ophth Oint 3.5 GM TUBE 0.5 GM OD ×2 (08:27→19:51)
[2023-02-01] MEDS: Normal Saline Flush 10 ML SYR IVP (08:28)
--- NOTE | 2023-02-01 10:45 | RT.EKG_ITS ---
APPROVED REPORT Exam: Resting ECG Reason for Exam: Tachycardia Patient Location: I HR:105 bpm ECG Measurements Heart Rate 105 AXIS GA 150 P 62 QRSd 78 QRS -1 QT 363 T 118 QTc 480 Conclusion Sinus tachycardia...rate> 99 Anterior infarct, old...Q >40mS, abnormal ST-T, V2-V5 Nonspecific T abnormalities, lateral leads...T <-0.10mV, I aVL V5 V6
[2023-02-01] MEDS: Potassium Chloride Liquid 20 MEQ PKT 40 MEQ PO (11:31)
[2023-02-01] MEDS: Fosfomycin Tromethamine 3 GM PACKET PO (11:31)
[2023-02-01] MEDS: Lactated Ringers 500 ML IV (11:33)
--- NOTE | 2023-02-01 12:51 | NUR.NOTE ---
throughout the day, pt has been very suspicious regarding nursing staff, medications, and meals. pt refused breakfast as she states she dont have any room in my stomach. pt also refused lunch as she states dont trust you. this rn called on portable phone and assisted pt with it so he could verify that the food is safe and she is in a safe place. pt is still refusing.
--- NOTE | 2023-02-01 15:07 | CMPROGNOTE_ITS ---
Date of service: 02/01/23 Time of Service: 15:07 Care Management Progress Note Progress Note Text Progress Note Text: S/O: Carissa continues to require hospitalization. Palliative consult is scheduled for at 1:30, Christine and Davi are planning on attending. SNF referral's are sent. Anticipate she will discharge to SNF for STR, when medically stable. CM spoke with Carissa's Daughter Christine and a plan is established for her mom has a bed offer at [facility] residential [facility], self pay status, after STR or as early as next week. The family plans to continue working toward alf medicaid with guidance from their cafe lead, Neal Osborn. SNF referrals are sent. A:78 year old female admitted to [facility] on 01/28/23 for AMS, UTI P: DaughterChristine [phone] advocating for placement-no payer source. Anticipate, Carissa will discharge to SNF for STR, then will self pay for residential care at [facility]. SNF referrals are sent. GHADA continues to follow
--- NOTE | 2023-02-01 15:07 | PDOC.CMPRO ---
Date of service: 02/01/23 Time of Service: 15:07 Care Management Progress Note Progress Note Text Progress Note Text: S/O: Carissa continues to require hospitalization. Palliative consult is scheduled for at 1:30, Christine and Davi are planning on attending. SNF referral's are sent. Anticipate she will discharge to SNF for STR, when medically stable. CM spoke with Carissa's Daughter Christine and a plan is established for her mom has a bed offer at [facility] residential [facility], self pay status, after STR or as early as next week. The family plans to continue working toward jail medicaid with guidance from their contact lens cutter, Neal Osborn. SNF referrals are sent. A:78 year old female admitted to [facility] on 01/28/23 for AMS, UTI P: DaughterChristine [phone] advocating for placement-no payer source. Anticipate, Carissa will discharge to SNF for STR, then will self pay for residential care at [facility]. SNF referrals are sent. GHADA continues to follow
--- NOTE | 2023-02-01 17:21 | PT.INIE ---
Date of service: 02/01/23 Time of Service: 11:44 PT Notes Visit Reasons: Altered Mental Status, UTI Physical Therapy Inpatient Initial Evaluation Date: 02/01/2023 Jenny Paez NP Referring Doctor: PT Orders: PT CONSULT: Eval/treat Precautions: Fall. Standard. Activity as tolerated. Patient Profile/Admitting Diagnosis: Carissa is a 78-year-old female who presented to the ED on 01/28/2023 due to altered mental status and decreased responsiveness. Patient is admitted to for management of urinary tract infection, leukocytosis, pre-existing dementia, hypomagnesemia, conjunctivitis of the right eye, and oral thrush. PMHX: All Active Problems?(Updated 01/28/23 @ 23:04 by Duy Paul MD) Hypomagnesemia (Acute) Dementia (Chronic) Leukocytosis (Acute) Arthritis (Acute 06/16/11) Asthma (Acute 06/16/11) Atherosclerosis of nondalton coronary artery (Acute) neg MPI 09/24 CABG 2001 Atrophic vaginitis (Acute 08/30/14) Colon polyp (Acute) Diabetes mellitus (Acute) Elev transaminase/LDH (Acute) Esophageal reflux (Acute) H/O esophagitia, HH Elev transaminase/LDH (Acute) Essential hypertension (Acute 05/28/13) Gastroesophageal reflux disease (Acute) H/O esophagitia, HH Hyperlipidemia (Acute) Scoliosis (Acute 04/10/14) Trochanteric bursitis of left hip (Acute 07/30/15) Tubular adenoma of colon (Acute) 05/31/14; DR. 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 Can recur Vaginal wall prolapse (Acute 08/28/12) Status post abdominal hysterectomy (Acute) Proctocele (Acute) Abdominal pain in female (Acute) Gastric polyps (Acute) Depression (Chronic) onset with cognitive decline Generalized anxiety disorder (Acute) life long anxiety worsening with cognitive decline Alzheimer's dementia (Chronic) Worsening as of omplaints of memory disturbance (Acute) Allergies (Acute) Acute non-ST elevation myocardial infarction (NSTEMI) (Acute) Left wrist pain (Acute) Fatigue (Acute) Chest pain, atypical (Acute) Gastroesophageal reflux disease (Chronic) Chronic headache (Acute) SunDown syndrome (Acute) Insomnia (Acute) Urinary tract infection (Acute) Tachycardia (Acute) Dehydration (Acute) Delirium (Acute) Pelvic pressure in female (Acute) Chest pain (Acute) Weakness (Acute) Altered mental status (Acute) Acute UTI (Acute) Hypomagnesemia (Acute) Medical History? Admission for convalescence and palliative care Surgical History? Abdominal hysterectomy (~1998) FIBROIDS ABDOMINAL WALL HERNIA REPAIR (~2002) AORTIC BYPASS BSO Cholecystectomy Colonoscopy - MAC 05/31/14EGD - MAC (~2000) Ependymoma of spinal cord H/O knee surgery History of surgical procedure History of ventral hernia repair RECTOCELE REPAIR Status post angioplasty with stent UROTOMY (~1998) Social History/Home Situation: Lives at with in a private home. Receives [employer] help twice a week for 4 hours each day. For the past 2 weeks patient has needed assist of 2 for all transfers. Had been unsafe and unable to ambulate Equipment Owned/DME: [facility] Subjective: Patient verbalized early today that she will not talk with this PT unless she talks with her first. Expressed fatigue early on and needing to rest. This afternoon, Davi was present inside room and so patient agreed to get out of chair with PT. reported some pin in her Left hip that did not worsen with short distance ambulation. Per , him and his daughter are looking at correction facility placement as he has not been able to provide the care his needs. verbalizes that he is 85 years old and is getting weaker himself. Objective: General Observation: Seated on wheelchair. Rogers catheter in place. Mental Status: Alert and oriented as to person only. Able to follow simple single step commands. Pain: minimal pain in L hip that Nurse Cinthya was updated about Vital Signs: Closely monitored by nursing staff ROM: Right Upper Extremity: Shoulder Flexion lacks the last 25% of AROM. Shoulder abduction lacks the last 25% of AROM. Elbow flexion WFL. Wrist flexion WFL. Functional opening and closing of hand WFL. Left Upper Extremity: Shoulder Flexion lacks the last 25% of AROM. Shoulder abduction lacks the last 25% of AROM. Elbow flexion WFL. Wrist flexion WFL. Functional opening and closing of hand WFL. Right Lower Extremity: Hip flexion WFL. Hip abduction WFL. Knee flexion -10 degrees to 90 degrees. Ankle dorsiflexion to neutral only. Ankle plantarflexion WFL. Left Lower Extremity: Hip flexion lacks the last 25% of AROM. Hip abduction lacks the last 25% of AROM. Knee flexion -10 degrees to 90 degrees. Ankle dorsiflexion to neutral only. Ankle plantarflexion WFL. Strength: Right Upper Extremity: Shoulder flexors 3-/5. Shoulder abductors 3-/5. Elbow flexors 4-/5. Elbow extensors 4-/5. Bookbinder Apprentice strong. Left Upper Extremity: Shoulder flexors 3-/5. Shoulder abductors 3-/5. Elbow flexors 4-/5. Elbow extensors 4-/5. Bookbinder Apprentice strong. Right Lower Extremity: Hip flexors 4-/5. Hip abductors 4-/5. Knee flexors 4-/5. Knee extensors 4-/5. Ankle dorsiflexors 3-/5. Ankle plantarflexors 3-/5. Left Lower Extremity: Hip flexors 3-/5. Hip abductors 3-/5. Knee flexors 3-/5. Knee extensors 3-/5. Ankle dorsiflexors 3-/5. Ankle plantarflexors 4-/5. Bed Mobility/Transfers: Stand to sit with minimal assist of 2 Sit to stand minimal assist of 2 Gait: Instructed patient with level surface ambulation of 6 feet requiring minimal assist of 2. Nurse Cinthya assisted for safety. Ruma decreased. Step height decreased. Step length decreased. Pushes posteriorly, fearful of falling. Balance: Static Sitting: Good Dynamic Sitting: Fair Static Standing: Poor Dynamic Standing: Poor Special Tests: Mobility Limitations Standardized Measure [facility] AM-PAC 6 clicks Basic Mobility Inpatient Short Form: Raw Score: 12 [facility] Score: 69% deficit Informed Consent/Education: Patient was instructed in purpose of PT consult and plan of care. Agreeable to proceed with established PT POC to achieve personal goals. Assessment: Fearful of falling. Requires assistance of 2 caregivers for safety for all transfers using front wheeled walker. Patient presents with clinical signs and symptoms consistent with current/admitting diagnoses that have resulted to mobility limitations, gait instability, generalized weakness, and overall ADL decline as demonstrated by the following impairment level findings: 1. Decreased strength to B UE LE major muscle groups 2. Impaired sitting/standing balance 3. Impaired activity tolerance 4. Limitation of joint range of motion in L hip Impairments are contributing to the following functional limitations: 1. Decline in bed mobility skills 2. Decline in transfer skills 3. Difficulty with ambulation without assistive device and physical assistance 4. Increased completion time for mobility ADL performance 5. Increased risk for falls 6. Difficulty with managing steps alone safely Patient is assessed as a 97721 moderate complexity based on the following: History: 78-year-old female with past medical history as indicated above Examination: Demonstrable impairment in strength, balance, and mobility level with underlying impairments and functional limitations as exhibited above as well as deficit score of 69% utilizing the [facility] Mobility Inpatient Short Form Presentation: Evolving Decision Makin moderate complexity Goals: Goals X1 week 1. Supine-Sit stand by assist 2. Sit-Supine stand by assist 3. Sit-Stand stand by assist 4. Stand-Sit contact guard assist with FWW 5. Bed-Chair contact guard assist with FWW 6. Chair-Bed contact guard assist with FWW 7. Minimal assist gait on level surface with use of FWW for at least 30 feet without report of pain nor dyspnea 8. Fair static and dynamic standing balance/tolerance Plan of Care/Treatment Plan: 1-2x/day, 7 days/week x 1 week. Plan of care has been reviewed with the [employer] providing the service under Physical Therapy direction. Initiate Physical Therapy intervention for pain management as needed, strengthening, bed mobility, transfers, gait, stairs, balance training, and use of assistive device. DISCHARGE RECOMMENDATIONS: [] Home with no services [] [] Home with services [specify] [] Home with outpatient PT [] [] SNF for continued rehabilitation [] [] [facility] [] [X] SNF versus LTC based on ability to participate and progress towards goals TREATMENT CODE/TIME: Patient was initially seen at 11:44 for 11 minutes (48897 x 1 unit) for initiation of evaluation. He was then seen at 16:13 PM for 27 minutes for eval completion and PT treatment (56208 x 2 units). Thank you for the opportunity to participate in the care of this patient. Martha Baltazar PT, DPT, CLT [facility] [place], [place]
--- NOTE | 2023-02-01 17:35 | PGE_ITS ---
Date of Service Date of service: 02/01/23 Time of Service: 17:35 Assessment and Plan Assessment and plan (1) Urinary tract infection: Status: Acute Assessment and plan: Fosfomycin given; repeat in 3 d (2) Leukocytosis: Status: Acute Assessment and plan: WBC down to 10 from 15; continue abx (3) Dementia: Status: Chronic Assessment and plan: This is a chronic problem and her recent change in status is not likely due to her dementia. (4) Hypomagnesemia: Status: Acute Assessment and plan: Mag 1.8 today - follow (5) Conjunctivitis, right eye: Status: Acute Assessment and plan: Red, tearing, crusty Erythromycin opth oint 5xd Improving (6) Thrush, oral: Status: Acute Assessment and plan: White coated tongue, this is improving, continue difulcan 100 mg for 14d - this is day 4 (7) DVT prophylaxis: Status: Acute Assessment and plan: Enoxaparin (8) Discharge planning issues: Status: Acute Assessment and plan: Home with when medically stable ? services Discussed with Dr Ellis Subjective Subjective Patient reports: no new complaints, pain is less, tolerating a regular diet and bowel movement; denies diarrhea, nausea or vomiting Interval history since last seen: Carissa has dementia and is difficult to communicate with, confused and she said today nurses are poisoning her food. She does have UTI which could be contributing to increased confusion. Daughter reports at home she was walking. She also states they don't have the abilty to care for her at home anymore. She has a halfway she would like to go to, however it is not available until next week. Exam Const General: comfortable, no acute distress, frail appearing and ill appearing Orientation: alert, awake and oriented to person (does recognize her daughter and her ) Other: Very confused, unsure of where she is, why she is here, doesn't know the date or the season, does correctly recognize her , reports nurses are trying to poison her Eyes General: appearance normal, both eyes and all related structures Other: Conjunctivitis has resolved, although right eye lid is still slighly pink Neck Neck: normal visual inspection, full ROM, no lymphadenopathy, no meningeal signs, trachea midline, nontender and no JVD Resp Auscultation: clear to auscultation bilaterally, no rales, no rhonchi and no wheezes Cardio Rate: regular rate and tachycardic Rhythm: regular rhythm Heart Sounds: S1 normal, S2 normal, no gallops, no murmurs and no rubs GI Palpation: soft, no hepatosplenomegaly, no guarding, nontender and No ascites Back/Spine/Pelvis Other: She has scoliosis of her lumbar spine with a prominent bony protuberance of the right flank. There is a midline vertical scar that measures about 6 cm over her lumbar spine. Extrem General: normal to inspection, capillary refill normal, no clubbing and no cyanosis Objective Last Vital Signs Temp 36.2 C L 02/01/23 15:22 Pulse 105 H 02/01/23 15:22 Resp 18 02/01/23 15:22 BP 141/84 H 02/01/23 15:22 Pulse Ox 96 02/01/23 15:22 Laboratory Results - last 24 hr 02/01/23 02/01/23 05:16 05:16 WBC 10.14 RBC 3.74 L Hgb 9.7 L Hct 30.7 L MCV 82 MCH 25.9 L MCHC 31.6 L RDW 16.6 H Plt Count 300 MPV 7.8 L Immature Gran % 0.9 Neutrophils % 65.1 Lymphocytes % 18.5 Monocytes % 11.9 Eosinophils % 3.1 Basophils % 0.5 Nucleated RBC % 0.0 Absolute Neutrophils 6.60 Absolute Lymphocytes 1.88 Absolute Monocytes 1.21 H Absolute Eosinophils 0.31 Absolute Basophils 0.05 Sodium 139 Potassium 3.6 Chloride 103 Carbon Dioxide 29.9 Anion Gap 6.1 BUN 6 L Creatinine 0.5 L Est GFR (CKD-EPI 2020) 97.14 Glucose 82 Calcium 8.4 L Magnesium 1.8 Time Spent with Patient Time Spent with Patient: 35-49 minutes Time was spent: preparing to see the patient(eg.review tests), ordering medications,tests, procedures, referring, communicating with other health home health care provider, indepentently interpreting results, counseling the patient and care coordination
[2023-02-01] MEDS: Rosuvastatin 20 MG TAB PO (23:07)
[2023-02-01] MEDS: Amitriptyline 25 MG TAB PO (23:07)
[2023-02-02 03:48] VITALS: BP 122/68; PULSE 98; RESP 14; TEMP 36.3; O2SAT 93
[2023-02-02 07:07] VITALS: BP 126/75; PULSE 99; TEMP 35.2; O2SAT 94
[2023-02-02 07:08] LABS: Abs Immature Grans 0.17 10^3/uL (0.0-0.06); Absolute Basophil Count 0.05 10^3/uL (0.0-0.2); Absolute Eosinophil Count 0.33 10^3/uL (0.0-0.7); Absolute Lymphocyte Count 1.83 10^3/uL (1.2-3.4); Absolute Neutrophil Count 6.81 10^3/uL (1.2-6.7); Basophils % 0.5; Eosinophils % 3.2; HCT 31.5 % (36.0-46.0); Immature Grans % 1.6; Lymphocytes % 17.6; MCH 26.3 pg (27.0-33.0); MCHC 31.7 % (32.0-36.0); MCV 83 fL (80-95); MPV 8.8 fL (8.0-11.0); Monocytes % 11.5; Neutrophils % 65.6; Platelet Count 305 10^3/uL (130-400); RDW 16.5 % (11.7-14.6); RDW-SD 49.5 fL; WBC 10.39 10^3/uL (4.4-10.8)
[2023-02-02 07:49] LABS: Anion Gap 7.4 mmol/L (3-11); BUN 8 mg/dL (7-18); CO2 29.6 mmol/L (21.0-32.0); CREATININE 0.5 mg/dL (0.55-1.02); Calcium 8.6 mg/dL (8.5-10.1); Chloride 103 mmol/L (98-107); Estimated GFR 97.14 (mL/min/1.73m2); Glucose 100 mg/dL (74-106); Magnesium 1.7 mg/dL (1.8-2.4); Potassium 3.9 mmol/L (3.5-5.1); Sodium 140 mmol/L (136-145)
--- NOTE | 2023-02-02 08:50 | PHA.REVIEW2 ---
Pharmacy Admission Review Admission Clinical Review Admission Pharmacy Review: (Updated 01/29/23 @ 17:41 by Jenny Paez NP) Discharge planning issues (Acute) DVT prophylaxis (Acute) Thrush, oral (Acute) Conjunctivitis, right eye (Acute) Hypomagnesemia (Acute) Leukocytosis (Acute) Urinary tract infection (Acute) Altered mental status (Acute) Acute UTI (Acute) Hypomagnesemia (Acute) codeine Allergy (Severe, Verified 01/25/23 15:45) hives, itching hydrochlorothiazide Adverse Reaction (Intermediate, Verified 01/25/23 15:45) weakness, hyponatremia ranitidine Adverse Reaction (Intermediate, Verified 01/25/23 15:45) DIARRHEA JR Inhibitors Adverse Reaction (Mild, Verified 01/25/23 15:45) COUGH NSAIDS (Non-Steroidal Anti-Inflamma Adverse Reaction (Mild, Verified 01/25/23 15:45) GI upset atorvastatin Adverse Reaction (Unknown, Verified 01/25/23 15:45) ELEVATED LFT'S celecoxib Adverse Reaction (Verified 01/25/23 15:45) rofecoxib Adverse Reaction (Verified 01/25/23 15:45) valdecoxib Adverse Reaction (Verified 01/25/23 15:45) Resuscitation Status DNR/DNI Height 5 ft 2 in Weight 40.82 kg Pharmacy Admission Review Renal Dosing Renal Dosing: BUN 8 mg/dL (7-18) 02/02/23 06:45 Creatinine 0.5 mg/dL (0.55-1.02) L 02/02/23 06:45 Medications needing adjustments: Reviewed (eCrCl using actual body weight is 51.4 ml/min (scr of 0.6 was used as levels lower than 0.6 may be inappropriate with some estimated clearance methods)) List of meds needing interventions: all orders dosed appropriately Anticoagulation Anticoagulation: Hgb 10.0 g/dL (11.2-15.7) L 02/02/23 06:45 Hct 31.5 % (36.0-46.0) L 02/02/23 06:45 Plt Count 305 10^3/uL (130-400) 02/02/23 06:45 Creatinine 0.5 mg/dL (0.55-1.02) L 02/02/23 06:45 DVT Prophylaxis: Reviewed Medications: Enoxaparin Opiate Usage Evaluate Pain Scale/Pains Meds: N/A Relevant Labs Relevant Labs: Sodium 140 mmol/L (136-145) 02/02/23 06:45 Potassium 3.9 mmol/L (3.5-5.1) 02/02/23 06:45 Chloride 103 mmol/L (98-107) 02/02/23 06:45 Magnesium 1.7 mg/dL (1.8-2.4) L 02/02/23 06:45 DM Control Insulin Dosing: Reviewed Insulin Dosing, Diabetic Medication: nutritional aspart per SS -- fingersticks and glucose levels well controlled Cardiac Review Cardiac Review: Troponin I < 50 ng/L (<or=60) 01/28/23 19:28 EF%, JR's, B-Blockers, Diuretics: Reviewed List meds needing interventions: none QTc Review If Elevated: Reviewed (most recent QTc was 480) List meds needing interventions: none IV to PO Switch IV Medications: Reviewed Home Meds Home Med List reviewed: Reviewed Relevent Home Meds Not ordered & why?: all ordered (aspart in place of metformin Current Meds Current Medication Order Review: Reviewed Pharmacy Antibiotic Review Pharmacy Antibiotic Activity: 48 hour review and Antibiotic de-escalation Comments: ceftriaxone dc'd yesterday and fosfomycin given (02/01), plan to repeat dose in 3 days on 02/04; fluconazole 100mg daily x14d for oral thrush started on 01/30; erythromycin opth oint start evening of 01/29 and to continue for 5 days
[2023-02-02] MEDS: Docusate Sodium 100 MG CAP PO (09:27)
[2023-02-02] MEDS: Potassium Chloride Liquid 20 MEQ PKT PO (09:27)
[2023-02-02] MEDS: Acetaminophen 325 MG TAB 650 MG PO (09:28)
[2023-02-02] MEDS: Losartan 50 MG TAB 100 MG PO (09:29)
[2023-02-02] MEDS: OLANZapine 10 MG TAB PO ×2 (09:29→22:26)
[2023-02-02] MEDS: Memantine 5 MG TAB PO ×2 (09:29→22:26)
[2023-02-02] MEDS: Fluconazole 100 MG TAB PO (09:29)
[2023-02-02] MEDS: Mirabegron 25 MG TABCR PO (09:29)
[2023-02-02] MEDS: Spironolactone 25 MG TAB PO (09:30)
[2023-02-02] MEDS: Erythromycin Ophth Oint 3.5 GM TUBE 0.5 GM OD ×2 (09:31→22:27)
[2023-02-02 11:10] VITALS: BP 154/89; PULSE 109; TEMP 35.3; O2SAT 95
--- NOTE | 2023-02-02 12:02 | W.PM.PROGNOT ---
Date of Service Date of service: 02/02/23 Time of Service: 12:02 Assessment and Plan Assessment and plan (1) Urinary tract infection: Status: Acute Assessment and plan: urine growing wilder sensitive ecoli Fosfomycin given on 02/01; repeat in 3 day (february 04) blood cultures negative to date. (2) Leukocytosis: Status: Resolved Assessment and plan: normalized (3) Dementia: Status: Chronic Assessment and plan: This is a chronic problem and her recent change in status is not likely due to her dementia but infection. (4) Hypomagnesemia: Status: Acute Assessment and plan: replete and follow (5) Conjunctivitis, right eye: Status: Acute Assessment and plan: Erythromycin opth oint 5xd Improving (6) Thrush, oral: Status: Acute Assessment and plan: White coated tongue, this is improving, continue difulcan 100 mg 5/14 day (7) DVT prophylaxis: Status: Acute Assessment and plan: Enoxaparin (8) Discharge planning issues: Status: Acute Assessment and plan: referrals placed for skilled rehab, pending bed acceptance. Discussed with Dr Ellis Subjective Subjective Patient reports: no new complaints, tolerating liquids well, tolerating a regular diet and afebrile; denies shortness of breath Exam Const General: comfortable, no acute distress, frail appearing and ill appearing chronically Nutritional Appearance: cachectic Orientation: alert, awake and confused Resp Effort & Inspection: normal respiratory effort Cardio Rate: regular rate GI Inspection: normal to inspection Palpation: soft Psych Appearance: grossly normal Affect: blunted Attitude: cooperative Objective Last Vital Signs Temp 35.3 C L 02/02/23 11:10 Pulse 109 H 02/02/23 11:10 Resp 14 02/02/23 03:48 BP 154/89 H 02/02/23 11:10 Pulse Ox 95 02/02/23 11:10 Laboratory Results - last 24 hr 02/02/23 02/02/23 06:45 06:45 WBC 10.39 RBC 3.80 L Hgb 10.0 L Hct 31.5 L MCV 83 MCH 26.3 L MCHC 31.7 L RDW 16.5 H Plt Count 305 MPV 8.8 Immature Gran % 1.6 Neutrophils % 65.6 Lymphocytes % 17.6 Monocytes % 11.5 Eosinophils % 3.2 Basophils % 0.5 Nucleated RBC % 0.0 Absolute Neutrophils 6.81 H Absolute Lymphocytes 1.83 Absolute Monocytes 1.20 H Absolute Eosinophils 0.33 Absolute Basophils 0.05 Sodium 140 Potassium 3.9 Chloride 103 Carbon Dioxide 29.6 Anion Gap 7.4 BUN 8 Creatinine 0.5 L Est GFR (CKD-EPI 2020) 97.14 Glucose 100 Calcium 8.6 Magnesium 1.7 L Time Spent with Patient Time Spent with Patient: 25-34 minutes Time was spent: preparing to see the patient(eg.review tests), obtaining and/or reviewing separately otained hiistory and ordering medications,tests, procedures
[2023-02-02] MEDS: Insulin Aspart 300 UNITS/3 ML PEN SC (12:57)
[2023-02-02 15:18] VITALS: BP 124/68; PULSE 98; RESP 16; TEMP 36.5; O2SAT 93
--- NOTE | 2023-02-02 15:59 | CHAPLAIN ---
Carissa was sleeping when I stopped in. I spoke with her , introduced myself and offered support. I will continue to visit.
--- NOTE | 2023-02-02 17:16 | CMPROGNOTE_ITS ---
Date of service: 02/02/23 Time of Service: 17:16 Care Management Progress Note Progress Note Text Progress Note Text: S/O: Carissa continues to require hospitalization. Palliative consult is scheduled for Tomorrow at 1:30, Christine and Davi are planning on attending. Family accepted [facility] STR bed offer from [facility], pending Prior Authorization. Anticipate she will discharge to SNF for STR, when medically stable. CM spoke with Carissa's Daughter Christine and a plan is established for her mom has a bed offer at [facility] residential [facility], self pay status, after STR or as early as 02/11/23. The family plans to continue working toward retirement medicaid with guidance from their stereoptic projection topographer, Neal Osborn. SNF referrals are sent. A:78 year old female admitted to [facility] on 01/28/23 for AMS, UTI P: DaughterChristine [phone] advocating for placement-no payer source. Family accepted a STR bed offer from [facility], pending Prior Authorization. ? Anticipate, Carissa will discharge to SNF for STR, then will self pay for residential care at [facility]. SNF referrals are sent. [facility] continues to follow
--- NOTE | 2023-02-02 17:16 | PDOC.CMPRO ---
Date of service: 02/02/23 Time of Service: 17:16 Care Management Progress Note Progress Note Text Progress Note Text: S/O: Carissa continues to require hospitalization. Palliative consult is scheduled for Tomorrow at 1:30, Christine and Davi are planning on attending. Family accepted a [facility] bed offer from [facility], pending Prior Authorization. Anticipate she will discharge to SNF for STR, when medically stable. CM spoke with Carissa's Daughter Christine and a plan is established for her mom has a bed offer at [facility]'s residential detention, self pay status, after STR or as early as 02/11/23. The family plans to continue working toward [facility] medicaid with guidance from their gasoline finisher, Neal Osborn. SNF referrals are sent. A:78 year old female admitted to [facility] on 01/28/23 for AMS, UTI P: DaughterChristine [phone] advocating for placement-no payer source. Family accepted [facility] bed offer from [facility], pending Prior Authorization.? Anticipate, Carissa will discharge to SNF for STR, then will self pay for residential care at [facility] detention. SNF referrals are sent. [facility] continues to follow
--- NOTE | 2023-02-02 18:50 | PT.INTREAT ---
Date of service: 02/02/23 Time of Service: 10:50 PT Notes Visit Reasons: Altered Mental Status, UTI Inpatient Physical Therapy Treatment Note Date: 02/02/2023 Precautions: Fall. Standard. Activity as tolerated. Subjective: Would want to wait on his before she walks. Fearful of falling. More confident with PT participation when is present in room. Complained of dizziness when upright. Nurse Cinthya updated. Objective: General Observation: Seated on wheelchair.? Rogers catheter in place. Mental Status: Alert and oriented as to person only.? Needs extensive encouragement to follow simple single step commands. Pain: minimal pain in L hip that Nurse Cinthya was updated about Vital Signs: Closely monitored by nursing staff Bed Mobility/Transfers: Stand to sit with moderate assist with cues for hand placement Sit to stand moderate assist with cues for hand placement Gait: Unable today. Fearful of falling. Balance: Static Sitting: Good Dynamic Sitting: Fair Static Standing: Poor Dynamic Standing: Unable Assessment: Fearful of falling.? Requires assistance of 2 caregivers for safety for all transfers using front wheeled walker.? Patient presents with clinical signs and symptoms consistent with current/admitting diagnoses that have resulted to mobility limitations, gait instability, generalized weakness, and overall ADL decline as demonstrated by the following impairment level findings: 1.? Decreased strength to? B UE LE major muscle groups 2.? Impaired sitting/standing balance 3.? Impaired activity tolerance 4.? Limitation of joint range of motion in L hip Impairments are contributing to the following functional limitations: 1.? Decline in bed mobility skills 2.? Decline in transfer skills 3.? Difficulty with ambulation without assistive device and physical assistance 4.? Increased completion time for mobility ADL performance 5.? Increased risk for falls 6.? Difficulty with managing steps alone safely DISCHARGE RECOMMENDATIONS: [] ? Home with no services [] [] ? Home with services [specify] [] ? Home with outpatient PT [] [] ? SNF for continued rehabilitation [] [] ? Long-Term Care [] [X] ? SNF versus LTC based on ability to participate and progress towards goals TREATMENT CODE/TIME: 49669 x 18 minutes beginning at 10:50 AM.
[2023-02-02 19:25] VITALS: BP 113/65; PULSE 98; RESP 16; TEMP 35.8; O2SAT 96
[2023-02-02] MEDS: Rosuvastatin 20 MG TAB PO (22:26)
[2023-02-02] MEDS: Amitriptyline 25 MG TAB PO (22:26)
[2023-02-02] MEDS: Pantoprazole 40 MG TABCR PO (22:27)
[2023-02-03] VITALS (8 sets, daily range): BP systolic 122–143; BP diastolic 74–85; PULSE 93–111; RESP 16–20; TEMP 35.6–36.8; O2SAT 94–97
[2023-02-03] MEDS: Fluconazole 100 MG TAB PO (08:46)
[2023-02-03] MEDS: OLANZapine 10 MG TAB PO ×2 (08:46→19:38)
[2023-02-03] MEDS: Spironolactone 25 MG TAB PO (08:46)
[2023-02-03] MEDS: Losartan 50 MG TAB 100 MG PO (08:47)
[2023-02-03] MEDS: Docusate Sodium 100 MG CAP PO (08:47)
[2023-02-03] MEDS: Pantoprazole 40 MG TABCR PO ×2 (08:47→19:38)
[2023-02-03] MEDS: Mirabegron 25 MG TABCR PO (08:47)
[2023-02-03] MEDS: Memantine 5 MG TAB PO ×2 (08:47→19:38)
[2023-02-03] MEDS: Potassium Chloride Liquid 20 MEQ PKT PO (08:47)
[2023-02-03] MEDS: Erythromycin Ophth Oint 3.5 GM TUBE 0.5 GM OD ×3 (08:49→19:47)
--- NOTE | 2023-02-03 13:59 | PT.INTREAT ---
Date of service: 02/03/23 Time of Service: 13:28 PT Notes Visit Reasons: Altered Mental Status, UTI Inpatient Physical Therapy Treatment Note [facility] Date: 02/03/23 PRECAUTIONS: Fall, standard, activity as tolerated. SUBJECTIVE: Daughter Soha and Vikash are present. Patient seated in recliner, seems not fully alert. States she needs to use commode, states she is agreeable to walk there, but then is unable. OBJECTIVE: PAIN: none reported BED MOBILITY/TRANSFERS Sit-stand: min to mod assist to stand, min assist to remain standing Stand-sit: CGA to min assist to prevent flopping Bed-Chair: unable Chair-bed: unable THEREX: Sit to stand x6. Patient states she is agreeable to ambulate but continues to push backwards, collapsing into chair. Unable to get weight forward enough to maintain standing balance. ASSESSMENT: Patient seems extremely fatigued. States that she would like a nap. Will attempt therapy again this afternoon. PLAN: Continue strengthening per plan of care until patient is ready for discharge. TREATMENT CODE/TIME: 24056 Ther Ex 22 minutes beginning at 13:28
--- NOTE | 2023-02-03 14:04 | PCNE_ITS ---
Date of service: 02/03/23 Time of Service: 14:04 History of Present Illness Narrative: Carissa was seen in her hospital room at [facility]. She slept through the visit. Her , Davi and daughter, Soha, who are both health care agents were present and engaged in the visit. Her family reports that she has been declining for some time but they have seen a more drastic decline recently. Prior to this admission, her has been taking care of her in their home. Her appetite has been poor. She cannot feed herself. Davi has been feeding her. She often refuses food. She has lost weight, > 30 pounds over the last few months and >50 pounds over the last year. She sleeps most of the day and and all night. Davi estimates that she sleeps 20 hours per day. She is having more incontinence urine and feces. She has not been walking for a couple of weeks. She was walking very little before that, seemed to forget how to walk, could not follow directions. She requires assistance with all ADLs including bathing, feeding, dressing, mobility. She recognizes family members at times, and does not recognize them at other times- even her . She has previously established that she is a DNR/DNI, she has a COLST form on file. Her family expressed that it is very difficult to get her out to appointments. They are hoping to move to comfort focused care. She will be discharged to [facility] residential when she leaves the hospital. Her family wo uld like her to be admitted to hospice services. Assessment and Plan Assessment and plan (1) Dementia: Status: Chronic (2) Diabetes mellitus: Status: Acute (3) Essential hypertension: Status: Acute (4) Gastroesophageal reflux disease: Status: Acute (5) Scoliosis: Status: Acute (6) Depression: Status: Chronic Qualifiers: Depression Type: unspecified Qualified Code(s): F32.9 - Major depressive disorder, single episode, unspecified (7) Generalized anxiety disorder: Status: Acute (8) Alzheimer's dementia: Status: Chronic (9) SunDown syndrome: Status: Acute (10) Palliative care encounter: Status: Acute (11) Goals of care, counseling/discussion: Status: Acute Assessment and plan: Carissa is a 78 year old with 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 She has recently declined significantly. Her , Davi has been her primary caregiver at home but he is not able to continue to care for her as her care needs increase. She is dependent on others for all care including feeding, bathing, dressing, incontinent care, mobility. She does not always recognize family members, including her and children. She is no longer walking. Her family has been using a wheelchair at home. She is unable to follow commands. Her appetite is poor and she often refuses food. She has lost >30 pounds over the last few months and >50 pounds over the last year. She sleeps approximately 20 hours per day. She has previously established that she is a DNR/DNI, she has a COLST form on file. Her family expressed that it is very difficult to get her out to appointments. They are hoping to move to comfort focused care. She will be discharged to [facility] when she leaves the hospital. Her family would like her to be admitted to hospice services. Discussed with audio visual collections coordinator. Review of Systems Narrative: Unable to obtain. Carissa slept through the visit. Her family provided the Hx. PFSH All Active Problems (Updated 02/03/23 @ 15:19 by Rosalind Arzola, BK) Goals of care, counseling/discussion (Acute) Palliative care encounter (Acute) Discharge planning issues (Acute) DVT prophylaxis (Acute) Thrush, oral (Acute) Conjunctivitis, right eye (Acute) Hypomagnesemia (Acute) Dementia (Chronic) Arthritis (Acute 06/16/11) Asthma (Acute 06/16/11) Atherosclerosis of cheesh-na coronary artery (Acute) neg MPI 09/24 CABG 2001 Atrophic vaginitis (Acute 08/30/14) Colon polyp (Acute) Diabetes mellitus (Acute) Elev transaminase/LDH (Acute) Esophageal reflux (Acute) H/O esophagitia, HH Elev transaminase/LDH (Acute) Essential hypertension (Acute 05/28/13) Gastroesophageal reflux disease (Acute) H/O esophagitia, HH Hyperlipidemia (Acute) Scoliosis (Acute 04/10/14) Trochanteric bursitis of left hip (Acute 07/30/15) Tubular adenoma of colon (Acute) 05/31/14; DR. 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 Vaginal wall prolapse (Acute 08/28/12) Status post abdominal hysterectomy (Acute) Proctocele (Acute) Abdominal pain in female (Acute) Gastric polyps (Acute) Depression (Chronic) onset with cognitive decline Generalized anxiety disorder (Acute) life long anxiety worsening with cognitive decline Alzheimer's dementia (Chronic) Worsening as of 2022 Complaints of memory disturbance (Acute) Allergies (Acute) Acute non-ST elevation myocardial infarction (NSTEMI) (Acute) Left wrist pain (Acute) Fatigue (Acute) Chest pain, atypical (Acute) Gastroesophageal reflux disease (Chronic) Chronic headache (Acute) SunDown syndrome (Acute) Insomnia (Acute) Urinary tract infection (Acute) Tachycardia (Acute) Dehydration (Acute) Delirium (Acute) Pelvic pressure in female (Acute) Chest pain (Acute) Weakness (Acute) Altered mental status (Acute) Acute UTI (Acute) Hypomagnesemia (Acute) Medical History Admission for convalescence and palliative care Surgical History Abdominal hysterectomy (~1998) FIBROIDS ABDOMINAL WALL HERNIA REPAIR (~2002) AORTIC BYPASS BSO Cholecystectomy Colonoscopy - MAC 05/31/14 EGD - MAC (~2000) Ependymoma of spinal cord H/O knee surgery History of surgical procedure History of ventral hernia repair RECTOCELE REPAIR Status post angioplasty with stent UROTOMY (~1998) Family History Mother Heart disease Stroke Father Diabetes Essential hypertension Heart disease Sister No problems noted. Sister No problems noted. Brother No problems noted. Grandfather No problems noted. Grandfather No problems noted. 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 Slept through the visit. Skin is pale. Appears to be resting comfortably. HEENT: normocephalic, atraumatic, EOMI, mm slightly dry. neck: supple. respiratory: respirations appear even and unlabored. Extremities: thin, scattered areas of ecchymosis. Results Last Vital Signs Temp 35.8 C L 02/03/23 11:21 Pulse 102 H 02/03/23 11:21 Resp 16 02/03/23 11:21 BP 122/80 02/03/23 11:21 Pulse Ox 97 02/03/23 11:21 Labs 02/02/23 06:45 02/02/23 06:45
--- NOTE | 2023-02-03 14:43 | PDOC.CMPRO ---
Date of service: 02/03/23 Time of Service: 14:43 Care Management Progress Note Progress Note Text Progress Note Text: S/O: Carissa was lying in bed sleeping when CM attempted to meet with her. Palliative met with patient and family this afternoon and the plan will be for Carissa to discharge to [facility] Hospice, on Tuesday. Carissa may transition to SWB status until discharge, CM reviewed with patients daughter Christine, prior Auth is pending. Per Christine, the family plans to continue working toward senior living medicaid with guidance from their loan representative, Neal Osborn. A:78 year old female admitted to [facility] on 01/28/23 for AMS, UTI P: DaughterChristine [phone] advocating for placement-no payer source.?SWB PA submitted, awaiting authorization. Anticipate, Discharge to [facility] on Tuesday with same day admission to Hospice.?EMS to transport. CM continues to follow
--- NOTE | 2023-02-03 17:19 | W.PM.PROGNOT ---
Date of Service Date of service: 02/03/23 Time of Service: 17:19 Assessment and Plan Assessment and plan (1) Urinary tract infection: Status: Acute Assessment and plan: urine growing wilder sensitive ecoli Fosfomycin given on 02/01; repeat in 3 day (february 04) blood cultures negative to date. (2) Dementia: Status: Chronic Assessment and plan: This is a chronic problem and her recent change in status is not likely due to her dementia but infection. (3) Hypomagnesemia: Status: Acute Assessment and plan: replete and follow (4) Conjunctivitis, right eye: Status: Acute Assessment and plan: Erythromycin opth oint 5xd Improving (5) Thrush, oral: Status: Acute Assessment and plan: White coated tongue, this is improving, continue difulcan 100 mg 01/19 day (6) DVT prophylaxis: Status: Acute Assessment and plan: Enoxaparin (7) Discharge planning issues: Status: Acute Assessment and plan: palliative care consulted, will be discharged to home on hospice once supplies obtained. Discussed with Dr Ellis Subjective Subjective Patient reports: no new complaints Interval history since last seen: continues to require full assistance for all ADL's, medically stable Exam Const General: cooperative and no acute distress Nutritional Appearance: cachectic Orientation: alert, awake and confused HENMT Head: normocephalic and atraumatic Mouth: mucous membranes dry Eyes Conjunctivae: normal conjunctivae Sclera: normal sclerae Neck Neck: trachea midline and supple Resp Effort & Inspection: normal respiratory effort Auscultation: clear to auscultation bilaterally Cardio Rate: regular rate Rhythm: regular rhythm GI Inspection: normal to inspection Palpation: soft and nontender Neuro General: patient awake, oriented Patient Orientation: Person and Confused and moves all extremities Other: 4/5 strength all ext, difficulty following command Extrem General: no edema Psych Appearance: grossly normal Affect: blunted Attitude: cooperative Objective Last Vital Signs Temp 36.5 C 02/03/23 15:08 Pulse 107 H 02/03/23 15:08 Resp 18 02/03/23 15:08 BP 123/74 02/03/23 15:08 Pulse Ox 96 02/03/23 15:08 Time Spent with Patient Time Spent with Patient: 25-34 minutes Time was spent: preparing to see the patient(eg.review tests) and indepentently interpreting results
[2023-02-03] MEDS: Rosuvastatin 20 MG TAB PO (21:18)
[2023-02-03] MEDS: Amitriptyline 25 MG TAB PO (21:18)
[2023-02-04] MEDS: Pantoprazole 40 MG TABCR PO ×2 (07:08→20:16)
[2023-02-04 07:38] VITALS: BP 103/60; PULSE 95; RESP 16; TEMP 36.3; O2SAT 92
[2023-02-04] MEDS: OLANZapine 10 MG TAB PO ×2 (09:15→20:17)
[2023-02-04] MEDS: Erythromycin Ophth Oint 3.5 GM TUBE 0.5 GM OD (09:15)
[2023-02-04] MEDS: Spironolactone 25 MG TAB PO (09:15)
[2023-02-04] MEDS: Memantine 5 MG TAB PO ×2 (09:15→20:17)
[2023-02-04] MEDS: Docusate Sodium 100 MG CAP PO (09:16)
[2023-02-04] MEDS: Losartan 50 MG TAB 100 MG PO (09:16)
[2023-02-04] MEDS: Mirabegron 25 MG TABCR PO (09:16)
[2023-02-04] MEDS: Fluconazole 100 MG TAB PO (09:16)
[2023-02-04 11:07] VITALS: BP 133/85; PULSE 106; RESP 14; TEMP 36.7; O2SAT 97
--- NOTE | 2023-02-04 11:34 | CMPROGNOTE_ITS ---
Date of service: 02/04/23 Time of Service: 11:35 Care Management Progress Note Progress Note Text Progress Note Text: S/O: Carissa was lying in bed sleeping when CM attempted to meet with her.? Carissa will remain at [facility] through the weekend, then discharge to [facility], on Tuesday. An air mattress and bedside table will be needed for Hospice DME at some point ([facility] already has a commode and hospital bed for her to use.) ?DME needs are communicated to Ally at Hospice.? Per Christine, the family plans to continue working toward intermodal owner operator truck driver medicaid with guidance from their tortilla maker, Neal Osborn.? A:78 year old female admitted to [facility] on 01/28/23 for AMS, UTI P: DaughterChristine [phone] advocating for placement-no payer source.?CIARRA NEW submitted, awaiting authorization. Anticipate,?Discharge to [facility] on Tuesday with same day admission to Hospice.?EMS to transport.? CM continues to follow
--- NOTE | 2023-02-04 11:34 | PDOC.CMPRO ---
Date of service: 02/04/23 Time of Service: 11:35 Care Management Progress Note Progress Note Text Progress Note Text: S/O: Carissa was lying in bed sleeping when CM attempted to meet with her.? Carissa will remain at [facility] through the weekend, then discharge to [facility], on Tuesday. An air mattress and bedside table will be needed for Hospice DME at some point ([facility] already has a commode and hospital bed for her to use.) ?DME needs are communicated to Ally at Hospice.?Per Christine, the family plans to continue working toward prison medicaid with guidance from their water filtration technician, Neal Osborn.? A:78 year old female admitted to [facility] on 01/28/23 for AMS, UTI P: DaughterChristine [phone] advocating for placement-no payer source.?CIARRA NEW submitted, awaiting authorization. Anticipate,?Discharge to [facility] on Tuesday with same day admission to Hospice.?EMS to transport.? CM continues to follow
[2023-02-04 15:32] VITALS: BP 107/57; PULSE 100; TEMP 36.2; O2SAT 95
--- NOTE | 2023-02-04 17:18 | PT.INNT ---
Date of service: 02/04/23 Time of Service: 14:25 PT Notes Visit Reasons: Altered Mental Status, UTI Patient refuses to participate in therapy without her present. 14:25 this therapist noticed is present, but patient is sleeping soundly. Will check back.
--- NOTE | 2023-02-04 17:50 | W.PM.PROGNOT ---
Date of Service Date of service: 02/04/23 Time of Service: 17:51 Assessment and Plan Assessment and plan (1) Urinary tract infection: Status: Acute Assessment and plan: urine growing wilder sensitive ecoli Fosfomycin given on 02/01; repeated today blood cultures negative to date. (2) Dementia: Status: Chronic Assessment and plan: This is a chronic problem and her recent change in status is not likely due to her dementia but infection. (3) Hypomagnesemia: Status: Acute Assessment and plan: replete and follow (4) Conjunctivitis, right eye: Status: Resolved Assessment and plan: completed 5 days of Erythromycin opth oint 5xd continue warm compressess prn (5) Thrush, oral: Status: Acute Assessment and plan: White coated tongue, this is improving, continue difulcan 100 mg / day (6) DVT prophylaxis: Status: Acute Assessment and plan: Enoxaparin (7) Discharge planning issues: Status: Acute Assessment and plan: palliative care consulted, will be discharged to home on hospice once DME obtained. Discussed with Dr Ellis Subjective Subjective Patient reports: no new complaints Exam Const General: cooperative and no acute distress Nutritional Appearance: cachectic Orientation: alert, awake and confused HENMT Head: normocephalic and atraumatic Mouth: mucous membranes dry Eyes Conjunctivae: normal conjunctivae Sclera: normal sclerae Neck Neck: trachea midline and supple Resp Effort & Inspection: normal respiratory effort Auscultation: clear to auscultation bilaterally Cardio Rate: regular rate Rhythm: regular rhythm GI Inspection: normal to inspection Palpation: soft and nontender Neuro General: patient awake, oriented Patient Orientation: Person and Confused and moves all extremities Other: 4/5 strength all ext, difficulty following command Extrem General: no edema Psych Appearance: grossly normal Affect: blunted Attitude: cooperative Objective Last Vital Signs Temp 36.2 C L 02/04/23 15:32 Pulse 100 H 02/04/23 15:32 Resp 14 02/04/23 11:07 BP 107/57 L 02/04/23 15:32 Pulse Ox 95 02/04/23 15:32 Time Spent with Patient Time Spent with Patient: 25-34 minutes Time was spent: preparing to see the patient(eg.review tests), obtaining and/or reviewing separately otained hiistory and ordering medications,tests, procedures
[2023-02-04] MEDS: Fosfomycin Tromethamine 3 GM PACKET PO (17:56)
[2023-02-04 19:15] VITALS: BP 107/70; PULSE 107; RESP 16; TEMP 36; O2SAT 96
[2023-02-04 22:30] VITALS: BP 104/61; PULSE 89; RESP 16; TEMP 36; O2SAT 95
[2023-02-04] MEDS: Amitriptyline 25 MG TAB PO (22:35)
[2023-02-04] MEDS: Rosuvastatin 20 MG TAB PO (22:36)
[2023-02-05 05:46] LABS: Platelet Count 369 10^3/uL (130-400)
[2023-02-05 06:28] VITALS: BP 123/78; PULSE 95; RESP 16; TEMP 36.7; O2SAT 98
[2023-02-05 07:08] VITALS: BP 100/60; PULSE 88; RESP 18; TEMP 36.6; O2SAT 98
[2023-02-05] MEDS: Pantoprazole 40 MG TABCR PO ×2 (07:14→19:43)
[2023-02-05] MEDS: Fluconazole 100 MG TAB PO (07:52)
[2023-02-05] MEDS: Memantine 5 MG TAB PO ×2 (07:52→19:43)
[2023-02-05] MEDS: OLANZapine 10 MG TAB PO ×2 (07:52→19:43)
[2023-02-05] MEDS: Docusate Sodium 100 MG CAP PO (07:52)
[2023-02-05] MEDS: Mirabegron 25 MG TABCR PO (07:52)
[2023-02-05] MEDS: Losartan 50 MG TAB 100 MG PO (07:52)
[2023-02-05] MEDS: Spironolactone 25 MG TAB PO (07:52)
[2023-02-05] MEDS: Potassium Chloride Liquid 20 MEQ PKT PO (07:52)
--- NOTE | 2023-02-05 08:13 | PT.INTREAT ---
PT Notes Visit Reasons: Altered Mental Status, UTI Date: 02/05/23 PRECAUTIONS: Fall, standard, activity as tolerated. SUBJECTIVE: Pt stuporic not able to follow verbal instructions. OBJECTIVE: ? PAIN: none reported ? BED MOBILITY/TRANSFERS? Sit-stand: unable? Stand-sit: unable ? Bed-Chair: unable Chair-bed: unable ? THEREX: w/ pt seated in chair: manual SLR, ankle pumps, hip abd/add, ? ASSESSMENT:? Patient seems extremely fatigued and confused, unable to keep eyes open. PLAN: Continue strengthening per plan of care until patient is ready for discharge. TREATMENT CODE/TIME: 34603 Ther Ex minutes beginning at (9:45-10:00am)
[2023-02-05 12:00] VITALS: BP 112/62; PULSE 76; RESP 16; TEMP 36.4; O2SAT 95
--- NOTE | 2023-02-05 12:00 | W.PM.PROGNOT ---
Date of Service Date of service: 02/05/23 Time of Service: 12:00 Assessment and Plan Assessment and plan (1) Urinary tract infection: Status: Acute Assessment and plan: urine growing wilder sensitive ecoli treated with 2 days of Fosfomycin blood cultures negative to date. (2) Dementia: Status: Chronic Assessment and plan: This is a chronic problem and her recent change in status is not likely due to her dementia but infection. (3) Hypomagnesemia: Status: Chronic Assessment and plan: on supplementation (4) Conjunctivitis, right eye: Status: Resolved Assessment and plan: completed 5 days of Erythromycin opth oint 5xd continue warm compressess prn (5) Thrush, oral: Status: Acute Assessment and plan: White coated tongue, this is improving, continue difulcan 100 mg for 14 days (6) DVT prophylaxis: Status: Acute Assessment and plan: Enoxaparin (7) Discharge planning issues: Status: Acute Assessment and plan: palliative care consulted, will be discharged to home on hospice once DME obtained. anticipate Tuesday Discussed with Dr Ellis Subjective Subjective Patient reports: no new complaints and afebrile; denies shortness of breath Exam Const General: cooperative and no acute distress Nutritional Appearance: cachectic Orientation: alert, awake and confused HENMT Head: normocephalic and atraumatic Mouth: mucous membranes dry Eyes Conjunctivae: normal conjunctivae Sclera: normal sclerae Neck Neck: trachea midline and supple Resp Effort & Inspection: normal respiratory effort Auscultation: clear to auscultation bilaterally Cardio Rate: regular rate Rhythm: regular rhythm GI Inspection: normal to inspection Palpation: soft and nontender Neuro General: patient awake, oriented Patient Orientation: Person and Confused and moves all extremities Other: 4/5 strength all ext, difficulty following command Extrem General: no edema Psych Appearance: grossly normal Affect: blunted Attitude: cooperative Objective Last Vital Signs Temp 36.6 C 02/05/23 07:08 Pulse 88 02/05/23 07:08 Resp 18 02/05/23 07:08 BP 100/60 02/05/23 07:08 Pulse Ox 98 02/05/23 07:08 Laboratory Results - last 24 hr 02/05/23 05:12 Plt Count 369 Time Spent with Patient Time Spent with Patient: <25 minutes Time was spent: preparing to see the patient(eg.review tests) and obtaining and/or reviewing separately otained hiistory
[2023-02-05] MEDS: Acetaminophen 325 MG TAB 650 MG PO (12:38)
[2023-02-05 15:12] VITALS: BP 115/73; PULSE 107; RESP 18; TEMP 36.5; O2SAT 97
[2023-02-05] MEDS: Insulin Aspart 300 UNITS/3 ML PEN SC (17:11)
[2023-02-05] MEDS: Enoxaparin 40 MG/0.4 ML SYR SC (17:13)
[2023-02-05 19:38] VITALS: BP 121/73; PULSE 114; RESP 16; TEMP 36.2; O2SAT 94
[2023-02-06 03:40] VITALS: BP 91/52; PULSE 92; RESP 16; TEMP 36; O2SAT 95
[2023-02-06 06:00] VITALS: BP 92/59; PULSE 89; RESP 16; TEMP 35.7; O2SAT 98
[2023-02-06] MEDS: Potassium Chloride Liquid 20 MEQ PKT PO (08:15)
[2023-02-06] MEDS: Mirabegron 25 MG TABCR PO (08:16)
[2023-02-06] MEDS: Fluconazole 100 MG TAB PO (08:16)
[2023-02-06] MEDS: Losartan 50 MG TAB 100 MG PO (08:16)
[2023-02-06] MEDS: Spironolactone 25 MG TAB PO (08:16)
[2023-02-06] MEDS: OLANZapine 10 MG TAB PO ×2 (08:16→20:20)
[2023-02-06] MEDS: Pantoprazole 40 MG TABCR PO ×2 (08:16→20:21)
[2023-02-06] MEDS: Docusate Sodium 100 MG CAP PO (08:16)
[2023-02-06] MEDS: Memantine 5 MG TAB PO ×2 (08:16→20:20)
--- NOTE | 2023-02-06 10:43 | PT.INTREAT ---
PT Notes Visit Reasons: Altered Mental Status, UTI Date: 02/06/23 PRECAUTIONS: Fall, standard, activity as tolerated. SUBJECTIVE: Pt awake and responds to verbal instructions today, pt agreed to participating with therapy. OBJECTIVE: ? PAIN: none reported ? BED MOBILITY/TRANSFERS? Sit-stand: mod A ? Stand-sit: Min A? Bed-Chair: Mod A Chair-bed: Mod A ? THEREX: w/ pt seated in chair: manual SLR, ankle pumps, hip abd/add, ? ASSESSMENT:? Pt reports that she felt dizzy after standing for 30secs, pt refuse standing again after returning to her recliner. pt recliner setup for comfort, proper body alignment and safety after session PLAN: Continue strengthening per plan of care until patient is ready for discharge. TREATMENT CODE/TIME: 55472 Ther Ex? 15minutes beginning at (10:10-10:25am)
[2023-02-06 11:22] VITALS: BP 115/69; PULSE 100; RESP 18; TEMP 36.4; O2SAT 98
--- NOTE | 2023-02-06 12:12 | PGE_ITS ---
Date of Service Date of service: 02/06/23 Time of Service: 12:12 Assessment and Plan Assessment and plan (1) Urinary tract infection: Status: Acute Assessment and plan: urine growing wilder sensitive ecoli treated with 2 days of Fosfomycin blood cultures negative to date. (2) Dementia: Status: Chronic Assessment and plan: This is a chronic problem and her recent change in status is not likely due to her dementia but infection. (3) Hypomagnesemia: Status: Chronic Assessment and plan: will discontinue, comfort focused care (4) Thrush, oral: Status: Acute Assessment and plan: White coated tongue, this is improving, continue difulcan 100 mg for 14 days (5) DVT prophylaxis: Status: Acute Assessment and plan: Enoxaparin (6) Discharge planning issues: Status: Acute Assessment and plan: palliative care consulted, will be discharged to home on hospice once DME obtained. anticipate Tuesday Discussed with Dr Ellis Subjective Subjective Patient reports: no new complaints and afebrile Exam Const General: cooperative and no acute distress Nutritional Appearance: cachectic Orientation: alert, awake and confused HENOK Head: normocephalic and atraumatic Mouth: mucous membranes dry Eyes Conjunctivae: normal conjunctivae Sclera: normal sclerae Neck Neck: trachea midline and supple Resp Effort & Inspection: normal respiratory effort Auscultation: clear to auscultation bilaterally Cardio Rate: regular rate Rhythm: regular rhythm GI Inspection: normal to inspection Palpation: soft and nontender Neuro General: patient awake, oriented Patient Orientation: Person and Confused and moves all extremities Extrem General: no edema Psych Appearance: grossly normal Affect: blunted Attitude: cooperative Objective Last Vital Signs Temp 36.4 C L 02/06/23 11:22 Pulse 100 H 02/06/23 11:22 Resp 18 02/06/23 11:22 BP 115/69 02/06/23 11:22 Pulse Ox 98 02/06/23 11:22 Time Spent with Patient Time Spent with Patient: <25 minutes Time was spent: preparing to see the patient(eg.review tests), ordering medications,tests, procedures and referring, communicating with other health outdoor emergency care technician
[2023-02-06 14:51] VITALS: BP 118/68; PULSE 107; RESP 18; TEMP 36.5; O2SAT 97
[2023-02-06] MEDS: Insulin Aspart 300 UNITS/3 ML PEN SC (17:20)
[2023-02-06] MEDS: Enoxaparin 40 MG/0.4 ML SYR SC (17:27)
[2023-02-06 19:30] VITALS: BP 103/60; PULSE 106; RESP 16; TEMP 36; O2SAT 96
[2023-02-06] MEDS: Acetaminophen 325 MG TAB 650 MG PO (20:20)
[2023-02-06] MEDS: Rosuvastatin 20 MG TAB PO (22:25)
[2023-02-06] MEDS: Amitriptyline 25 MG TAB PO (22:25)
[2023-02-07 07:02] VITALS: BP 116/78; PULSE 86; RESP 16; TEMP 36.5; O2SAT 99
[2023-02-07] MEDS: Pantoprazole 40 MG TABCR PO (07:33)
[2023-02-07] MEDS: Memantine 5 MG TAB PO (08:00)
[2023-02-07] MEDS: OLANZapine 10 MG TAB PO (08:00)
[2023-02-07] MEDS: Fluconazole 100 MG TAB PO (08:00)
[2023-02-07] MEDS: Spironolactone 25 MG TAB PO (08:00)
[2023-02-07] MEDS: Losartan 50 MG TAB 100 MG PO (08:00)
[2023-02-07] MEDS: Mirabegron 25 MG TABCR PO (08:00)
[2023-02-07] MEDS: Docusate Sodium 100 MG CAP PO (08:00)
--- NOTE | 2023-02-07 08:43 | PDOC.CMDIS ---
Date of service: 02/07/23 Time of Service: 08:43 LACE Index Scoring Tool Questions: Length of Stay (in days): 7 - 13 Was the patient admitted via the E.D.?: Yes Comorbidities: Previous M.I., Diabetes w/o Complication and Dementia E.D. Visits: 1 Answers: Total Score: 14 Risk of Readmission: High Risk Care Management Discharge Plan Reason for Hospitalization: AMS, UTI Discharge Plan: Carissa will be discharged to [facility] with same day admission to Hospice. EMS to transport, coordinated by [facility]. Carissa will follow up with the hospice providers and care team. Patient/Family Education Needs: Review of discharge instructions, limitations, follow up plan, discuss Ask Me Three Services Needed at Discharge: Home Health Care Services
--- NOTE | 2023-02-07 09:42 | W.PM.DS.N ---
Date of service: 02/07/23 Time of Service: 09:42 DS: Diagnosis Discharge Diagnosis (1) Urinary tract infection: Status: Acute (2) Dementia: Status: Chronic (3) Hypomagnesemia: Status: Chronic (4) Thrush, oral: Status: Acute Discharge Plan Disposition Patient Disposition: Home W/Hospice Services Condition: Deteriorating Discharge Details Reason For Visit: Altered Mental Status, UTI Admit Date/Time: 01/28/23 20:46 Admit Provider: Duy Paul Attending Provider: Duy Paul Primary Care Provider: Sudhir Rinaldi Hospital Course Hospital Course: This is a 78-year-old female with past medical history significant for coronary artery disease status post NSTEMI diabetes mellitus type 2 asthma arthritis dementia who has been followed by palliative care presented to the emergency department with complaints of altered mental status her work-up in the emergency department did show urinary tract infection and she was started on broad-spectrum antibiotics while cultures pending. her urine culture did grow pansensitive E. coli she was down stepped to and treated treated with 2 doses of fosfomycin. Palliative care was consulted during the hospitalization and using shared decision making with family she will be discharged to home on hospice services. Medically she has remained stable. She does require full assistance for all ADLs and feeding. She has been taking oral intake but it is limited she is being discharged home by EMS. discharge discussed with Dr Torres [place] Meds and New Rx's Prescriptions: No Action nitroglycerin [Nitrostat] 0.4 mg tablet, sublingual 0.4 mg Sublingual PRN Qty: 25 4RF Myrbetriq 25 mg tablet extended release 24 hr 25 mg PO DAILY Qty: 90 3RF (DME) blood sugar diagnostic Strip 1 strip Miscellaneous BID Qty: 180 4RF Rx Instructions: DX:E11.9 (DME) blood sugar diagnostic Strip See Dose Instructions .ROUTE .MEDSUPPLY Qty: 100 3RF Dose Instruction: As directed Rx Instructions: As directed. Test bid metformin 500 mg tablet See Rx Instructions .ROUTE .COMPLEX Qty: 270 4RF Dose Instruction: TAKE 1 TABLET BY MOUTH TWICE DAILY Rx Instructions: TAKE 1 and one half TABLET to equal 750mg twice daily. memantine 5 mg tablet 5 mg PO BID Qty: 180 3RF amitriptyline 25 mg tablet 25 mg PO QHS Qty: 90 3RF olanzapine 10 mg tablet 10 mg PO BID Qty: 180 3RF rosuvastatin 20 mg tablet 20 mg PO HS Qty: 90 4RF spironolactone [Aldactone] 25 mg tablet 25 mg PO DAILY Qty: 90 6RF Rx Instructions: begin .5 tablet daily in a.m. pantoprazole 40 mg tablet,delayed release (DR/EC) 40 mg PO BID Qty: 180 3RF (DME) lancets [OneTouch Delica Lancets] 33 gauge misc See Dose Instructions .ROUTE .MEDSUPPLY Qty: 100 6RF Dose Instruction: As directed Rx Instructions: bid losartan [Cozaar] 100 mg tablet 100 mg PO DAILY Qty: 90 4RF sennosides [Natural Senna Laxative] 8.6 mg tablet 8.6 mg PO DAILY Qty: 30 0RF Patient Comments: does not take docusate sodium 100 mg capsule 100 mg PO DAILY Qty: 30 0RF Patient Comments: does not take polyethylene glycol 3350 [Miralax] 17 gram/dose powder 17 g PO DAILY Qty: 510 0RF Patient Comments: does not take aspirin 81 mg tablet,chewable 81 mg PO DAILY Qty: 90 4RF acetaminophen [Tylenol Extra Strength] 500 mg Tablet 1,000 mg PO PRN PRN Discharge Instructions Instructions: Dementia (ED) Additional Instructions: medication and care per outpatient team Activity:: Activity as Tolerated Equipment/Supplies:: No Equipment Needed Diet:: As Tolerated Discharge Orders Discharge Orders: Discharge Order (Routine); Ordered 02/07/23 Ordered By: Christine Deleon DS: Summary Time Spent with Patient providing and/or coordinating discharge services: Less than 30 minutes Status at Discharge Functional status at discharge: uses cane/walker Overall status at discharge: patient is not back to baseline Mental Status: other Speech and Movement: other Mood: congruent mood and other Affect: blunted Exam Const General: cooperative and no acute distress Nutritional Appearance: cachectic Orientation: alert, awake and confused [facility] Head: normocephalic and atraumatic Mouth: mucous membranes dry Eyes Conjunctivae: normal conjunctivae Sclera: normal sclerae Neck Neck: trachea midline and supple Resp Effort & Inspection: normal respiratory effort Auscultation: clear to auscultation bilaterally Cardio Rate: regular rate Rhythm: regular rhythm GI Inspection: normal to inspection Palpation: soft and nontender Neuro General: patient awake, oriented Patient Orientation: Person and Confused and moves all extremities Extrem General: no edema Psych Appearance: grossly normal Mental Status: other Speech and Movement: other Mood: congruent mood and other Affect: blunted Attitude: cooperative DS: Data Vitals/I&O Vitals and I&O: Vital Signs Temperature 36.5 C 02/07/23 07:02 Temperature Source Tympanic 02/07/23 07:02 Pulse 86 02/07/23 07:02 Pulse Rhythm Regular 02/07/23 08:00 Pulse 107 H 01/28/23 22:10 Respiratory Rate 16 02/07/23 07:02 Respiratory Effort Normal, Non-Labored 02/07/23 08:00 Respiratory Depth Normal 02/07/23 08:00 Respiratory Pattern Normal 02/07/23 08:00 Blood Pressure 116/78 02/07/23 07:02 Blood Pressure Mean 52 01/28/23 22:00 Blood Pressure Position Supine 01/28/23 15:44 Pulse Oximetry 99 02/07/23 07:02 Oxygen Delivery Method Room Air 02/07/23 07:02 Oxygen Flow Rate 0 02/07/23 07:02 Pain Level 0 02/07/23 07:02 Comment RN notified. 01/29/23 15:44 Intake & Output 02/06/23 02/06/23 02/07/23 11:59 23:59 11:59 Intake Total 100 / 300 200 / 300 50 / 50 Output Total 400 / 750 350 / 750 400 / 400 Balance -300 / -450 -150 / -450 -350 / -350 Intake: IV 50 / 50 Oral 100 / 300 200 / 300 Output: Urine 400 / 750 350 / 750 400 / 400 Other: Urine Color Yellow Straw Yellow Urine Appearance Cloudy Clear Clear PFSH All Active Problems (Updated 02/05/23 @ 12:01 by Christine Deleon NP) Goals of care, counseling/discussion (Acute) Palliative care encounter (Acute) Discharge planning issues (Acute) DVT prophylaxis (Acute) Thrush, oral (Acute) Hypomagnesemia (Chronic) Dementia (Chronic) Arthritis (Acute 06/16/11) Asthma (Acute 06/16/11) Atherosclerosis of [place] coronary artery (Acute) neg MPI 09/24 CABG 2001 Atrophic vaginitis (Acute 08/30/14) Colon polyp (Acute) Diabetes mellitus (Acute) Elev transaminase/LDH (Acute) Esophageal reflux (Acute) H/O esophagitia, HH Elev transaminase/LDH (Acute) Essential hypertension (Acute 05/28/13) Gastroesophageal reflux disease (Acute) H/O esophagitia, HH Hyperlipidemia (Acute) Scoliosis (Acute 04/10/14) Trochanteric bursitis of left hip (Acute 07/30/15) Tubular adenoma of colon (Acute) 05/31/14; DR. 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 Vaginal wall prolapse (Acute 08/28/12) Status post abdominal hysterectomy (Acute) Proctocele (Acute) Abdominal pain in female (Acute) Gastric polyps (Acute) Depression (Chronic) onset with cognitive decline Generalized anxiety disorder (Acute) life long anxiety worsening with cognitive decline Alzheimer's dementia (Chronic) Worsening as of 2022 Complaints of memory disturbance (Acute) Allergies (Acute) Acute non-ST elevation myocardial infarction (NSTEMI) (Acute) Left wrist pain (Acute) Fatigue (Acute) Chest pain, atypical (Acute) Gastroesophageal reflux disease (Chronic) Chronic headache (Acute) SunDown syndrome (Acute) Insomnia (Acute) Urinary tract infection (Acute) Tachycardia (Acute) Dehydration (Acute) Delirium (Acute) Pelvic pressure in female (Acute) Chest pain (Acute) Weakness (Acute) Altered mental status (Acute) Acute UTI (Acute) Hypomagnesemia (Acute) Medical History Admission for convalescence and palliative care Surgical History Abdominal hysterectomy (~1998) FIBROIDS ABDOMINAL WALL HERNIA REPAIR (~2002) AORTIC BYPASS BSO Cholecystectomy Colonoscopy - MAC 05/31/14 EGD - MAC (~2000) Ependymoma of spinal cord H/O knee surgery History of surgical procedure History of ventral hernia repair RECTOCELE REPAIR Status post angioplasty with stent UROTOMY (~1998) Family History Mother Heart disease Stroke Father Diabetes Essential hypertension Heart disease Sister No problems noted. Sister No problems noted. Brother No problems noted. Grandfather No problems noted. Grandfather No problems noted. 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
--- NOTE | 2023-02-09 17:02 | PT.INDS ---
Date of service: 02/07/23 PT Notes Visit Reasons: Altered Mental Status, UTI Physical Therapy Inpatient Discharge Summary Date: 02/07/2023 Dates of service: 02/01/2023 through 02/06/2023 This is a clinical summary of care provided for the duration of dates listed above. No charge was made in the completion of this documentation. Referring Doctor:Manjinder Paez NP PT Orders: PT CONSULT: Eval/treat Precautions: Fall. Standard. Activity as tolerated. Patient Profile/Admitting Diagnosis:? Carissa is a 78-year-old female who presented to the ED on 01/28/2023 due to altered mental status and decreased responsiveness.? Patient is admitted to? for management of urinary tract infection, leukocytosis, pre-existing dementia, hypomagnesemia, conjunctivitis of the right eye, and oral thrush. PMHX: All Active Problems?(Updated 01/28/23 @ 23:04 by Duy Paul MD) Hypomagnesemia (Acute) Dementia (Chronic) Leukocytosis (Acute) Arthritis (Acute 06/16/11) Asthma (Acute 06/16/11) Atherosclerosis of [place] coronary artery (Acute) neg MPI 09/24 CABG 2001 Atrophic vaginitis (Acute 08/30/14) Colon polyp (Acute) Diabetes mellitus (Acute) Elev transaminase/LDH (Acute) Esophageal reflux (Acute) H/O esophagitia, HH Elev transaminase/LDH (Acute) Essential hypertension (Acute 05/28/13) Gastroesophageal reflux disease (Acute) H/O esophagitia, HH Hyperlipidemia (Acute) Scoliosis (Acute 04/10/14) Trochanteric bursitis of left hip (Acute 07/30/15) Tubular adenoma of colon (Acute) 05/31/14; DR. 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 Can recur Vaginal wall prolapse (Acute 08/28/12) Status post abdominal hysterectomy (Acute) Proctocele (Acute) Abdominal pain in female (Acute) Gastric polyps (Acute) Depression (Chronic) onset with cognitive decline Generalized anxiety disorder (Acute) life long anxiety worsening with cognitive decline Alzheimer's dementia (Chronic) Worsening as of omplaints of memory disturbance (Acute) Allergies (Acute) Acute non-ST elevation myocardial infarction (NSTEMI) (Acute) Left wrist pain (Acute) Fatigue (Acute) Chest pain, atypical (Acute) Gastroesophageal reflux disease (Chronic) Chronic headache (Acute) SunDown syndrome (Acute) Insomnia (Acute) Urinary tract infection (Acute) Tachycardia (Acute) Dehydration (Acute) Delirium (Acute) Pelvic pressure in female (Acute) Chest pain (Acute) Weakness (Acute) Altered mental status (Acute) Acute UTI (Acute) Hypomagnesemia (Acute) Medical History? Admission for convalescence and palliative care Surgical History? Abdominal hysterectomy (~1998) FIBROIDS ABDOMINAL WALL HERNIA REPAIR (~2002) AORTIC BYPASS BSO Cholecystectomy Colonoscopy - MAC 05/31/14EGD - MAC (~2000) Ependymoma of spinal cord H/O knee surgery History of surgical procedure History of ventral hernia repair RECTOCELE REPAIR Status post angioplasty with stent UROTOMY (~1998) Social History/Home Situation: Lives at with in a private home.? 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 For the past 2 weeks patient has needed assist of 2 for all transfers.? Had been unsafe and unable to ambulate Equipment Owned/DME: FWW Subjective: NT. See most recent NURSE EDUCATOR notes. Objective: General Observation: NT. See most recent NURSE EDUCATOR notes. Mental Status: NT. See most recent NURSE EDUCATOR notes. Pain: NT. See most recent NURSE EDUCATOR notes. Vital Signs: NT. See most recent NURSE EDUCATOR notes. ROM: Right Upper Extremity: ? Shoulder Flexion lacks the last 25% of AROM. Shoulder abduction lacks the last 25% of AROM. Elbow flexion WFL. Wrist flexion WFL. Functional opening and closing of hand WFL. Left Upper Extremity:? Shoulder Flexion lacks the last 25% of AROM. Shoulder abduction lacks the last 25% of AROM. Elbow flexion WFL. Wrist flexion WFL. Functional opening and closing of hand WFL. Right Lower Extremity: Hip flexion WFL. Hip abduction WFL. Knee flexion -10 degrees to 90 degrees. Ankle dorsiflexion to neutral only. Ankle plantarflexion WFL. Left Lower Extremity: Hip flexion lacks the last 25% of AROM. Hip abduction lacks the last 25% of AROM. Knee flexion -10 degrees to 90 degrees. Ankle dorsiflexion to neutral only. Ankle plantarflexion WFL. Strength: Right Upper Extremity: Shoulder flexors 3-/5. Shoulder abductors 3-/5. Elbow flexors 4-/5. Elbow extensors 4-/5. Geospatial Imagery Intelligence Analyst strong. Left Upper Extremity: Shoulder flexors 3-/5. Shoulder abductors 3-/5. Elbow flexors 4-/5. Elbow extensors 4-/5. Geospatial Imagery Intelligence Analyst strong. Right Lower Extremity: Hip flexors 4-/5. Hip abductors 4-/5. Knee flexors 4-/5. Knee extensors 4-/5. Ankle dorsiflexors 3-/5. Ankle plantarflexors 3-/5. Left Lower Extremity: Hip flexors 3-/5. Hip abductors 3-/5. Knee flexors 3-/5. Knee extensors 3-/5. Ankle dorsiflexors 3-/5. Ankle plantarflexors 4-/5. BED MOBILITY/TRANSFERS? Sit-stand: mod A ? Stand-sit: Min A? Bed-Chair: Mod A Chair-bed: Mod A ? Gait: Instructed patient with level surface ambulation of 6 feet requiring minimal assist of 2. Nurse Cinthya assisted for safety.? Ruma decreased. Step height decreased. Step length decreased.? Pushes posteriorly,? fearful of falling. Balance: Static Sitting: Good Dynamic Sitting: Fair Static Standing: Poor Dynamic Standing: Poor Assessment: Fearful of falling.? Requires assistance of 2 caregivers for safety for all transfers using front wheeled walker.? Patient presents with clinical signs and symptoms consistent with current/admitting diagnoses that have resulted to mobility limitations, gait instability, generalized weakness, and overall ADL decline as demonstrated by the following impairment level findings: 1.? Decreased strength to? B UE LE major muscle groups 2.? Impaired sitting/standing balance 3.? Impaired activity tolerance 4.? Limitation of joint range of motion in L hip Impairments are contributing to the following functional limitations: 1.? Decline in bed mobility skills 2.? Decline in transfer skills 3.? Difficulty with ambulation without assistive device and physical assistance 4.? Increased completion time for mobility ADL performance 5.? Increased risk for falls 6.? Difficulty with managing steps alone safely Goals: Goals X1 week 1. Supine-Sit stand by assist NOT MET 2. Sit-Supine? stand by assist NOT MET 3. Sit-Stand stand by assist NOT MET 4. Stand-Sit contact guard assist with FWW NOT MET 5. Bed-Chair contact guard assist with FWW NOT MET 6. Chair-Bed contact guard assist with FWW NOT MET 7. Minimal assist gait on level surface with use of FWW for at least 30 feet without report of pain nor dyspnea NOT MET 8. Fair static and dynamic standing balance/tolerance NOT MET DISCHARGE RECOMMENDATIONS: [] ? Home with no services [] [] ? Home with services [specify] [] ? Home with outpatient PT [] [] ? SNF for continued rehabilitation [] [] ? Assisted Care [] [X] ? SNF versus LTC based on ability to participate and progress towards goals TREATMENT CODE/TIME: [place] Thank you for the opportunity to participate in the care of this patient. Martha Baltazar PT, DPT, CLT [facility] [place], [place]
== END 2023-02-07 11:10 | disposition hospice, home (50) | DRG 690 ==
LOC: ER 22:27 → MS 22:50
PROVIDERS: Nurse Practitioner Family; Admitting Provider Family Medicine; Emergency Provider Student in an Organized Health Care Education/Training Program; PCP Nurse Practitioner Family; Visit Provider Family Medicine
DX: N39.0 Urinary tract infection, site not specified (principal); B37.0 Candidal stomatitis; Z68.1 Body mass index [BMI] 19.9 or less, adult; F05 Delirium due to known physiological condition; D72.829 Elevated white blood cell count, unspecified; E83.42 Hypomagnesemia; E11.9 Type 2 diabetes mellitus without complications; I10 Essential (primary) hypertension; K21.9 Gastro-esophageal reflux disease without esophagitis; F41.1 Generalized anxiety disorder; F32.9 Major depressive disorder, single episode, unspecified; G30.9 Alzheimer's disease, unspecified; B96.20 Unspecified Escherichia coli [E. coli] as the cause of diseases classified elsewhere; R00.0 Tachycardia, unspecified; E86.0 Dehydration; Z79.84 Long term (current) use of oral hypoglycemic drugs; M41.86 Other forms of scoliosis, lumbar region; R53.1 Weakness; F02.80 Dementia in other diseases classified elsewhere, unspecified severity, without behavioral disturbance, psychotic disturbance, mood disturbance, and anxiety; J45.909 Unspecified asthma, uncomplicated; I25.10 Atherosclerotic heart disease of native coronary artery without angina pectoris; Z95.1 Presence of aortocoronary bypass graft; R74.01 Elevation of levels of liver transaminase levels; K44.9 Diaphragmatic hernia without obstruction or gangrene; E78.5 Hyperlipidemia, unspecified; K31.7 Polyp of stomach and duodenum; I25.2 Old myocardial infarction; G47.00 Insomnia, unspecified; H10.31 Unspecified acute conjunctivitis, right eye; R63.4 Abnormal weight loss; Z66 Do not resuscitate; R26.2 Difficulty in walking, not elsewhere classified
CPT/HCPCS: 36415; 80048; 80053; 84145; 87040; 87077; 87635; 93005; 96365; 96367; 96375; 97110; 97163; 97530; 99285; J1650; 70450; 71046; 72100; 81003; 81015; 83735; 84484; 85025; 85049; 87086; 87186; 93010; 99223; 99232; 99233; 99238; J0290; J0696; J1100; J3010; J3475; J3480; J3490